=== PATIENT | male | born 1955 | race Caucasian/White ===

== ENCOUNTER 2016-12-01 11:35 | Observation (INO) | payer BC ==
[~2016-12-01] VITALS: Ht 185.4 cm; Wt 100.7 kg
[~2016-12-01 11:35] MED LIST: AMOX500C3 PO; AMOX875T PO; BUPR-102 PO; BUTA1CAP17 PO; CLON2TAB3 PO; DULO60CA44 PO; LOSA50TA6 PO; MULTTAB58 PO; TADA20TA PO
[2016-12-01] MEDS ORDERED: ONDANSETRON INJ 2 MG/ML 2 ML VIAL IV STA (11:50)
[2016-12-01] MEDS ORDERED: OPTIRAY 320 IV PRN (12:00)
[2016-12-01 12:04] LABS: BASO % 0.4 %; BASO ABS # 0.02 K/uL (0-0.2); COMPLETE YES; EOS % 4.8 %; HEMATOCRIT 42.4 % (42-52); IG% 0.2 %; LYMPH % 38.7 %; LYMPH ABS # 1.79 K/uL (1.2-3.4); MEAN CELL VOLUME 90.8 fL (80-100); MEAN CORPUSCULAR HEMOGLOBIN 32.1 pg (25-34); MEAN CORPUSCULAR HGB CONC 35.4 g/dl (32-36); MEAN PLATELET VOLUME 9.2 fL (7.4-10.4); MONO % 6.9 %; PLATELET COUNT 153 K/uL (130-400); RED BLOOD COUNT 4.67 M/uL (4.7-6.1); WHITE BLOOD COUNT 4.62 K/uL (4.8-10.8)
[2016-12-01 12:13] LABS: PARTIAL THROMBOPLASTIN RATIO 0.9; PROTHROMBIN TIME (PATIENT) 10.2 SECONDS (9.0-12.0)
[2016-12-01 12:27] LABS: BUN/CREATININE RATIO 16.2 (10-20); CALCIUM 9.4 mg/dl (8.5-10.1); CREATININE 0.84 mg/dl (0.60-1.40)
[2016-12-01 12:32] LABS: ALB/GLOB RATIO 1.3 (0.9-2); CKMB/CK RATIO 1.2 (0-3.0)
--- NOTE | 2016-12-01 12:39 | DIAGNOSTIC IMAGING REPORT ---
CHEST ONE VIEW PORTABLE CLINICAL HISTORY: Respiratory distress. Dyspnea. COMPARISON STUDY: Chest CT and chest radiograph October 28, 2016. FINDINGS: Lung volumes are normal. There is no pneumothorax or pleural effusion. Cardiac size is normal. Mediastinal contours are normal. There is no evidence of pulmonary edema. The appearance of the chest is unchanged. Incidental note is made of an anterior cervical spine fusion. IMPRESSION: No acute cardiopulmonary findings. Electronically signed by: Ronny Thomas M.D. 12/01/2016 12:37 PM
--- NOTE | 2016-12-01 12:44 | DIAGNOSTIC IMAGING REPORT ---
HEAD CT NONCONTRAST CT DOSE: 823.94 mGycm HISTORY: Altered mental status. TECHNIQUE: Multiaxial CT images of the head were performed without the use of intravenous contrast. Automated exposure control was utilized for this study. Comparison: Head CT 10/28/2016. Findings: The paranasal sinuses and mastoid air cells are clear. The calvarium and skull base are intact. The ventricles and sulci are within normal limits. There is no mass, hematoma, midline shift, or acute infarct. Impression: No acute intracranial abnormality. Electronically signed by: Avtar Malcolm M.D. 12/01/2016 12:42 PM
--- NOTE | 2016-12-01 12:55 | DIAGNOSTIC IMAGING REPORT ---
CT ANGIOGRAM OF THE CHEST CLINICAL HISTORY: Atypical chest pain. Suspected pulmonary embolism. COMPARISON STUDY: Chest CT dated 10/28/2016 TECHNIQUE: Following the IV administration of 93 mL of Optiray-320, CT angiogram of the thorax was performed from the thoracic inlet to the lung bases utilizing the pulmonary embolus protocol. Images are reviewed in the axial, sagittal, and coronal planes. IV contrast was administered without complication. MIP imaging was performed. CT DOSE: 541.09 mGycm FINDINGS: No pathologically enlarged axillary mediastinal or hilar lymph nodes were visualized. There was no evidence of thoracic aortic dilatation. There were no pulmonary artery filling defects to indicate acute pulmonary embolism. No pleural effusions are visualized. There is no lobar consolidation. There are dependent atelectatic changes. There is no pneumothorax. There is a 2 cm hypodense structure within the liver adjacent the falciform ligament. This likely represents a prominent left portal vein IMPRESSION: 1. No CT evidence of acute pulmonary embolism 2. No evidence of pathologic adenopathy 3. No evidence of focal pulmonary consolidation Electronically signed by: Tyrell Beckford M.D. 12/01/2016 12:54 PM
[2016-12-01] MEDS ORDERED: NITROGLYCERIN 0.4 MG SL PER TAB CHARGE SL STA (14:01)
[2016-12-01] MEDS ORDERED: ASPIRIN 81 MG CHEW PO STA (14:01)
--- NOTE | 2016-12-01 14:13 | EMERGENCY ROOM VISIT NOTE ---
History Report prepared by Luis: Ann Marie Burroughs Under the Supervision of: Dr. Emmett Izquierdo D.O. First contact with patient: 11:42 Chief Complaint: CHEST PAIN Stated Complaint: CHEST PAIN History of Present Illness The patient is a 61 year old male who presents to the Emergency Room with complaints of a persistent pressuring pain to his central chest over the past 2 days. Currently, he describes his pain to feel as if an elephant is sitting on his chest, and he rates his discomfort as a 5/10. Since the time of onset, the patient has felt short of breath and states that it is difficult for him to take a full breath secondary to his discomfort. Today, he also notes that has felt pain radiating down his left arm. Additionally notes nausea, and states that he feels "foggy". Patient states that he was evaluated in this ED on October 28 after he fell out of his tree stand. During his visit, he had several x-rays and scans, and was diagnosed with a concussion, left hand fracture, and multiple contusions. He denies recent cough, abdominal pain, vomiting, diarrhea, urinary symptoms or swelling to his legs.Patient states that he contacted his PCP about his symptoms today, but was then referred to the ED for further evaluation as there were concerns for a blood clot . Source of History: patient Onset: past 2 days Position: chest Symptom Intensity: 5/10 Timing: other (persistent) Associated Symptoms: + SOB, + nausea, No abdominal pain, No cough, No diarrhea, No urinary symptoms, No vomiting Note: Patient feels "foggy". Review of Systems See HPI for pertinent positives & negatives. A total of 10 systems reviewed and were otherwise negative. 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 Family History Diabetes mellitus FH: cancer Hypertension Seizures Social History Smoking Status: Current Some Day Smoker Alcohol Use: occasionally Drug Use: none Marital Status: Housing Status: lives with significant other Occupation Status: employed Current/Historical Medications Scheduled Bupropion Hcl (Smoking [place]eterre (Bupropion Hcl Sr), 150 MG PO BID Clonazepam (Klonopin), 2 MG PO HS Duloxetine Hcl (Cymbalta), 60 MG PO QAM Losartan Potassium (Cozaar), 50 MG PO QAM Multiple Vitamin (Multivitamin), 1 TAB PO QAM Tadalafil (Cialis), 20 MG PO 2XWK Scheduled PRN Vwdmxeezzi-Ihcjvtfzlfehg-Crtuz (Fioricet), 1 CAP PO Q6H PRN for Migraine Allergies Coded Allergies: Penicillins (Verified Allergy, Severe, ANAPHYLAXIS, 12/01/16) "TOLERATES AUGMENTIN/AMOXICILLIN" PER RECORDS Acetaminophen (Verified Allergy, Unknown, GENERALIZED ITCHING, 12/01/16) Sulfa Antibiotics (Unverified Allergy, Unknown, UNKNOWN REACTION, 12/01/16) PER RECORDS Physical Exam Vital Signs Date Time Temp Pulse Resp B/P Pulse Ox O2 Delivery O2 Flow Rate FiO2 12/01/16 13:38 61 16 161/103 98 Room Air 12/01/16 12:25 62 12/01/16 11:41 37.2 63 18 182/116 95 Room Air Physical Exam GENERAL: Patient is listless. Slow to respond to questioning but follows commands normally. EYES: The conjunctivae are clear. The pupils are round and reactive. EARS, NOSE, MOUTH AND THROAT: The nose is without any evidence of any deformity. Mucous membranes are moist tongue is midline NECK: The neck is nontender and supple. RESPIRATORY: Lung sounds diminished in left lung field,. Splinting respirations were noted. No rales, rhonchi or wheezing appreciated. CARDIOVASCULAR: Regular rate and rhythm noted there no murmurs rubs or gallops normal S1 normal S2 GASTROINTESTINAL: The abdomen is soft. Bowel sounds are present in all quadrants. Abdomen is nontender MUSCULOSKELETAL/EXTREMITIES: There is no evidence of gross deformity full range of motion is noted in the hips and shoulders SKIN: There is no obvious evidence of any rash. There are no petechiae, pallor or cyanosis noted. NEUROLOGIC: Patient is awake alert and oriented x3. Medical Decision & Procedures ER Provider Diagnostic Interpretation: CT results as stated below per my review and radiologist interpretation. X-ray results as stated below per interpretation by me and the radiologist. HEAD CT NONCONTRAST CT DOSE: 823.94 mGycm HISTORY: Altered mental status. TECHNIQUE: Multiaxial CT images of the head were performed without the use of intravenous contrast. Automated exposure control was utilized for this study. Comparison: Head CT 10/28/2016. Findings: The paranasal sinuses and mastoid air cells are clear. The calvarium and skull base are intact. The ventricles and sulci are within normal limits. There is no mass, hematoma, midline shift, or acute infarct. Impression: No acute intracranial abnormality. Electronically signed by: Avtar Malcolm M.D. 12/01/2016 12:[address] ANGIOGRAM OF THE CHEST CLINICAL HISTORY: Atypical chest pain. Suspected pulmonary embolism. COMPARISON STUDY: Chest CT dated 10/28/2016 TECHNIQUE: Following the IV administration of 93 mL of Optiray-320, CT angiogram of the thorax was performed from the thoracic inlet to the lung bases utilizing the pulmonary embolus protocol. Images are reviewed in the axial, sagittal, and coronal planes. IV contrast was administered without complication. MIP imaging was performed. CT DOSE: 541.09 mGycm FINDINGS: No pathologically enlarged axillary mediastinal or hilar lymph nodes were visualized. There was no evidence of thoracic aortic dilatation. There were no pulmonary artery filling defects to indicate acute pulmonary embolism. No pleural effusions are visualized. There is no lobar consolidation. There are dependent atelectatic changes. There is no pneumothorax. There is a 2 cm hypodense structure within the liver adjacent the falciform ligament. This likely represents a prominent left portal vein IMPRESSION: 1. No CT evidence of acute pulmonary embolism 2. No evidence of pathologic adenopathy 3. No evidence of focal pulmonary consolidation Electronically signed by: Tyrell Beckford M.D. 12/01/2016 12:54 PM CHEST ONE VIEW PORTABLE CLINICAL HISTORY: Respiratory distress. Dyspnea. COMPARISON STUDY: Chest CT and chest radiograph October 28, 2016. FINDINGS: Lung volumes are normal. There is no pneumothorax or pleural effusion. Cardiac size is normal. Mediastinal contours are normal. There is no evidence of pulmonary edema. The appearance of the chest is unchanged. Incidental note is made of an anterior cervical spine fusion. IMPRESSION: No acute cardiopulmonary findings. Electronically signed by: Ronny Thomas M.D. 12/01/2016 12:37 PM Laboratory Results Test 12/01/16 11:50 12/01/16 11:55 12/01/16 12:01 Immature Granulocyte % (Auto) 0.2 % White Blood Count 4.62 K/uL (4.8-10.8) Red Blood Count 4.67 M/uL (4.7-6.1) Hemoglobin 15.0 g/dL (14.0-18.0) Hematocrit 42.4 % (42-52) Mean Corpuscular Volume 90.8 fL (80-100) Mean Corpuscular Hemoglobin 32.1 pg (25-34) Mean Corpuscular Hemoglobin Concent 35.4 g/dl (32-36) Platelet Count 153 K/uL (130-400) Mean Platelet Volume 9.2 fL (7.4-10.4) Neutrophils (%) (Auto) 49.0 % Lymphocytes (%) (Auto) 38.7 % Monocytes (%) (Auto) 6.9 % Eosinophils (%) (Auto) 4.8 % Basophils (%) (Auto) 0.4 % Neutrophils # (Auto) 2.26 K/uL (1.4-6.5) Lymphocytes # (Auto) 1.79 K/uL (1.2-3.4) Monocytes # (Auto) 0.32 K/uL (0.11-0.59) Eosinophils # (Auto) 0.22 K/uL (0-0.5) Basophils # (Auto) 0.02 K/uL (0-0.2) Immature Granulocyte # (Auto) 0.01 K/uL (0.00-0.02) Prothrombin Time 10.2 SECONDS (9.0-12.0) Prothromb Time International Ratio 1.0 (0.9-1.1) Activated Partial Thromboplast Time 24.4 SECONDS (21.0-31.0) Partial Thromboplastin Ratio 0.9 D-Dimer 520 ug/L FEU (0-500) Total Bilirubin 0.4 mg/dl (0.2-1) Aspartate Amino Transf (AST/SGOT) 18 U/L (15-37) Alanine Aminotransferase (ALT/SGPT) 37 U/L (12-78) Alkaline Phosphatase 97 U/L (45-117) Total Creatine Kinase 134 U/L (39-308) Creatine Kinase MB 1.6 ng/ml (0.5-3.6) Creatine Kinase MB Ratio 1.2 (0-3.0) Total Protein 7.2 gm/dl (6.4-8.2) Albumin 4.1 gm/dl (3.4-5.0) Globulin 3.1 gm/dl (2.5-4.0) Albumin/Globulin Ratio 1.3 (0.9-2) Lyme Disease IgG Antibody NEG (NEG) Lyme Disease IgM Antibody NEG (NEG) Hepatitis C Antibody Screen NEG (NEG) Bedside Hemoglobin 15.0 g/dl (14.0-18.0) Bedside Hematocrit 44 % (42-52) Bedside Sodium 142 mEq/L (135-144) Bedside Potassium 4.1 mEq/L (3.3-5.0) Bedside Chloride 102 mEq/L (101-112) Bedside Total CO2 25 mEq/l (24-31) Bedside Blood Urea Nitrogen 15 mg/dl (7-18) Bedside Creatinine 0.8 mg/dl (0.6-1.3) Bedside Glucose (other) 101 mg/dl (70-99) Bedside Ionized Calcium (Jud) 1.30 mmol/l (1.12-1.32) Bedside Glucose 92 mg/dl (70-99) Laboratory results per my review. Medications Administered Medications (Trade) Dose Ordered Sig/Kishore Route Start Time Stop Time Status Last Admin Dose Admin Ondansetron HCl (Zofran Inj) 4 mg NOW STAT IV 12/01/16 11:50 12/01/16 11:53 DC 12/01/16 13:47 4 MG Aspirin (Aspirin Chew) 324 mg NOW STAT PO 12/01/16 14:01 12/01/16 14:02 DC 12/01/16 15:51 324 MG Nitroglycerin (Nitrostat Tab) 0.4 mg UD PRN SL 12/01/16 14:15 12/31/16 14:14 12/01/16 21:17 0.4 MG ECG Indication: chest pain Rate (beats per minute): 63 Rhythm: normal sinus Findings: RBBB (incomplete), no ectopy Change: no significant change (when compared to EKG from 10/28/16.) ED Course 1142: The patient was evaluated in room A9. A complete history and physical examination were performed. 1150: Zofran 4 mg IV was ordered. 1300: Patient was reevaluated at this time and appeared to be doing well. Lab tests are pending. 1401: I reevaluated the patient at this time and he was feeling better. I discussed the results of his radiology reports and lab tests with him. Nitroglycerin 0.4 mg SL and Aspirin 324 mg PO were ordered. The hospitalist will be contacted. 1408: After discussion with Dr. Sher, the patient will continue to be evaluated by the [facility] [place] for further management. The patient verbalize his understanding and agreement with this treatment plan. Medical Decision Differential diagnosis: Etiologies such as cardiac ischemia, aortic dissection, pulmonary embolism, pneumonia, pneumothorax, musculoskeletal, infections, pericarditis, myocarditis , esophageal rupture, gastrointestinal, as well as others were entertained. Nursing notes reviewed. The patient's previous electronic medical records reviewed. The patient is a 61-year-old male who presented to the emergency department for evaluation of chest pain. The patient was seen by his primary care physician and sent to the emergency department for a workup which included laboratory studies as well as CT the chest. He was complaining of left-sided chest pain but also had fullness under his left axilla. He did have tenderness under his left axilla but no apparent cause for this pain was found on physical exam or on CT the chest. The patient's CT the chest did not show any signs of venous thrombotic embolic disease. The patient was treated with aspirin as well as Zofran and nitroglycerin. On subsequent reevaluation he was somewhat improved. He also had some degree of altered mental status when he first arrived at the emergency department but this improved while he was in the emergency department as well. I discussed the patient's laboratory radiographic studies with him. I also discussed the limitations of the emergency department workup for chest pain with him. I discussed his case with the on-call [facility] hospitalist group. They've agreed to evaluate the patient in emergency apartment for further management and disposition. Consults Time Called: 1400 Consulting Physician: Dr. Sher - [facility] Returned Call: 1408 Discussed the patient's case. He will continue to be evaluated by the [facility] hospitalist for further management. Impression Primary Impression: Precordial chest pain Additional Impression: Altered mental status Scribe Attestation The scribe's documentation has been prepared under my direction and personally reviewed by me in its entirety. I confirm that the note above accurately reflects all work, treatment, procedures, and medical decision making performed by me. Departure Information Dispostion Being Evaluated By Hospitalist Referrals Mike Quan Jr, D.O. (PCP)
[2016-12-01] MEDS ORDERED: ONDANSETRON INJ 2 MG/ML 2 ML VIAL IV PRN (14:15)
[2016-12-01] MEDS ORDERED: METOPROLOL TARTRATE 1 MG/ML VIAL IV PRN (14:45)
[2016-12-01] MEDS ORDERED: GI COCKTAIL PO ONE (14:45)
--- NOTE | 2016-12-01 14:59 | History and Physical ---
History & Physical Date & Time of Service: Dec 01, 2016 at 14:43 Chief Complaint: Chest Pain Primary Care Physician: Mike Quan Jr,D.O. History of Present Illness Source: patient, partner This is a 61 yo m that is presenting to us with chest pain for two days. He states that he started to suffer from a 5/10 pressure like chest pain in his sternum that faintly radiates to the back. He states that it has been a rather constant pain and will occasionally become a sharp 8/10 pain. No aggravating or alleviating factors that he was able to think of. He received NTG in the ED with no improvement, It is associated with some mild nausea but no diaphoresis or syncope. He contacted his PCP and because of concern for PE the patient was sent to ED for further evaluation. He has no significant cardiac history and is a non smoker of cigarettes but will have a very occasional cigar. He has HTN that is usually well controlled. No known history of GERD He does note that he had a sensation of "fogginess" for the past two days as well. He denies any numbness/ tingling of limbs but has been having a recurring headache. He was recently in an accident on Oct 28 where he fell out of a tree stand and these headaches have occurred since. He was evaluated in ED at that time and was diagnosed with a concussion. He does reaves on a regular basis and has had tick bites but has never been tested. When discussed doxycycline he notes that he is on it chronically for acne. 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 (13) Spinal stenosis Status: Chronic (14) Superficial thrombophlebitis Status: Resolved (15) 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 Family History Diabetes mellitus FH: cancer Hypertension Seizures Social History Smoking Status: Current Some Day Smoker Smokeless Tobacco Use: No Alcohol Use: occasionally Drug Use: none Marital Status: Housing status: lives with family Occupational Status: retired Immunizations History of Influenza Vaccine: No History of Tetanus Vaccine?: YES, WITHIN LAST 6 MTHS Tetanus Immunization Date: Jan 28, 2002 History of Pneumococcal: Unknown History of Hepatitis B Vaccine: Unknown Multi-Drug Resistant Organisms History of MDRO: No Allergies Coded Allergies: Penicillins (Verified Allergy, Severe, ANAPHYLAXIS, 12/01/16) "TOLERATES AUGMENTIN/AMOXICILLIN" PER RECORDS Acetaminophen (Verified Allergy, Unknown, GENERALIZED ITCHING, 12/01/16) Sulfa Antibiotics (Unverified Allergy, Unknown, UNKNOWN REACTION, 12/01/16) PER RECORDS Home Medications Scheduled Bupropion Hcl (Smoking Deterre (Bupropion Hcl Sr), 150 MG PO BID Clonazepam (Klonopin), 2 MG PO HS Duloxetine Hcl (Cymbalta), 60 MG PO QAM Losartan Potassium (Cozaar), 50 MG PO QAM Multiple Vitamin (Multivitamin), 1 TAB PO QAM Tadalafil (Cialis), 20 MG PO 2XWK Scheduled PRN Podjvlqmgv-Qjscnjstgjpxa-Rbysg (Fioricet), 1 CAP PO Q6H PRN for Migraine Review of Systems Constitutional: No fever Eyes: No worsening of vision ENT: No hearing loss Respiratory: No cough, No dyspnea at rest, No dyspnea on exertion, No shortness of breath, No sputum, No wheezing Cardiovascular: + chest pain Abdomen: No nausea, No pain, No vomiting Musculoskeletal: No joint pain, No muscle pain Neurologic: No memory loss, No numbness/tingling Psychiatric: No depression symptoms Endocrine: No fatigue Integumentary: No rash Physical Exam Vital Signs Date Time Temp Pulse Resp B/P Pulse Ox O2 Delivery O2 Flow Rate FiO2 12/01/16 14:37 63 16 157/104 96 Room Air 12/01/16 13:38 61 16 161/103 98 Room Air 12/01/16 12:25 62 12/01/16 11:41 37.2 63 18 182/116 95 Room Air General Appearance: WD/WN, no apparent distress Head: normocephalic, atraumatic Eyes: normal inspection ENT: normal ENT inspection Neck: supple Respiratory/Chest: lungs clear, normal breath sounds, no respiratory distress, no accessory muscle use, + decreased breath sounds (bases) Cardiovascular: regular rate, rhythm, no murmur Abdomen/GI: normal bowel sounds, non tender, soft Back: normal inspection, no CVA tenderness Extremities/Musculoskelatal: normal inspection, no calf tenderness, no pedal edema, + pertinent finding (brace on left wrist) Neurologic/Psych: alert, normal mood/affect, oriented x 3 Skin: normal color, warm/dry, no rash Lymphatic: no adenopathy Diagnostics Laboratory Results Results Past 24 Hours Test 12/01/16 11:50 12/01/16 12:01 Range/Units White Blood Count 4.62 4.8-10.8 K/uL Red Blood Count 4.67 4.7-6.1 M/uL Hemoglobin 15.0 14.0-18.0 g/dL Hematocrit 42.4 42-52 % Mean Corpuscular Volume 90.8 80-100 fL Mean Corpuscular Hemoglobin 32.1 25-34 pg Mean Corpuscular Hemoglobin Concent 35.4 32-36 g/dl Platelet Count 153 130-400 K/uL Mean Platelet Volume 9.2 7.4-10.4 fL Neutrophils (%) (Auto) 49.0 % Lymphocytes (%) (Auto) 38.7 % Monocytes (%) (Auto) 6.9 % Eosinophils (%) (Auto) 4.8 % Basophils (%) (Auto) 0.4 % Neutrophils # (Auto) 2.26 1.4-6.5 K/uL Lymphocytes # (Auto) 1.79 1.2-3.4 K/uL Monocytes # (Auto) 0.32 0.11-0.59 K/uL Eosinophils # (Auto) 0.22 0-0.5 K/uL Basophils # (Auto) 0.02 0-0.2 K/uL RDW Standard Deviation 43.6 36.4-46.3 fL RDW Coefficient of Variation 13.3 11.5-14.5 % Immature Granulocyte % (Auto) 0.2 % Immature Granulocyte # (Auto) 0.01 0.00-0.02 K/uL Prothrombin Time 10.2 9.0-12.0 SECONDS Prothromb Time International Ratio 1.0 0.9-1.1 Activated Partial Thromboplast Time 24.4 21.0-31.0 SECONDS Partial Thromboplastin Ratio 0.9 D-Dimer 520 0-500 ug/L FEU Sodium Level 141 136-145 mmol/L Potassium Level 4.0 3.5-5.1 mmol/L Chloride Level 106 98-107 mmol/L Carbon Dioxide Level 27 21-32 mmol/L Anion Gap 8.0 3-11 mmol/L Blood Urea Nitrogen 14 7-18 mg/dl Creatinine 0.84 0.60-1.40 mg/dl Est Creatinine Clear Calc Drug Dose 114.5 ml/min Estimated GFR () 108.0 Estimated GFR (Non- 93.2 BUN/Creatinine Ratio 16.2 10-20 Random Glucose 97 70-99 mg/dl Calcium Level 9.4 8.5-10.1 mg/dl Total Bilirubin 0.4 0.2-1 mg/dl Aspartate Amino Transf (AST/SGOT) 18 15-37 U/L Alanine Aminotransferase (ALT/SGPT) 37 12-78 U/L Alkaline Phosphatase 97 45-117 U/L Total Creatine Kinase 134 39-308 U/L Creatine Kinase MB 1.6 0.5-3.6 ng/ml Creatine Kinase MB Ratio 1.2 0-3.0 Troponin I < 0.015 0-0.045 ng/ml Total Protein 7.2 6.4-8.2 gm/dl Albumin 4.1 3.4-5.0 gm/dl Globulin 3.1 2.5-4.0 gm/dl Albumin/Globulin Ratio 1.3 0.9-2 Bedside Glucose 92 70-99 mg/dl Diagnostic Radiology CT ANGIOGRAM OF THE CHEST CLINICAL HISTORY: Atypical chest pain. Suspected pulmonary embolism. COMPARISON STUDY: Chest CT dated 10/28/2016 TECHNIQUE: Following the IV administration of 93 mL of Optiray-320, CT angiogram of the thorax was performed from the thoracic inlet to the lung bases utilizing the pulmonary embolus protocol. Images are reviewed in the axial, sagittal, and coronal planes. IV contrast was administered without complication. MIP imaging was performed. CT DOSE: 541.09 mGycm FINDINGS: No pathologically enlarged axillary mediastinal or hilar lymph nodes were visualized. There was no evidence of thoracic aortic dilatation. There were no pulmonary artery filling defects to indicate acute pulmonary embolism. No pleural effusions are visualized. There is no lobar consolidation. There are dependent atelectatic changes. There is no pneumothorax. There is a 2 cm hypodense structure within the liver adjacent the falciform ligament. This likely represents a prominent left portal vein IMPRESSION: 1. No CT evidence of acute pulmonary embolism 2. No evidence of pathologic adenopathy 3. No evidence of focal pulmonary consolidation CHEST ONE VIEW PORTABLE CLINICAL HISTORY: Respiratory distress. Dyspnea. COMPARISON STUDY: Chest CT and chest radiograph October 28, 2016. FINDINGS: Lung volumes are normal. There is no pneumothorax or pleural effusion. Cardiac size is normal. Mediastinal contours are normal. There is no evidence of pulmonary edema. The appearance of the chest is unchanged. Incidental note is made of an anterior cervical spine fusion. IMPRESSION: No acute cardiopulmonary findings. HEAD CT NONCONTRAST CT DOSE: 823.94 mGycm HISTORY: Altered mental status. TECHNIQUE: Multiaxial CT images of the head were performed without the use of intravenous contrast. Automated exposure control was utilized for this study. Comparison: Head CT 10/28/2016. Findings: The paranasal sinuses and mastoid air cells are clear. The calvarium and skull base are intact. The ventricles and sulci are within normal limits. There is no mass, hematoma, midline shift, or acute infarct. Impression: No acute intracranial abnormality. EKG NSR, no ectopic best or ischemic changes bpm 63 qtc 425 Impression Assessment and Plan This is a 61 yo m that is suffering from chest pain of an unknown origin. There is some concern that this chest pain may be cardiac in origin so the patient will be admitted for chest pain r/o Chest pain NYD - potential cardiac origin - Tele admission - Troponin x 3 - Stress test in am and NPO after midnight- states can use treadmil - ASA 324 given in ED - Lyme testing considering his frequent tick bites however unlikely considering chronic use of doxy - Trial a GI cocktail to see if it improves the patient pain - Previous echo: - april 2012 - EF 55-60%, LA mild dil, otherwise WNL HTN - continue home medication - metoprolol 5 mg for sys > 180 - consider manipulation of home medication is continues to remain elevated however based on patient on his current regimen he is normally 120-130 systolic Concussion - most likely cause of ongoing "fogginess" - reorient patient prn Depression/ Anxiety - continue home medication DVT Prophylaxis - enoxaparin FULL CODE Hyun - [phone] Resident Physician Supervision Note: I interviewed and examined the patient. Discussed with Dr. Brie Brunson and agree with findings and plan as documented in the note. Any exceptions or clarifications are listed here: None Pt with atypical chest pain and shortness of breath for 2 days, did unfortunately have a fall one month ago with musculoskeletal body aches and concussion also. States pain started at rest along with shortness of breath, notices some exercise intolerance. had some lightedness in triage but has had intermittently since fall. no additional symptoms and initial workup is negative vitals are stable as well as labs CTA and ECG car is regular, cannot reproduce pain lungs are clear has painful left axilla that seems to be a deep muscle Will have observed to eval rhythm and if no significant issues complete stress in am Documented By: Satnam Sher Level of Care Telemetry Resuscitation Status FULL RESUSCITATION VTE Prophylaxis VTE Risk Assessment Done? Y/N: Yes Risk Level: Moderate Given or contraindicated: Enoxaparin (Lovenox)SQ Social Service Consult None Apply Note Total Time: Critical Care 30 - 74 minutes Additional Copies To Mike Quan Jr,D.O.
[2016-12-01] MEDS ORDERED: IV FLUIDS COMPLETED PRN (15:30)
[2016-12-01] MEDS ORDERED: ALUMINUM PO ONE ×2 (16:00)
[2016-12-01] MEDS ORDERED: [UNRECOGNIZED DRUG - OTHER] PO ONE ×2 (16:00)
[2016-12-01] MEDS ORDERED: VISCOUS PO ONE ×2 (16:00)
[2016-12-01] MEDS ORDERED: LIDOCAINE HCL PO ONE ×2 (16:00)
[2016-12-01] MEDS ORDERED: MAGNESIUM PO ONE ×2 (16:00)
[2016-12-01 16:18] LABS: ISTAT CREATININE 0.8 mg/dl (0.6-1.3); ISTAT IONIZED CALCIUM 1.3 mmol/l (1.12-1.32)
[2016-12-01 16:32] LABS: LYME DISEASE AB IGG NEG (NEG); LYME DISEASE AB IGM NEG (NEG)
[2016-12-01 16:36] VITALS: O2SAT 96; Ht 185.4 cm; Wt 100.7 kg
[2016-12-01] MEDS ORDERED: ALUMINUM/MAGNESIUM SUSP 30 ML UDC ONE (16:50)
[2016-12-01] MEDS ORDERED: LIDOCAINE HCL 2% VISC SOLN 20 ML UDC ONE (16:51)
[2016-12-01] MEDS: NITROGLYCERIN 0.4 MG SL PER TAB CHARGE SL PRN ×3 (20:33→21:17)
[2016-12-01] MEDS ORDERED: CLONAZEPAM 0.5 MG TAB PO SCH (21:00)
[2016-12-01] MEDS: DOXYCYCLINE HYCLATE 100 MG CAP PO SCH (21:10)
[2016-12-01] MEDS: BuPROPion SR 150 MG TABCR PO SCH (21:10)
[2016-12-01 21:25] VITALS: BP 124/77; PULSE 56; TEMP 37.1; O2SAT 97
[2016-12-01 22:10] VITALS: O2SAT 96
[2016-12-01] MEDS ORDERED: MoRPHine SULFATE 2 MG/ML CARP IV PRN (22:30)
[2016-12-01 23:51] VITALS: BP 123/75; PULSE 54; TEMP 36.5; O2SAT 96
[2016-12-02 03:48] VITALS: BP 120/76; PULSE 53; TEMP 36.7; O2SAT 96
[2016-12-02 04:43] LABS: HEMATOCRIT 40.2 % (42-52); MEAN CELL VOLUME 91.2 fL (80-100); MEAN CORPUSCULAR HEMOGLOBIN 31.7 pg (25-34); MEAN CORPUSCULAR HGB CONC 34.8 g/dl (32-36); PLATELET COUNT 142 K/uL (130-400); RED BLOOD COUNT 4.41 M/uL (4.7-6.1); WHITE BLOOD COUNT 3.91 K/uL (4.8-10.8)
[2016-12-02 05:01] LABS: BLOOD UREA NITROGEN 14 mg/dl (7-18); BUN/CREATININE RATIO 18.1 (10-20); CARBON DIOXIDE 29 mmol/L (21-32); CHLORIDE 107 mmol/L (98-107); CREATININE 0.79 mg/dl (0.60-1.40); GLUCOSE 95 mg/dl (70-99); SODIUM 143 mmol/L (136-145)
[2016-12-02 08:14] VITALS: BP 133/81; PULSE 58; TEMP 36.7; O2SAT 97
[2016-12-02] MEDS: BuPROPion SR 150 MG TABCR PO SCH (08:54)
[2016-12-02] MEDS: DOXYCYCLINE HYCLATE 100 MG CAP PO SCH (08:54)
[2016-12-02] MEDS ORDERED: LOSARTAN POTASSIUM 50 MG TAB PO SCH (09:00)
[2016-12-02] MEDS ORDERED: MULTIVITAMIN TAB PO SCH (09:00)
[2016-12-02] MEDS ORDERED: DULOXETINE HCL 60 MG CAP PO SCH (09:00)
[2016-12-02] MEDS ORDERED: ENOXAPARIN 40 MG/0.4 ML SYR SC SCH (09:00)
[2016-12-02 11:07] VITALS: BP 144/89; PULSE 57; TEMP 36.7; O2SAT 98
[2016-12-02 15:53] VITALS: BP 137/79; PULSE 64; TEMP 37.5; O2SAT 96
--- NOTE | 2016-12-02 16:46 | EXERCISE STRESS ECHO ---
*NOTICE TO RECEIVING CONSTITUTION PARTY AGENCY This information is strictly Confidential and protected under [place] law. [place] law prohibits you from making any further disclosure of this information unless further disclosure is expressly permitted by the written consent of the person to whom it pertains or is authorized by law. A general authorization for the release of medical or other information is not sufficient for this purpose. Hospital accepts no responsibility if the information is made available to any other person, INCLUDING THE PATIENT. Interpretation Summary * Name: COBY TORRES Study Date: 12/02/2016 11:05 AM BP: 146/85 mmHg * Patient Location: S234 HR: 57 * : 1955 (M/d/yyyy) Gender: Male Height: 73 in * Age: 61 yrs Ethnicity: [place] Weight: 231 lb * Ordering Physician: Brie Lim * Referring Physician: Mike Quan D.O. * Performed By: Catrachito Manrique RCS * * Reason For Study: CHEST PAIN * BSA: 2.3 m2 * -- Conclusions -- * 1. Negative exercise stress echo for ischemia at 92% MPHR. * 2. Negative exercise ECG for ischemia or arrhythmia. * 3. Above average functional capacity. Exercised 9:00 min, achieved 10.4 METS. * 4. Normal resting LV size and function. Normal RV size and function. No significant valvular abnormalities. * 5. Compared with prior resting images from 05/03/2012: No significant change. Procedure Details * ECHOEX, CPT #[id number] * ECHO COLOR FLOW, CPT #[id number] * ECHO DOPPLER, CPT #[id number] Left Ventricle * The left ventricle is grossly normal size. * There is borderline concentric left ventricular hypertrophy. * Ejection Fraction = 60-65%. * The left ventricular wall motion is normal at rest. * The left ventricular ejection fraction increases normally with stress. The left ventricular end-systolic cavity size reduces post-stress (normal response). The left ventricular wall motion with stress is normal. Right Ventricle * The right ventricle is grossly normal size. * The right ventricular systolic function is normal as assessed by tricuspid annular plane systolic excursion (TAPSE) (normal >1.5 cm). Atria * The left atrial size is normal. * Right atrial size is normal. * No ASD detected; PFO is not assessed. Mitral Valve * The mitral valve is grossly normal. * The mitral valve leaflets appear thickened, but open well. * There is no mitral valve stenosis. * There is trace mitral regurgitation. Tricuspid Valve * The tricuspid valve is not well visualized, but is grossly normal. * There is no tricuspid stenosis. * Significant tricuspid regurgitation is absent. Aortic Valve * The aortic valve opens well. * The aortic valve is tricuspid. The leaflet thickness if normal. There is no aortic stenosis, and no significant insufficiency. * No hemodynamically significant valvular aortic stenosis. * There is no significant aortic regurgitation. Pulmonic Valve * The pulmonic valve is not well visualized. * Trace pulmonic valvular regurgitation. Great Vessels * The aortic root and proximal ascending aorta are normal sized. Pericardium * There is no pericardial effusion. Stress Parameters * Normal baseline electrocardiogram. * Incomplete RBBB * Stress ECG: No ST changes. No arrhythmias. * No arrhythmia were noted with stress. * Rest heart rate was '57' BPM. * Rest blood pressure was '146/85' * Maximum heart rate achieved was 146 bpm. * Maximum heart rate was 92 % of maximum age-predicted heart rate. * Maximum blood pressure was '194/93' * Total exercise time was '9:00' * Maximum exercise MET level achieved was '10.4' METS * Maximum treadmill speed was '304' miles per hour. * Maximum treadmill elevation was '14'% grade. * Exercise was terminated due to 'fatigue' * The patient exhibited a hypertensive response with stress. MMode 2D Measurements and Calculations IVSd 1.1 cm IVSs 1.4 cm LVIDd 5.0 cm LVIDs 3.3 cm LVPWd 1.0 cm LVPWs 1.4 cm IVS/LVPW 1.1 FS 33.7 % EDV(Teich) 120.0 ml ESV(Teich) 45.3 ml EF(Teich) 62.2 % EDV(cubed) 127.4 ml ESV(cubed) 37.2 ml EF(cubed) 70.8 % % IVS thick 21.8 % % LVPW thick 33.0 % LV mass(C)d 203.8 grams LV mass(C)dI 89.1 grams/m\S\2 LV mass(C)s 156.9 grams LV mass(C)sI 68.6 grams/m\S\2 CO(Teich) 4.3 l/min CI(Teich) 1.9 l/min/m\S\2 SV(Teich) 74.6 ml SI(Teich) 32.6 ml/m\S\2 CO(cubed) 5.2 l/min CI(cubed) 2.3 l/min/m\S\2 SV(cubed) 90.2 ml SI(cubed) 39.4 ml/m\S\2 Ao root diam 3.5 cm Ao root area 9.8 cm\S\2 ACS 1.9 cm LA dimension 4.0 cm LA/Ao 1.1 LVAd ap4 39.3 cm\S\2 LVLd ap4 9.6 cm EDV(MOD-sp4) 132.0 ml LVAs ap4 19.0 cm\S\2 LVLs ap4 7.5 cm ESV(MOD-sp4) 42.0 ml EF(MOD-sp4) 68.2 % LVAd ap2 35.9 cm\S\2 LVLd ap2 9.3 cm EDV(MOD-sp2) 118.0 ml LVAs ap2 18.4 cm\S\2 LVLs ap2 8.1 cm ESV(MOD-sp2) 36.0 ml EF(MOD-sp2) 69.5 % CO(MOD-sp4) 5.2 l/min CI(MOD-sp4) 2.3 l/min/m\S\2 SV(MOD-sp4) 90.0 ml SI(MOD-sp4) 39.3 ml/m\S\2 CO(MOD-sp2) 4.8 l/min CI(MOD-sp2) 2.1 l/min/m\S\2 SV(MOD-sp2) 82.0 ml SI(MOD-sp2) 35.8 ml/m\S\2 Doppler Measurements and Calculations MV E max mickey 49.4 cm/sec MV A max mickey 83.9 cm/sec MV E/A 0.59 MV P1/2t max mickey 55.0 cm/sec MV P1/2t 144.0 msec MVA(P1/2t) 1.5 cm\S\2 MV dec slope 111.9 cm/sec\S\2 MV dec time 0.40 sec Ao V2 max 115.5 cm/sec Ao max PG 5.3 mmHg Ao max PG (full) 1.2 mmHg LV V1 max PG 4.1 mmHg LV V1 max 101.5 cm/sec PA V2 max 74.7 cm/sec PA max PG 2.2 mmHg PI max mickey 184.6 cm/sec PI max PG 13.6 mmHg PI dec slope 144.6 cm/sec\S\2 PI P1/2t 374.0 msec
[2016-12-02] MEDS ORDERED: PANT40TA PO (17:02)
--- NOTE | 2016-12-02 17:22 | Discharge Instructions ---
Discharge Instructions Admission Reason for Admission: Chest Pain Discharge Discharge Diagnosis / Problem: Chest [id number] Discharge Goals Goal(s): Improve disease control, Therapeutic intervention Activity Recommendations Activity Limitations: as noted below Exercise/Sports Limitations: gradually increase as tolerated (except with your concussion you should be seen by a concussion specialist or Neurologist and referred to a Concussion Rehab program) . Instructions / Follow-Up Instructions / Follow-Up You were admitted for chest pain. Your cardiac testing showed you did not have a heart attack and you had a normal stress test. You had a CT of your chest which was negative for a blood clot in the lungs, and did not show any other abnormalities in the chest. Because you have been taking Aleve for your hand and armpit pain, this chest pain may be related to irritation of the stomach and esophagus. You should avoid taking all NSAIDs (Aleve, ibuprofen, naproxen, Motrin, etc.), and also stop taking your doxycycline temporarily. You should start taking Protonix once daily and call Dr. Fitzpatrick/GI for an appointment. You should also follow up with Dr. Quan within 1 week. Current Hospital Diet Patient's current hospital diet: AHA Diet (Heart Healthy) Discharge Diet Recommended Diet: AHA Diet (Heart Healthy) Procedures Procedures Performed: CT head CT angiogram chest Chest xray Stress ECHO Pending Studies Studies pending at discharge: no Medical Emergencies . Who to Call and When: Medical Emergencies: If at any time you feel your situation is an emergency, please call 911 immediately. . Non-Emergent Contact Non-Emergency issues call your: Primary Care Provider, Weatherization Specialist Call Non-Emergent contact if: temperature is above 101, your pain is not controlled, your pain is worsening, your pain is unusual for you, your pain is concerning you, you have any medication questions . . "Provider Documentation" section prepared by Cindy Black. VTE Core Measure Inpt VTE Proph given/why not?: Enoxaparin (Lovenox)SQ
[2016-12-02 17:56] VITALS: BP 137/79; PULSE 64; TEMP 37.5; O2SAT 96
[2016-12-02] MEDS ORDERED: FAMOTIDINE IV INJ 20 MG in DEXTROSE 5% 100ML 100 ML IV SCH (18:00)
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
[2017-07-20] MEDS ORDERED: IBUP-1459 PO (13:24)
[2017-07-29] MEDS ORDERED: DOXY100T PO (11:27)
[2017-07-29] MEDS ORDERED: CIPR-255 PO (11:27)
[2017-08-05] MEDS ORDERED: RXC5 PO (14:53)
== END 2016-12-02 18:45 | disposition home or self-care (01) ==
LOC: ENRESERVDT → ENRESERVTM → C.EDB 11:37 → C.EDINP 14:15 → EDBEDREQ 16:16 → C.2T 21:31
PROVIDERS: ADMIT Internal Medicine; ATTEND Family Medicine
DX: R07.89 Other chest pain (principal); R41.82 Altered mental status, unspecified; F32.9 Major depressive disorder, single episode, unspecified; I10 Essential (primary) hypertension; M54.12 Radiculopathy, cervical region; F17.200 Nicotine dependence, unspecified, uncomplicated; D80.4 Selective deficiency of immunoglobulin M [IgM]; Z88.0 Allergy status to penicillin; Z88.2 Allergy status to sulfonamides; Z85.46 Personal history of malignant neoplasm of prostate; Z86.72 Personal history of thrombophlebitis; Z86.718 Personal history of other venous thrombosis and embolism; Z83.3 Family history of diabetes mellitus; Z82.49 Family history of ischemic heart disease and other diseases of the circulatory system

== ENCOUNTER → 2016-12-17 | Outpatient (CLI) | payer BC ==
[~2016-12-17] MED LIST changes: -AMOX500C3 PO; -AMOX875T PO; +CIPR-255 PO; +DOXY100T PO; +IBUP-1459 PO; +ONDA4TAB10 SL; +PANT40TA PO; +RXC5 PO
--- NOTE | 2016-12-17 12:16 | DIAGNOSTIC IMAGING REPORT ---
ULTRASOUND LEFT UPPER EXTREMITY VENOUS CLINICAL HISTORY: Left arm pain. COMPARISON STUDY: CT scan of the left upper extremity dated 11/10/2016. Left upper extremity venous ultrasound dated 11/10/2016. TECHNIQUE: Real-time, grayscale, and color Doppler sonography of the deep veins of the left upper extremity is performed. Compression and augmentation were utilized. FINDINGS: There is no sonographic evidence of deep venous thrombosis identified in the left upper extremity. The left internal jugular, axillary, and brachial veins are patent and normally compressible. Normal venous waveforms and augmentation are seen within the left subclavian vein. The cephalic and basilic veins are clear. The visualized radial and ulnar veins are patent. IMPRESSION: There is no sonographic evidence of deep venous thrombosis identified in the left upper extremity. Electronically signed by: Lonnie Landon M.D. 12/17/2016 12:14 PM Dictated Date/Time: 12/17/2016 12:13 PM
== END | disposition home or self-care (01) ==
LOC: C.ULTRBC 11:34
DX: M79.602 Pain in left arm (principal); Z86.718 Personal history of other venous thrombosis and embolism

== ENCOUNTER → 2017-02-25 | Outpatient (CLI) | payer BC ==
[~2017-02-25] MED LIST changes: -PANT40TA PO
--- NOTE | 2017-02-25 16:33 | DIAGNOSTIC IMAGING REPORT ---
MRI THE LEFT ELBOW NO CONTRAST CLINICAL HISTORY: Left elbow pain status post trauma COMPARISON STUDY: No previous studies for comparison. FINDINGS: Imaging was performed in the axial, sagittal, and coronal planes. There are no areas of marrow replacement to indicate occult fracture or bone bruise. There is no evidence of subluxation. There are no areas of muscle edema to indicate intramuscular tear or hematoma. The collateral ligaments appear intact. There is minimal edema within the common extensor, and common flexor tendon insertions. There is a 4 mm focus of increased T2 signal within the subcutaneous fat laterally. While nonspecific given history of trauma this may represent a tiny focus of fat necrosis. IMPRESSION: 1. No evidence of occult fracture or dislocation 2. No evidence of collateral ligament rupture 3. No evidence of muscle tear or strain 4. 4 mm focus of increased T2 signal within the subcutaneous fat laterally. While nonspecific, given the history of trauma this may represent a tiny focus of fat necrosis 5. Minimal edema within the common extensor and common flexor tendon insertions. This may be a chronic finding. Electronically signed by: Tyrell Beckford M.D. 02/25/2017 4:31 PM Dictated Date/Time: 02/25/2017 4:24 PM
== END | disposition home or self-care (01) ==
LOC: C.MRIBC 15:17
PROVIDERS: ATTEND Orthopaedic Surgery
DX: M25.522 Pain in left elbow (principal); R22.32 Localized swelling, mass and lump, left upper limb

== ENCOUNTER 2017-04-19 10:24 | Emergency (ER) | payer BC ==
[~2017-04-19] VITALS: Ht 185.4 cm; Wt 108.0 kg
[~2017-04-19 10:24] MED LIST changes: -CIPR-255 PO; -DOXY100T PO; -IBUP-1459 PO; -ONDA4TAB10 SL; -RXC5 PO
[2017-04-19 10:35] VITALS: O2SAT 95
[2017-04-19 10:36] VITALS: TEMP 37; Ht 185.4 cm; Wt 108.0 kg
[2017-04-19] MEDS ORDERED: MoRPHine SULFATE 10 MG/ML CARP/VIAL IV STA (10:46)
[2017-04-19] MEDS ORDERED: ONDANSETRON INJ 2 MG/ML 2 ML VIAL IV STA (10:46)
[2017-04-19 10:59] LABS: BASO % 0.5 %; BASO ABS # 0.02 K/uL (0-0.2); COMPLETE YES; EOS % 2.6 %; HEMATOCRIT 41.6 % (42-52); IG% 0.2 %; LYMPH % 35.2 %; LYMPH ABS # 1.51 K/uL (1.2-3.4); MEAN CELL VOLUME 94.1 fL (80-100); MEAN CORPUSCULAR HEMOGLOBIN 32.4 pg (25-34); MEAN CORPUSCULAR HGB CONC 34.4 g/dl (32-36); MONO % 6.5 %; PLATELET COUNT 178 K/uL (130-400); RED BLOOD COUNT 4.42 M/uL (4.7-6.1); WHITE BLOOD COUNT 4.29 K/uL (4.8-10.8)
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
[2017-04-19 11:21] LABS: ALT/SGPT 36 U/L (12-78); AST/SGOT 21 U/L (15-37); BLOOD UREA NITROGEN 16 mg/dl (7-18); BUN/CREATININE RATIO 14.4 (10-20); CALCIUM 8.8 mg/dl (8.5-10.1); CARBON DIOXIDE 27 mmol/L (21-32); CHLORIDE 111 mmol/L (98-107); GLUCOSE 104 mg/dl (70-99); POTASSIUM 4.4 mmol/L (3.5-5.1); SODIUM 143 mmol/L (136-145)
[2017-04-19 11:26] LABS: ALKALINE PHOSPHATASE 76 U/L (45-117)
--- NOTE | 2017-04-19 11:27 | DIAGNOSTIC IMAGING REPORT ---
CHEST 2 VIEWS ROUTINE CLINICAL HISTORY: Chest pain. Vomiting. COMPARISON STUDY: Chest radiograph and chest CT December 01, 2016. FINDINGS: An anterior cervical spine fusion is incidentally noted. Lung volumes are normal. There is no pneumothorax or pleural effusion. There is no consolidation to suggest pneumonia. Cardiomediastinal silhouette is within normal limits. IMPRESSION: No acute cardiopulmonary findings. Electronically signed by: Ronny Thomas M.D. 04/19/2017 11:26 AM Dictated Date/Time: 04/19/2017 11:23 AM
[2017-04-19] MEDS ORDERED: HYDROmorphone INJ 1 MG/ML SYR IV STA (11:51)
[2017-04-19] MEDS ORDERED: PROMETHAZINE HCL INJ 25 MG in SODIUM CHLORIDE 0.9% 50ML 50 ML IV STA (13:00)
[2017-04-19] MEDS ORDERED: ONDA4TAB10 SL (13:03)
[2017-04-19 14:01] VITALS: BP 154/98; PULSE 66; O2SAT 99
--- NOTE | 2017-05-07 16:27 | EMERGENCY ROOM VISIT NOTE ---
ED Visit Note First contact with patient: 10:28 Resident Physician Supervision Note: I interviewed and examined the patient. Discussed with Dr. Campos and agree with findings and plan as documented in the note. Documented By: Aravind Orta
[2017-07-20] MEDS ORDERED: IBUP-1459 PO (13:24)
[2017-07-29] MEDS ORDERED: DOXY100T PO (11:27)
[2017-07-29] MEDS ORDERED: CIPR-255 PO (11:27)
[2017-08-05] MEDS ORDERED: RXC5 PO (14:53)
== END 2017-04-19 14:08 | disposition home or self-care (01) ==
LOC: C.EDB 10:27 → C.EDC 14:08
DX: R07.89 Other chest pain (principal); I10 Essential (primary) hypertension; F32.9 Major depressive disorder, single episode, unspecified; M54.12 Radiculopathy, cervical region; M48.00 Spinal stenosis, site unspecified; Z85.46 Personal history of malignant neoplasm of prostate; Z86.718 Personal history of other venous thrombosis and embolism; Z79.899 Other long term (current) drug therapy; Z88.0 Allergy status to penicillin; Z88.2 Allergy status to sulfonamides; Z88.6 Allergy status to analgesic agent; Z83.3 Family history of diabetes mellitus; Z80.9 Family history of malignant neoplasm, unspecified; Z82.49 Family history of ischemic heart disease and other diseases of the circulatory system; Z82.0 Family history of epilepsy and other diseases of the nervous system

== ENCOUNTER → 2017-05-18 | Outpatient (CLI) | payer BC ==
[~2017-05-18] MED LIST changes: +CIPR-255 PO; +DOXY100T PO; +GADAVIST IV PRN; +IBUP-1459 PO; +ONDA4TAB10 SL; +RXC5 PO
--- NOTE | 2017-05-18 10:07 | DIAGNOSTIC IMAGING REPORT ---
MRI OF THE CERVICAL SPINE COMBO CLINICAL HISTORY: Neck pain. Post concussion syndrome. COMPARISON STUDY: CT scan of the cervical spine dated 05/24/2016. MRI of the cervical spine dated 08/28/2015. TECHNIQUE: MRI of the cervical spine is performed utilizing various T1 and T2-weighted sequences in the axial and sagittal planes. Contrast-enhanced sequences were acquired following the IV administration of 10.2 cc of Gadavist. FINDINGS: Cervical spine: Vertebral body height and alignment are maintained throughout the cervical spine. There is straightening of the cervical lordosis. The atlantodental articulation appears maintained. The spinous processes are intact. There are postoperative changes from anterior spinal fusion seen from C5 to C7. No destructive bony lesion is identified. Intervertebral discs: There is evidence of discectomy at C5-C6 and C6-C7 with near complete bony incorporation at these levels. Disc desiccation is seen at the remaining levels. Only mild loss of height is noted at C3-C4. Spinal cord: The cervical spinal cord is normal in morphology and signal intensity. No abnormal enhancement is seen on the postcontrast images. C2-C3: Unremarkable. C3-C4: A posterior disc osteophyte complex effaces the ventral subarachnoid space. Uncovertebral and facet arthropathy causes moderate bilateral neural foraminal stenosis, right greater than left. C4-C5: A posterior disc osteophyte complex abuts the ventral cord. Uncovertebral and facet arthropathy cause mild left neural foraminal stenosis. C5-C6: The central canal and neural foramina appear patent. A 5 mm nerve sheath cyst is incidentally noted within the right neural foramen. This is unchanged from 2015. C6-C7: The central canal and neural foramina appear patent. C7-T1: Facet arthropathy causes mild right neural foraminal stenosis. The central canal is clear. Soft tissues: The prevertebral and paraspinous soft tissues are within normal limits. Brain parenchyma: Partially visualized brain parenchyma at the skull base is normal as imaged. IMPRESSION: 1. No acute abnormality is identified. The cervical spinal cord is normal in morphology and signal intensity. 2. There are postoperative changes from anterior fusion seen from C5 to C7. There is near complete bony incorporation at these levels. 3. Mild spondylotic change as above. See discussion for detailed level by level analysis. Dictated: 05/18/2017 8:57 AM Transcribed: 05/18/2017 10:07 AM Suzanna Electronically signed by: Lnonie Landon M.D. 05/18/2017 10:12 AM Dictated Date/Time: 05/18/2017 8:57 AM
== END | disposition home or self-care (01) ==
LOC: C.MRIBC 07:46
PROVIDERS: ATTEND Psychiatry & Neurology Neurology
DX: F07.81 Postconcussional syndrome (principal); M54.12 Radiculopathy, cervical region

== ENCOUNTER → 2017-05-27 | Outpatient (CLI) | payer BC ==
[~2017-05-27] MED LIST changes: -GADAVIST IV PRN
== END | disposition home or self-care (01) ==
LOC: C.LAB 12:33
PROVIDERS: ATTEND Urology
DX: N50.819 Testicular pain, unspecified (principal); N40.1 Benign prostatic hyperplasia with lower urinary tract symptoms; C61 Malignant neoplasm of prostate

== ENCOUNTER → 2017-06-28 | Outpatient (CLI) | payer BC ==
--- NOTE | 2017-06-28 14:27 | DIAGNOSTIC IMAGING REPORT ---
CT LEFT WRIST AND HAND CT DOSE: 284.89 mGy.cm CLINICAL HISTORY: Left wrist pain. Left fifth finger fracture. TECHNIQUE: Helical images were acquired in the parasagittal plane. Multiplanar reformatted images were acquired. A dose lowering technique was utilized adhering to the principles of ALARA. COMPARISON STUDY: 11/10/2016 FINDINGS: There is irregularity involving the base of the fifth metacarpal, consistent with a healed intraarticular fracture. No additional fractures are visualized. There is a small subcortical cysts/erosions involving the ulna, and ulnar aspect of the lunate. There are mild osteoarthritic changes involving the first carpal metacarpal joint with a tiny subcortical cyst involving the trapezium. IMPRESSION: 1. Healed fracture involving the base the fifth metacarpal 2. Minor arthritic changes as described above 3. No acute fractures Electronically signed by: Tyrell Beckford M.D. 06/28/2017 2:25 PM Dictated Date/Time: 06/28/2017 2:18 PM
== END | disposition home or self-care (01) ==
LOC: C.CTS 13:57
PROVIDERS: ATTEND Orthopaedic Surgery Hand Surgery
DX: S62.347A Nondisplaced fracture of base of fifth metacarpal bone, left hand, initial encounter for closed fracture (principal); X58.XXXA Exposure to other specified factors, initial encounter

== ENCOUNTER → 2017-07-12 | Outpatient (CLI) | payer BC ==
--- NOTE | 2017-07-12 15:31 | DIAGNOSTIC IMAGING REPORT ---
VENOUS DOPP LOWER EXT UNILAT CLINICAL HISTORY: 62 years-old Male presenting with LEFT LEG, SWELLING, POSITIVE D-DIMER. TECHNIQUE: Real-time grayscale and color and spectral Doppler ultrasound imaging of the veins of the left lower extremity was performed. Compression and augmentation were also utilized. COMPARISON: 02/28/2010. FINDINGS: Left: Common femoral vein: Patent. Femoral vein: Patent. Greater saphenous vein: Patent. Popliteal vein: Patent. Calf veins: Patent. Other: None. IMPRESSION: No evidence of deep venous thrombosis. Electronically signed by: Delmer Moe M.D. 07/12/2017 3:30 PM Dictated Date/Time: 07/12/2017 3:29 PM
== END | disposition home or self-care (01) ==
LOC: C.ULTRBC 14:53
DX: M79.89 Other specified soft tissue disorders (principal); R79.1 Abnormal coagulation profile

== ENCOUNTER 2017-08-05 05:39 | Inpatient (IN) | payer BC ==
[2017-07-20 13:24] VITALS: BMI 31.0
--- NOTE | 2017-07-20 14:08 | PAT Medication Instructions ---
Service Date Jul 20, 2017. Current Home Medication List Bupropion Hcl (Smoking Deterre (Bupropion Hcl Sr), 150 MG PO BID PRN for HEADACHES Gddjcqqxuy-Svmruozgzcugv-Nhved (Fioricet), 1 CAP PO Q6H PRN for Migraine Clonazepam (Klonopin), 2 MG PO HS Duloxetine Hcl (Cymbalta), 60 MG PO QAM Ibuprofen (Motrin), 400 MG PO Q6H PRN for Pain Losartan Potassium (Cozaar), 50 MG PO QAM Multiple Vitamin (Multivitamin), 1 TAB PO QAM Medication Instructions For Your Scheduled Surgery - Check with surgeon for instructions: Ibuprofen (Motrin), 400 MG PO Q6H PRN for Pain Eqinloaiqj-Eawdgsnjesamu-Rxyxl (Fioricet), 1 CAP PO Q6H PRN for Migraine - Hold the following medications the morning of surgery: Losartan Potassium (Cozaar), 50 MG PO QAM Multiple Vitamin (Multivitamin), 1 TAB PO QAM - Take the following medications the morning of surgery with a sip of water: Duloxetine Hcl (Cymbalta), 60 MG PO QAM Bupropion Hcl (Smoking Deterre (Bupropion Hcl Sr), 150 MG PO BID PRN for HEADACHES - Take the following medications as scheduled the night before surgery: Clonazepam (Klonopin), 2 MG PO HS Bupropion Hcl (Smoking Deterre (Bupropion Hcl Sr), 150 MG PO BID PRN for HEADACHES If you have any questions please call us at [phone] or [phone] or [phone]
[2017-07-20 14:45] LABS: MANUAL MICROSCOPIC REQUIRED? NO; REVIEW REQ? NO; URINE APPEARANCE CLEAR (CLEAR); URINE BILIRUBIN NEG (NEG); URINE COLOR YELLOW; URINE NITRITE NEG (NEG); URINE SPECIFIC GRAVITY 1.016 (1.000-1.030); UROBILINOGEN NEG (NEG); ZZUR CULT IF INDIC CLEAN CATCH NO
[2017-07-20 15:05] LABS: BUN/CREATININE RATIO 21.3 (10-20); CALCIUM 9.1 mg/dl (8.5-10.1); CREATININE 0.79 mg/dl (0.60-1.40); POTASSIUM 4.6 mmol/L (3.5-5.1)
[~2017-08-05] VITALS: Ht 185.4 cm; Wt 109.5 kg
[2017-08-05] VITALS (19 sets, daily range): BP systolic 140–165; BP diastolic 71–107; PULSE 68–95; TEMP 36.3–37; O2SAT 92–99; Ht 185.4 cm; Wt 109.5 kg
[~2017-08-05 05:39] MED LIST changes: -ONDA4TAB10 SL; -RXC5 PO; -TADA20TA PO
[2017-08-05] MEDS ORDERED: CEFAZOLIN 2000 MG/60 ML D5W IV SCH (06:00)
[2017-08-05] MEDS ORDERED: LACTATED RINGER'S 1000ML 1,000 ML IV SCH (06:00)
[2017-08-05] MEDS ORDERED: MIDAZOLAM HCL 1 MG/ML 2ML VIAL ONE (06:43)
[2017-08-05] MEDS ORDERED: FENTANYL CITRATE INJ 50 MCG/1 ML 2 ML VIAL ONE ×3 (06:44→08:10)
[2017-08-05] MEDS ORDERED: EpHEDrine SULFATE INJ 50 MG/ML AMP IV PRN (07:00)
[2017-08-05] MEDS ORDERED: ATROPINE SULFATE 0.1 MG/ML 5ML SYR IV PRN (07:00)
[2017-08-05] MEDS ORDERED: HYDROmorphone INJ 1 MG/ML SYR IV PRN (07:00)
[2017-08-05] MEDS ORDERED: ONDANSETRON INJ 2 MG/ML 2 ML VIAL IV PRN ×2 (07:00→10:00)
[2017-08-05] MEDS ORDERED: BACITRACIN 50000 UNIT VIAL ONE (07:14)
--- NOTE | 2017-08-05 07:32 | History & Physical Bridge Note ---
H&P Re-Evaluation Bridge Note: I have examined the patient, reviewed the History & Physical and in the interval since the performance of the History & Physical I have noted the following changes of clinical significance: No changes noted
--- NOTE | 2017-08-05 07:35 | History and Physical ---
History & Physical Date Aug 05, 2017. 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] (16) Spinal stenosis (17) Superficial thrombophlebitis (18) 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 Additional History Hepatic Disease: No Endocrine Disorder: No Kidney Disease: No Hypertension: Yes Heart Disease: No Bleeding Tendencies: No Infectious Diseases: No Allergies Coded Allergies: Penicillins (Verified Allergy, Severe, ANAPHYLAXIS - SEE NOTES, 08/05/17) "TOLERATES AUGMENTIN/AMOXICILLIN" PER RECORDS PT REPORTS HAS BEEN TESTED SPECIFICALLY FOR PCN ALLERGY AND STATES NO ALLERGY EXISTS TO PCN Chlorhexidine (Verified Allergy, Intermediate, red,itchy skin, 08/05/17) Acetaminophen (Verified Allergy, Unknown, GENERALIZED ITCHING, 08/05/17) Methocarbamol (Verified Allergy, Unknown, ITCHINESS, 08/05/17) Sulfa Antibiotics (Unverified Allergy, Unknown, UNKNOWN REACTION, 08/05/17) PER RECORDS PT QUESTIONNING THIS ALLERGY, NOT SURE IF ALLERGIC OR NOT - HAD PAST REACTION WITH SWELLING OF UVULA...UVULA HAS SINCE BEEN REMOVED Home Medications Scheduled Clonazepam (Klonopin), 2 MG PO HS Doxycycline Hyclate (Doxycycline Hyclate), 1 TAB PO BID Duloxetine Hcl (Cymbalta), 60 MG PO QAM Losartan Potassium (Cozaar), 50 MG PO QAM Multiple Vitamin (Multivitamin), 1 TAB PO QAM Scheduled PRN Bupropion Hcl (Smoking Deterre (Bupropion Hcl Sr), 150 MG PO BID PRN for HEADACHES Mizmjbwkin-Jtttxjozqqbts-Nneou (Fioricet), 1 CAP PO Q6H PRN for Migraine Ibuprofen (Motrin), 400 MG PO Q6H PRN for Pain Physical Examination Skin: warm/dry, no rash Eyes: normal inspection, EOMI, sclerae normal ENT: normal ENT inspection, pharynx normal Head: normocephalic, atraumatic Neck: supple, no adenopathy, trachea midline Respiratory/Chest: lungs clear, normal breath sounds, no respiratory distress Cardiovascular: regular rate, rhythm, no edema, no murmur Abdomen / GI: normal bowel sounds, non tender Back: normal inspection Extremities: normal inspection, normal range of motion Neurologic/Psych: no motor/sensory deficits, alert, normal reflexes, oriented x 3 Diagnosis Cervical spondylosis Plan of Treatment ACDF C3 4 C4 5 with removal of instrumentation C5 6 C6 7
[2017-08-05] MEDS ORDERED: HYDROmorphone INJ 2 MG/ML SYR/VIAL ONE ×2 (08:10→09:34)
[2017-08-05] MEDS ORDERED: PROPOFOL IV EMULSION 10 MG/ML 20 ML VIAL IV ONE (08:32)
[2017-08-05] MEDS ORDERED: DEXAMETHASONE SOD INJ 4 MG/ML VIAL ONE (08:32)
[2017-08-05] MEDS ORDERED: ONDANSETRON INJ 2 MG/ML 2 ML VIAL ONE ×2 (08:32→09:40)
[2017-08-05] MEDS ORDERED: LIDOCAINE HCL 2% 2 ML VIAL (20MG/ML) ONE (08:32)
[2017-08-05] MEDS ORDERED: FLOSEAL HEMOSTATIC MATRIX 5ML TOP ONE (09:34)
[2017-08-05] MEDS ORDERED: GLYCOPYRROLATE INJ 0.2 MG/ML VIAL ONE (09:40)
[2017-08-05] MEDS ORDERED: EpHEDrine SULFATE 50MG/5ML SYR ONE (09:40)
[2017-08-05] MEDS ORDERED: NEOSTIGMINE METHYLSULFATE 1 MG/ML 10ML VIAL ONE (09:40)
--- NOTE | 2017-08-05 09:56 | [facility] Operative Report ---
Operative Report Operative Date Aug 05, 2017. Pre-Operative Diagnosis Cervical spondylosis Post-Operative Diagnosis Cervical spondylosis Procedure(s) Performed #1 removal of instrumentation C5 6 C6 7. #2 expiration of fusion C5 6 C6 7. #3 anterior cervical discectomy with bilateral foraminotomies C3 4 C4 5. #4 anterior cervical arthrodesis C3 4 C4 5. #5 placement of cornerstone cortical R graft filled with DBM 7 mm at C3 4 and 8 mm at C4 5. #6 application of pena plate and screws C3 [address] Jose David Hartley Fur Feeder Surgeon(s) Fortino Maldonado PA-C Findings Cervical stenosis Specimens a. explanted hardware Description of Procedure Patient was met with preoperatively case discussed all questions are dressed. After informed consent patient was taken to the operative suite and underwent intubation placed in a prone position the Brooks table head in [place] headholder. Anterior cervical spine was then prepped and draped in normal sterile fashion. Utilizing a longitudinal incision along the right anterior aspect of the cervical spine. Sharp dissection decisions with assistance of bipolar electrocautery was performed onto an exposing the anterior cervical spine from C3 to C7. I then proceeded to remove the hardware at see 56 C6 7. After the plate was removed explored the fusion mass noted to be intact. Then performed a complete discectomy of C3 4 out to the uncovertebral joints bilaterally. Ono distracting pins were utilized to assist in visualization. I did remove all posterior annular fibers and longitudinal ligament performing bilateral foraminotomies. Endplates were then burred to subcortical bleeding bone and a 7 mm cortical allograft filled with DBM tapped in position. I then proceeded to C5 4 5. Again a complete discectomy performed out to the uncovertebral joints bilaterally. Once again Ono distracting pins utilized to assist in visualization. Complete discectomy performed out to the uncovertebral joints bilaterally including removal of all posterior inner fibrous longitudinal ligament and bilateral foraminotomies. An plates burred to subcortical bleeding bone and 8 mm cortical R graft filled with DBM tapped in position. After this complete all distracting apparatus was removed. Anterior Ross writes burred to smooth cortical surface and a pena plate and screws applied with the assistance of fluoroscopy. Incision was in copious irrigated explored to ensure there is no damage to surrounding structures remaining bleeding. A 10 round JODEE drain inserted. Incision was then closed with 2 Vicryl in the fascia for Monocryl for final skin closure Steri-Strip sterile dressing placed. Patient we can take PACU stable condition. Please note Fortino record was present at the entire procedure involved in patient positioning complex portions of the procedure and final skin closure. I attest to the content of the Intraoperative Record and any orders documented therein. Any exceptions are noted below.
[2017-08-05] MEDS ORDERED: LORAZEPAM 0.5 MG TAB PO PRN (10:00)
[2017-08-05] MEDS ORDERED: DO NOT ADMINISTER FLU VACCINE PRN ×3 (10:00)
[2017-08-05] MEDS ORDERED: NALOXONE HCL 0.4 MG/1 ML VIAL/CARP IV PRN (10:00)
[2017-08-05] MEDS ORDERED: DiphenhydrAMINE HCL 50 MG/ML VIAL IV PRN (10:00)
[2017-08-05] MEDS ORDERED: RACEPINEPHRINE 2.25% NEBU SOLN 0.5 ML VIAL INH PRN (10:00)
[2017-08-05] MEDS ORDERED: MAGNESIUM HYDROXIDE SUSP 30 ML UDC PO PRN (10:00)
[2017-08-05] MEDS ORDERED: DEXAMETHASONE INJ 8 MG in SYRINGE 0 ML IV PRN (10:00)
[2017-08-05] MEDS ORDERED: LORAZEPAM INJ 0.5 MG in SYRINGE 0.75 ML IV PRN (10:00)
[2017-08-05] MEDS ORDERED: DO NOT ADMINISTER PNEUMOCOCCAL VACCINE PRN ×2 (10:00)
[2017-08-05] MEDS ORDERED: ESMOLOL HCL 10 MG/ML 10 ML VIAL ONE (10:02)
--- NOTE | 2017-08-05 10:03 | DIAGNOSTIC IMAGING REPORT ---
INTRAOPERATIVE FLUOROSCOPIC IMAGES OF THE CERVICAL SPINE CLINICAL HISTORY: REMOVE HARDWARE C5-7/ACDF C3-5 COMPARISON STUDY: Cervical spine MRI May 18, 2017. Fluoroscopy time: 9.5 seconds. FINDINGS: 2 fluoroscopic images demonstrate removal of anterior fusion hardware at C5-C7. Interbody grafts remain in place. There are findings consistent with interval C3-C4 and C4-C5 discectomies with anterior fusion. There are 2 screws within the C3, C4 and C5 vertebral bodies. Hardware is intact. IMPRESSION: Interval C3-C5 anterior discectomy and fusion with removal of C5-C7 anterior cervical spine hardware. Electronically signed by: Ronny Thomas M.D. 08/05/2017 10:02 AM Dictated Date/Time: 08/05/2017 9:59 AM
[2017-08-05] MEDS: FENTANYL CITRATE INJ 50 MCG/1 ML 2 ML VIAL IV PRN ×4 (10:28→11:01)
--- NOTE | 2017-08-05 11:18 | Anesthesiology Progress Note ---
Anesthesia Post Op Note Date & Time Aug 05, 2017 at 11:18 Vital Signs Pain Intensity: 4 Vital Signs Past 12 Hours Date Time Temp Pulse Resp B/P (MAP) Pulse Ox O2 Delivery O2 Flow Rate FiO2 08/05/17 10:43 90 12 08/05/17 10:43 91 14 97 08/05/17 10:40 148/94 08/05/17 10:38 90 15 93 08/05/17 10:38 91 15 08/05/17 10:35 158/96 08/05/17 10:33 90 12 08/05/17 10:33 90 12 95 08/05/17 10:30 154/92 08/05/17 10:28 87 12 08/05/17 10:28 88 12 99 08/05/17 10:25 145/89 08/05/17 10:23 87 12 100 08/05/17 10:23 87 12 08/05/17 10:20 156/93 08/05/17 10:18 94 12 08/05/17 10:18 94 12 97 08/05/17 10:15 152/95 08/05/17 10:13 92 12 08/05/17 10:13 92 12 97 08/05/17 10:10 146/88 08/05/17 10:08 90 11 98 08/05/17 10:08 89 11 08/05/17 10:06 146/88 08/05/17 10:03 83 8 98 08/05/17 10:03 84 8 08/05/17 10:01 152/91 08/05/17 09:59 157/88 08/05/17 09:58 83 92 08/05/17 09:58 36.6 87 14 157/88 98 Oxymask 15 08/05/17 09:58 83 08/05/17 05:55 36.5 68 18 158/107 99 Room Air 154/105 Notes Mental Status: alert / awake / arousable, participated in evaluation Pt Amnestic to Procedure: Yes Nausea / Vomiting: adequately controlled Pain: adequately controlled Airway Patency, RR, SpO2: stable & adequate BP & HR: stable & adequate Hydration State: stable & adequate Anesthetic Complications: no major complications apparent
[2017-08-05] MEDS: LACTATED RINGER'S 1000ML 1,000 ML IV SCH ×2 (11:35→22:35)
[2017-08-05] MEDS: OXYCODONE HCL IR 5 MG TAB (IMMEDIATE RELEASE) PO PRN ×3 (11:57→20:29)
[2017-08-05] MEDS ORDERED: SCOPOLAMINE 1.5 MG TDSY TD SCH (13:00)
[2017-08-05] MEDS: HYDROmorphone INJ 0.5 MG/0.5 ML SYR IV PRN (13:34)
[2017-08-05] MEDS ORDERED: COUGH DROP (SUGAR FREE) LOZ 24 LOZ/1 BOX ONE (14:42)
[2017-08-05] MEDS ORDERED: NURSING DECISION MEDICATION ORDER SCH (14:45)
[2017-08-05] MEDS ORDERED: RXC5 PO (14:53)
--- NOTE | 2017-08-05 14:54 | Discharge Instructions ---
Discharge Instructions Date of Service Aug 05, 2017. Admission Reason for Admission: Cervical Spinal Stenosis Discharge Discharge Diagnosis / Problem: cervical spinal stenosis Discharge Goals Goal(s): Improve function Activity Recommendations Activity Limitations: per Instructions/Follow-up section . Instructions / Follow-Up Instructions / Follow-Up ACTIVITY RECOMMENDATIONS: SELF CARE INSTRUCTIONS AFTER CERVICAL FUSIONS 1. No smoking. Smoking drastically decreases the chance of a solid fusion. 2. No bending, lifting more than 5 pounds, or twisting (roll like a log when turning in bed). 3. You may shower 3 days after surgery. Thoroughly dry wound. Do not soak in the tub. 4. Cervical collar: Must be worn at all times including sleeping. You may remove the brace only to bath, eat and if you are sitting in a recliner. 5. Please walk as much as you can for exercise. Gradually increase the distance that you walk as your endurance increases. SPECIAL CARE INSTRUCTIONS: VERY IMPORTANT TO READ AND REVIEW A. Do not take any anti-inflammatory medications (i.e. Indocin, Advil, Aspirin, Naprosyn, Aleve, Motrin, etc.) as these may inhibit the chance of a solid fusion. Tylenol is okay to take. B. Your surgical incision has been closed with a cosmetic suture under the skin that will dissolve in about 6 weeks. In 14 days, you can use a pair of clean scissors and cut the suture that is left outside of the skin at the ends of your incision. C. Complications are uncommon, but please contact us if you have any signs or symptoms of: 1. wound infection (fever higher than 102.5 degrees F, redness, separation of wound, drainage, or increasing pain from the incision) 2. blood clots in legs (pain, swelling, redness and warmth in legs) 3. urinary tract infection (fever higher than 102.5 degrees, burning upon urination or increased frequency of urination) 4. nerve problems (inability to walk on your toes or heels, numbness, loss of bowel or bladder control) 5. any other symptoms that concern you. D. Please call the office at if you have any concerns or questions about your operation or recovery. MANAGING PAIN AFTER SPINAL SURGERY 1. Narcotic medication is intended for short-term use and will be provided for surgical pain. Surgical pain usually lasts for a period of 4-6 weeks. Narcotic medication includes Percocet, Vicodin, Darvocet, Tylenol #3 or Lortab. 2. Longer-term pain is more appropriately treated with non-narcotic medication such as Tylenol ES. 3. Muscle spasm is not appropriately treated with narcotics. Muscle relaxers such as Soma, Flexeril or Skelaxin can be used along with Tylenol ES. 4. Remember that we all live with some "aches and pains". This is not unusual or uncommon after an injury or as we get older. 5. We will provide appropriate medication within the normal guidelines of their prescribed use. We will also be very cautious and aware of potential abuse and extended duration of patients' medication needs. 6. Please allow 2-3 days to process refills. Prescriptions will not be mailed but must be picked up at the office. FOLLOW UP VISIT: Keep your scheduled follow-up appointment. Any questions, please call the office at . Current Hospital Diet Patient's current hospital diet: Clear Liquid Diet Discharge Diet Recommended Diet: Regular Diet Procedures Procedures Performed: #1 removal of instrumentation C5 6 C6 7. #2 expiration of fusion C5 6 C6 7. #3 anterior cervical discectomy with bilateral foraminotomies C3 4 C4 5. #4 anterior cervical arthrodesis C3 4 C4 5. #5 placement of cornerstone cortical R graft filled with DBM 7 mm at C3 4 and 8 mm at C4 5. #6 application of pena plate and screws C3 4 C4 5. Pending Studies Studies pending at discharge: no Medical Emergencies . Who to Call and When: Medical Emergencies: If at any time you feel your situation is an emergency, please call 911 immediately. . Non-Emergent Contact Non-Emergency issues call your: Primary Care Provider . "Provider Documentation" section prepared by Jose David Hartley. . VTE Core Measure Inpt VTE Proph given/why not?: Simon Anand, SCD's
[2017-08-05] MEDS ORDERED: COUGH DROP (SUGAR FREE) LOZ 24 LOZ/1 BOX PO PRN (15:00)
[2017-08-05] MEDS: CHECK SCOPOLAMINE PATCH PLACEMENT SCH (15:34)
[2017-08-05] MEDS: CLINDAMYCIN IV 600 MG in DEXTROSE 5% 50ML 50 ML IV SCH (16:15)
[2017-08-05] MEDS: DEXAMETHASONE INJ 6 MG in SYRINGE 0 ML IV SCH (16:16)
[2017-08-05] MEDS: HYDROmorphone INJ 1 MG/ML SYR IV PRN ×2 (18:34→22:34)
[2017-08-05] MEDS: DOCUSATE SODIUM 100 MG CAP PO SCH (20:28)
[2017-08-06] VITALS (22 sets, daily range): BP systolic 141–199; BP diastolic 74–100; PULSE 66–82; TEMP 36.5–36.9; O2SAT 93–99
[2017-08-06] MEDS: CLINDAMYCIN IV 600 MG in DEXTROSE 5% 50ML 50 ML IV SCH ×2 (00:38→08:24)
[2017-08-06] MEDS: DEXAMETHASONE INJ 6 MG in SYRINGE 0 ML IV SCH ×2 (00:38→08:25)
[2017-08-06] MEDS: OXYCODONE HCL IR 5 MG TAB (IMMEDIATE RELEASE) PO PRN ×4 (00:42→16:25)
[2017-08-06] MEDS: HYDROmorphone INJ 0.5 MG/0.5 ML SYR IV PRN (07:20)
[2017-08-06] MEDS: CHECK SCOPOLAMINE PATCH PLACEMENT SCH ×3 (08:00→15:33)
--- NOTE | 2017-08-06 08:19 | Discharge Summary ---
Orthopedic Discharge Summary Admission Date/Reason Aug 05, 2017 at 07:30 Cervical Spinal Stenosis. Discharge Date/Disposition Aug 06, 2017 Home Diagnosis Principal Diagnosis: Cervical spinal stenosis Admission Physical Exam As per Admitting History & Physical. Hospital Course Patient underwent anterior cervical discectomy and fusion tolerated this well as taken to the orthopedic 4 postop we. Postoperative day #1 a swallowing without difficulty neck and arm symptoms improved. JODEE drain decreasing appropriate. Subsequently discharged home. Discharge orders and instructions found the chart for further review. Discharge Instructions Please refer to the electronic Patient Visit Report (Discharge Instructions) for additional information.
[2017-08-06] MEDS: DOCUSATE SODIUM 100 MG CAP PO SCH (08:30)
[2017-08-06] MEDS: LACTATED RINGER'S 1000ML 1,000 ML IV SCH (10:41)
[2017-08-06] MEDS ORDERED: LOSARTAN POTASSIUM 50 MG TAB PO ONE (12:45)
[2017-08-06] MEDS ORDERED: NURSING VERBAL MED ORDER ONE (12:45)
[2017-08-06] MEDS: HYDROmorphone INJ 1 MG/ML SYR IV PRN (14:39)
[2017-08-07] MEDS ORDERED: BISACODYL 10 MG SUPP PR PRN (06:00)
[2017-08-07] MEDS ORDERED: BISACODYL 5 MG TABEC PO PRN (06:00)
[2017-08-07] MEDS ORDERED: POLYETHYLENE (MIRALAX) 17 GM PACK PO SCH (09:00)
== END 2017-08-06 17:20 | disposition home or self-care (01) | DRG 473 ==
LOC: C.ACU 05:39 → C.3E 07:30 → ENRESERV 10:49
PROVIDERS: ADMIT Orthopaedic Surgery Orthopaedic Surgery of the Spine; ATTEND Orthopaedic Surgery Orthopaedic Surgery of the Spine
PROC: 0RT30ZZ Resection of Cervical Vertebral Disc, Open Approach (ICD-10-PCS; principal; 2017-08-05 07:45)
PROC: 0RG107J Fusion of Cervical Vertebral Joint with Autologous Tissue Substitute, Posterior Approach, Anterior Column, Open Approach (ICD-10-PCS; principal; 2017-08-05 07:45)
PROC: 0RP10AZ Removal of Interbody Fusion Device from Cervical Vertebral Joint, Open Approach (ICD-10-PCS; principal; 2017-08-05 07:45)
DX: M47.892 Other spondylosis, cervical region (principal); Z79.899 Other long term (current) drug therapy

== ENCOUNTER 2017-08-13 04:51 | Inpatient (IN) | payer BC ==
[~2017-08-13] VITALS: Ht 190.5 cm; Wt 101.8 kg
[2017-08-13] VITALS (62 sets, daily range): BP systolic 88–176; BP diastolic 52–117; PULSE 63–98; TEMP 36.8–37.1; O2SAT 92–100; Ht 190.5 cm; Wt 101.8 kg
[~2017-08-13 04:51] MED LIST changes: -CIPR-255 PO; -IBUP-1459 PO; +RXC5 PO
--- NOTE | 2017-08-13 05:11 | EMERGENCY ROOM VISIT NOTE ---
History Report prepared by Luis: Ramon Noble Under the Supervision of: Dr. Deon Lenz M.D. First contact with patient: 05:03 Chief Complaint: RESPIRATORY PROBLEMS Stated Complaint: DIFFICULTY BREATHING,HAD AERIRCAL REFUSION ON 08/05 History of Present Illness The patient is a 62 year old male who presents to the Emergency Room with complaints of worsening respiratory problems that started the past couple days. The patient had anterior cervical fusion surgery done by Dr. Hartley 8 days ago, and his neck was fine when he went home after the surgery. Per the patient's , the patient's neck started to swell up again in the past day or 2. Currently, the patient says that he is having trouble swallowing and a hard time breathing. He adds that his throat is very sore. He denies any chest pain, drooling, or fevers. The patient is not on any blood thinners. He adds that he has no history of bleeding problems or kidney problems. The patient's notes that this most recent surgery was not the patient's first neck surgery. Source of History: patient, spouse/significant other Onset: Past couple days Position: other (global - respiratory problems) Timing: worsening Associated Symptoms: + sorethroat, + SOB, No fevers, No chest pain Note: Associated symptoms: Neck swelling. Difficulty swallowing. Review of Systems See HPI for pertinent positives & negatives. A total of 10 systems reviewed and were otherwise negative. 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] (19) Spinal stenosis (20) Superficial thrombophlebitis (21) 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 Family History Diabetes mellitus FH: cancer Hypertension Seizures Social History Smoking Status: Never Smoker Alcohol Use: occasionally Drug Use: none Marital Status: Housing Status: lives with significant other Occupation Status: retired Current/Historical Medications Scheduled Clonazepam (Klonopin), 2 MG PO HS Doxycycline Hyclate (Doxycycline Hyclate), 100 MG PO BID Duloxetine Hcl (Cymbalta), 60 MG PO QAM Losartan Potassium (Cozaar), 50 MG PO QAM Multiple Vitamin (Multivitamin), 1 TAB PO QAM Scheduled PRN Bupropion Hcl (Smoking Deterre (Bupropion Hcl Sr), 150 MG PO BID PRN for HEADACHES Rjaunhtvfi-Oajdzzijxasdd-Ipnkp (Fioricet), 1 CAP PO Q6H PRN for Migraine Oxycodone HCl (Oxycodone HCl), 5-10 MG PO Q4H PRN for moderate-severe pain Allergies Coded Allergies: Penicillins (Verified Allergy, Severe, ANAPHYLAXIS - SEE NOTES, 08/05/17) "TOLERATES AUGMENTIN/AMOXICILLIN" PER RECORDS PT REPORTS HAS BEEN TESTED SPECIFICALLY FOR PCN ALLERGY AND STATES NO ALLERGY EXISTS TO PCN Chlorhexidine (Verified Allergy, Intermediate, red,itchy skin, 08/05/17) Acetaminophen (Verified Allergy, Unknown, GENERALIZED ITCHING, 08/05/17) Methocarbamol (Verified Allergy, Unknown, ITCHINESS, 08/05/17) Sulfa Antibiotics (Unverified Allergy, Unknown, UNKNOWN REACTION, 08/05/17) PER RECORDS PT QUESTIONNING THIS ALLERGY, NOT SURE IF ALLERGIC OR NOT - HAD PAST REACTION WITH SWELLING OF UVULA...UVULA HAS SINCE BEEN REMOVED Physical Exam Vital Signs Date Time Temp Pulse Resp B/P (MAP) Pulse Ox O2 Delivery O2 Flow Rate FiO2 08/13/17 06:18 100 Nasal Cannula 4.0 08/13/17 06:15 93 171/100 100 Nasal Cannula 4.0 08/13/17 06:07 84 08/13/17 06:02 93 173/103 100 Nasal Cannula 4.0 08/13/17 05:46 81 151/96 96 Room Air 08/13/17 05:33 80 157/89 93 Room Air 08/13/17 05:18 98 Room Air 08/13/17 05:13 96 Room Air 08/13/17 04:54 36.9 86 20 137/93 95 Room Air Physical Exam GENERAL: Patient is uncomfortable and ill-appearing and in moderate distress with discomfort with laying back. Hoarse voice. HEENT: Throat: mal 4. No acute trauma, normocephalic atraumatic, mucous membranes moist, no nasal congestion, no scleral icterus. NECK: Extensive swelling of entire right side of neck with well-healed incision site. LUNGS: No dyspnea. Clear to auscultation and equal bilaterally. No wheeze, no rhonchi. HEART: Regular rate and rhythm. No murmurs, rubs, gallops appreciated. ABDOMEN: Soft, nontender, bowel sounds positive, no masses appreciated, no peritonitis. BACK: No midline tenderness, no CVA tenderness EXTREMITIES: Normal motion all extremities, no cyanosis, no edema. NEUROLOGIC: Alert and oriented, no acute motor or sensory deficits, no focal weakness, cranial nerves grossly intact. SKIN: No rash, no jaundice. Mildly diaphoretic. Medical Decision & Procedures ER Provider Diagnostic Interpretation: CT: see imaging on chart. Laboratory Results 08/13/17 05:14 Red Blood Count 4.52, Mean Corpuscular Volume 93.4, Mean Corpuscular Hemoglobin 33.0, Mean Corpuscular Hemoglobin Concent 35.3, Mean Platelet Volume 9.0, Neutrophils (%) (Auto) 63.8, Lymphocytes (%) (Auto) 19.8, Monocytes (%) (Auto) 10.1, Eosinophils (%) (Auto) 5.8, Basophils (%) (Auto) 0.3, Neutrophils # (Auto ) 5.81, Lymphocytes # (Auto) 1.80, Monocytes # (Auto) 0.92, Eosinophils # (Auto ) 0.53, Basophils # (Auto) 0.03 08/13/17 05:14 Test 08/13/17 05:14 White Blood Count 9.11 K/uL (4.8-10.8) Red Blood Count 4.52 M/uL (4.7-6.1) Hemoglobin 14.9 g/dL (14.0-18.0) Hematocrit 42.2 % (42-52) Mean Corpuscular Volume 93.4 fL (80-100) Mean Corpuscular Hemoglobin 33.0 pg (25-34) Mean Corpuscular Hemoglobin Concent 35.3 g/dl (32-36) Platelet Count 177 K/uL (130-400) Mean Platelet Volume 9.0 fL (7.4-10.4) Neutrophils (%) (Auto) 63.8 % Lymphocytes (%) (Auto) 19.8 % Monocytes (%) (Auto) 10.1 % Eosinophils (%) (Auto) 5.8 % Basophils (%) (Auto) 0.3 % Neutrophils # (Auto) 5.81 K/uL (1.4-6.5) Lymphocytes # (Auto) 1.80 K/uL (1.2-3.4) Monocytes # (Auto) 0.92 K/uL (0.11-0.59) Eosinophils # (Auto) 0.53 K/uL (0-0.5) Basophils # (Auto) 0.03 K/uL (0-0.2) Bedside Hemoglobin 14.3 g/dl (14.0-18.0) Bedside Hematocrit 42 % (42-52) RDW Standard Deviation 42.6 fL (36.4-46.3) RDW Coefficient of Variation 12.5 % (11.5-14.5) Immature Granulocyte % (Auto) 0.2 % Immature Granulocyte # (Auto) 0.02 K/uL (0.00-0.02) Prothrombin Time 10.7 SECONDS (9.0-12.0) Prothromb Time International Ratio 1.0 (0.9-1.1) Activated Partial Thromboplast Time 27.4 SECONDS (21.0-31.0) Partial Thromboplastin Ratio 1.1 Bedside Sodium 136 mEq/L (135-144) Bedside Potassium 4.3 mEq/L (3.3-5.0) Bedside Chloride 97 mEq/L (101-112) Bedside Total CO2 28 mEq/l (24-31) Anion Gap 17.0 mmol/L (16-25) Bedside Blood Urea Nitrogen 15 mg/dl (7-18) Bedside Creatinine 0.9 mg/dl (0.6-1.3) Est Creatinine Clear Calc Drug Dose 122.9 ml/min Estimated GFR () 109.4 Estimated GFR (Non- 94.4 BUN/Creatinine Ratio 19.0 (10-20) Bedside Glucose (other) 144 mg/dl (70-99) Calcium Level 9.2 mg/dl (8.5-10.1) Bedside Ionized Calcium (Jud) 1.21 mmol/l (1.12-1.32) Laboratory results as reviewed by me. Medications Administered Medications (Trade) Dose Ordered Sig/Kishore Route Start Time Stop Time Status Last Admin Dose Admin Glycopyrrolate (Robinul Inj) 0.4 mg NOW STAT IM 08/13/17 06:02 08/13/17 06:04 DC 08/13/17 06:10 0.4 MG Dexamethasone Sodium Phosphate (Decadron Inj) 10 mg NOW ONCE IV 08/13/17 06:15 08/13/17 06:16 DC 08/13/17 06:26 10 MG Bacitracin (Bacitracin Inj) 50,000 units STK-MED ONCE .ROUTE 08/13/17 06:47 08/13/17 06:48 DC 08/13/17 07:31 50,000 UNITS ED Course 0505: The patient was evaluated in room B2. A complete history and physical exam was performed. 0520: I discussed the patient with Dr. Sanchez - [facility] [place] anesthesiologist. 0537: I reevaluated the patient and he is now mildly hypoxic. We put him on oxygen. His diaphoresis is mildly improved. 0538: I discussed the patient with Dr. Hartley - [facility]. 0552: Anesthesia is at bedside. They will attempt an awake intubation. 0602: Ordered Robinul Inj 0.4 mg IM. 0612: Dr. Hartley is at bedside. He asked that I order 10 of IV Decadron. 0615: Ordered Decadron Inj 10 mg IV. 0640: I reevaluated the patient and he is resting. The patient verbally expressed understanding and agreement of the treatment plan. The patient will be brought to the operating room. 0645: The patient was brought to the operating room. Medical Decision Differential: Infectious, Reactive Airway Disease, Pneumonia, Pneumothorax, COPD , CHF, ACS, Pulmonary Embolism, MSK, GI, Dissection, amongst other etiologies entertained. 62 yr old male arrives in acute distress and ill appearing/diaphoretic. 1 week s/p anterior approach cervical fusion with rapid swelling right neck over last 4 -6 hours. Associate stridor, drooling and difficulty speaking. Clearly patient with impending airway closure. Immediately had surgeon contacted and then Anesthesia. Kept in upright/forward position other than for CT neck which revealed large fluid collection and confirmed airway issue. Anesthesia at bedside on return from ED, agree with impending airway compromise and need for intubation. As tolerating leaning forward will plan intubation in OR in more controlled setting. Given IM Glycopyrrolate for secretions. IV decadron at request Dr Hartley who was shortly there-after at bedside with plan to take patient emergently to OR. Many repeat evaluations of patient and until he was taken to OR under close monitor. Medication Reconcilliation Current Medication List: was personally reviewed by me Blood Pressure Screening Patient's blood pressure: Elevated blood pressure Blood pressure disposition: Elevated BP felt to be situational Consults Time Called: 0515 Consulting Physician: [facility] Returned Call: 0520 I discussed the patient with Dr. Laura OSWALD anesthesiologist. Additional Consults: Time Called: 0547 Consulted Physician: Dr. Odilia Rizzo orthopedics Returned Call: [phone] Additional Comments: I discussed the patient with Dr. Odilia Rizzo orthopedics. Impression Primary Impression: Postoperative hematoma Additional Impressions: Airway obstruction Airway compromise Critical Care I have personally spent greater than 45 minutes of critical care time in the direct management of this patient. This was a life/limb threatening event. This includes time spent evaluating patient, direct bedside care, chart review, placing orders, interpretation of diagnostic studies, discussion with consultants, patient, and family members, as well as other required patient management activities. This 45 minutes is in excess of all separately billable procedures. Scribe Attestation The scribe's documentation has been prepared under my direction and personally reviewed by me in its entirety. I confirm that the note above accurately reflects all work, treatment, procedures, and medical decision making performed by me. Departure Information Dispostion Being Evaluated By Surgeon Mike Fuller Jr,D.O. (PCP) Patient Instructions My [facility] Problem Qualifiers
[2017-08-13] MEDS ORDERED: OPTIRAY 320 IV PRN (05:15)
[2017-08-13] MEDS ORDERED: RAPID SEQUENCE INDUCTION BAG ONE (05:26)
[2017-08-13 05:28] LABS: BASO % 0.3 %; BASO ABS # 0.03 K/uL (0-0.2); COMPLETE YES; EOS % 5.8 %; HEMATOCRIT 42.2 % (42-52); IG% 0.2 %; ISTAT CREATININE 0.9 mg/dl (0.6-1.3); ISTAT HEMOGLOBIN 14.3 g/dl (14.0-18.0); ISTAT IONIZED CALCIUM 1.21 mmol/l (1.12-1.32); LYMPH % 19.8 %; MEAN CELL VOLUME 93.4 fL (80-100); MEAN CORPUSCULAR HGB CONC 35.3 g/dl (32-36); MONO % 10.1 %; NEUT % 63.8 %; PLATELET COUNT 177 K/uL (130-400); RED BLOOD COUNT 4.52 M/uL (4.7-6.1); WHITE BLOOD COUNT 9.11 K/uL (4.8-10.8)
[2017-08-13 05:38] LABS: PARTIAL THROMBOPLASTIN RATIO 1.1; PROTHROMBIN TIME (PATIENT) 10.7 SECONDS (9.0-12.0)
[2017-08-13 05:52] LABS: CALCIUM 9.2 mg/dl (8.5-10.1); CREATININE 0.8 mg/dl (0.60-1.40); POTASSIUM 4.2 mmol/L (3.5-5.1)
[2017-08-13] MEDS ORDERED: GLYCOPYRROLATE INJ 0.2 MG/ML VIAL IM STA (06:02)
[2017-08-13] MEDS ORDERED: DEXAMETHASONE SOD INJ 10 MG/ML VIAL IV ONE (06:15)
--- NOTE | 2017-08-13 06:37 | History and Physical ---
History & Physical Date Aug 13, 2017. Chief Complaint Shortness of breath difficulty swallowing History of Present Illness The patient is a 62 year old male with complaints of shortness of breath and difficulty swallowing developing over the past 24 hours. Patient is status post anterior cervical discectomy and fusion C3 4 C4 5 with removal of instrumentation. He been doing well postoperatively but began to decline over the past 24+ hours. He is noting swelling in the anterior cervical spine increased difficulty with swallowing and shortness of breath. He denies any radicular complaints or cervicalgia. 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] (17) Spinal stenosis (18) Superficial thrombophlebitis (19) 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 Additional History Hepatic Disease: No Endocrine Disorder: No Kidney Disease: No Hypertension: No Heart Disease: No Bleeding Tendencies: No Infectious Diseases: No Allergies Coded Allergies: Penicillins (Verified Allergy, Severe, ANAPHYLAXIS - SEE NOTES, 08/05/17) "TOLERATES AUGMENTIN/AMOXICILLIN" PER RECORDS PT REPORTS HAS BEEN TESTED SPECIFICALLY FOR PCN ALLERGY AND STATES NO ALLERGY EXISTS TO PCN Chlorhexidine (Verified Allergy, Intermediate, red,itchy skin, 08/05/17) Acetaminophen (Verified Allergy, Unknown, GENERALIZED ITCHING, 08/05/17) Methocarbamol (Verified Allergy, Unknown, ITCHINESS, 08/05/17) Sulfa Antibiotics (Unverified Allergy, Unknown, UNKNOWN REACTION, 08/05/17) PER RECORDS PT QUESTIONNING THIS ALLERGY, NOT SURE IF ALLERGIC OR NOT - HAD PAST REACTION WITH SWELLING OF UVULA...UVULA HAS SINCE BEEN REMOVED Home Medications Scheduled Clonazepam (Klonopin), 2 MG PO HS Doxycycline Hyclate (Doxycycline Hyclate), 100 MG PO BID Duloxetine Hcl (Cymbalta), 60 MG PO QAM Losartan Potassium (Cozaar), 50 MG PO QAM Multiple Vitamin (Multivitamin), 1 TAB PO QAM Scheduled PRN Bupropion Hcl (Smoking Deterre (Bupropion Hcl Sr), 150 MG PO BID PRN for HEADACHES Mrebepyffm-Izbihkqvlukec-Uimgr (Fioricet), 1 CAP PO Q6H PRN for Migraine Oxycodone HCl (Oxycodone HCl), 5-10 MG PO Q4H PRN for moderate-severe pain Physical Examination Skin: warm/dry, no rash Eyes: normal inspection, EOMI, sclerae normal ENT: normal ENT inspection, pharynx normal Head: normocephalic, atraumatic Neck: supple, no adenopathy, trachea midline Respiratory/Chest: lungs clear, normal breath sounds, no respiratory distress Cardiovascular: regular rate, rhythm, no edema, no murmur Abdomen / GI: normal bowel sounds, non tender Back: normal inspection Extremities: normal inspection, normal range of motion Neurologic/Psych: no motor/sensory deficits, alert, normal reflexes, oriented x 3 Diagnosis Postoperative anterior cervical hematoma Plan of Treatment Urgent I&D evacuation hematoma of the cervical spine
[2017-08-13] MEDS ORDERED: PROPOFOL IV EMULSION 10 MG/ML 20 ML VIAL IV ONE (06:38)
[2017-08-13] MEDS ORDERED: SUCCINYLCHOLINE 100MG/5ML SYR IV ONE (06:39)
[2017-08-13] MEDS ORDERED: MIDAZOLAM HCL 1 MG/ML 2ML VIAL ONE (06:39)
[2017-08-13] MEDS ORDERED: FENTANYL CITRATE INJ 50 MCG/1 ML 2 ML VIAL ONE (06:39)
[2017-08-13] MEDS ORDERED: BACITRACIN 50000 UNIT VIAL ONE (06:47)
[2017-08-13] MEDS ORDERED: HYDROmorphone INJ 2 MG/ML SYR/VIAL ONE (07:01)
[2017-08-13] MEDS ORDERED: CISATRACURIUM BESYLATE IV SOLN 2 MG/ML 10 ML VIAL ONE (07:11)
[2017-08-13] MEDS ORDERED: CEFAZOLIN SOD 1 GM VIAL ONE (07:11)
[2017-08-13] MEDS ORDERED: PHENYLEPHRINE HCL INJ 10 MG/ML VIAL ONE (07:31)
[2017-08-13] MEDS ORDERED: NEOSTIGMINE METHYLSULFATE 1 MG/ML 10ML VIAL ONE (07:31)
[2017-08-13] MEDS ORDERED: PHENYLEPHRINE 100MCG/ML 5ML SYR ONE (07:31)
--- NOTE | 2017-08-13 07:41 | [facility] Operative Report ---
Operative Report Operative Date Aug 13, 2017. Pre-Operative Diagnosis cervical post operative seroma Post-Operative Diagnosis cervical post operative seroma Procedure(s) Performed Incision and Drainage Cervical Spine Surgeon Dr. Jose David Hartley Transport Tank Technician Surgeon(s) none Estimated Blood Loss 10ml Findings Seroma the anterior cervical spine Specimens none per surgeon Dr. Jonny Hartley Description of Procedure Patient is wafer met with preoperatively case discussed all questions are dressed. After informed consent was taken to operative suite and underwent intubation placed in a supine position the Brooks table head in Sandy headholder. Anterior cervical spine was prepped draped nostril fashion. Utilizing the previous incision site sharp dissection was performed to the skin. Then blunt dissection was carried out onto an exposing the anterior cervical spine. Significant fluid collection was identified. It was consistent with postoperative seroma. There is no evidence of purulence. Evidence of breakdown products of hematoma. He'll explore the entire dissection noting no evidence of active bleeding or damage to surrounding tissues. Hardware was in place. Incision was in copious irrigated with antibiotic solution. A 15 round JODEE drain inserted. Incision was closed with 2 Vicryl in the fascia and a 4 Monocryl for final skin closure. The patient was then taken the ICU where he will be intubated for at least the next 24-48 hours. I attest to the content of the Intraoperative Record and any orders documented therein. Any exceptions are noted below.
[2017-08-13] MEDS ORDERED: DEXAMETHASONE INJ 8 MG in SYRINGE 0 ML IV PRN (07:45)
[2017-08-13] MEDS ORDERED: HYDROmorphone INJ 0.5 MG/0.5 ML SYR IV PRN (07:45)
[2017-08-13] MEDS ORDERED: RACEPINEPHRINE 2.25% NEBU SOLN 0.5 ML VIAL INH PRN (07:45)
[2017-08-13] MEDS ORDERED: NALOXONE HCL 0.4 MG/1 ML VIAL/CARP IV PRN (07:45)
[2017-08-13] MEDS ORDERED: PROPOFOL IV EMULSION 10 MG/ML 100 ML VIAL IV ONE (07:59)
--- NOTE | 2017-08-13 08:06 | Anesthesiology Progress Note ---
Anesthesia Progress Note Date of Service Aug 13, 2017. Progress Notes This is a 62 y/o w male who is s/p ACDF 08/05/2017,now presenting w/ increasing swelling of right neck/surgical site,c/o difficulty swallowing and breathing.I was called to asasess the pt by the ER physician who determined that the pt has a compromised airway w/impending loss of the same. I came to the ER about 0540 and examined the pt airway via FOB.The pt was sitting up,on oxygen,w/100% spo2%, tachycardic at 100 + / min.I explained to the pt what my examination entailed.I discussed the risks vs benefits and all questions were answered.via an Ovassappian airway I performed FOB and visualized the pharyngeal tissues and glottic opening and vocal cords.There was considerable swelling and congestion of the tissues of the pharynx and glottic opening,particularly of the right side. Dr Hartley and OR team were notified and I felt it was best to perform the awake FOB intubation under more favorable conditions. In OR 4 , monitors were applied,VS's were taken,pt's throat and pharynx were localized w/1% lidocaine 10 ml.Using an Ovassappian intubating airway and pediatric FOB,the VC's were visualized and FOB advanced into the trachea and over this a 7.0 ETT was advanced through the cords and pt was intubated.The ETT was secured after confirming ETCO2 and visualization of tracheal rings and sissy.The ETT was secured at the left lip at 23-24 cm jame. I then gave report in person to DR Duncan at approx. 0720am, and indicated that the pt was to remain intubated and mechanically ventilated for 24-48 hours, but that he will ultimately determine that based on the pt's airway recovery.
[2017-08-13] MEDS ORDERED: DEXTROSE 50% 50 ML SYR IV PRN (08:15)
[2017-08-13] MEDS ORDERED: ATROPINE SULFATE 0.1 MG/ML 5ML SYR IV PRN (08:15)
[2017-08-13] MEDS ORDERED: ICU PROTOCOL FOR HYPERGLYCEMIA PRN (08:15)
[2017-08-13] MEDS ORDERED: GLUCOSE 10 TABS/TUBE PO PRN (08:15)
[2017-08-13] MEDS ORDERED: EpHEDrine SULFATE INJ 50 MG/ML AMP IV PRN (08:15)
[2017-08-13] MEDS ORDERED: GLUCAGON FOR INJ 1 MG VIAL SQ PRN (08:15)
[2017-08-13] MEDS ORDERED: FENTANYL CITRATE INJ 50 MCG/1 ML 2 ML VIAL IV PRN ×2 (08:15→16:15)
[2017-08-13] MEDS ORDERED: GLUCOSE 40% GEL 15 GM TUBE PO PRN (08:15)
[2017-08-13] MEDS ORDERED: PHARMACY GLYCEMIC MGMT CONSULT PRN (08:21)
--- NOTE | 2017-08-13 08:38 | DIAGNOSTIC IMAGING REPORT ---
CT SOFT TISSUE NECK WITH CT DOSE: 566.17 mGy.cm CLINICAL HISTORY: Neck swelling status post cervical fusion. Difficulty breathing. TECHNIQUE: Helical images were acquired during intravenous administration of 120 cc of Optiray 320. A dose lowering technique was utilized adhering to the principles of ALARA. COMPARISON STUDY: CT scan of the cervical spine dated 10/28/2016, MRI the cervical spine dated 05/18/2017 FINDINGS: The visualized portions of the lung apices are unremarkable. There is a multinodular thyroid goiter No salivary gland masses are visualized. There are no pathologically enlarged cervical lymph nodes. No necrotic nodes are evident. There is a right neck fluid collection extending from the skin to the C6 vertebral body. The fluid collection measures 13 x 61 x 68 mm. This likely relates to recent surgery, and could represent an abscess.. There is extensive prevertebral soft tissue edema. There are postsurgical changes of discectomies and anterior plate fusion at the C3-4 and C4-5 levels. There is evidence for an old anterior cervical discectomy with removal of the hardware at the C5-6 and C6-7 levels. There is right neck skin thickening. The fluid collection edema exerts mild mass effect on the airway which is slightly effaced. IMPRESSION: 1. Postsurgical changes within cervical spine 2. 68 x 61 x 13 mm fluid collection extending from the right anterior lateral subcutaneous tissues to the prevertebral space at the C6 level. This is likely along the surgical approach and may represent an abscess. 3. Moderately extensive prevertebral soft tissue edema. There is associated mass effect with mild effacement of the airway. 4. Multinodular thyroid gland Electronically signed by: Tyrell Beckford M.D. 08/13/2017 8:37 AM Dictated Date/Time: 08/13/2017 8:30 AM
[2017-08-13] MEDS ORDERED: LABETALOL HCL IV 5 MG/ML 20ML IV PRN (08:45)
--- NOTE | 2017-08-13 08:48 | DIAGNOSTIC IMAGING REPORT ---
CHEST ONE VIEW PORTABLE CLINICAL HISTORY: Respiratory failure. Intubation. COMPARISON STUDY: 04/19/2017 FINDINGS: There are multiple catheters and wires overlying the chest. There is an endotracheal tube 6 cm above the sissy. There is a nasogastric tube which passes in the stomach. The cardiac and mediastinal contours remain stable. The patient developed bibasal airspace opacities, likely atelectatic although an inflammatory process could appear similar.[ IMPRESSION: 1. Endotracheal tube 6 cm above the sissy 2. Nasogastric tube within the stomach 3. Bibasal airspace opacities, likely atelectatic although aspiration or pneumonia could appear similar Electronically signed by: Tyrell Beckford M.D. 08/13/2017 8:47 AM Dictated Date/Time: 08/13/2017 8:45 AM
[2017-08-13] MEDS ORDERED: PEPTAMEN INTENSE VHP 1000ML BAG OG SCH (09:00)
[2017-08-13] MEDS ORDERED: INSULIN GLARGINE SOLOSTAR 100 UNITS/ML 3 ML PEN SC ONE (09:00)
[2017-08-13] MEDS: NORMOSOL R 1,000 ML IV SCH ×2 (09:17→21:23)
[2017-08-13] MEDS: DULOXETINE HCL 60 MG CAP PO SCH (09:45)
[2017-08-13] MEDS: LOSARTAN POTASSIUM 50 MG TAB PO SCH (09:45)
[2017-08-13] MEDS: RANITIDINE HCL 150 MG TAB PO SCH ×2 (09:45→21:23)
[2017-08-13] MEDS ORDERED: INSULIN ASPART 100 UNITS/ML 3 ML PEN SC SCH (11:00)
[2017-08-13] MEDS: PEPTAMEN INTENSE VHP 1000ML BAG OG SCH (11:22)
[2017-08-13] MEDS: PROPOFOL IV EMULSION 10 MG/ML 100 ML VIAL IV PRN ×3 (11:46→16:13)
[2017-08-13] MEDS ORDERED: DEXAMETHASONE IV SCH (12:00)
[2017-08-13] MEDS: INSULIN ASPART 100 UNITS/ML 3 ML PEN SC SCH ×4 (12:00→21:00)
--- NOTE | 2017-08-13 14:28 | Pharmacy Progress Note ---
Glycemic Control Intl Consult Date of Service Aug 13, 2017. Scope Glycemic Pharmacist consulted by Dr Duncan on 08/13/17 for glycemic control and to write orders per [facility] inpatient glycemic control protocol Objective Weight (Kilograms): 106.200 Accuchecks BSG (last 24hrs): Test 08/13/17 05:14 08/13/17 09:29 08/13/17 12:02 Random Glucose 142 mg/dl (70-99) Bedside Glucose 126 mg/dl (70-99) 133 mg/dl (70-99) Laboratory Data (last 24hrs) Test 08/13/17 05:14 Anion Gap 17.0 mmol/L BUN/Creatinine Ratio 19.0 Blood Urea Nitrogen 15 mg/dl Creatinine 0.80 mg/dl Potassium Level 4.2 mmol/L Sodium Level 137 mmol/L White Blood Count 9.11 K/uL Red Blood Count 4.52 M/uL Hemoglobin 14.9 g/dL Hematocrit 42.2 % Mean Corpuscular Volume 93.4 fL Mean Corpuscular Hemoglobin 33.0 pg Mean Corpuscular Hemoglobin Concent 35.3 g/dl Platelet Count 177 K/uL Mean Platelet Volume 9.0 fL Neutrophils (%) (Auto) 63.8 % Lymphocytes (%) (Auto) 19.8 % Monocytes (%) (Auto) 10.1 % Eosinophils (%) (Auto) 5.8 % Basophils (%) (Auto) 0.3 % Neutrophils # (Auto) 5.81 K/uL Lymphocytes # (Auto) 1.80 K/uL Monocytes # (Auto) 0.92 K/uL Eosinophils # (Auto) 0.53 K/uL Basophils # (Auto) 0.03 K/uL Recent Pertinent Medications Outpatient Anti-diabetic Regimen: * None * A1c = 5.6 % 09/21/14 Risk Factors for Insulin Resistance: * Steroids: Dexamethasone 10mg IV x1, then 5mg IV Q8H * Infection: Ancef pre and postop * IVF: Normosol * Recent Surgery: s/p ACDF 08/05/2017, I&D of cervical spine today * Diet: Peptamen via OG Tube, goal 35ml/hr Assessment & Plan ASSESSMENT: * 62 year old s/p ACDF on 08/05 admitted today for SOB and I&D of cervical spine * Pt receiving IV steroids and is at risk for steroid induced hyperglycemia * Pt is not a diabetic as outpatient, needs updated A1c * Will initiate weight based insulin dosing for insulin valentina patient and titrate based on BSG trends. * ADA & AACE recommend a goal blood sugar range 140-180 mg/dl for the majority of critically ill & non-critically ill patients. However, more stringent targets may be selected in individual cases. PLAN FOR INPATIENT GLYCEMIC CONTROL: * Basal insulin with LANTUS 52 units SQ x 1 today * Correctional Insulin with NOVOLOG per scale ACHS or Q4hrs while NPO or Peptamen tube feeds * Goal Range: Low 140 mg/dL - High 180 mg/dL * Correction Factor: 15 mg/dL/unit * Nutritional / Prandial insulin per carb ratio of 1 unit per 5 grams CHO consumed (pt NPO for now) * Will begin scheduled doses of SQ Regular insulin with tube feeds if needed once tube feeds reach goal * A1c ordered * Please note that the plan above was derived based on current level of insulin resistance and hospital stress. These recommendations are appropriate for inpatient admission only. Plan of care upon discharge will need to be reassessed to avoid potential outpatient hypo/hyperglycemia. Thank you.
--- NOTE | 2017-08-13 14:44 | Critical Care Consultation ---
Critical Care Consultation Date of Consultation: Aug 13, 2017. Attending Physician: Jose David Hartley D.O. Reason for Consultation: Intubation s/p surgical evacuation of hematoma History of Present Illness The patient is a 62 year old male that presented to the ED with anterior neck swelling and shortness of breath 1 week s/p anterior cervical discectomy and fusion with removal of instrumentation by Dr. Hartley. The patient was taken to the OR by Dr. Hartley and findings were consistent with a postoperative seroma with evidence of breakdown products of hematoma and no active bleeding. The collection was evacuated and a JODEE drain was placed and the incision was sutured close. The patient was then intubated and transferred to the ICU for close follow up. Past Medical/Surgical History Patient is status post anterior cervical discectomy and fusion C3 C4 with removal of instrumentation Prostate Cancer Family History Diabetes mellitus FH: cancer Hypertension Seizures Social History Smoking Status: Never Smoker Drug Use: none Marital Status: Housing Status: lives with significant other Occupation Status: retired Allergies Coded Allergies: Penicillins (Verified Allergy, Severe, ANAPHYLAXIS - SEE NOTES, 08/05/17) "TOLERATES AUGMENTIN/AMOXICILLIN" PER RECORDS PT REPORTS HAS BEEN TESTED SPECIFICALLY FOR PCN ALLERGY AND STATES NO ALLERGY EXISTS TO PCN Chlorhexidine (Verified Allergy, Intermediate, red,itchy skin, 08/05/17) Acetaminophen (Verified Allergy, Unknown, GENERALIZED ITCHING, 08/05/17) Methocarbamol (Verified Allergy, Unknown, ITCHINESS, 08/05/17) Sulfa Antibiotics (Unverified Allergy, Unknown, UNKNOWN REACTION, 08/05/17) PER RECORDS PT QUESTIONNING THIS ALLERGY, NOT SURE IF ALLERGIC OR NOT - HAD PAST REACTION WITH SWELLING OF UVULA...UVULA HAS SINCE BEEN REMOVED Home Medications Scheduled Clonazepam (Klonopin), 2 MG PO HS Doxycycline Hyclate (Doxycycline Hyclate), 100 MG PO BID Duloxetine Hcl (Cymbalta), 60 MG PO QAM Losartan Potassium (Cozaar), 50 MG PO QAM Multiple Vitamin (Multivitamin), 1 TAB PO QAM Scheduled PRN Bupropion Hcl (Smoking Deterre (Bupropion Hcl Sr), 150 MG PO BID PRN for HEADACHES [id number]-[id number] (Fioricet), 1 CAP PO Q6H PRN for Migraine Oxycodone HCl (Oxycodone HCl), 5-10 MG PO Q4H PRN for moderate-severe pain Current Inpatient Medications Current Inpatient Medications Medications (Trade) Dose Ordered Sig/Kishore Route Start Time Stop Time Status Last Admin Dose Admin Ioversol (Optiray 320) 125 ml UD PRN IV 08/13/17 05:15 08/17/17 05:14 Racepinephrine (Raccemic Epinephrine 2.25% 0.5ML Neb) 0.5 ml ONE PRN INH 08/13/17 07:45 Hydromorphone HCl (Dilaudid Inj) 0.5 mg Q3H PRN IV 08/13/17 07:45 08/27/17 07:44 Cefazolin Sodium 2000 mg/Dextrose 60 ml @ 100 mls/hr Q8H IV 08/13/17 16:00 08/14/17 08:35 Oxycodone HCl (Roxicodone Immediate Rel Tab) 5mg for pain scale 4-6 1... Q4H PRN PO 08/13/17 07:45 08/27/17 07:44 Dexamethasone Sodium Phosphate 8 mg/Syringe 2 ml @ 1 mls/min ONE PRN IV 08/13/17 07:45 Naloxone HCl (Narcan Inj) 0.1 mg Q5M PRN IV 08/13/17 07:45 09/12/17 07:44 Duloxetine HCl (Cymbalta Cap) 60 mg QAM PO 08/13/17 09:00 09/12/17 08:59 08/13/17 09:45 60 MG Losartan Potassium (coZAAR TAB) 50 mg QAM PO 08/13/17 09:00 09/12/17 08:59 08/13/17 09:45 50 MG Ranitidine HCl (zANTac TAB) 150 mg BID PO 08/13/17 09:00 09/12/17 08:59 08/13/17 09:45 150 MG Miscellaneous Information (Icu Protocol For Hyperglycemia) 1 ea PRN PRN N/A 08/13/17 08:15 08/15/17 08:14 Glucose (Glucose 40% Gel) 15-30 GRAMS 15 GRAMS... UD PRN PO 08/13/17 08:15 09/12/17 08:14 Glucose (Glucose Chew Tab) 4-8 Tablets 4 Tabl... UD PRN PO 08/13/17 08:15 09/12/17 08:14 Dextrose (Dextrose 50% 50ML Syringe) 25-50ML OF 50% DW IV FOR... UD PRN IV 08/13/17 08:15 09/12/17 08:14 Glucagon (Glucagon Inj) 1 mg UD PRN SQ 08/13/17 08:15 09/12/17 08:14 Miscellaneous Information (Consult Glycemic Management Pharmacy) 1 ea UD PRN N/A 08/13/17 08:21 09/12/17 08:20 Fentanyl Citrate (Fentanyl Inj) 100 mcg Q1H PRN IV 08/13/17 08:15 08/27/17 08:14 Propofol (Diprivan Iv Emulsion 100ml Vial) 1 dose UD PRN IV 08/13/17 08:07 08/16/17 08:06 08/13/17 11:46 1 DOSE Parenteral Electrolyte Solution 1,000 ml @ 75 mls/hr [id number] IV 08/13/17 08:15 09/12/17 08:14 08/13/17 09:17 75 MLS/HR Dexamethasone Sodium Phosphate 5 mg/Syringe 1.25 ml @ 1 mls/min Q6H IV 08/13/17 15:00 08/14/17 03:01 Hydromorphone HCl (Dilaudid Inj) 1 mg Q3H PRN IV 08/13/17 08:30 08/27/17 08:29 Enteral Nutritional Formula (Peptamen Intense VHP) 1,000 ml GOAL OF 35ML/HR OG 08/13/17 08:45 09/12/17 08:44 08/13/17 11:22 1,000 ML Labetalol HCl (Normodyne IV) 10 mg Q4H PRN IV 08/13/17 08:45 09/12/17 08:44 Insulin Aspart (novoLOG ASPART) SLIDING SCALE If C... Q4 SC 08/13/17 12:00 09/12/17 11:59 Enoxaparin Sodium (Lovenox Inj) 40 mg QAM SQ 08/14/17 09:00 09/13/17 08:59 Review of Systems Patient intubated and sedated so unable to obtain ROS Physical Exam Date Time Temp Pulse Resp B/P (MAP) Pulse Ox O2 Delivery O2 Flow Rate FiO2 08/13/17 14:05 36.8 69 20 95 08/13/17 14:01 68 20 116/82 (90) 96 08/13/17 13:35 68 20 95 08/13/17 13:31 66 20 114/76 (81) 95 08/13/17 13:05 65 20 97 08/13/17 13:01 66 20 126/78 (92) 96 08/13/17 12:35 65 20 97 08/13/17 12:31 67 20 120/75 (88) 97 08/13/17 12:19 Mechanical Ventilator 40 08/13/17 12:05 68 20 99 08/13/17 12:01 75 20 150/97 (121) 100 08/13/17 12:00 40 08/13/17 11:45 65 19 98 08/13/17 11:35 80 99 Mechanical Ventilator 40 08/13/17 11:34 40 08/13/17 11:31 66 20 115/79 (90) 97 08/13/17 11:15 66 20 97 08/13/17 11:01 65 20 116/76 (84) 97 08/13/17 10:46 64 20 97 08/13/17 10:31 66 20 116/79 (84) 96 08/13/17 10:16 63 20 96 08/13/17 10:15 64 20 96 08/13/17 10:01 64 20 117/78 (87) 97 08/13/17 10:00 64 20 96 08/13/17 09:45 64 20 96 08/13/17 09:31 64 20 123/79 (88) 96 08/13/17 09:30 65 20 97 08/13/17 09:16 64 20 128/76 (82) 96 08/13/17 09:15 64 20 96 08/13/17 09:01 66 20 137/87 (96) 99 08/13/17 09:00 67 20 99 08/13/17 08:57 36.8 71 157/92 (104) 100 08/13/17 08:56 75 169/103 (123) 99 08/13/17 08:53 67 99 08/13/17 08:51 69 161/104 (127) 97 08/13/17 08:48 75 20 92 08/13/17 08:46 67 20 151/91 (101) 99 08/13/17 08:43 67 20 100 08/13/17 08:41 67 20 153/98 (113) 100 08/13/17 08:38 69 20 100 08/13/17 08:36 70 20 176/99 (126) 100 08/13/17 08:33 81 20 97 08/13/17 08:31 75 20 159/117 (130) 99 08/13/17 08:30 36.8 70 20 91/56 100 Mechanical Ventilator 40 08/13/17 08:29 40 08/13/17 08:28 65 20 98 08/13/17 08:26 69 20 112/92 (96) 97 08/13/17 08:23 66 20 98/54 (73) 100 08/13/17 08:21 66 20 93/52 (65) 100 08/13/17 08:18 67 20 100 08/13/17 08:16 67 20 88/53 (59) 100 08/13/17 08:13 70 17 100 08/13/17 06:18 100 Nasal Cannula 4.0 08/13/17 06:15 93 171/100 100 Nasal Cannula 4.0 08/13/17 06:07 84 08/13/17 06:02 93 173/103 100 Nasal Cannula 4.0 08/13/17 05:46 81 151/96 96 Room Air 08/13/17 05:33 80 157/89 93 Room Air 08/13/17 05:18 98 Room Air 08/13/17 05:13 96 Room Air 08/13/17 04:54 36.9 86 20 137/93 95 Room Air General Appearance: WD/WN, other (Intubated and sedated) Head: normocephalic, atraumatic Eyes: PERRLA ENT: other (NG tube in place) Respiratory: breath sounds normal, clear to auscultation Cardiovasular: regular rate/rhythm, normal S1S2, no M/G/R Abdomen: non tender, normal bowel sounds, no rebound Upper Extremities: no edema Lower Extremities: no edema Neuro: other (Sedated) Laboratory Results Last 24 Hours Test 08/13/17 05:14 08/13/17 09:29 08/13/17 12:02 White Blood Count 9.11 K/uL Red Blood Count 4.52 M/uL Hemoglobin 14.9 g/dL Hematocrit 42.2 % Mean Corpuscular Volume 93.4 fL Mean Corpuscular Hemoglobin 33.0 pg Mean Corpuscular Hemoglobin Concent 35.3 g/dl Platelet Count 177 K/uL Mean Platelet Volume 9.0 fL Neutrophils (%) (Auto) 63.8 % Lymphocytes (%) (Auto) 19.8 % Monocytes (%) (Auto) 10.1 % Eosinophils (%) (Auto) 5.8 % Basophils (%) (Auto) 0.3 % Neutrophils # (Auto) 5.81 K/uL Lymphocytes # (Auto) 1.80 K/uL Monocytes # (Auto) 0.92 K/uL Eosinophils # (Auto) 0.53 K/uL Basophils # (Auto) 0.03 K/uL Bedside Hemoglobin 14.3 g/dl Bedside Hematocrit 42 % RDW Standard Deviation 42.6 fL RDW Coefficient of Variation 12.5 % Immature Granulocyte % (Auto) 0.2 % Immature Granulocyte # (Auto) 0.02 K/uL Prothrombin Time 10.7 SECONDS Prothromb Time International Ratio 1.0 Activated Partial Thromboplast Time 27.4 SECONDS Partial Thromboplastin Ratio 1.1 Bedside Sodium 136 mEq/L Sodium Level 137 mmol/L Bedside Potassium 4.3 mEq/L Potassium Level 4.2 mmol/L Bedside Chloride 97 mEq/L Chloride Level 102 mmol/L Carbon Dioxide Level 29 mmol/L Bedside Total CO2 28 mEq/l Anion Gap 17.0 mmol/L Bedside Blood Urea Nitrogen 15 mg/dl Blood Urea Nitrogen 15 mg/dl Creatinine 0.80 mg/dl Bedside Creatinine 0.9 mg/dl Est Creatinine Clear Calc Drug Dose 122.9 ml/min Estimated GFR () 109.4 Estimated GFR (Non- 94.4 BUN/Creatinine Ratio 19.0 Bedside Glucose (other) 144 mg/dl Random Glucose 142 mg/dl Calcium Level 9.2 mg/dl Bedside Ionized Calcium (Jud) 1.21 mmol/l Bedside Glucose 126 mg/dl 133 mg/dl Assessment & Plan Patient is a 62 year old male that presented to the ED with anterior neck swelling and shortness of breath 1 week s/p anterior cervical discectomy and fusion with removal of instrumentation Neuro - 100mg Fentanyl IV q2h PRN - Propofol with goal of RASS -2 - Soft restraints while intubated CV - Past medical history of HTN --> Cozaar restarted - Labetalol 10mg IV q4h PRN for SBP > 160 - Hydralazine PRN for SBP > 180 Resp - Intubated and Sedated - Ventilator: Rate 20, TV 550, PEEP 5, FiO2 40% - Weaning trial tomorrow - Steroids GI - Peptamen enteral feeds through the OG tube - Progress as tolerated - Zantac 150mg PO BID Renal - Daily BMP - Normosol @ 75cc/hr Heme - 40mg Lovenox sq tomorrow ID - Surgical Prophylaxis: Cefazolin 2g q8h Endocrine - No history of diabetes --> ISS protocol - Steroids: - 8mg Decadron IV after surgery - 5mg Decadron IV q6h x 3 Resuscitation Status: Full Code DVT Prophylaxis: Lovenox 40mg sq starting tomorrow Resident Physician Supervision Note: Dr. Campos was resident physician during care of patient. I separately evaluated patient and did history and exam. I discussed the case with the resident and generally agree with the findings and plan. Discussed with patient's . I have personally spent 34 minutes of critical care time in the direct management of this patient. This is a life/limb threatening event. This includes time spent evaluating patient, direct bedside care, chart review, placing orders, interpretation of diagnostic studies, discussion with consultants, patient, and family members, as well as other required patient management activities. This time is exclusive of all separately billable procedures, and teaching time and separate from and in addition to any other critical care service time. Documented By: Alfred Duncan DO Resident Tracking Resident Involvement: Resident Care Provided Care Provided: Adult Hospital Medicine
[2017-08-13] MEDS: DEXAMETHASONE IV SCH ×2 (15:08→21:23)
[2017-08-13] MEDS: HYDROmorphone INJ 1 MG/ML SYR IV PRN (15:44)
[2017-08-13] MEDS: CEFAZOLIN IV 2,000 MG in DEXTROSE 5% 50ML 50 ML IV SCH (15:59)
[2017-08-13] MEDS ORDERED: NURSING VERBAL MED ORDER ONE (16:30)
[2017-08-13] MEDS ORDERED: FENTANYL CITRATE 1250MCG/250ML NSS ONE (19:21)
[2017-08-13] MEDS ORDERED: MIDAZOLAM 125MG/250ML D5W 250 ML IV STA (19:30)
[2017-08-13] MEDS ORDERED: MIDAZOLAM 125MG/250ML D5W IV ONE (19:39)
[2017-08-13] MEDS ORDERED: CLONAZEPAM 1 MG TAB PO SCH (21:00)
[2017-08-14] VITALS (35 sets, daily range): BP systolic 108–168; BP diastolic 63–96; PULSE 60–116; TEMP 36.8–37.4; O2SAT 98–100
[2017-08-14] MEDS: INSULIN ASPART 100 UNITS/ML 3 ML PEN SC SCH ×5 (04:00→23:28)
[2017-08-14] MEDS: DEXAMETHASONE IV SCH (04:22)
--- NOTE | 2017-08-14 05:41 | Critical Care Progress Note ---
Critical Care Progress Note Date of Service Aug 14, 2017. ICU Day ICU Day Number: [address] Duncan Subjective Patient resting comfortably in bed this morning with no acute complaints. He is still intubated and appears comfortable after being transition to Versed. He appears to respond appropriately to questions with hand s Objective GENERAL: Intubated, Awake, alert, in no distress HENT: Normocephalic, atraumatic. EYES: Normal conjunctiva. Sclera non-icteric. NECK: Incision over he right side of the neck C/D/I, JODEE drain in place RESPIRATORY: Clear to auscultation. CARDIAC: Regular rate, normal rhythm. Extremities warm and well perfused. Pulses equal. ABDOMEN: Soft, non-distended. No tenderness to palpation. No rebound or guarding. No masses. RECTAL: Deferred. MUSCULOSKELETAL: Chest examination reveals no tenderness. LOWER EXTREMITIES: Calves are equal size bilaterally and non-tender. No edema. NEURO: Intubated, Alert SKIN: No rash or jaundice noted. Current SOFA Score SOFA Score Response (Comments) Value Platelets (x10) > 150 0 Bilirubin (mg/dL) < 1.2 0 Fabio Coma Score 15 0 Level of Hypotension No Hypotension 0 Creatinine (mg/dL) < 1.2 0 Total 0 Assessment & Plan Patient is a 62 year old male that presented to the ED with anterior neck swelling and shortness of breath 1 week s/p anterior cervical discectomy and fusion with removal of instrumentation Neuro - Currently Intubated and CAM-ICU Negative with RASS of -1 - Overnight added Versed 4mg/h and patient appeared significantly more comfortably - Patient got another bolus of 100 mcg Fentanyl after complaining of throat pain - Fentanyl 50mcg/h - Soft restraints while intubated CV - Past medical history of HTN --> Cozaar restarted - Labetalol 10mg IV q4h PRN for SBP > 160 - Hydralazine PRN for SBP > 180 Resp - Intubated - Ventilator: Rate 8, TV 550, PEEP 5, FiO2 40% - Only 4% air leak - Based on level of swelling and minimal air leak will continue intubation throughout the next 24 hour and re-evaluate extubation tomorrow - Steroids GI - Peptamen enteral feeds through the OG tube --> Rate of 35ml/h - Progress as tolerated - Zantac 150mg PO BID Renal - Daily BMP - Creatinine of 0.58 - Discontinue fluids - Lasix 20mg IV - Calcium, Phos, Mag wnl Heme - 40mg Lovenox sq today ID - Surgical Prophylaxis: Cefazolin 2g q8h finished - WBC stable Endocrine - No history of diabetes --> ISS protocol - Hgb A1c of 5.5 - No insulin given overnight --> Continue to monitor due to steroid use - Steroids: - 8mg Decadron IV after surgery - 5mg Decadron IV q6h x 3 finishing today Resuscitation Status: Full Code DVT Prophylaxis: Lovenox 40mg sq starting this am Resident Physician Supervision Note: Dr. Campos was resident physician during care of patient. I separately evaluated patient and did history and exam. I discussed the case with the resident and generally agree with the findings and plan. Fiber-optic laryngoscopy revealed significant edema of the upper airway tissues , minimal air leak. Today we will have GAIL goal of -1 L, I have updated his regarding our extubation plans. I have personally spent 35 minutes of critical care time in the direct management of this patient. This is a life/limb threatening event. This includes time spent evaluating patient, direct bedside care, chart review, placing orders, interpretation of diagnostic studies, discussion with consultants, patient, and family members, as well as other required patient management activities. This time is exclusive of all separately billable procedures, and teaching time and separate from and in addition to any other critical care service time. Documented By: Alfred Ducnan DO Consults & Procedures Consultants: Dr. Hartley Procedures: Cervical Post-Op Seroma Data Medications: Current Inpatient Medications Medications (Trade) Dose Ordered Sig/Kishore Route Start Time Stop Time Status Last Admin Dose Admin Ioversol (Optiray 320) 125 ml UD PRN IV 08/13/17 05:15 08/17/17 05:14 Racepinephrine (Raccemic Epinephrine 2.25% 0.5ML Neb) 0.5 ml ONE PRN INH 08/13/17 07:45 Hydromorphone HCl (Dilaudid Inj) 0.5 mg Q3H PRN IV 08/13/17 07:45 08/27/17 07:44 Cefazolin Sodium 2000 mg/Dextrose 60 ml @ 100 mls/hr Q8H IV 08/13/17 16:00 08/14/17 08:35 08/14/17 00:00 100 MLS/HR Oxycodone HCl (Roxicodone Immediate Rel Tab) 5mg for pain scale 4-6 1... Q4H PRN PO 08/13/17 07:45 08/27/17 07:44 Dexamethasone Sodium Phosphate 8 mg/Syringe 2 ml @ 1 mls/min ONE PRN IV 08/13/17 07:45 Naloxone HCl (Narcan Inj) 0.1 mg Q5M PRN IV 08/13/17 07:45 09/12/17 07:44 Duloxetine HCl (Cymbalta Cap) 60 mg QAM PO 08/13/17 09:00 09/12/17 08:59 08/13/17 09:45 60 MG Losartan Potassium (coZAAR TAB) 50 mg QAM PO 08/13/17 09:00 09/12/17 08:59 08/13/17 09:45 50 MG Ranitidine HCl (zANTac TAB) 150 mg BID PO 08/13/17 09:00 09/12/17 08:59 08/13/17 21:23 150 MG Miscellaneous Information (Icu Protocol For Hyperglycemia) 1 ea PRN PRN N/A 08/13/17 08:15 08/15/17 08:14 Glucose (Glucose 40% Gel) 15-30 GRAMS 15 GRAMS... UD PRN PO 08/13/17 08:15 09/12/17 08:14 Glucose (Glucose Chew Tab) 4-8 Tablets 4 Tabl... UD PRN PO 08/13/17 08:15 09/12/17 08:14 Dextrose (Dextrose 50% 50ML Syringe) 25-50ML OF 50% DW IV FOR... UD PRN IV 08/13/17 08:15 09/12/17 08:14 Glucagon (Glucagon Inj) 1 mg UD PRN SQ 08/13/17 08:15 09/12/17 08:14 Miscellaneous Information (Consult Glycemic Management Pharmacy) 1 ea UD PRN N/A 08/13/17 08:21 09/12/17 08:20 Parenteral Electrolyte Solution 1,000 ml @ 75 mls/hr [id number] IV 08/13/17 08:15 09/12/17 08:14 08/13/17 21:23 75 MLS/HR Hydromorphone HCl (Dilaudid Inj) 1 mg Q3H PRN IV 08/13/17 08:30 08/27/17 08:29 08/13/17 15:44 1 MG Enteral Nutritional Formula (Peptamen Intense VHP) 1,000 ml GOAL OF 35ML/HR OG 08/13/17 08:45 09/12/17 08:44 08/13/17 11:22 1,000 ML Labetalol HCl (Normodyne IV) 10 mg Q4H PRN IV 08/13/17 08:45 09/12/17 08:44 Enoxaparin Sodium (Lovenox Inj) 40 mg QAM SQ 08/14/17 09:00 09/13/17 08:59 Fentanyl Citrate (Fentanyl Inj) 100 mcg Q2H PRN IV 08/13/17 16:15 08/27/17 08:14 08/14/17 04:24 100 MCG Insulin Aspart (novoLOG ASPART) SLIDING SCALE If C... QID SC 08/13/17 17:00 09/12/17 11:59 Fentanyl Citrate 250 ml @ 0 mls/hr Q0M PRN IV 08/13/17 19:17 08/27/17 19:16 Vital Signs: Date Time Temp Pulse Resp B/P (MAP) Pulse Ox O2 Delivery O2 Flow Rate FiO2 08/14/17 04:00 40 08/14/17 04:00 36.8 71 20 150/93 (112) 99 Mechanical Ventilator 40 08/14/17 04:00 99 Mechanical Ventilator 40 08/14/17 02:15 40 08/14/17 02:00 68 20 130/80 (97) 98 Mechanical Ventilator 40 08/14/17 00:00 99 Mechanical Ventilator 40 08/14/17 00:00 36.8 68 20 138/81 (100) 98 Mechanical Ventilator 40 08/14/17 00:00 40 08/13/17 23:25 40 08/13/17 22:01 37.1 71 20 126/74 (91) 98 Mechanical Ventilator 40 08/13/17 21:01 78 20 116/77 (90) 100 Mechanical Ventilator 40 08/13/17 20:01 86 20 136/70 (92) 98 08/13/17 20:00 96 Mechanical Ventilator 40 08/13/17 20:00 40 9/16/17 18:55 40 9/16/17 18:01 73 20 106/67 (77) 96 916/17 18:00 37.1 69 20 106/67 (80) 97 Mechanical Ventilator 40 16/17 17:32 80 99 Mechanical Ventilator 40 16/17 17:31 40 16/17 17:30 73 20 96 9/16/17 17:01 73 20 96/63 (69) 96 16/17 16:30 75 20 96 16/17 15:47 98 24 149/89 (110) 96 916/17 15:31 91 20 144/111 (128) 98 /16/17 15:30 40 16/17 15:30 37.1 98 26 148/89 (108) 97 Mechanical Ventilator 40 16/17 15:30 89 21 98 9/16/17 15:30 Mechanical Ventilator 40 16/17 15:20 80 99 Mechanical Ventilator 40 16/17 14:05 36.8 69 20 95 16/17 14:01 68 20 116/82 (90) 96 16/17 13:35 68 20 95 16/17 13:31 66 20 114/76 (81) 95 16/17 13:05 65 20 97 16/17 13:01 66 20 126/78 (92) 96 16/17 12:35 65 20 97 16/17 12:31 67 20 120/75 (88) 97 16/17 12:19 Mechanical Ventilator 40 16/17 12:05 68 20 99 16/17 12:01 75 20 150/97 (121) 100 16/17 12:00 40 16/17 11:45 65 19 98 /16/17 11:35 80 99 Mechanical Ventilator 40 16/17 11:34 40 16/17 11:31 66 20 115/79 (90) 97 16/17 11:15 66 20 97 9/16/17 11:01 65 20 116/76 (84) 97 16/17 10:46 64 20 97 9/16/17 10:31 66 20 116/79 (84) 96 16/17 10:16 63 20 96 916/17 10:15 64 20 96 16/17 10:01 64 20 117/78 (87) 97 1617 10:00 64 20 96 16/17 09:45 64 20 96 16/17 09:31 64 20 123/79 (88) 96 16/17 09:30 65 20 97 16/17 09:16 64 20 128/76 (82) 96 1617 09:15 64 20 96 16 09:01 66 20 137/87 (96) 99 08/13/17 09:00 67 20 99 1617 08:57 36.8 71 157/92 (104) 100 16 08:56 75 169/103 (123) 99 08/13/17 08:53 67 99 08/13/17 08:51 69 161/104 (127) 97 08/13/17 08:48 75 20 92 08/13/17 08:46 67 20 151/91 (101) 99 08/13/17 08:43 67 20 100 08/13/17 08:41 67 20 153/98 (113) 100 1617 08:38 69 20 100 08/13/17 08:36 70 20 176/99 (126) 100 08/13/17 08:33 81 20 97 08/13/17 08:31 75 20 159/117 (130) 99 08/13/17 08:30 36.8 70 20 91/56 100 Mechanical Ventilator 40 08/13/17 08:29 40 08/13/17 08:28 65 20 98 08/13/17 08:26 69 20 112/92 (96) 97 08/13/17 08:23 66 20 98/54 (73) 100 08/13/17 08:21 66 20 93/52 (65) 100 16 08:18 67 20 100 1617 08:16 67 20 88/53 (59) 100 16/17 08:13 70 17 100 16/17 06:18 100 Nasal Cannula 4.0 16 06:15 93 171/100 100 Nasal Cannula 4.0 08/13/ 06:07 84 08/13/17 06:02 93 173/103 100 Nasal Cannula 4.0 08/13/17 05:46 81 151/96 96 Room Air Laboratory Results: Last 24 Hours Test 08/13/17 09:29 08/13/17 12:02 08/13/17 16:15 08/13/17 20:24 Bedside Glucose 126 mg/dl 133 mg/dl 137 mg/dl 136 mg/dl Test 08/14/17 00:40 08/14/17 04:18 08/14/17 05:29 Bedside Glucose 147 mg/dl 134 mg/dl Resident Tracking Resident Involvement: Resident Care Provided Care Provided: Adult Hospital Medicine
[2017-08-14 05:59] LABS: HEMATOCRIT 39.1 % (42-52); MEAN CELL VOLUME 93.8 fL (80-100); MEAN CORPUSCULAR HEMOGLOBIN 31.7 pg (25-34); MEAN CORPUSCULAR HGB CONC 33.8 g/dl (32-36); MEAN PLATELET VOLUME 9.2 fL (7.4-10.4); PLATELET COUNT 179 K/uL (130-400); RED BLOOD COUNT 4.17 M/uL (4.7-6.1); WHITE BLOOD COUNT 9.12 K/uL (4.8-10.8)
[2017-08-14 06:05] LABS: ESTIMATED AVERAGE GLUCOSE 111 mg/dl; HA1C FLAG Normal (Normal)
[2017-08-14 06:28] LABS: BUN/CREATININE RATIO 31.9 (10-20); CALCIUM 9.1 mg/dl (8.5-10.1); CREATININE 0.58 mg/dl (0.60-1.40); MAGNESIUM 2.3 mg/dl (1.8-2.4); PHOSPHORUS 2.6 mg/dl (2.5-4.9); POTASSIUM 3.8 mmol/L (3.5-5.1)
--- NOTE | 2017-08-14 07:47 | Procedure Note ---
Procedure Note Date of Service Aug 14, 2017. Procedure Note Procedure Date: 08/14/17 Procedure: Fiberoptic Laryngoscopy Pre-procedure Diagnosis: Airway obstruction Post-procedure Diagnosis: same as above Prior to Procedure: Informed Consent: Verbal Attending Staff: Mehrdad Duncan DO Indications: 62 y/o male with acute airway obstruction secondary to seroma, POD #1 secondary to seroma evacuation. Patient had minimal cuff leak with relatively small endotracheal tube, further evaluation of upper airway to assess for readiness for extubation. The identity of the patient was confirmed and a bedside time out was performed. Description of Procedure: With a secured airway, a fiberoptic bronchoscope was introduced through the left nares. The upper larynx, eppiglottis and endotracheal tube were visualized. The upper laryngeal tissues, were significantly edematous and swollen completely enveloping the endotracheal tube. Complications: None Findings: Significant laryngeal edema, not candidate for extubation today. Specimens: not applicable Estimated blood loss: Zero
--- NOTE | 2017-08-14 08:01 | DIAGNOSTIC IMAGING REPORT ---
CHEST ONE VIEW PORTABLE CLINICAL HISTORY: 62 years-old Male presenting with intubation. TECHNIQUE: 08/14/2017 COMPARISON: 08/13/2017. FINDINGS: The endotracheal tube terminates approximately 5.5 cm from the sissy. Nasogastric tube descends below the diaphragm. Cardiomediastinal silhouette normal. Improved aeration of the lung bases. Lungs and pleural spaces clear. Osseous structures normal. Upper abdomen normal. IMPRESSION: 1. Appropriately positioned endotracheal tube. 2. Nasogastric tube descends below the diaphragm. 3. Improved aeration of the lung bases. Electronically signed by: Delmer Moe M.D. 08/14/2017 8:00 AM Dictated Date/Time: 08/14/2017 7:58 AM
[2017-08-14] MEDS ORDERED: FUROSEMIDE INJ 20 MG in SYRINGE 0 ML IV ONE (08:15)
[2017-08-14] MEDS: LOSARTAN POTASSIUM 50 MG TAB PO SCH (08:55)
[2017-08-14] MEDS: ENOXAPARIN 40 MG/0.4 ML SYR SQ SCH (08:55)
[2017-08-14] MEDS: DULOXETINE HCL 60 MG CAP PO SCH (08:55)
[2017-08-14] MEDS: RANITIDINE HCL 150 MG TAB PO SCH ×2 (08:55→21:07)
[2017-08-14] MEDS: CEFAZOLIN IV 2,000 MG in DEXTROSE 5% 50ML 50 ML IV SCH ×3 (08:55)
[2017-08-14] MEDS ORDERED: INSULIN GLARGINE SOLOSTAR 100 UNITS/ML 3 ML PEN SC ONE (09:00)
--- NOTE | 2017-08-14 13:25 | Progress Note ---
Progress Note Date of Service Aug 14, 2017. Progress Note Patient is alert cooperative with her exam. He demonstrates good strength testing. Dressings in place JODEE drains working properly. His neck is supple obvious decrease in swelling after release of seroma. This time hoping that he' ll be extubated Tuesday.
--- NOTE | 2017-08-14 15:02 | Pharmacy Progress Note ---
Glycemic Control Progress Note Date of Service Aug 14, 2017. Scope Glycemic Pharmacist consulted for glycemic control to write orders per [facility] inpatient glycemic control protocol. Objective Accuchecks BSG (last 24hrs): Test 08/13/17 16:15 08/13/17 20:24 08/14/17 00:40 08/14/17 04:18 Bedside Glucose 137 mg/dl (70-99) 136 mg/dl (70-99) 147 mg/dl (70-99) 134 mg/dl (70-99) Test 08/14/17 05:29 08/14/17 11:01 Random Glucose 148 mg/dl (70-99) Bedside Glucose 137 mg/dl (70-99) HbA1c: Test 08/14/17 05:29 Hemoglobin A1c 5.5 % (4.5-5.6) Recent Pertinent Medications Outpatient Anti-diabetic Regimen: * None * A1c = 5.5 % 08/14/17 Patient is currently receiving: * Basal insulin with LANTUS 52 units SQ x 1 dose yesterday * Correctional Insulin with NOVOLOG per scale ACHS or Q4hrs while NPO or Peptamen tube feeds * Goal Range: Low 140 mg/dL - High 180 mg/dL * Correction Factor: 15 mg/dL/unit * Nutritional / Prandial insulin per carb ratio of 1 unit per 5 grams CHO consumed (pt NPO for now) Risk Factors for Insulin Resistance: * Steroids: Dexamethasone 10mg IV x1, then 5mg IV Q8H, last dose was this morning * Recent Surgery: s/p ACDF 08/05/2017, I&D of cervical spine POD 1 * Diet: Peptamen via OG Tube, goal 35ml/hr Assessment & Plan ASSESSMENT: 08/14/17 * BSGs well controlled, will give another dose of Lantus today to cover for IV steroids * Tube feeds not significantly effecting blood sugar, no scheduled doses of prandial insulin needed * No correction insulin has been needed thus far, pt no longer needs overnight accuchecks * Will loosen CF and CR as steroids will be wearing off * A1c at goal, 5.5% today 08/13/17 * 62 year old s/p ACDF on 08/05 admitted today for SOB and I&D of cervical spine * Pt receiving IV steroids and is at risk for steroid induced hyperglycemia * Pt is not a diabetic as outpatient, needs updated A1c * Will initiate weight based insulin dosing for insulin valentina patient and titrate based on BSG trends. * ADA & AACE recommend a goal blood sugar range 140-180 mg/dl for the majority of critically ill & non-critically ill patients. However, more stringent targets may be selected in individual cases. PLAN FOR INPATIENT GLYCEMIC CONTROL: * Basal insulin with LANTUS 36 units SQ x 1 today * Correctional Insulin with NOVOLOG per scale ACHS or Q6hrs while NPO or Peptamen tube feeds * Goal Range: Low 140 mg/dL - High 180 mg/dL * CHANGE Correction Factor: 25 mg/dL/unit * CHANGE Nutritional / Prandial insulin per carb ratio of 1 unit per 12 grams CHO consumed (pt NPO for now) * Will begin scheduled doses of SQ Regular insulin with tube feeds if needed * Please note that the plan above was derived based on current level of insulin resistance and hospital stress. These recommendations are appropriate for inpatient admission only. Plan of care upon discharge will need to be reassessed to avoid potential outpatient hypo/hyperglycemia. Thank you.
[2017-08-14] MEDS ORDERED: NURSING VERBAL MED ORDER ONE (15:45)
[2017-08-14] MEDS: FENTANYL 1250MCG/250ML NSS 250 ML IV PRN (15:46)
[2017-08-14] MEDS: MIDAZOLAM 125MG/250ML D5W 250 ML IV PRN (16:01)
[2017-08-14] MEDS: PEPTAMEN INTENSE VHP 1000ML BAG OG SCH (21:07)
[2017-08-15] VITALS (16 sets, daily range): BP systolic 107–153; BP diastolic 64–96; PULSE 53–73; TEMP 36.8–37.4; O2SAT 95–100
[2017-08-15] MEDS: MIDAZOLAM 125MG/250ML D5W 250 ML IV PRN (05:39)
[2017-08-15] MEDS: FENTANYL 1250MCG/250ML NSS 250 ML IV PRN (05:40)
[2017-08-15 05:48] LABS: HEMATOCRIT 36.5 % (42-52); MEAN CELL VOLUME 95.3 fL (80-100); MEAN CORPUSCULAR HEMOGLOBIN 32.4 pg (25-34); PLATELET COUNT 167 K/uL (130-400); RED BLOOD COUNT 3.83 M/uL (4.7-6.1); WHITE BLOOD COUNT 10.24 K/uL (4.8-10.8)
[2017-08-15 05:51] LABS: VEN BLD GAS O2 SATURATION 70.4 %; VEN BLOOD GAS BASE EXCESS 5.5 mEq/L
[2017-08-15] MEDS: INSULIN ASPART 100 UNITS/ML 3 ML PEN SC SCH ×4 (06:00→21:00)
[2017-08-15 06:24] LABS: BUN/CREATININE RATIO 41.8 (10-20); CALCIUM 9.3 mg/dl (8.5-10.1); CREATININE 0.61 mg/dl (0.60-1.40); MAGNESIUM 2.3 mg/dl (1.8-2.4); POTASSIUM 3.5 mmol/L (3.5-5.1)
[2017-08-15 06:34] LABS: PHOSPHORUS 1.7 mg/dl (2.5-4.9)
[2017-08-15] MEDS ORDERED: SODIUM PHOSPHATE 3 MMOL/1 ML INFUSION IV STA (06:52)
[2017-08-15] MEDS ORDERED: SODIUM PHOSPHATE INJ 21 MMOL in SODIUM CHLORIDE 0.9% 500ML 500 ML IV SCH (07:00)
--- NOTE | 2017-08-15 07:02 | DIAGNOSTIC IMAGING REPORT ---
CHEST ONE VIEW PORTABLE CLINICAL HISTORY: Respiratory distress COMPARISON STUDY: 08/14/2017 FINDINGS: There is an endotracheal tube 42 mm above the sissy. The heart is normal in size. There is no failure. There is no focal pulmonary consolidation. There is a nasogastric tube within the stomach.[ IMPRESSION: Endotracheal tube 42 mm above the sissy. No evidence of focal pulmonary consolidation Electronically signed by: Tyrell Beckford M.D. 08/15/2017 7:00 AM Dictated Date/Time: 08/15/2017 6:59 AM
[2017-08-15] MEDS: ENOXAPARIN 40 MG/0.4 ML SYR SQ SCH (09:38)
[2017-08-15] MEDS: DULOXETINE HCL 60 MG CAP PO SCH (09:38)
[2017-08-15] MEDS: LOSARTAN POTASSIUM 50 MG TAB PO SCH (09:38)
[2017-08-15] MEDS: RANITIDINE HCL 150 MG TAB PO SCH ×2 (09:38→21:20)
--- NOTE | 2017-08-15 09:41 | Critical Care Progress Note ---
Critical Care Progress Note Date of Service Aug 15, 2017. Attending Dr. Morgan Subjective the pt feels better, denies any pain, no neck pain, the swelling in the right side of the neck is better, no sob, tolerating cpap or ac modes. no nausia, minimal sore throat. awake and following commands despite the sedation, high tolerance to meds. no other symptoms, ROS for 10 systems was done and was unremarkable. Objective GENERAL: Intubated, Awake, alert, in no distress HENT: Normocephalic, atraumatic. EYES: Normal conjunctiva. Sclera non-icteric. NECK: Incision over he right side of the neck C/D/I, JODEE drain in place RESPIRATORY: Clear to auscultation. CARDIAC: Regular rate, normal rhythm. Extremities warm and well perfused. Pulses equal. ABDOMEN: Soft, non-distended. No tenderness to palpation. No rebound or guarding. No masses. RECTAL: Deferred. MUSCULOSKELETAL: Chest examination reveals no tenderness. LOWER EXTREMITIES: Calves are equal size bilaterally and non-tender. No edema. NEURO: Intubated, Alert SKIN: No rash or jaundice noted. no events over night, good air leak with cuff deflation. VSS, S1S2 RRR, lungs are clear, abdomen is benign, no edema. neuro is intact, trachea is mid line no stridor, no palp mass, right cervical drain in place. no JVP. post extubation no stridor as well. no crackles, no wheezing, no rhinorrhea or heartburn. Current SOFA Score SOFA Score Response (Comments) Value PaO2/FiO2 (mmHg) < 400 1 SaO2 / FIO2 221 - 301 1 Platelets (x10) > 150 0 Bilirubin (mg/dL) < 1.2 0 Fabio Coma Score 15 0 Level of Hypotension No Hypotension 0 Creatinine (mg/dL) < 1.2 0 Total 2 Assessment & Plan 1- post op ACDF. doing well. drain in place. 2- right cervical seroma drained, doing well, Leak test almost 100% leaked of his VT. 3- high narcotics tolerance. Plan: 1- after the successful leak test , extubate the pt. 2- remove NGT first and stop the tube feeding. 3- the pt able to sound high vocals after extubation without difficulty, able also to swallow , does not feel a globus in his throat. 4- continue O2 for humidity and laminar flow support. sat is 96% on RA. 5- continue steroids , rocephine. 6- DVT prophylaxis. 7- puree diet. 8- appreciate all the notes and the consults on this case. 9- full code. 10- discussed with the staff on rounds and with the pt. CCT 35 min. Consults & Procedures Consultants: Dr. Hartley Procedures: Cervical Post-Op Seroma Data Medications: Current Inpatient Medications Medications (Trade) Dose Ordered Sig/Kishore Route Start Time Stop Time Status Last Admin Dose Admin Ioversol (Optiray 320) 125 ml UD PRN IV 08/13/17 05:15 08/17/17 05:14 Racepinephrine (Raccemic Epinephrine 2.25% 0.5ML Neb) 0.5 ml ONE PRN INH 08/13/17 07:45 Hydromorphone HCl (Dilaudid Inj) 0.5 mg Q3H PRN IV 08/13/17 07:45 08/27/17 07:44 Oxycodone HCl (Roxicodone Immediate Rel Tab) 5mg for pain scale 4-6 1... Q4H PRN PO 08/13/17 07:45 08/27/17 07:44 Dexamethasone Sodium Phosphate 8 mg/Syringe 2 ml @ 1 mls/min ONE PRN IV 08/13/17 07:45 Naloxone HCl (Narcan Inj) 0.1 mg Q5M PRN IV 08/13/17 07:45 09/12/17 07:44 Duloxetine HCl (Cymbalta Cap) 60 mg QAM PO 08/13/17 09:00 09/12/17 08:59 08/14/17 08:55 60 MG Losartan Potassium (coZAAR TAB) 50 mg QAM PO 08/13/17 09:00 09/12/17 08:59 08/14/17 08:55 50 MG Ranitidine HCl (zANTac TAB) 150 mg BID PO 08/13/17 09:00 09/12/17 08:59 08/14/17 21:07 150 MG Glucose (Glucose 40% Gel) 15-30 GRAMS 15 GRAMS... UD PRN PO 08/13/17 08:15 09/12/17 08:14 Glucose (Glucose Chew Tab) 4-8 Tablets 4 Tabl... UD PRN PO 08/13/17 08:15 09/12/17 08:14 Dextrose (Dextrose 50% 50ML Syringe) 25-50ML OF 50% DW IV FOR... UD PRN IV 08/13/17 08:15 09/12/17 08:14 Glucagon (Glucagon Inj) 1 mg UD PRN SQ 08/13/17 08:15 09/12/17 08:14 Miscellaneous Information (Consult Glycemic Management Pharmacy) 1 ea UD PRN N/A 08/13/17 08:21 09/12/17 08:20 Hydromorphone HCl (Dilaudid Inj) 1 mg Q3H PRN IV 08/13/17 08:30 08/27/17 08:29 08/13/17 15:44 1 MG Enteral Nutritional Formula (Peptamen Intense VHP) 1,000 ml GOAL OF 35ML/HR OG 08/13/17 08:45 09/12/17 08:44 08/14/17 21:07 1,000 ML Labetalol HCl (Normodyne IV) 10 mg Q4H PRN IV 08/13/17 08:45 09/12/17 08:44 Enoxaparin Sodium (Lovenox Inj) 40 mg QAM SQ 08/14/17 09:00 09/13/17 08:59 08/14/17 08:55 40 MG Sodium Phosphate 21 mmol/Sodium Chloride 507 ml @ 88 mls/hr TODAY@0700 IV 08/15/17 07:00 08/15/17 12:46 08/15/17 08:36 88 MLS/HR Insulin Aspart (novoLOG ASPART) SLIDING SCALE If C... ACHS SC 08/15/17 11:00 09/14/17 10:59 Vital Signs: Date Time Temp Pulse Resp B/P (MAP) Pulse Ox O2 Delivery O2 Flow Rate FiO2 08/15/17 08:00 96 Nasal Cannula 2.0 08/15/17 08:00 37.1 73 10 140/77 (98) 95 Nasal Cannula 2.0 08/15/17 07:18 30 08/15/17 06:00 37.0 63 20 153/82 (105) 100 Mechanical Ventilator 30 08/15/17 05:23 30 08/15/17 04:00 37.4 56 20 116/72 (87) 100 Mechanical Ventilator 30 08/15/17 04:00 30 08/15/17 04:00 100 Mechanical Ventilator 30 08/15/17 02:10 30 08/15/17 02:00 53 20 110/70 (83) 100 Mechanical Ventilator 30 08/15/17 00:00 37.3 58 20 107/64 (78) 99 Mechanical Ventilator 30 08/15/17 00:00 99 Mechanical Ventilator 30 08/15/17 00:00 30 08/14/17 23:25 30 08/14/17 22:00 61 20 121/73 (89) 98 Mechanical Ventilator 30 08/14/17 20:00 37.4 60 20 114/70 (85) 98 Mechanical Ventilator 30 08/14/17 19:36 99 Mechanical Ventilator 30 08/14/17 19:36 30 08/14/17 19:30 30 08/14/17 18:01 37.3 62 20 109/67 (81) 99 Mechanical Ventilator 40 08/14/17 17:00 30 08/14/17 15:54 66 99 Mechanical Ventilator 40 08/14/17 15:15 Mechanical Ventilator 08/14/17 15:15 37.3 62 20 114/73 (87) 99 Mechanical Ventilator 40 08/14/17 15:15 40 08/14/17 15:00 64 20 99 08/14/17 14:01 70 20 134/76 (95) 99 08/14/17 14:00 40 08/14/17 14:00 71 20 99 08/14/17 13:30 37.3 76 20 111/63 (79) 99 Mechanical Ventilator 40 08/14/17 13:01 68 20 111/63 (79) 99 08/14/17 13:00 66 20 99 08/14/17 12:01 67 20 108/63 (78) 99 08/14/17 12:00 67 20 99 08/14/17 11:46 69 20 154/84 (107) 98 08/14/17 11:38 40 08/14/17 11:37 68 98 Mechanical Ventilator 40 08/14/17 11:30 37.1 67 20 154/84 (107) 99 Mechanical Ventilator 40 08/14/17 11:30 Mechanical Ventilator 08/14/17 11:30 40 08/14/17 11:01 82 20 154/84 (107) 100 08/14/17 11:00 88 20 100 08/14/17 10:01 72 20 119/67 (84) 99 08/14/17 10:00 71 20 98 Laboratory Results: Last 24 Hours Test 08/14/17 11:01 08/14/17 16:27 08/14/17 23:28 08/15/17 05:36 Bedside Glucose 137 mg/dl 122 mg/dl 89 mg/dl White Blood Count 10.24 K/uL Red Blood Count 3.83 M/uL Hemoglobin 12.4 g/dL Hematocrit 36.5 % Mean Corpuscular Volume 95.3 fL Mean Corpuscular Hemoglobin 32.4 pg Mean Corpuscular Hemoglobin Concent 34.0 g/dl RDW Standard Deviation 45.0 fL RDW Coefficient of Variation 12.9 % Platelet Count 167 K/uL Mean Platelet Volume 9.0 fL Venous Blood pH 7.46 Venous Blood Partial Pressure CO2 44 mmHg Venous Blood Partial Pressure O2 38 mmHg Venous Blood HCO3 30 mmol/L Venous Blood Oxygen Saturation 70.4 % Venous Blood Base Excess 5.5 mEq/L Sodium Level 142 mmol/L Potassium Level 3.5 mmol/L Chloride Level 106 mmol/L Carbon Dioxide Level 30 mmol/L Anion Gap 6.0 mmol/L Blood Urea Nitrogen 26 mg/dl Creatinine 0.61 mg/dl Est Creatinine Clear Calc Drug Dose 159.4 ml/min Estimated GFR () 122.3 Estimated GFR (Non- 105.5 BUN/Creatinine Ratio 41.8 Random Glucose 89 mg/dl Calcium Level 9.3 mg/dl Phosphorus Level 1.7 mg/dl Magnesium Level 2.3 mg/dl Test 08/15/17 05:41 Bedside Glucose 85 mg/dl
--- NOTE | 2017-08-15 11:00 | Pharmacy Progress Note ---
Glycemic Control Progress Note Date of Service Aug 15, 2017. Scope Glycemic Pharmacist consulted for glycemic control to write orders per [facility] inpatient glycemic control protocol. Objective Accuchecks BSG (last 24hrs): Test 08/14/17 11:01 08/14/17 16:27 08/14/17 23:28 08/15/17 05:36 Bedside Glucose 137 mg/dl (70-99) 122 mg/dl (70-99) 89 mg/dl (70-99) Random Glucose 89 mg/dl (70-99) Test 08/15/17 05:41 Bedside Glucose 85 mg/dl (70-99) HbA1c: Test 08/14/17 05:29 Hemoglobin A1c 5.5 % (4.5-5.6) Recent Pertinent Medications The patient is currently receiving: * Basal insulin: Lantus 36 units sq X 1 given yesterday AM * Correctional Insulin: Novolog Correction per scale Q 6 hours Goal Range: Low 140 mg/dL - High 180 mg/dL Correction Factor: 25 mg/dL/unit * Prandial insulin: Per carb ratio of 1 unit per 12 grams CHO consumed * Oral Agents: None currently Outpatient Anti-Diabetic Meds No prior h/o DM and recent A1c in the normal range Assessment & Plan ASSESSMENT: * Patient with no prior h/o DM admitted for SOB / respiratory distress following ACDF ~ 1 wk ago * Found to have airway edema and underwent I&D of cervical spine seroma on 08/13 * Patient never did become hyperglycemic however he was treated aggressively with large Lantus doses immediately post-op as he was ordered high-dose dexamethasone post-op * Fasting BSG 85 this AM, last dose of dexamethasone given yesterday AM. Patient was extubated this AM and may be permitted to eat later today following bedside swallow eval. * I anticipate the effects of dexamethasone to wear off over the course of the day today. Will refrain from ordering more basal insulin at this time to a non- diabetic who's PO intake is uncertain. Will continue the correctional and prandial insulin today, with the expectation that we may be able to remove prandial insulin coverage tomorrow. PLAN FOR INPATIENT GLYCEMIC CONTROL: * No basal insulin at this time * Continuing correction factor of 25 mg/dl/unit * Continuing carb ratio of 1 unit per 12 grams CHO consumed * Continuing goal range of Low 140 mg/dL - High 180 mg/dL * Please note that the plan above was derived based on current level of insulin resistance and hospital stress. These recommendations are appropriate for inpatient admission only. Plan of care upon discharge will need to be reassessed to avoid potential outpatient hypo/hyperglycemia. Thank you.
--- NOTE | 2017-08-15 12:59 | Progress Note ---
Progress Note Date of Service Aug 15, 2017. Progress Note Patient's extubated at this time. He has some hoarseness periods tolerating soft food diet without difficulty. On exam vital signs are stable as excellent strength testing upper extremities. The drain is in place and functioning. Assessment status post I&D. Plan at this time we will allow him to ambulate as lived maintain ICU status today. If he is stable anticipate transfer to [facility] tomorrow.
[2017-08-16] VITALS (21 sets, daily range): BP systolic 146–186; BP diastolic 92–111; PULSE 55–76; TEMP 36.6–37.1; O2SAT 93–100
[2017-08-16 06:17] LABS: BUN/CREATININE RATIO 29.2 (10-20); CREATININE 0.53 mg/dl (0.60-1.40); POTASSIUM 3.4 mmol/L (3.5-5.1)
[2017-08-16] MEDS: INSULIN ASPART 100 UNITS/ML 3 ML PEN SC SCH (06:36)
--- NOTE | 2017-08-16 08:04 | Progress Note ---
Progress Note Date of Service Aug 16, 2017. Progress Note Patient's pain is well-controlled. Denies any cervicalgia. Swallowing well. Hoarseness markedly improved. Vital signs are stable JODEE drain decreasing appropriate. Assessment status post evacuation of seroma. Plan at this time we will transfer to the [facility] floor. He is to ambulate as tolerated. Anticipate possible home once day.
[2017-08-16] MEDS ORDERED: POTASSIUM CHLORIDE 10 MEQ TABCR PO ONE (08:30)
[2017-08-16] MEDS: LOSARTAN POTASSIUM 50 MG TAB PO SCH (08:38)
[2017-08-16] MEDS: RANITIDINE HCL 150 MG TAB PO SCH (08:38)
[2017-08-16] MEDS: DULOXETINE HCL 60 MG CAP PO SCH (08:38)
[2017-08-16] MEDS: ENOXAPARIN 40 MG/0.4 ML SYR SQ SCH (08:38)
--- NOTE | 2017-08-16 10:12 | Critical Care Progress Note ---
Critical Care Progress Note Date of Service Aug 16, 2017. Attending Dr. Morgan Subjective the pt denies any neck pain, still having discomfort with voice sounding ( expected), no sob or dysphagea, no heartburn, no chest pain, been able to tolerate been out of bed. Objective GENERAL: Intubated, Awake, alert, in no distress HENT: Normocephalic, atraumatic. EYES: Normal conjunctiva. Sclera non-icteric. NECK: Incision over he right side of the neck C/D/I, JODEE drain in place RESPIRATORY: Clear to auscultation. CARDIAC: Regular rate, normal rhythm. Extremities warm and well perfused. Pulses equal. ABDOMEN: Soft, non-distended. No tenderness to palpation. No rebound or guarding. No masses. RECTAL: Deferred. MUSCULOSKELETAL: Chest examination reveals no tenderness. LOWER EXTREMITIES: Calves are equal size bilaterally and non-tender. No edema. NEURO: Intubated, Alert SKIN: No rash or jaundice noted. no events over night, good air leak with cuff deflation. VSS, S1S2 RRR, lungs are clear, abdomen is benign, no edema. neuro is intact, trachea is mid line no stridor, no palp mass, right cervical drain in place. no JVP. post extubation no stridor as well. no crackles, no wheezing, no rhinorrhea or heartburn. 08/16 , his VS stable, minimal induration on the right side of the neck, trachea is midline, drain is in place. non tender, no erythema, S1S2 RRR, lungs are clear, no stridor, abdomen is benign, no edema. cranial nerves are intact. neuro is non focal. Current SOFA Score SOFA Score Response (Comments) Value PaO2/FiO2 (mmHg) < 400 1 SaO2 / FIO2 221 - 301 1 Platelets (x10) > 150 0 Bilirubin (mg/dL) < 1.2 0 Fabio Coma Score 15 0 Level of Hypotension No Hypotension 0 Creatinine (mg/dL) < 1.2 0 Total 2 Assessment & Plan 1- post op ACDF. 2- seroma of the neck , s/p surgical drainage. 3- HTN. 4- depression. Plan: 1- continue oral meds and diet. 2- dc glucose control protocol, glucose has been stable and no hx of DM, and off steroids. 3- agree with the rest of the sallie. 4- regular floor if ok with Dr. Hartley. 5- dc Abx once the drain is out. discussed on rounds with the staff. Consults & Procedures Consultants: Dr. Hartley Procedures: Cervical Post-Op Seroma Data Medications: Current Inpatient Medications Medications (Trade) Dose Ordered Sig/Kishore Route Start Time Stop Time Status Last Admin Dose Admin Ioversol (Optiray 320) 125 ml UD PRN IV 08/13/17 05:15 08/17/17 05:14 Racepinephrine (Raccemic Epinephrine 2.25% 0.5ML Neb) 0.5 ml ONE PRN INH 08/13/17 07:45 Hydromorphone HCl (Dilaudid Inj) 0.5 mg Q3H PRN IV 08/13/17 07:45 08/27/17 07:44 Oxycodone HCl (Roxicodone Immediate Rel Tab) 5mg for pain scale 4-6 1... Q4H PRN PO 08/13/17 07:45 08/27/17 07:44 Naloxone HCl (Narcan Inj) 0.1 mg Q5M PRN IV 08/13/17 07:45 09/12/17 07:44 Duloxetine HCl (Cymbalta Cap) 60 mg QAM PO 08/13/17 09:00 09/12/17 08:59 08/16/17 08:38 60 MG Losartan Potassium (coZAAR TAB) 50 mg QAM PO 08/13/17 09:00 09/12/17 08:59 08/16/17 08:38 50 MG Glucose (Glucose 40% Gel) 15-30 GRAMS 15 GRAMS... UD PRN PO 08/13/17 08:15 09/12/17 08:14 Glucose (Glucose Chew Tab) 4-8 Tablets 4 Tabl... UD PRN PO 08/13/17 08:15 09/12/17 08:14 Dextrose (Dextrose 50% 50ML Syringe) 25-50ML OF 50% DW IV FOR... UD PRN IV 08/13/17 08:15 09/12/17 08:14 Glucagon (Glucagon Inj) 1 mg UD PRN SQ 08/13/17 08:15 09/12/17 08:14 Hydromorphone HCl (Dilaudid Inj) 1 mg Q3H PRN IV 08/13/17 08:30 08/27/17 08:29 08/13/17 15:44 1 MG Labetalol HCl (Normodyne IV) 10 mg Q4H PRN IV 08/13/17 08:45 09/12/17 08:44 Enoxaparin Sodium (Lovenox Inj) 40 mg QAM SQ 08/14/17 09:00 09/13/17 08:59 08/16/17 08:38 40 MG Vital Signs: Date Time Temp Pulse Resp B/P (MAP) Pulse Ox O2 Delivery O2 Flow Rate FiO2 08/16/17 09:37 36.9 62 16 97 2.0 08/16/17 08:00 Room Air 08/16/17 08:00 36.9 62 16 160/96 (117) 97 Room Air 08/16/17 08:00 Room Air 08/16/17 06:00 57 12 96 Room Air 08/16/17 04:00 36.8 64 14 157/99 (118) 95 Room Air 08/16/17 04:00 Room Air 08/16/17 03:16 60 97 Room Air 08/16/17 02:00 55 14 146/92 (110) 96 Room Air 08/16/17 00:00 36.9 56 14 153/94 (113) 96 Room Air 08/16/17 00:00 Room Air 08/15/17 23:32 64 98 Room Air 08/15/17 22:00 64 16 145/91 (109) 97 Room Air 08/15/17 20:00 36.8 66 15 146/93 (110) 95 Room Air 08/15/17 20:00 Room Air 08/15/17 18:53 64 100 Room Air 08/15/17 18:00 66 17 129/84 (99) 97 Room Air 08/15/17 16:00 Room Air 08/15/17 16:00 62 17 152/96 (114) 100 Room Air 08/15/17 15:16 63 99 Nasal Cannula 2.0 08/15/17 14:00 61 16 138/82 (100) 97 Room Air 08/15/17 12:00 37.0 73 14 137/75 (95) 98 Nasal Cannula 2.0 08/15/17 12:00 Nasal Cannula 2.0 08/15/17 11:18 61 99 Nasal Cannula 2.0 Laboratory Results: Last 24 Hours Test 08/15/17 12:43 08/15/17 16:03 08/15/17 21:14 08/15/17 21:32 Phosphorus Level 3.1 mg/dl Bedside Glucose 72 mg/dl 64 mg/dl 70 mg/dl Test 08/15/17 23:36 08/16/17 05:31 Bedside Glucose 96 mg/dl Sodium Level 142 mmol/L Potassium Level 3.4 mmol/L Chloride Level 106 mmol/L Carbon Dioxide Level 29 mmol/L Anion Gap 7.0 mmol/L Blood Urea Nitrogen 16 mg/dl Creatinine 0.53 mg/dl Est Creatinine Clear Calc Drug Dose 183.4 ml/min Estimated GFR () 129.6 Estimated GFR (Non- 111.8 BUN/Creatinine Ratio 29.2 Random Glucose 86 mg/dl Calcium Level 9.0 mg/dl
[2017-08-16] MEDS: HYDROmorphone INJ 1 MG/ML SYR IV PRN (11:58)
[2017-08-16 14:14] LABS: MEAN CELL VOLUME 94.1 fL (80-100); MEAN CORPUSCULAR HEMOGLOBIN 32.1 pg (25-34); MEAN CORPUSCULAR HGB CONC 34.1 g/dl (32-36); MEAN PLATELET VOLUME 9.4 fL (7.4-10.4); PLATELET COUNT 192 K/uL (130-400); RED BLOOD COUNT 3.93 M/uL (4.7-6.1); WHITE BLOOD COUNT 7.37 K/uL (4.8-10.8)
[2017-08-16] MEDS ORDERED: HydrALAZINE HCL 20 MG/ML VIAL IV. PRN (14:30)
--- NOTE | 2017-08-16 14:41 | Medical Consult ---
Consultation Date of Consultation: Aug 16, 2017. Attending Physician: Jose David Hartley D.O. Reason for Consultation: Medical management History of Present Illness This is a 62 y/o male with a history of HTN, malignant melanoma, Mnire's disease, prostate cancer, depression and neuropathy who presents s/p I&D of postop seroma with Dr. Hartley on 08/13 for medical management. The patient was s /p anterior cervical discectomy and fusion of C3-C4 and C4-C5 and had been doing well when he began to experience swelling of the neck, difficulty swallowing, and shortness of breath. The patient presented to the ED and was found to have a postop seroma with airway obstruction. Dr. Hartley performed an I&D on 08/13. The patient was then intubated and transferred to the ICU. The patient was extubated on 08/15 and doing well. He was transferred to med/surg on 08/16 and medicine was consulted for medical management of the patient's HTN. The patient reports feeling better. He had been complaining of a sore 6/10 pain in his neck but is feeling better after receiving Dilaudid. He is eating a PO pureed diet without difficulty, although he states his appetite is decreased. He states that his voice is still hoarse but that continues to improve. He denies any other complaints. The patient denies fevers, chills, sweats, chest pain, palpitations, claudication, cough, wheezing, shortness of breath, nausea, vomiting, abdominal pain, dysuria, hematuria, urinary retention , paralysis, weakness, numbness and tingling. 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 (14) Spinal stenosis Status: Chronic (15) Superficial thrombophlebitis of right leg Status: Resolved (16) 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 H/o malignant melaonma Mnire's disease H/o prostate cancer Family History Diabetes mellitus FH: cancer Hypertension Seizures Stroke Social History Smoking Status: Never Smoker Smokeless Tobacco Use: No Alcohol Use: socially (2 beers/week) Drug Use: none Marital Status: Housing Status: lives with significant other Occupation Status: retired Allergies Coded Allergies: Penicillins (Verified Allergy, Severe, ANAPHYLAXIS - SEE NOTES, 08/05/17) "TOLERATES AUGMENTIN/AMOXICILLIN" PER RECORDS PT REPORTS HAS BEEN TESTED SPECIFICALLY FOR PCN ALLERGY AND STATES NO ALLERGY EXISTS TO PCN Chlorhexidine (Verified Allergy, Intermediate, red,itchy skin, 08/05/17) Acetaminophen (Verified Allergy, Unknown, GENERALIZED ITCHING, 08/05/17) Methocarbamol (Verified Allergy, Unknown, ITCHINESS, 08/05/17) Sulfa Antibiotics (Unverified Allergy, Unknown, UNKNOWN REACTION, 08/05/17) PER RECORDS PT QUESTIONNING THIS ALLERGY, NOT SURE IF ALLERGIC OR NOT - HAD PAST REACTION WITH SWELLING OF UVULA...UVULA HAS SINCE BEEN REMOVED Current Inpatient Medications Current Inpatient Medications Medications (Trade) Dose Ordered Sig/Kishore Route Start Time Stop Time Status Last Admin Dose Admin Ioversol (Optiray 320) 125 ml UD PRN IV 08/13/17 05:15 08/17/17 05:14 Racepinephrine (Raccemic Epinephrine 2.25% 0.5ML Neb) 0.5 ml ONE PRN INH 08/13/17 07:45 Hydromorphone HCl (Dilaudid Inj) 0.5 mg Q3H PRN IV 08/13/17 07:45 08/27/17 07:44 Oxycodone HCl (Roxicodone Immediate Rel Tab) 5mg for pain scale 4-6 1... Q4H PRN PO 08/13/17 07:45 08/27/17 07:44 Naloxone HCl (Narcan Inj) 0.1 mg Q5M PRN IV 08/13/17 07:45 09/12/17 07:44 Duloxetine HCl (Cymbalta Cap) 60 mg QAM PO 08/13/17 09:00 09/12/17 08:59 08/16/17 08:38 60 MG Losartan Potassium (coZAAR TAB) 50 mg QAM PO 08/13/17 09:00 09/12/17 08:59 08/16/17 08:38 50 MG Glucose (Glucose 40% Gel) 15-30 GRAMS 15 GRAMS... UD PRN PO 08/13/17 08:15 09/12/17 08:14 Glucose (Glucose Chew Tab) 4-8 Tablets 4 Tabl... UD PRN PO 08/13/17 08:15 09/12/17 08:14 Dextrose (Dextrose 50% 50ML Syringe) 25-50ML OF 50% DW IV FOR... UD PRN IV 08/13/17 08:15 09/12/17 08:14 Glucagon (Glucagon Inj) 1 mg UD PRN SQ 08/13/17 08:15 09/12/17 08:14 Hydromorphone HCl (Dilaudid Inj) 1 mg Q3H PRN IV 08/13/17 08:30 08/27/17 08:29 08/16/17 11:58 1 MG Labetalol HCl (Normodyne IV) 10 mg Q4H PRN IV 08/13/17 08:45 09/12/17 08:44 Enoxaparin Sodium (Lovenox Inj) 40 mg QAM SQ 08/14/17 09:00 09/13/17 08:59 08/16/17 08:38 40 MG Review of Systems See HPI for pertinent positives and negatives. All other systems reviewed and negative. Physical Exam Date Time Temp Pulse Resp B/P (MAP) Pulse Ox O2 Delivery O2 Flow Rate FiO2 08/16/17 12:55 178/97 (124) 08/16/17 12:15 61 175/100 (125) 08/16/17 11:50 36.7 55 16 177/104 (128) 100 Room Air 08/16/17 11:37 63 16 98 Room Air 08/16/17 10:50 177/111 (133) 08/16/17 10:00 36.6 57 18 167/98 (121) 100 Room Air 08/16/17 09:50 Room Air 08/16/17 09:37 36.9 62 16 97 2.0 08/16/17 08:00 Room Air 08/16/17 08:00 36.9 62 16 160/96 (117) 97 Room Air 08/16/17 08:00 Room Air 08/16/17 07:50 58 95 Room Air 08/16/17 06:00 57 12 96 Room Air 08/16/17 04:00 36.8 64 14 157/99 (118) 95 Room Air 08/16/17 04:00 Room Air 08/16/17 03:16 60 97 Room Air 08/16/17 02:00 55 14 146/92 (110) 96 Room Air 08/16/17 00:00 36.9 56 14 153/94 (113) 96 Room Air 08/16/17 00:00 Room Air 08/15/17 23:32 64 98 Room Air 08/15/17 22:00 64 16 145/91 (109) 97 Room Air 08/15/17 20:00 36.8 66 15 146/93 (110) 95 Room Air 08/15/17 20:00 Room Air 08/15/17 18:53 64 100 Room Air 08/15/17 18:00 66 17 129/84 (99) 97 Room Air 08/15/17 16:00 Room Air 08/15/17 16:00 62 17 152/96 (114) 100 Room Air 08/15/17 15:16 63 99 Nasal Cannula 2.0 General appearance: Well-developed, well-nourished, no apparent distress Head: Normocephalic, atraumatic Eyes: Normal inspection, PERRL, EOMI ENT: Normal ENT inspection, hearing grossly normal, pharynx normal Neck: +Drain in place, no surrounding erythema. No JVD, trachea midline Respiratory/Chest: Lungs clear to auscultation, normal breath sounds, no respiratory distress Cardiovascular: Regular rate & rhythm, no gallop, no murmur Abdomen/GI: Normal bowel sounds, non-tender, soft Extremities/Musculoskeletal: Normal inspection, no calf tenderness, no pedal edema Neurological/Psych: Alert, normal mood/affect, oriented x 3 Skin: Normal color, warm/dry, no rash Laboratory Results Last 24 Hours Test 08/15/17 16:03 08/15/17 21:14 08/15/17 21:32 08/15/17 23:36 Bedside Glucose 72 mg/dl 64 mg/dl 70 mg/dl 96 mg/dl Test 08/16/17 05:31 08/16/17 13:42 Sodium Level 142 mmol/L Potassium Level 3.4 mmol/L Chloride Level 106 mmol/L Carbon Dioxide Level 29 mmol/L Anion Gap 7.0 mmol/L Blood Urea Nitrogen 16 mg/dl Creatinine 0.53 mg/dl Est Creatinine Clear Calc Drug Dose 183.4 ml/min Estimated GFR () 129.6 Estimated GFR (Non- 111.8 BUN/Creatinine Ratio 29.2 Random Glucose 86 mg/dl Calcium Level 9.0 mg/dl White Blood Count 7.37 K/uL Red Blood Count 3.93 M/uL Hemoglobin 12.6 g/dL Hematocrit 37.0 % Mean Corpuscular Volume 94.1 fL Mean Corpuscular Hemoglobin 32.1 pg Mean Corpuscular Hemoglobin Concent 34.1 g/dl RDW Standard Deviation 42.2 fL RDW Coefficient of Variation 12.3 % Platelet Count 192 K/uL Mean Platelet Volume 9.4 fL Assessment & Plan 62 y/o male with a history of HTN, malignant melanoma, Mnire's disease, prostate cancer, depression and neuropathy who presents s/p I&D of postop seroma with Dr. Hartley on 08/13 for medical management. S/p I&D of postop seroma-POD #3, airway obstruction--stable -Pain management, DVT prophylaxis per primary team -Pt intubated 08/13, extubated 08/15 -Tolerating pureed diet and swallowing pills without difficulty -Drain in place -Hgb stable Hypokalemia -Potassium 3.4 on 08/16 -KCl 40 mEq PO x 1, continue to monitor HTN--stable -Continue losartan 50 mg PO qd -Cover with hydralazine 10 mg IV q6h prn SBP >160 -D/C prn labetalol due to HR being low normal/bradycardic Depression, neuropathy--stable -Continue Cymbalta 60 mg PO qd Thank you for this consultation. We will continue to follow. I agree with PA assessment and plan and have seen and examined pt myself Resting comfortably in bed, no concerns noted Bradycardia noted and elev BP Switch to hydralazine for HTN control Surgical management for drain Still on dilaudid Reviewed labs No further recs at this time
[2017-08-16] MEDS: OXYCODONE HCL IR 5 MG TAB (IMMEDIATE RELEASE) PO PRN ×2 (18:25→23:44)
[2017-08-16] MEDS ORDERED: ONDANSETRON INJ 2 MG/ML 2 ML VIAL IV PRN (19:00)
[2017-08-17 03:28] VITALS: PULSE 75; O2SAT 95
[2017-08-17 06:49] LABS: HEMATOCRIT 40.3 % (42-52); MEAN CELL VOLUME 90.4 fL (80-100); MEAN CORPUSCULAR HGB CONC 36.5 g/dl (32-36); MEAN PLATELET VOLUME 9.1 fL (7.4-10.4); PLATELET COUNT 201 K/uL (130-400); RED BLOOD COUNT 4.46 M/uL (4.7-6.1); WHITE BLOOD COUNT 7.35 K/uL (4.8-10.8)
[2017-08-17 07:14] VITALS: BP 172/106; PULSE 75; TEMP 36.6; O2SAT 100
[2017-08-17 07:19] LABS: CALCIUM 9.9 mg/dl (8.5-10.1); CREATININE 0.59 mg/dl (0.60-1.40); POTASSIUM 4.1 mmol/L (3.5-5.1)
--- NOTE | 2017-08-17 07:38 | Discharge Instructions ---
Discharge Instructions Date of Service Aug 17, 2017. Admission Reason for Admission: Airway Obstruction Discharge Discharge Diagnosis / Problem: cervical seroma Discharge Goals Goal(s): Decrease discomfort Activity Recommendations Activity Limitations: per Instructions/Follow-up section . Current Hospital Diet Patient's current hospital diet: Diabetes Type 2 Diet Discharge Diet Recommended Diet: Regular Diet Procedures Procedures Performed: Incision and Drainage Cervical Spine Pending Studies Studies pending at discharge: no Laboratory Results Hemoglobin A1c Test 08/14/17 05:29 Range/Units Estimated Average Glucose 111 mg/dl Hemoglobin A1c 5.5 4.5-5.6 % Medical Emergencies . Who to Call and When: Medical Emergencies: If at any time you feel your situation is an emergency, please call 911 immediately. . Non-Emergent Contact Non-Emergency issues call your: Primary Care Provider . "Provider Documentation" section prepared by Jose David Hartley. . VTE Core Measure Inpt VTE Proph given/why not?: Simon Anand, [facility]
[2017-08-17 07:45] VITALS: PULSE 82; O2SAT 100
[2017-08-17] MEDS: LOSARTAN POTASSIUM 50 MG TAB PO SCH (08:44)
[2017-08-17] MEDS: ENOXAPARIN 40 MG/0.4 ML SYR SQ SCH (08:44)
[2017-08-17] MEDS: DULOXETINE HCL 60 MG CAP PO SCH (08:44)
[2017-08-17 09:13] VITALS: BP 172/106; PULSE 82; TEMP 36.6; O2SAT 100
--- NOTE | 2017-08-18 11:56 | Discharge Summary ---
Orthopedic Discharge Summary Admission Date/Reason Aug 13, 2017 at 08:07 Airway Obstruction. Discharge Date/Disposition Aug 17, 2017 Home Diagnosis Principal Diagnosis: Postoperative cervical seroma Admission Physical Exam As per Admitting History & Physical. Hospital Course Patient presented to the ER Tuesday with difficulty breathing and swallowing. Upon evaluation we elected to perform an urgent anterior cervical exploration and evacuation of the hematoma/seroma. Patient tolerated this well was placed in the ICU postoperatively still intubated to protect his airway. We elected maintain the airway through Tuesday and on Tuesday was extubated without incident. He progressed nicely small Tuesday and Tuesday no return of swelling swallowing without difficulty no evidence of hoarseness subsequently discharged home once day. Discharge orders and instructions found on the chart for further review. Discharge Instructions Please refer to the electronic Patient Visit Report (Discharge Instructions) for additional information.
== END 2017-08-17 10:25 | disposition home or self-care (01) | DRG 909 ==
LOC: C.EDB 04:53 → EDBEDREQSVC 07:53 → ENRESERV 07:54 → C.MSICU 08:07 → ENRESERV 08-16 09:15 → C.3E 08-16 09:55
PROVIDERS: ADMIT Orthopaedic Surgery Orthopaedic Surgery of the Spine; ATTEND Orthopaedic Surgery Orthopaedic Surgery of the Spine
PROC: 5A1945Z Respiratory Ventilation, 24-96 Consecutive Hours (ICD-10-PCS; 2017-08-13)
PROC: 0W960ZZ Drainage of Neck, Open Approach (ICD-10-PCS; principal; 2017-08-13 06:15)
PROC: 0CJS8ZZ Inspection of Larynx, Via Natural or Artificial Opening Endoscopic (ICD-10-PCS; 2017-08-14)
DX: M96.842 Postprocedural seroma of a musculoskeletal structure following a musculoskeletal system procedure (principal); I10 Essential (primary) hypertension; E87.6 Hypokalemia; F32.9 Major depressive disorder, single episode, unspecified; G62.9 Polyneuropathy, unspecified; Z79.899 Other long term (current) drug therapy; Z98.1 Arthrodesis status

== ENCOUNTER 2017-10-20 10:25 | Emergency (ER) | payer BC ==
[~2017-10-20] VITALS: Ht 185.4 cm; Wt 107.3 kg
[2017-10-20 10:30] VITALS: Ht 185.4 cm; Wt 107.3 kg
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
--- NOTE | 2017-10-20 11:13 | DIAGNOSTIC IMAGING REPORT ---
CT HEAD WITHOUT CONTRAST (CT) CLINICAL HISTORY: left leg weakness POSSIBLE STROKE COMPARISON STUDY: 12/01/2016 TECHNIQUE: Axial CT of the brain is performed from the vertex to the skull base. IV contrast was not administered for this examination. A dose lowering technique was utilized adhering to the principles of ALARA. CT DOSE: 614.27 mGy.cm FINDINGS: No intra or extra-axial mass lesions are visualized. There is no CT evidence of acute cortical infarction. There is no evidence of midline shift. There is no acute hemorrhage. No calvarial fractures are visualized. There are minor white matter hypodensities likely on a small vessel basis. There is no evidence of pathologic ventricular dilatation. There are postsurgical changes of medial maxillary antrectomies. There is bilateral maxilla sinus mucosal thickening. There is no evidence of acute sinusitis. IMPRESSION: No acute intracranial findings Electronically signed by: Tyrell Beckford M.D. 10/20/2017 11:12 AM Dictated Date/Time: 10/20/2017 11:11 AM
--- NOTE | 2017-10-20 11:15 | DIAGNOSTIC IMAGING REPORT ---
LEFT KNEE 2 VIEWS CLINICAL HISTORY: eval for trauma COMPARISON: None. DISCUSSION: No fractures or dislocations are visualized. There are minor degenerative changes present. IMPRESSION: No fractures identified. Electronically signed by: Tyrell Beckford M.D. 10/20/2017 11:14 AM Dictated Date/Time: 10/20/2017 11:12 AM
[2017-10-20 11:33] LABS: BASO % 0.5 %; BASO ABS # 0.02 K/uL (0-0.2); COMPLETE YES; EOS % 4.3 %; HEMATOCRIT 41.4 % (42-52); IG% 0.2 %; LYMPH % 33.3 %; LYMPH ABS # 1.38 K/uL (1.2-3.4); MEAN CELL VOLUME 94.5 fL (80-100); MEAN CORPUSCULAR HEMOGLOBIN 32.6 pg (25-34); MEAN CORPUSCULAR HGB CONC 34.5 g/dl (32-36); MONO % 8.2 %; NEUT % 53.5 %; PLATELET COUNT 185 K/uL (130-400); RED BLOOD COUNT 4.38 M/uL (4.7-6.1); WHITE BLOOD COUNT 4.15 K/uL (4.8-10.8)
[2017-10-20 11:42] LABS: PROTHROMBIN TIME (PATIENT) 10.4 SECONDS (9.0-12.0)
--- NOTE | 2017-10-20 11:42 | DIAGNOSTIC IMAGING REPORT ---
ULTRASOUND L VENOUS DOPP LOWER EXT UNILAT CLINICAL HISTORY: Left leg swelling COMPARISON STUDY: 03/11/2016 FINDINGS: Real-time and color flow Doppler imaging were performed. Flow was seen within the femoral, popliteal and calf veins with no intraluminal thrombus demonstrated. The saphenous vein is patent. IMPRESSION: No evidence of left lower extremity DVT. Electronically signed by: Tyrell Beckford M.D. 10/20/2017 11:41 AM Dictated Date/Time: 10/20/2017 11:40 AM
[2017-10-20 11:46] LABS: BUN/CREATININE RATIO 14.3 (10-20); CREATININE 0.72 mg/dl (0.60-1.40); POTASSIUM 4.1 mmol/L (3.5-5.1)
[2017-10-20] MEDS ORDERED: GADAVIST IV PRN (13:00)
--- NOTE | 2017-10-20 13:05 | DIAGNOSTIC IMAGING REPORT ---
NECK MRA HISTORY: Left leg weakness. Suspected stroke. TECHNIQUE: Efpe-aa-pmfzrn and gadolinium-enhanced MRA of the neck was performed both before and after the intravenous administration of contrast. All measurements were calculated based on NASCET criteria. The patient was administered 10 cc of intravenous Gadavist COMPARISON STUDY: None. FINDINGS: The aortic arch and proximal great vessels are widely patent. There is no significant stenosis, occlusion, or dissection identified within the bilateral common carotid, internal carotid, or vertebral arteries. IMPRESSION: No significant stenosis, occlusion, or dissection identified within the carotid or vertebral arteries. Electronically signed by: Tyrell Beckford M.D. 10/20/2017 1:03 PM Dictated Date/Time: 10/20/2017 1:00 PM
--- NOTE | 2017-10-20 14:06 | DIAGNOSTIC IMAGING REPORT ---
MRI OF THE BRAIN WITHOUT AND WITH IV CONTRAST CLINICAL HISTORY: Left leg weakness. Suspected stroke. COMPARISON STUDY: Noncontrast head CT dated 10/20/2017 TECHNIQUE: MRI of the brain was performed from the vertex to the skull base utilizing various T1 and T2 weighted sequences. Following the IV administration of 10 mL of Gadavist contrast, additional enhanced images were obtained. FINDINGS: Sagittal T1, axial diffusion, proton density and T2 weighted axial, coronal FLAIR, and pre and post axial T1-weighted images were acquired. These were supplemented with post gadolinium coronal T1 weighted images. No intra or extra-axial mass lesions are visualized. Axial diffusion-weighted images reveal no evidence of acute or subacute infarction. There is no evidence of ventricular dilatation. Proton density T2-weighted and FLAIR images reveal minimal foci of increased T2 signal within the white matter, likely on a small vessel basis. There are no abnormal flow voids. There is no evidence of pathologic enhancement. There are postsurgical changes present within the maxillary sinuses. There is bilateral maxillary sinus mucosal thickening. IMPRESSION: 1. No acute intracranial findings 2. No evidence of intracranial mass 3. No evidence of acute or subacute infarction. Electronically signed by: Tyrell Beckford M.D. 10/20/2017 2:04 PM Dictated Date/Time: 10/20/2017 2:02 PM
[2017-10-20 14:24] VITALS: BP 139/91; PULSE 70; TEMP 36.7; O2SAT 99
== END 2017-10-20 14:27 | disposition home or self-care (01) ==
LOC: C.EDB 10:27 → C.EDA 14:27
DX: M79.662 Pain in left lower leg (principal); G62.9 Polyneuropathy, unspecified; N50.0 Atrophy of testis; M48.02 Spinal stenosis, cervical region; F32.9 Major depressive disorder, single episode, unspecified; I10 Essential (primary) hypertension; M54.12 Radiculopathy, cervical region; Z86.718 Personal history of other venous thrombosis and embolism; Z85.46 Personal history of malignant neoplasm of prostate; Z83.3 Family history of diabetes mellitus; Z82.49 Family history of ischemic heart disease and other diseases of the circulatory system; Z82.0 Family history of epilepsy and other diseases of the nervous system; Z82.3 Family history of stroke

== ENCOUNTER 2017-11-27 12:48 | Emergency (ER) | payer BC ==
[~2017-11-27] VITALS: Ht 185.4 cm; Wt 106.5 kg
[~2017-11-27 12:48] MED LIST changes: -BUTA1CAP17 PO; -CLON2TAB3 PO; -DOXY100T PO; -DULO60CA44 PO; -MULTTAB58 PO; -RXC5 PO
[2017-11-27 12:51] VITALS: TEMP 36.6; Ht 185.4 cm; Wt 106.5 kg
[2017-11-27] MEDS ORDERED: ONDANSETRON INJ 2 MG/ML 2 ML VIAL IV STA (13:06)
--- NOTE | 2017-11-27 13:32 | DIAGNOSTIC IMAGING REPORT ---
R WRIST W/NAVICULAR MIN 3 VIEWS CLINICAL HISTORY: fall, pain trauma. Pain. COMPARISON: None. DISCUSSION: Mild degenerative osteophytic change distal aspect of the carpal navicular. No well-defined fracture or dislocation. Alignment is anatomic. Cortical margins are intact. There is no evidence for soft tissue swelling. IMPRESSION: No acute process. Mild degenerative osteophytic change distal navicular The above report was generated using voice recognition software. It may contain grammatical, syntax or spelling errors. Electronically signed by: Stew Ndiaye M.D. 11/27/2017 1:31 PM Dictated Date/Time: 11/27/2017 1:29 PM
[2017-11-27] MEDS: MoRPHine SULFATE 10 MG/ML CARP/VIAL IV PRN ×2 (13:39→14:12)
--- NOTE | 2017-11-27 14:10 | DIAGNOSTIC IMAGING REPORT ---
HEAD WITHOUT CONTRAST (CT) CT DOSE: HISTORY: Trauma. Mental status change. fall, hit head TECHNIQUE: Multiaxial CT images of the head were performed without the use of intravenous contrast. A dose lowering technique was utilized adhering to the principles of ALARA. Comparison: 10/20/2017 Findings: The paranasal sinuses and mastoid air cells are clear. The calvarium and skull base are intact. The ventricles and sulci are within normal limits. There is no mass, hematoma, midline shift, or acute infarct. Impression: No acute intracranial abnormality. The above report was generated using voice recognition software. It may contain grammatical, syntax or spelling errors. Electronically signed by: Stew Ndiaye M.D. 11/27/2017 2:09 PM Dictated Date/Time: 11/27/2017 2:07 PM
--- NOTE | 2017-11-27 14:13 | DIAGNOSTIC IMAGING REPORT ---
CERVICAL SPINE W/O CT DOSE: 1267.35 mGy.cm HISTORY: Trauma fall, neck pain, had surgery in sept TECHNIQUE: Multiaxial CT images of the cervical spine were performed and reformatted in the sagittal and coronal plane without the use of contrast. A dose lowering technique was utilized adhering to the principles of ALARA. COMPARISON: 08/13/2017 FINDINGS: No fractures. No subluxation. Prevertebral soft tissues and the C1-C2 interval are intact. No pneumothorax. Postoperative changes consistent with extensive anterior fusion which has been described previously. No evidence for an acute compression deformity. The prevertebral soft tissues are within limitations of this exam appear unremarkable. Direct comparison to the prior CT soft tissue neck is not possible now regard due to changes in the field scanning. IMPRESSION: No fractures within the cervical spine. Stable postoperative change. No acute process. The above report was generated using voice recognition software. It may contain grammatical, syntax or spelling errors. Electronically signed by: Stew Ndiaye M.D. 11/27/2017 2:12 PM Dictated Date/Time: 11/27/2017 2:09 PM
[2017-11-27 14:59] VITALS: BP 156/100; PULSE 63; O2SAT 96
[2017-11-27] MEDS ORDERED: OXYCODONE IR HOME PACK PO ONE (15:00)
--- NOTE | 2017-11-27 15:14 | EMERGENCY ROOM VISIT NOTE ---
History Report prepared by Luis: Ariane Bazan Under the Supervision of: Dr. Lonnie Pappas M.D. First contact with patient: 13:00 Chief Complaint: NECK PAIN Stated Complaint: FALL,NECK AND HEAD PAIN,PT HAD BACK SURGERY IN SEP History of Present Illness The patient is a 62 year old male who presents to the Emergency Room with complaints of worsening neck pain starting last night. The patient states that he took a fall last night while pushing a stope miner. He states that he was going forward, but started to pull it backwards because he was afraid he was going to hit his dogs. He states that when he did so he tripped over a decorative rock in his yard and flipped backwards. He states that his head and right hand hit at the same time. He denies losing consciousness. He notes that he takes a baby aspirin daily. He notes that he went to [facility] before coming here. He reports that he had a neck surgery done by Dr. Hartley in July. The patient complains of increased neck pain, headache, right wrist pain, and hand pain. He notes that his pain is worse with movement. The patient denies pain in his legs and taking anything for the pain. Source of History: patient Onset: last night Position: neck Timing: worsening Modifying Factors (Worsening): movement Associated Symptoms: + headache, No LOC Note: The patient complains of wrist pain and hand pain. The patient denies pain in his legs. Review of Systems See HPI for pertinent positives & negatives. A total of 10 systems reviewed and were otherwise negative. 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] (20) Spinal stenosis (21) Superficial thrombophlebitis (22) 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 Family History Diabetes mellitus FH: cancer Hypertension Seizures Stroke Social History Smoking Status: Never Smoker Alcohol Use: occasionally Drug Use: none Marital Status: Housing Status: lives with significant other Occupation Status: retired Current/Historical Medications Scheduled Clonazepam (Klonopin), 2 MG PO HS Duloxetine Hcl (Cymbalta), 60 MG PO QAM Losartan Potassium (Cozaar), 50 MG PO QAM Multiple Vitamin (Multivitamin), 1 TAB PO QAM Scheduled PRN Bupropion Hcl (Smoking Deterre (Bupropion Hcl Sr), 150 MG PO BID PRN for HEADACHES Cmzojfrpqs-Vkwwgnbvzpmho-Eqkgk (Fioricet), 1 CAP PO Q6H PRN for Migraine Allergies Coded Allergies: Penicillins (Verified Allergy, Severe, ANAPHYLAXIS - SEE NOTES, 11/27/17) "TOLERATES AUGMENTIN/AMOXICILLIN" PER RECORDS PT REPORTS HAS BEEN TESTED SPECIFICALLY FOR PCN ALLERGY AND STATES NO ALLERGY EXISTS TO PCN Chlorhexidine (Verified Allergy, Intermediate, red,itchy skin, 11/27/17) Acetaminophen (Verified Allergy, Unknown, GENERALIZED ITCHING, 11/27/17) Methocarbamol (Verified Allergy, Unknown, ITCHINESS, 11/27/17) Sulfa Antibiotics (Unverified Allergy, Unknown, UNKNOWN REACTION, 11/27/17 ) PER RECORDS PT QUESTIONNING THIS ALLERGY, NOT SURE IF ALLERGIC OR NOT - HAD PAST REACTION WITH SWELLING OF UVULA...UVULA HAS SINCE BEEN REMOVED Physical Exam Vital Signs Date Time Temp Pulse Resp B/P (MAP) Pulse Ox O2 Delivery O2 Flow Rate FiO2 11/27/17 14:59 63 18 156/100 96 11/27/17 12:51 36.6 70 20 161/100 99 Room Air Physical Exam GENERAL: Patient is in no acute distress. HEENT: No acute trauma, normocephalic atraumatic, mucous membranes moist, no nasal congestion, no scleral icterus. NECK: No stridor. Pain to move neck in any direction. No obvious bony step off. Healing surgical wounds noted. LUNGS: Clear to auscultation bilaterally, no wheeze, no rhonchi, breath sounds equal. HEART: Without murmurs gallops or rubs, regular rate and rhythm. ABDOMEN: Soft, nontender, bowel sounds positive, no hernias, no peritonitis. EXTREMITIES: Pain noted with movement of the right wrist though no deformity or swelling is present. No area of focal bony discomfort. No contusion or abrasion. NEUROLOGIC: Oriented x 3, no acute motor or sensory deficits, no focal weakness. SKIN: No rash, no jaundice, no diaphoresis. Medical Decision & Procedures ER Provider Diagnostic Interpretation: Radiology results as stated below per my review and radiologist interpretation: R WRIST W/NAVICULAR MIN 3 VIEWS CLINICAL HISTORY: fall, pain trauma. Pain. COMPARISON: None. DISCUSSION: Mild degenerative osteophytic change distal aspect of the carpal navicular. No well-defined fracture or dislocation. Alignment is anatomic. Cortical margins are intact. There is no evidence for soft tissue swelling. IMPRESSION: No acute process. Mild degenerative osteophytic change distal navicular The above report was generated using voice recognition software. It may contain grammatical, syntax or spelling errors. Electronically signed by: Stew Ndiaye M.D. 11/27/2017 1:31 PM Dictated Date/Time: 11/27/2017 1:29 PM HEAD WITHOUT CONTRAST (CT) CT DOSE: HISTORY: Trauma. Mental status change. fall, hit head TECHNIQUE: Multiaxial CT images of the head were performed without the use of intravenous contrast. A dose lowering technique was utilized adhering to the principles of ALARA. Comparison: 10/20/2017 Findings: The paranasal sinuses and mastoid air cells are clear. The calvarium and skull base are intact. The ventricles and sulci are within normal limits. There is no mass, hematoma, midline shift, or acute infarct. Impression: No acute intracranial abnormality. The above report was generated using voice recognition software. It may contain grammatical, syntax or spelling errors. Electronically signed by: Stew Ndiaye M.D. 11/27/2017 2:09 PM Dictated Date/Time: 11/27/2017 2:07 PM CERVICAL SPINE W/O CT DOSE: 1267.35 mGy.cm HISTORY: Trauma fall, neck pain, had surgery in sept TECHNIQUE: Multiaxial CT images of the cervical spine were performed and reformatted in the sagittal and coronal plane without the use of contrast. A dose lowering technique was utilized adhering to the principles of ALARA. COMPARISON: 08/13/2017 FINDINGS: No fractures. No subluxation. Prevertebral soft tissues and the C1-C2 interval are intact. No pneumothorax. Postoperative changes consistent with extensive anterior fusion which has been described previously. No evidence for an acute compression deformity. The prevertebral soft tissues are within limitations of this exam appear unremarkable. Direct comparison to the prior CT soft tissue neck is not possible now regard due to changes in the field scanning. IMPRESSION: No fractures within the cervical spine. Stable postoperative change. No acute process. The above report was generated using voice recognition software. It may contain grammatical, syntax or spelling errors. Electronically signed by: Stew Ndiaye M.D. 11/27/2017 2:12 PM Dictated Date/Time: 11/27/2017 2:09 PM Medications Administered Medications (Trade) Dose Ordered Sig/Kishore Route Start Time Stop Time Status Last Admin Dose Admin Morphine Sulfate (MoRPHine SULFATE INJ) 6 mg Q15M PRN IV 11/27/17 13:15 11/27/17 15:27 DC 11/27/17 14:12 6 MG Ondansetron HCl (Zofran Inj) 4 mg NOW STAT IV 11/27/17 13:06 11/27/17 13:10 DC 11/27/17 13:38 4 MG Oxycodone HCl (Roxicodone Immediate Rel 5MG Home Pack) 1 homepack UD ONCE PO 11/27/17 15:00 11/27/17 15:01 DC 11/27/17 14:56 1 HOMEPACK ED Course 1301: The patient was evaluated in room A11B. A complete history and physical exam was performed. 1306: Ordered Zofran Inj 4 mg IV. 1315: Ordered Morphine Sulfate 6 mg PRN IV pain. 1446: Reevaluated the patient. Discussed results and discharge instructions: He verbalized understanding and agreement. The patient is ready for discharge. 1500: Ordered Oxycodone HCl 1 homepack PO. Medical Decision Differential diagnoses include muscular strain, intracranial bleeding, skull fracture, c-spine fracture, loosened hardware, wrist fracture, wrist sprain. Patient presents with a headache, neck pain and right wrist pain since falling. He did have neck surgery a few months ago. Films of the right wrist did not show fracture. C-spine CT shows no acute fracture or loosening of his hardware. Brain CT shows no skull fracture, no acute bleed or mass effect. The patient received IV morphine and IV Zofran. He has had some pain relief. He will be discharged with a home pack of oxycodone. He appears to have aggravated his neck with the fall, he likely has a cervical strain. His right wrist is sprained. He was reassured. Medication Reconcilliation Current Medication List: was personally reviewed by me Blood Pressure Screening Patient's blood pressure: Elevated blood pressure Blood pressure disposition: Referred to PCP Impression Primary Impression: Cervical strain Additional Impressions: Head trauma Right wrist sprain Fall Scribe Attestation The scribe's documentation has been prepared under my direction and personally reviewed by me in its entirety. I confirm that the note above accurately reflects all work, treatment, procedures, and medical decision making performed by me. Departure Information Dispostion Home / Self-Care Referrals Mike Quan Jr,D.O. (PCP) Forms HOME CARE DOCUMENTATION FORM, IMPORTANT VISIT INFORMATION, WORK / SCHOOL INSTRUCTIONS Patient Instructions My [facility] [place] [employer] Additional Instructions ice to the neck for 30 minutes at a time--switch to using heat tuesday oxy ir 1 tab every 4 hours for severe pain return if worsening see your surgeon this week--call for an appt Problem Qualifiers
[2018-01-01] MEDS ORDERED: DULO60CA44 PO (04:19)
[2018-01-01] MEDS ORDERED: MULTTAB58 PO (09:17)
[2018-01-01] MEDS ORDERED: BUTA1CAP17 PO (10:02)
[2018-01-01] MEDS ORDERED: CLON2TAB10 PO (16:19)
[2018-01-02] MEDS ORDERED: OXYC-90 PO (00:07)
[2018-02-02] MEDS ORDERED: RANI300T2 PO (07:13)
[2018-02-02] MEDS ORDERED: ASPCH81X PO (07:13)
[2018-03-29] MEDS ORDERED: BP MEDS PO (07:51)
[2018-03-29] MEDS ORDERED: IBUP-1050 PO (07:51)
[2018-04-25] MEDS ORDERED: AMLO10TA3 PO (11:14)
[2018-05-26] MEDS ORDERED: CEPH500C PO (19:40)
[2018-05-27] MEDS ORDERED: RXC/5 PO (11:19)
[2018-05-27] MEDS ORDERED: OXYC-737 PO (13:11)
== END 2017-11-27 15:00 | disposition home or self-care (01) ==
LOC: C.EDB 12:50 → C.EDA 15:00
DX: S16.1XXA Strain of muscle, fascia and tendon at neck level, initial encounter (principal); S09.90XA Unspecified injury of head, initial encounter; S63.501A Unspecified sprain of right wrist, initial encounter; W00.0XXA Fall on same level due to ice and snow, initial encounter; Y92.014 Private driveway to single-family (private) house as the place of occurrence of the external cause; Y93.H1 Activity, digging, shoveling and raking; F32.9 Major depressive disorder, single episode, unspecified; I10 Essential (primary) hypertension; Z85.46 Personal history of malignant neoplasm of prostate; M48.00 Spinal stenosis, site unspecified; Z86.718 Personal history of other venous thrombosis and embolism; Z83.3 Family history of diabetes mellitus; Z80.9 Family history of malignant neoplasm, unspecified; Z82.49 Family history of ischemic heart disease and other diseases of the circulatory system; Z79.899 Other long term (current) drug therapy

== ENCOUNTER → 2017-12-08 | Outpatient (CLI) | payer OTHER ==
[~2017-12-08] MED LIST changes: +BUTA1CAP17 PO; +CLON2TAB3 PO; +DULO60CA44 PO; +MULTTAB58 PO
--- NOTE | 2017-12-08 09:12 | DIAGNOSTIC IMAGING REPORT ---
CHEST 2 VIEWS ROUTINE HISTORY: COUGH COMPARISON: Chest 08/15/2017. FINDINGS: The lungs are clear. Cardiac silhouette is normal in size. No pleural effusions. No pneumothorax. IMPRESSION: No acute process. Electronically signed by: Avtar Malcolm M.D. 12/08/2017 9:10 AM Dictated Date/Time: 12/08/2017 9:08 AM
== END | disposition home or self-care (01) ==
LOC: C.RAD 08:47
DX: R05 Cough (principal)

== ENCOUNTER 2018-01-01 21:03 | Emergency (ER) | payer OTHER ==
[~2018-01-01] VITALS: Ht 185.4 cm; Wt 92.1 kg
[2018-01-01 21:05] VITALS: TEMP 36.9; Ht 185.4 cm; Wt 92.1 kg
[2018-01-01] MEDS ORDERED: KETOROLAC TROMETHAMINE 30 MG/ML VIAL IV STA (21:20)
[2018-01-01] MEDS ORDERED: BP MED PO (21:43)
[2018-01-01 21:46] VITALS: O2SAT 95
[2018-01-01 21:59] LABS: BASO % 0.5 %; BASO ABS # 0.03 K/uL (0-0.2); EOS % 5.7 %; EOS ABS # 0.36 K/uL (0-0.5); HEMATOCRIT 40.5 % (42-52); HEMOGLOBIN 13.9 g/dL (14.0-18.0); IG# 0.01 K/uL (0.00-0.02); LYMPH % 32.3 %; LYMPH ABS # 2.04 K/uL (1.2-3.4); MEAN CELL VOLUME 92.5 fL (80-100); MEAN CORPUSCULAR HEMOGLOBIN 31.7 pg (25-34); MEAN CORPUSCULAR HGB CONC 34.3 g/dl (32-36); MEAN PLATELET VOLUME 8.9 fL (7.4-10.4); MONO % 7.9 %; NEUT % 53.4 %; NEUT ABS # 3.38 K/uL (1.4-6.5); PLATELET COUNT 204 K/uL (130-400); RED CELL DISTRIBUTION WIDTH CV 13.2 % (11.5-14.5); RED CELL DISTRIBUTION WIDTH SD 44.8 fL (36.4-46.3); WHITE BLOOD COUNT 6.32 K/uL (4.8-10.8)
[2018-01-01 22:17] LABS: PTT PATIENT 23.6 SECONDS (21.0-31.0)
[2018-01-01 22:24] LABS: ALBUMIN 3.5 gm/dl (3.4-5.0); ALKALINE PHOSPHATASE 69 U/L (45-117); ALT/SGPT 33 U/L (12-78); BLOOD UREA NITROGEN 15 mg/dl (7-18); CALCIUM 8.7 mg/dl (8.5-10.1); CARBON DIOXIDE 25 mmol/L (21-32); CKMB 2.1 ng/ml (0.5-3.6); CREATININE 0.86 mg/dl (0.60-1.40); GLUCOSE 118 mg/dl (70-99); SODIUM 141 mmol/L (136-145); TOTAL PROTEIN 6.5 gm/dl (6.4-8.2)
[2018-01-01 22:26] LABS: POTASSIUM 4.2 mmol/L (3.5-5.1)
[2018-01-01] MEDS ORDERED: MoRPHine SULFATE 4 MG/ML 1 ML CARP\\VIAL IV STA (22:27)
[2018-01-01 22:34] LABS: AST/SGOT 16 U/L (15-37)
--- NOTE | 2018-01-01 22:56 | DIAGNOSTIC IMAGING REPORT ---
(CHEST FOR PE) ANGIO WITH CLINICAL HISTORY: 62 years-old Male presenting with chest pain, coughing up blood for a week, clinical concern for pulmonary embolus. TECHNIQUE: Multidetector CT angiography of the chest was performed after administration of intravenous contrast. 3-D volumetric and/or maximum intensity projection (MIP) images were subsequently reconstructed for review. IV contrast: 115 mL of Optiray 320. A dose lowering technique was used consistent with the principles of ALARA (as low as reasonably achievable). COMPARISON: 12/01/2016. CT DOSE (mGy.cm): The estimated cumulative dose is 656.34 mGy.cm. FINDINGS: Director Of Student Services topogram: Unremarkable. Pulmonary vasculature: The study is suboptimal for the assessment of the pulmonary vascular tree secondary to respiratory motion artifact. Allowing for limited image quality, no central filling defect to suggest pulmonary embolus. Main pulmonary artery mildly enlarged measuring 3.5 cm in maximal transverse dimension. No flattening of the interventricular septum. No intracardiac filling defect. No reflux of contrast into the hepatic veins. Remaining chest: On soft tissue windows, multiple thyroid nodules present, unchanged. No axillary, supraclavicular, hilar, or mediastinal lymphadenopathy. Normal aorta. Normal heart size. Coronary artery calcification. No pericardial or pleural effusion. Upper abdomen normal. On lung windows, minimal dependent changes likely atelectasis. No other focal nodule or infiltrate. Airways patent. On bone windows, old screw tracks noted in the cervical spine from prior anterior fusion. Degenerative changes of the thoracic spine. IMPRESSION: 1. Allowing for suboptimal image quality, no evidence of pulmonary embolus. No acute intrathoracic pathology. 2. Enlargement of the main pulmonary artery suggests pulmonary hypertension. This is unchanged from prior exam. Electronically signed by: Delmer Moe M.D. 01/01/2018 10:55 PM Dictated Date/Time: 01/01/2018 10:48 PM
[2018-01-01] MEDS ORDERED: OPTIRAY 320 IV PRN (23:00)
--- NOTE | 2018-01-01 23:52 | EMERGENCY ROOM VISIT NOTE ---
History Report prepared by Luis: Dylan Nelson Under the Supervision of: Dr. Aravind Douglas D.O. First contact with patient: 21:09 Chief Complaint: BLEEDING Stated Complaint: POSSIBLE DVT-COUGHING UP BLOOD History of Present Illness The patient is a 62 year old male who presents to the Emergency Room with complaints of right leg pain that occurred just prior to arrival. The patient states he was using a snow plower earlier today, showered, and said the pain started when he was watching the Superbowl. He states the area of his right leg is tender to palpation. The patient states that he was intubated and placed in the ICU recently. The patient states he has been coughing up blood and finished a 42 day course of steroids due to esophageal irritation. The patient states that his family doctor said that he had a DVT (10 years ago) and that he should go to the ED if it happens again. He complains of general fatigue and a persistent cough that started 2 weeks ago. He also states that when he sleeps, he wheezes. Of note, the patient sees Dr. Mejia. 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 A total of 10 systems reviewed and were otherwise negative. 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] (20) Spinal stenosis (21) Superficial thrombophlebitis (22) 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 Surgical Problems: (1) Lightning Family History Diabetes mellitus FH: cancer Hypertension Seizures Stroke Social History Smoking Status: Never Smoker Alcohol Use: occasionally Drug Use: none Marital Status: Housing Status: lives with significant other Occupation Status: retired Current/Historical Medications Scheduled Clonazepam (Klonopin), 2 MG PO HS Duloxetine Hcl (Cymbalta), 60 MG PO QAM Multiple Vitamin (Multivitamin), 1 TAB PO QAM [Bp Med], 1 TAB PO DAILY Scheduled PRN Bupropion Hcl (Smoking Deterre (Bupropion Hcl Sr), 150 MG PO BID PRN for HEADACHES Jvdhptfuua-Hbjpfppmedwph-Rnjag (Fioricet), 1 CAP PO Q6H PRN for Migraine Allergies Coded Allergies: Penicillins (Verified Allergy, Severe, ANAPHYLAXIS - SEE NOTES, 11/27/17) "TOLERATES AUGMENTIN/AMOXICILLIN" PER RECORDS PT REPORTS HAS BEEN TESTED SPECIFICALLY FOR PCN ALLERGY AND STATES NO ALLERGY EXISTS TO PCN Chlorhexidine (Verified Allergy, Intermediate, red,itchy skin, 11/27/17) Acetaminophen (Verified Allergy, Unknown, GENERALIZED ITCHING, 11/27/17) Methocarbamol (Verified Allergy, Unknown, ITCHINESS, 11/27/17) Sulfa Antibiotics (Unverified Allergy, Unknown, UNKNOWN REACTION, 11/27/17 ) PER RECORDS PT QUESTIONNING THIS ALLERGY, NOT SURE IF ALLERGIC OR NOT - HAD PAST REACTION WITH SWELLING OF UVULA...UVULA HAS SINCE BEEN REMOVED Physical Exam Vital Signs Date Time Temp Pulse Resp B/P (MAP) Pulse Ox O2 Delivery O2 Flow Rate FiO2 01/01/18 23:10 64 18 154/85 97 Room Air 01/01/18 22:27 65 18 140/88 96 Room Air 01/01/18 21:50 65 01/01/18 21:46 95 Room Air 01/01/18 21:05 36.9 74 20 139/100 98 Room Air Physical Exam CONSTITUTIONAL/VITAL SIGNS: Reviewed / noted above. GENERAL: Non-toxic in appearance. INTEGUMENTARY: Warm, dry, and [place]. HEAD: Normocephalic. EYES: without scleral icterus or trauma. ENT/OROPHARYNX: clear and moist. LYMPHADENOPATHY/NECK: Is supple without lymphadenopathy or meningismus. RESPIRATORY: Lungs clear and equal. CARDIOVASCULAR: Regular rate and rhythm. GI/ABDOMEN: Soft and nontender. No organomegaly or pulsatile mass. No rebound or guarding. Normal bowel sounds. EXTREMITIES: Warm and well perfused. Mild erythema and tenderness to right inner thigh following a blood vessel. BACK: No CVA tenderness. NEUROLOGICAL: Intact without focal deficits. PSYCHIATRIC: normal affect. MUSCULOSKELETAL: Normally developed with good muscle tone. Medical Decision & Procedures ER Provider Diagnostic Interpretation: Radiology results as stated below per my review and radiologist interpretation: (CHEST FOR PE) ANGIO WITH CLINICAL HISTORY: 62 years-old Male presenting with chest pain, coughing up blood for a week, clinical concern for pulmonary embolus. TECHNIQUE: Multidetector CT angiography of the chest was performed after administration of intravenous contrast. 3-D volumetric and/or maximum intensity projection (MIP) images were subsequently reconstructed for review. IV contrast: 115 mL of Optiray 320. A dose lowering technique was used consistent with the principles of ALARA (as low as reasonably achievable). COMPARISON: 12/01/2016. CT DOSE (mGy.cm): The estimated cumulative dose is 656.34 mGy.cm. FINDINGS: Chief Nuclear Medicine Technologist topogram: Unremarkable. Pulmonary vasculature: The study is suboptimal for the assessment of the pulmonary vascular tree secondary to respiratory motion artifact. Allowing for limited image quality, no central filling defect to suggest pulmonary embolus. Main pulmonary artery mildly enlarged measuring 3.5 cm in maximal transverse dimension. No flattening of the interventricular septum. No intracardiac filling defect. No reflux of contrast into the hepatic veins. Remaining chest: On soft tissue windows, multiple thyroid nodules present, unchanged. No axillary, supraclavicular, hilar, or mediastinal lymphadenopathy. Normal aorta. Normal heart size. Coronary artery calcification. No pericardial or pleural effusion. Upper abdomen normal. On lung windows, minimal dependent changes likely atelectasis. No other focal nodule or infiltrate. Airways patent. On bone windows, old screw tracks noted in the cervical spine from prior anterior fusion. Degenerative changes of the thoracic spine. IMPRESSION: 1. Allowing for suboptimal image quality, no evidence of pulmonary embolus. No acute intrathoracic pathology. 2. Enlargement of the main pulmonary artery suggests pulmonary hypertension. This is unchanged from prior exam. Electronically signed by: Delmer Moe M.D. 01/01/2018 10:55 PM Dictated Date/Time: 01/01/2018 10:48 PM US VENOUS RIGHT LOWER EXTREMITY: No evidence of deep vein thrombosis. Superficial femoral phlebitis noted within the mid to distal right thigh. Radiologist: Jeremias Stewart MD. Study read at 23:17 and initial results transmitted at 23:37. Laboratory Results 01/01/18 21:40 Red Blood Count 4.38, Mean Corpuscular Volume 92.5, Mean Corpuscular Hemoglobin 31.7, Mean Corpuscular Hemoglobin Concent 34.3, Mean Platelet Volume 8.9, Neutrophils (%) (Auto) 53.4, Lymphocytes (%) (Auto) 32.3, Monocytes (%) (Auto) 7.9, Eosinophils (%) (Auto) 5.7, Basophils (%) (Auto) 0.5, Neutrophils # (Auto) 3.38, Lymphocytes # (Auto) 2.04, Monocytes # (Auto) 0.50, Eosinophils # (Auto) 0.36, Basophils # (Auto) 0.03 01/01/18 21:40 Test 01/01/18 21:40 01/01/18 22:05 White Blood Count 6.32 K/uL (4.8-10.8) Red Blood Count 4.38 M/uL (4.7-6.1) Hemoglobin 13.9 g/dL (14.0-18.0) Hematocrit 40.5 % (42-52) Mean Corpuscular Volume 92.5 fL (80-100) Mean Corpuscular Hemoglobin 31.7 pg (25-34) Mean Corpuscular Hemoglobin Concent 34.3 g/dl (32-36) Platelet Count 204 K/uL (130-400) Mean Platelet Volume 8.9 fL (7.4-10.4) Neutrophils (%) (Auto) 53.4 % Lymphocytes (%) (Auto) 32.3 % Monocytes (%) (Auto) 7.9 % Eosinophils (%) (Auto) 5.7 % Basophils (%) (Auto) 0.5 % Neutrophils # (Auto) 3.38 K/uL (1.4-6.5) Lymphocytes # (Auto) 2.04 K/uL (1.2-3.4) Monocytes # (Auto) 0.50 K/uL (0.11-0.59) Eosinophils # (Auto) 0.36 K/uL (0-0.5) Basophils # (Auto) 0.03 K/uL (0-0.2) RDW Standard Deviation 44.8 fL (36.4-46.3) RDW Coefficient of Variation 13.2 % (11.5-14.5) Immature Granulocyte % (Auto) 0.2 % Immature Granulocyte # (Auto) 0.01 K/uL (0.00-0.02) Prothrombin Time 10.3 SECONDS (9.0-12.0) Prothromb Time International Ratio 1.0 (0.9-1.1) Activated Partial Thromboplast Time 23.6 SECONDS (21.0-31.0) Partial Thromboplastin Ratio 0.9 Anion Gap 8.0 mmol/L (3-11) Est Creatinine Clear Calc Drug Dose 98.0 ml/min Estimated GFR () 106.2 Estimated GFR (Non- 91.6 BUN/Creatinine Ratio 17.2 (10-20) Calcium Level 8.7 mg/dl (8.5-10.1) Total Bilirubin 0.2 mg/dl (0.2-1) Direct Bilirubin < 0.1 mg/dl (0-0.2) Aspartate Amino Transf (AST/SGOT) 16 U/L (15-37) Alanine Aminotransferase (ALT/SGPT) 33 U/L (12-78) Alkaline Phosphatase 69 U/L (45-117) Total Creatine Kinase 127 U/L (39-308) Creatine Kinase MB 2.1 ng/ml (0.5-3.6) Creatine Kinase MB Ratio 1.7 (0-3.0) Troponin I < 0.015 ng/ml (0-0.045) Total Protein 6.5 gm/dl (6.4-8.2) Albumin 3.5 gm/dl (3.4-5.0) Urine Color YELLOW Urine Appearance CLEAR (CLEAR) Urine pH 6.0 (4.5-7.5) Urine Specific Mcdonald 1.022 (1.000-1.030) Urine Protein NEG (NEG) Urine Glucose (UA) NEG (NEG) Urine Ketones NEG (NEG) Urine Occult Blood NEG (NEG) Urine Nitrite NEG (NEG) Urine Bilirubin NEG (NEG) Urine Urobilinogen NEG (NEG) Urine Leukocyte Esterase NEG (NEG) Laboratory results as stated above per my review. Medications Administered Medications (Trade) Dose Ordered Sig/Kishore Route Start Time Stop Time Status Last Admin Dose Admin Ketorolac Tromethamine (Toradol Inj) 30 mg NOW STAT IV 01/01/18 21:20 01/01/18 21:21 DC 01/01/18 21:46 30 MG Morphine Sulfate (MoRPHine SULFATE INJ) 4 mg NOW STAT IV 01/01/18 22:27 01/01/18 22:29 DC 01/01/18 22:33 4 MG ECG Indication: SOB/dyspnea Rate (beats per minute): 65 Rhythm: normal sinus Findings: no ectopy, other (No acute injury) Change: Patient's EKG interpreted by me. ED Course 2111: Previous medical records were reviewed. The patient was evaluated in room C9. A complete history and physical examination was performed. 2119: Toradol Inj 30 mg IV. 2226: Morphine Sulfate Inj 4mg IV. 2399: On reevaluation, the patient is doing well. I discussed the results and findings with the patient. He verbalized agreement of the treatment plan. He was discharged home. Medical Decision the differential was considered includes acute myocardial infarction, acute coronary syndrome, myocarditis, pericarditis, pericardial effusions /tamponad, esophageal perforation, pulmonary embolism, pneumonia, pneumothorax, cardiomyopathy, congestive heart, anemia , COPD/asthma exacerbation. This is a 62-year-old male who presents to the ED with a chief complaint of right inner thigh pain as well as a chronic cough that he has had for some time. Occasionally coughs up a little blood. This is been ongoing for months. The patient tonight noticed some discomfort in his right inner thigh and came to the ED for evaluation of this. His vital signs are stable. His physical exam is noted above. There is some tenderness in the right inner thigh as well as some mild redness that tracks a palpable vein. A CT scan of the chest was negative for PE or other acute abnormality. CBC is normal, complete metabolic panel was normal, troponin is negative urine did not show abnormality. Ultrasound of the leg reveals superficial femoral phlebitis. No evidence of DVT. The patient was treated with Toradol and morphine for discomfort. Patient was told the results. She was advised to use warm compresses to the leg , ibuprofen and was given a OxyIR for additional pain control. He is advised to follow-up with his PCP for recheck and repeat ultrasound in 2-3 days. Medication Reconcilliation Current Medication List: was personally reviewed by me Blood Pressure Screening Patient's blood pressure: Elevated blood pressure Blood pressure disposition: Elevated BP felt to be situational Impression Primary Impression: Phlebitis Scribe Attestation The scribe's documentation has been prepared under my direction and personally reviewed by me in its entirety. I confirm that the note above accurately reflects all work, treatment, procedures, and medical decision making performed by me. Departure Information Dispostion Home / Self-Care Referrals Mike Quan Jr,D.O. (PCP) Patient Instructions ED Phlebitis Superficial, My [facility] Additional Instructions Use warm compresses to the area of pain. Take ibuprofen 600 mg every 6 hours. OxyIR as prescribed for additional pain. No driving within 6 hours of use. See your doctor in 2-3 days for recheck and repeat ultrasound.
[2018-01-02] MEDS ORDERED: OXYC1TAB3 PO (00:07)
[2018-01-02 00:22] VITALS: BP 136/76; PULSE 68; O2SAT 97
--- NOTE | 2018-01-02 07:07 | DIAGNOSTIC IMAGING REPORT ---
ULTRASOUND RIGHT LOWER EXTREMITY VENOUS CLINICAL HISTORY: Thigh pain. COMPARISON STUDY: Right lower extremity venous ultrasound dated 02/27/2016. TECHNIQUE: Real-time, grayscale, and color Doppler sonography of the deep veins of the right lower extremity was performed from the inguinal crease to the calf. Compression and augmentation were utilized. FINDINGS: There is no sonographic evidence of deep venous thrombosis identified in the right lower extremity. The common femoral, superficial femoral, and popliteal veins are patent and normally compressible. The greater saphenous vein and the profunda femoris vein at the junction with the common femoral vein are clear. The visualized calf veins are patent. Superficial venous thrombus is seen within the mid to distal thigh within the greater saphenous vein. This extends into the calf. IMPRESSION: 1. There is no sonographic evidence of deep venous thrombosis identified in the right lower extremity. 2. Superficial venous thrombus as above which extends from the thigh into the calf. Electronically signed by: Lonnie Landon M.D. 01/02/2018 7:06 AM Dictated Date/Time: 01/02/2018 7:05 AM
== END 2018-01-02 00:23 | disposition home or self-care (01) ==
LOC: C.EDB 21:05 → C.EDC 01-02 00:23
DX: I80.11 Phlebitis and thrombophlebitis of right femoral vein (principal); F32.9 Major depressive disorder, single episode, unspecified; I10 Essential (primary) hypertension; Z80.42 Family history of malignant neoplasm of prostate; Z83.3 Family history of diabetes mellitus; Z82.49 Family history of ischemic heart disease and other diseases of the circulatory system; Z82.0 Family history of epilepsy and other diseases of the nervous system; Z82.3 Family history of stroke; Z79.899 Other long term (current) drug therapy

== ENCOUNTER → 2018-01-06 | Outpatient (CLI) | payer OTHER ==
[~2018-01-06] MED LIST changes: +BP MED PO; -LOSA50TA6 PO; +OXYC1TAB3 PO
--- NOTE | 2018-01-06 13:19 | DIAGNOSTIC IMAGING REPORT ---
VENOUS DOPP LOWER EXT UNILAT CLINICAL HISTORY: 62 years-old Male presenting with RT THIGH PAIN,SUPERFICIAL THROMBOPHLEBITIS R/O DVT. TECHNIQUE: Real-time grayscale and color and spectral Doppler ultrasound imaging of the veins of the right lower extremity was performed. Compression and augmentation were also utilized. COMPARISON: Ultrasound from 01/01/2018. FINDINGS: Right: Common femoral vein: Patent. Greater saphenous vein: Patent at the confluence with the common femoral vein. Deep femoral vein: Patent. Femoral vein: Patent. Popliteal vein: Patent. Calf veins: Patent. Other: Filling defect consistent with thrombus in a superficial vein along the mid thigh extending inferiorly to the level of the medial knee. This likely represents a greater saphenous vein. IMPRESSION: 1. No evidence of deep venous thrombosis. 2. Essentially unchanged appearance of the superficial venous thrombosis extending from the knee to the mid thigh. Electronically signed by: Delmer Moe M.D. 01/06/2018 1:17 PM Dictated Date/Time: 01/06/2018 1:15 PM
== END | disposition home or self-care (01) ==
LOC: C.ULTR 12:21
DX: M79.651 Pain in right thigh (principal); I82.811 Embolism and thrombosis of superficial veins of right lower extremity

== ENCOUNTER → 2018-01-11 | Outpatient (CLI) | payer OTHER ==
[2018-01-11 13:05] LABS: BASO % 0.6 %; BASO ABS # 0.03 K/uL (0-0.2); EOS % 4.8 %; EOS ABS # 0.23 K/uL (0-0.5); HEMATOCRIT 41.6 % (42-52); HEMOGLOBIN 14.8 g/dL (14.0-18.0); IG# 0.01 K/uL (0.00-0.02); LYMPH % 38.9 %; LYMPH ABS # 1.86 K/uL (1.2-3.4); MEAN CORPUSCULAR HEMOGLOBIN 32.4 pg (25-34); MEAN CORPUSCULAR HGB CONC 35.6 g/dl (32-36); MEAN PLATELET VOLUME 8.9 fL (7.4-10.4); MONO % 8.6 %; MONO ABS # 0.41 K/uL (0.11-0.59); NEUT % 46.9 %; NEUT ABS # 2.24 K/uL (1.4-6.5); PLATELET COUNT 192 K/uL (130-400); RED CELL DISTRIBUTION WIDTH CV 13.4 % (11.5-14.5); RED CELL DISTRIBUTION WIDTH SD 43.8 fL (36.4-46.3); WHITE BLOOD COUNT 4.78 K/uL (4.8-10.8)
[2018-01-11 13:18] LABS: PTT PATIENT 24.5 SECONDS (21.0-31.0)
[2018-01-11 13:48] LABS: ALBUMIN 4.1 gm/dl (3.4-5.0); ALT/SGPT 38 U/L (12-78); BLOOD UREA NITROGEN 13 mg/dl (7-18); CALCIUM 9.8 mg/dl (8.5-10.1); CARBON DIOXIDE 28 mmol/L (21-32); CREATININE 0.65 mg/dl (0.60-1.40); GLUCOSE 109 mg/dl (70-99); POTASSIUM 4.3 mmol/L (3.5-5.1); SODIUM 138 mmol/L (136-145)
[2018-01-11 13:52] LABS: ALKALINE PHOSPHATASE 76 U/L (45-117); AST/SGOT 20 U/L (15-37); TOTAL PROTEIN 7.1 gm/dl (6.4-8.2)
--- NOTE | 2018-01-11 16:56 | ECHOCARDIOGRAM REPORT ---
*NOTICE TO RECEIVING REPUBLICAN AGENCY This information is strictly Confidential and protected under [place] law. [place] law prohibits you from making any further disclosure of this information unless further disclosure is expressly permitted by the written consent of the person to whom it pertains or is authorized by law. A general authorization for the release of medical or other information is not sufficient for this purpose. Hospital accepts no responsibility if the information is made available to any other person, INCLUDING THE PATIENT. Interpretation Summary * Name: COBY TORRES Study Date: 01/11/2018 12:51 PM BP: 136/76 mmHg * Patient Location: [facility] HR: 62 * : 1955 (M/d/yyyy) Gender: Male Height: 73 in * Age: 62 yrs Ethnicity: [place] Weight: 230 lb * Ordering Physician: Emmett Mejia * Referring Physician: Emmett Mejia * Performed By: Coby Espinal [facility] * * Reason For Study: SOB * BSA: 2.3 m2 * -- Conclusions -- * 1. Normal LV size. Mild concentric LVH. * 2. Normal LV systolic function. LVEF 65-70 %. No regional wall motion abnormalities. * 3. Normal RV size and function. * 4. No significant valvular pathology. * 5. Compared with prior study on 12/02/2016: No significant changes. Procedure Details * A complete two-dimensional transthoracic echocardiogram was performed (2D, M-mode, Doppler and color flow Doppler). Left Ventricle * The left ventricle is grossly normal size. * There is mild concentric left ventricular hypertrophy. * Ejection Fraction = 65-70%. * No regional wall motion abnormalities noted. Right Ventricle * The right ventricle is grossly normal size. * The right ventricular systolic function is normal as assessed by tricuspid annular plane systolic excursion (TAPSE) (normal >1.5 cm). Atria * The left atrial size is normal. * Right atrial size is normal. Mitral Valve * The mitral valve is grossly normal. * There is borderline mitral valve prolapse. * There is no mitral valve stenosis. * Significant mitral regurgitation is absent. Tricuspid Valve * The tricuspid valve is not well visualized, but is grossly normal. * There is no tricuspid stenosis. * There is trace tricuspid regurgitation. Aortic Valve * The aortic valve opens well. * No hemodynamically significant valvular aortic stenosis. * Trace aortic regurgitation. Pulmonic Valve * The pulmonary valve is inadequately visualized, but the Doppler data is adequate for interpretation. * Pulmonic stenosis is absent. * Trace pulmonic valvular regurgitation. Great Vessels * The aortic root and proximal ascending aorta are normal sized. Pericardium/Pleural * There is no pericardial effusion. Great Vessels * IVC not well visualized. * There is no evidence of pulmonary hypertension. The PA systolic pressure is less than 36 mmHg. MMode 2D Measurements and Calculations IVSd 1.4 cm IVSs 2.2 cm LVIDd 4.4 cm LVIDs 2.7 cm LVPWd 1.4 cm LVPWs 1.8 cm IVS/LVPW 1.0 FS 39.3 % EDV(Teich) 86.3 ml ESV(Teich) 25.9 ml EF(Teich) 70.0 % EDV(cubed) 83.5 ml ESV(cubed) 18.7 ml EF(cubed) 77.6 % % IVS thick 53.0 % % LVPW thick 28.8 % LV mass(C)d 242.6 grams LV mass(C)dI 106.2 grams/m\S\2 LV mass(C)s 230.5 grams LV mass(C)sI 100.9 grams/m\S\2 SV(Teich) 60.4 ml SI(Teich) 26.5 ml/m\S\2 SV(cubed) 64.8 ml SI(cubed) 28.4 ml/m\S\2 Ao root diam 3.4 cm Ao root area 9.2 cm\S\2 ACS 2.4 cm LA dimension 4.0 cm LA/Ao 1.2 LVOT diam 2.1 cm LVOT area 3.4 cm\S\2 LVAd ap4 40.0 cm\S\2 LVLd ap4 9.5 cm EDV(MOD-sp4) 137.0 ml EDV(sp4-el) 142.3 ml LVAs ap4 27.0 cm\S\2 LVLs ap4 8.2 cm ESV(MOD-sp4) 73.0 ml ESV(sp4-el) 75.6 ml EF(MOD-sp4) 46.7 % EF(sp4-el) 46.9 % LVAd ap2 38.1 cm\S\2 LVLd ap2 9.2 cm EDV(MOD-sp2) 128.7 ml EDV(sp2-el) 134.2 ml LVAs ap2 20.8 cm\S\2 LVLs ap2 7.9 cm ESV(MOD-sp2) 49.3 ml ESV(sp2-el) 46.2 ml EF(MOD-sp2) 61.6 % EF(sp2-el) 65.6 % LVLd %diff -4.18 % EDV(MOD-bp) 135.5 ml LVLs %diff -3.67 % ESV(MOD-bp) 57.2 ml EF(MOD-bp) 57.8 % SV(MOD-sp4) 64.0 ml SI(MOD-sp4) 28.0 ml/m\S\2 SV(MOD-sp2) 79.3 ml SI(MOD-sp2) 34.7 ml/m\S\2 SV(MOD-bp) 78.3 ml SI(MOD-bp) 34.3 ml/m\S\2 SV(sp4-el) 66.7 ml SI(sp4-el) 29.2 ml/m\S\2 SV(sp2-el) 88.0 ml SI(sp2-el) 38.5 ml/m\S\2 Doppler Measurements and Calculations MV E max mickey 59.3 cm/sec MV A max mickey 62.0 cm/sec MV E/A 0.96 MV P1/2t max mickey 61.3 cm/sec MV P1/2t 99.1 msec MVA(P1/2t) 2.2 cm\S\2 MV dec slope 181.0 cm/sec\S\2 MV dec time 0.30 sec Ao V2 max 113.5 cm/sec Ao max PG 5.2 mmHg Ao max PG (full) 0.94 mmHg KATHIE(V,A) 3.1 cm\S\2 KATHIE(V,D) 3.1 cm\S\2 LV V1 max PG 4.3 mmHg LV V1 max 102.9 cm/sec PA V2 max 74.2 cm/sec PA max PG 2.2 mmHg TR max mickey 239.0 cm/sec
== END | disposition home or self-care (01) ==
LOC: C.CPL 12:40
PROVIDERS: ATTEND Internal Medicine Pulmonary Disease
DX: I10 Essential (primary) hypertension (principal); R05 Cough; R91.1 Solitary pulmonary nodule; R94.31 Abnormal electrocardiogram [ECG] [EKG]; C61 Malignant neoplasm of prostate

== ENCOUNTER → 2018-01-30 | Outpatient (CLI) | payer BC ==
[~2018-01-30] MED LIST changes: +ASPCH81X PO; +RANI300T2 PO
[2018-01-30 17:52] LABS: BASO % 0.7 %; BASO ABS # 0.04 K/uL (0-0.2); EOS % 6.6 %; EOS ABS # 0.35 K/uL (0-0.5); HEMATOCRIT 40.9 % (42-52); HEMOGLOBIN 14.5 g/dL (14.0-18.0); IG# 0.01 K/uL (0.00-0.02); LYMPH % 34.6 %; LYMPH ABS # 1.85 K/uL (1.2-3.4); MEAN CELL VOLUME 91.7 fL (80-100); MEAN CORPUSCULAR HEMOGLOBIN 32.5 pg (25-34); MEAN CORPUSCULAR HGB CONC 35.5 g/dl (32-36); MEAN PLATELET VOLUME 9.2 fL (7.4-10.4); MONO % 8.2 %; MONO ABS # 0.44 K/uL (0.11-0.59); NEUT % 49.7 %; NEUT ABS # 2.65 K/uL (1.4-6.5); PLATELET COUNT 209 K/uL (130-400); RED CELL DISTRIBUTION WIDTH CV 13.4 % (11.5-14.5); RED CELL DISTRIBUTION WIDTH SD 44.3 fL (36.4-46.3); WHITE BLOOD COUNT 5.34 K/uL (4.8-10.8)
[2018-01-30 18:35] LABS: ALKALINE PHOSPHATASE 84 U/L (45-117); ALT/SGPT 35 U/L (12-78); AST/SGOT 20 U/L (15-37); BLOOD UREA NITROGEN 14 mg/dl (7-18); CALCIUM 9.3 mg/dl (8.5-10.1); CARBON DIOXIDE 28 mmol/L (21-32); CREATININE 0.89 mg/dl (0.60-1.40); GLUCOSE 97 mg/dl (70-99); POTASSIUM 3.9 mmol/L (3.5-5.1); SODIUM 141 mmol/L (136-145); TOTAL PROTEIN 7.1 gm/dl (6.4-8.2); URIC ACID 5.5 mg/dl (2.6-7.2)
[2018-02-01 15:06] LABS: ANA SCREEN TC 249X NEGATIVE (NEGATIVE)
== END | disposition home or self-care (01) ==
LOC: C.LAB 17:08
DX: M19.90 Unspecified osteoarthritis, unspecified site (principal)

== ENCOUNTER → 2018-02-02 | Day surgery (SDC) | payer BC, OTHER ==
[~2018-02-02] VITALS: Ht 185.4 cm; Wt 104.0 kg
[2018-02-02] VITALS (7 sets, daily range): BP systolic 116–144; BP diastolic 75–87; PULSE 57–64; TEMP 36.6–36.7; O2SAT 95–98; Ht 185.4 cm; Wt 104.0 kg
[~2018-02-02] MED LIST changes: +FENTANYL CITRATE INJ 50 MCG/1 ML 2 ML VIAL IV ONE; +LIDOCAINE 4% INH SOLN 4 ML BTL TOP ONE; +LIDOCAINE HCL 2% LOCAL 50ML VIAL INSTIL ONE; +LIDOCAINE VISCOUS 2% 100ML TOP ONE; +MIDAZOLAM HCL 5 MG/ML 1 ML VIAL IV ONE; +OXYMETAZOLINE HCL 0.05% NA SPR 15 ML BTL ONE
--- NOTE | 2018-02-02 08:24 | Pre Sedation Assessment ---
Pre Sedation Assessment General Date of Sedation: Feb 02, 2018. Vital Signs Past 12 Hours Date Time Temp Pulse Resp B/P (MAP) Pulse Ox O2 Delivery O2 Flow Rate FiO2 02/02/18 07:53 36.7 64 18 144/87 (106) 97 Room Air Pre-Sedation Airway Assessment Smoking Status: Never Smoker Hx of Sleep Apnea: Yes Short Thick Neck: No Thyro-mental Distance: > 3 Finger Breadths Oral Cavity: WNL Mallampati Classification: Class II ASA Classification: Class II NPO Status Date of Last Intake of Fluids: Feb 01, 2018 Time of Last Intake of Fluids: 1999 Date of Last Intake of Solids: Feb 01, 2018 Time of Last Intake of Solids: 1999 Notes The planned sedation has been discussed with the patient. Informed Consent was obtained. I have identified the patient, determined the appropriateness of sedation and have assessed the patient immediately prior to the procedure. All medicine(s) and interventions are by my order.
--- NOTE | 2018-02-02 09:05 | [facility] Operative Report ---
Operative Report Operative Date Feb 02, 2018. Pre-Operative Diagnosis Chronic Mucopurulent Bronchitis Post-Operative Diagnosis Same Procedure(s) Performed Fiberoptic Bronchoscopy w BAL Surgeon Dr. Mejia Medical Imaging Technologist Surgeon(s) None Findings Severe inflammatory mucosal changes globally R and L tracheobronchial tree Complication(s) None Disposition Indications Chronic cough I attest to the content of the Intraoperative Record and any orders documented therein. Any exceptions are noted below.
--- NOTE | 2018-02-02 09:06 | Post Sedation Assessment ---
Post Sedation Assessment General Date of Sedation Feb 02, 2018. Vital Signs: Vital Signs Past 12 Hours Date Time Temp Pulse Resp B/P (MAP) Pulse Ox O2 Delivery O2 Flow Rate FiO2 02/02/18 08:51 73 18 151/97 96 Mask 4 02/02/18 08:50 73 16 160/93 100 Mask 02/02/18 08:45 73 18 143/86 100 Mask 02/02/18 08:40 87 18 141/91 100 Mask 02/02/18 08:35 80 18 143/92 100 Mask 02/02/18 08:30 76 17 140/92 100 Mask 02/02/18 08:25 76 17 155/91 97 Room Air 02/02/18 07:53 36.7 64 18 144/87 (106) 97 Room Air Post Procedure Recovery Score Activity: (2) Moves 4 extremities * Respiration: (2) Deep breath/cough Circulation: (2) +/-20% PreAnes Value Consciousness: (1) Arouseable (by name) Oxygen Saturation: (2) > 92% On Room Air Discharge Sedation Level of Care: Fast Track Phase II Post Sedation Plan On clinical assessment, the patient appears to have tolerated the sedation without complications. Patient is recovering as anticipated. Patient will continue to be monitored by nursing and may be discharged when sedation discharge criteria are met per below protocol. Upon Completions of procedure and additional 15 minutes continue every 5 minute vital signs and the P.A.R. score; then discharge to a Phase I or Fast Track to Phase II per the following guidelines: * Discharge Patient to appropriate Phase II area if PAR is 8 or greater or return to pre- procedure baseline. The post - procedure orders will be as directed. * If PAR score is less than 8 or not return to pre-procedure baseline then patient will follow Phase I monitoring till PAR is reached for Phase II. The Phase I may be done in procedure room or may call to secure a Phase I area. * If naloxone or flumazenil are used for reversal, hold in Phase I for an additional 60 -120 minutes before discharge to Phase II. Please call the Sedation Physician to re-evaluate and complete post-note for discharge to Phase II area. Do NOT discharge from procedure sedation or Phase 1 until post- sedation evaluation note is complete by procedure /sedation MD Sedation Discharge Instructions to be given to the patient at discharge to home.
--- NOTE | 2018-02-02 09:10 | Discharge Instructions ---
Discharge Instructions Date of Service Feb 02, 2018. Admission Reason for Admission: Pulmonary Nodule, Cough Discharge Discharge Diagnosis / Problem: Chronic Mucopurulent Bronchitis Discharge Goals Goal(s): Diagnostic testing Activity Recommendations Activity Limitations: resume your previous activity Lifting Limitations: none Exercise/Sports Limitations: none May Resume Sexual Activity: when tolerated Shower/Bathe: no limitations Driving or Machine Use: resume 1 day after discharge None . Current Hospital Diet Patient's current hospital diet: Discharge Diet Recommended Diet: Regular Diet Fluid Restriction: None Procedures Procedures Performed: Fiberoptic Bronchoscopy w BAL Pending Studies Studies pending at discharge: no Medical Emergencies . Who to Call and When: Medical Emergencies: If at any time you feel your situation is an emergency, please call 911 immediately. . Non-Emergent Contact Non-Emergency issues call your: [employer] Sales Manager Call Non-Emergent contact if: temperature is above 101 . . "Provider Documentation" section prepared by Emmett Mejia. .
--- NOTE | 2018-02-02 09:25 | OPERATIVE REPORT ---
DATE OF OPERATION: 02/02/2018 PROCEDURE: Fiberoptic bronchoscopy bronchoalveolar lavage. INDICATIONS: Persistent cough/chest congestion. ANESTHESIA PREOPERATIVELY: None. ANESTHESIA DURING PROCEDURE: 11 mg of IV Versed, 100 mcg IV fentanyl, 20 mL 2% Xylocaine spray above and below the cords, 4% viscous Xylocaine intranasally. DESCRIPTION OF THE PROCEDURE: Fiberoptic bronchoscope was inserted into the right naris with minimal difficulty and passed to the level of the true vocal cords without difficulty. The cords appear to approximate normally with phonation without evidence for lesions or paralysis. The area was anesthetized with 2% Xylocaine spray and the scope was passed through the cords into the trachea. There was no area of subglottic stenosis. The trachea was within normal limits. The sissy was sharp. The scope was then introduced in the right mainstem bronchus and no endobronchial lesions were seen. The right upper lobe, the apical posterior and anterior segments, bronchus intermedius, right middle lobe and the medial lateral segments and all basilar segments of the right lower lobe were found to be free of endobronchial lesions down to the segmental and subsegmental bronchi. A small amount of mucopurulent secretion was lavaged from the right lower lobe basilar segments to clear. Mild mucous pitting was seen involving several other segments. Left tracheobronchial tree was explored and no endobronchial lesion was seen. Left upper lobe, the apical-posterior and anterior segments and the lingula with the superior and inferior segment as well as all basilar segments left lower lobe were found to be free of endobronchial lesions down to subsegmental bronchi. Small amount of mucopurulent secretion was lavaged from the left lower lobe to clear. The aspirate was sent for appropriate studies. A global degree of inflammatory mucosal change that was assessed as mild to moderate involved the right and left tracheobronchial tree. No brushings or biopsies were attempted or deemed necessary. The procedure was terminated and patient was given a nebulizer treatment with Xopenex 1.25 mg and then transferred to the medical treatment unit hemodynamically stable, no signs of respiratory compromise. We will await microbiological and cytologic examination of the bronchial washings. I attest to the content of the Intraoperative Record and any orders documented therein. Any exception s are noted below.
== END | disposition home or self-care (01) ==
LOC: C.ACU 06:42
PROVIDERS: ATTEND Internal Medicine Pulmonary Disease
DX: R05 Cough (principal); R09.89 Other specified symptoms and signs involving the circulatory and respiratory systems; J41.1 Mucopurulent chronic bronchitis; R49.0 Dysphonia; R06.00 Dyspnea, unspecified; R91.1 Solitary pulmonary nodule; Z88.0 Allergy status to penicillin; Z98.890 Other specified postprocedural states; Z79.899 Other long term (current) drug therapy; Z79.82 Long term (current) use of aspirin; Z85.828 Personal history of other malignant neoplasm of skin; Z82.49 Family history of ischemic heart disease and other diseases of the circulatory system; Z83.3 Family history of diabetes mellitus; Z80.9 Family history of malignant neoplasm, unspecified; Z90.89 Acquired absence of other organs

== ENCOUNTER → 2018-02-10 | Outpatient (CLI) | payer BC ==
[~2018-02-10] MED LIST changes: -BUPR-102 PO; -FENTANYL CITRATE INJ 50 MCG/1 ML 2 ML VIAL IV ONE; -LIDOCAINE 4% INH SOLN 4 ML BTL TOP ONE; -LIDOCAINE HCL 2% LOCAL 50ML VIAL INSTIL ONE; -LIDOCAINE VISCOUS 2% 100ML TOP ONE; -MIDAZOLAM HCL 5 MG/ML 1 ML VIAL IV ONE; -OXYMETAZOLINE HCL 0.05% NA SPR 15 ML BTL ONE
== END | disposition home or self-care (01) ==
LOC: C.RDSM 10:58
PROVIDERS: ATTEND Family Medicine Sports Medicine
DX: M25.562 Pain in left knee (principal)

== ENCOUNTER → 2018-02-16 | Outpatient (CLI) | payer BC ==
--- NOTE | 2018-02-16 08:02 | DIAGNOSTIC IMAGING REPORT ---
MRI LEFT KNEE NO CONTRAST CLINICAL HISTORY: Left knee pain. Joint effusion. COMPARISON STUDY: Conventional radiographic study dated 02/10/2018 FINDINGS: Imaging was performed in sagittal, axial, and coronal planes. There are no areas of marrow replacement to indicate occult fracture or bone bruise. The quadriceps and patellar tendons appear intact. The anterior and posterior cruciate ligaments appear intact. The medial and lateral collateral ligaments appear intact. Degenerative signal changes are present within the medial meniscus. No tears of the medial meniscus are visualized. There are extensive signal abnormalities within the lateral meniscus. There is a para meniscal cyst. The lateral meniscus is felt to be severely degenerated and torn. There are clustered cyst/ganglion posterior to the distal femur. There is synovial edema. Synovitis must be considered. There is chondromalacia patella. There is moderate chondrosis involving the lateral joint compartment. There is minimal chondrosis involving the medial femoral condyle. IMPRESSION: 1. Severe degeneration and tear of the lateral meniscus. There is associated para meniscal cyst 2. Moderate chondrosis involving the lateral joint compartment, minimal chondrosis involving the medial joint compartment. Mild chondromalacia patella. 3. Nonspecific synovial edema. This may indicate a synovitis 4. No evidence of cruciate or collateral ligament disruption Electronically signed by: Tyrell Beckford M.D. 02/16/2018 8:01 AM Dictated Date/Time: 02/16/2018 7:54 AM
== END | disposition home or self-care (01) ==
LOC: C.MRIBC 06:54
PROVIDERS: ATTEND Family Medicine Sports Medicine
DX: M25.462 Effusion, left knee (principal); M25.562 Pain in left knee

== ENCOUNTER → 2018-03-20 | Outpatient (CLI) | payer BC | END | disposition home or self-care (01) | LOC: C.RDSM 15:06 | PROVIDERS: ATTEND Physical Medicine & Rehabilitation Sports Medicine | DX: M25.562 Pain in left knee (principal) ==

== ENCOUNTER → 2018-03-29 | Outpatient (CLI) | payer BC ==
[~2018-03-29] MED LIST changes: +BP MEDS PO; +IBUP-1050 PO
[2018-03-29 18:23] LABS: BLOOD UREA NITROGEN 12 mg/dl (7-18); CARBON DIOXIDE 28 mmol/L (21-32); CREATININE 0.92 mg/dl (0.60-1.40); GLUCOSE 72 mg/dl (70-99); POTASSIUM 3.4 mmol/L (3.5-5.1); SODIUM 143 mmol/L (136-145)
== END | disposition home or self-care (01) ==
LOC: C.CPL 16:44
PROVIDERS: ATTEND Orthopaedic Surgery Hand Surgery
DX: S62.347D Nondisplaced fracture of base of fifth metacarpal bone, left hand, subsequent encounter for fracture with routine healing (principal); X58.XXXD Exposure to other specified factors, subsequent encounter

== ENCOUNTER → 2018-06-26 | Outpatient (CLI) | payer BC ==
[~2018-06-26] MED LIST changes: +AMLO10TA3 PO; -BP MED PO; -BP MEDS PO; -BUTA1CAP17 PO; +CLON2TAB10 PO; -CLON2TAB3 PO; -IBUP-1050 PO; -MULTTAB58 PO; -OXYC1TAB3 PO; +RXC/5 PO
== END | disposition home or self-care (01) ==
LOC: C.RDSM 11:07
PROVIDERS: ATTEND Physical Medicine & Rehabilitation Sports Medicine
DX: M25.562 Pain in left knee (principal); Z88.6 Allergy status to analgesic agent; Z88.8 Allergy status to other drugs, medicaments and biological substances; Z88.5 Allergy status to narcotic agent

== ENCOUNTER 2018-11-29 10:30 | Inpatient (IN) ==
[2018-11-29 11:23] LABS: Basophils # (auto) 0.03 K/uL (0-0.2); Basophils % (auto) 0.5 %; Eosinophils # (auto) 0.21 K/uL (0-0.5); Eosinophils % (auto) 3.7 %; Hematocrit (blood only) 43.9 % (42-52); Hemoglobin 15.1 g/dL (14.0-18.0); Immature Granulocytes # (auto) 0.01 K/uL (0.00-0.02); Immature Granulocytes % (auto) 0.2 %; Lymphocytes # (auto) 1.76 K/uL (1.2-3.4); Lymphocytes % (auto) 30.9 %; Mean Corpuscular Hgb Conc 34.4 g/dL (32-36); Mean Platelet Volume 9.2 fL (7.4-10.4); Monocytes # (auto) 0.31 K/uL (0.11-0.59); Monocytes % (auto) 5.4 %; Neutrophils # (auto) 3.37 K/uL (1.4-6.5); Neutrophils % (auto) 59.3 %; Platelet Count 198 K/uL (130-400); RDW Coefficient of Variation 13.2 % (11.5-14.5); RDW Standard Deviation 45.4 fL (36.4-46.3); Red Blood Count 4.72 M/uL (4.7-6.1); White Blood Count 5.69 K/uL (4.8-10.8)
[2018-11-29 11:33] LABS: Alanine Aminotransferase 56 U/L (12-78); Aspartate Aminotransferase 36 U/L (15-37); BUN Creatinine Ratio 18.6 (10-20); Blood Urea Nitrogen 13 mg/dl (7-18); Calcium 9.8 mg/dl (8.5-10.1); Carbon Dioxide 28 mmol/L (21-32); Chloride 105 mmol/L (98-107); Est GFR (African American) 114.8; Glucose 114 mg/dl (70-99); Potassium 4.1 mmol/L (3.5-5.1); Sodium 140 mmol/L (136-145)
[2018-11-29 11:43] LABS: Albumin Globulin Ratio 1.1 (0.9-2); Alkaline Phosphatase 99 U/L (45-117); Bilirubin,Total 0.5 mg/dl (0.2-1); Globulin 3.5 gm/dl (2.5-4.0); Total Protein 7.5 gm/dl (6.4-8.2); Troponin I 0.825 ng/ml (0-0.045)
--- NOTE | 2018-11-29 11:46 | XRay Report ---
XR chest 1V portable CLINICAL HISTORY: Chest Pain dyspnea COMPARISON STUDY: 08/15/2017 FINDINGS: The bones soft tissues and hemidiaphragms are normal. The cardiomediastinal silhouette is n ormal. The lungs are clear. The pulmonary vasculature is normal. IMPRESSION: Negative chest. The above report was generated using voice recognition software. It may contain grammatical, syntax or spelling errors. Electronically signed by: Stew Ndiaye M.D. 11/29/2018 11:45 AM
[2018-11-29] MEDS ORDERED: ONDANSETRON INJ 2 MG/ML 2 ML VIAL IV STA (11:54)
[2018-11-29] MEDS ORDERED: ASPIRIN CHEW 324 MG PO STA (11:54)
[2018-11-29] MEDS ORDERED: NITROGLYCERIN SL 0.4 MG/TAB TAB SL STA ×2 (11:55→12:17)
[2018-11-29] MEDS ORDERED: HEPARIN SOD (PORCINE) 1000 UNIT/ML 10 ML VIAL ONE (12:11)
[2018-11-29] MEDS ORDERED: HEPARIN 25000 UNIT/500 ML D5W IV ONE (12:11)
[2018-11-29] MEDS ORDERED: NITROGLYCERIN 2% OINTMENT 30GM TUBE EXT STA (12:17)
[2018-11-29 12:19] LABS: Partial Thromboplastin Ratio 0.9; Partial Thromboplastin Time 24.3 Seconds (21.0-31.0)
[2018-11-29] MEDS ORDERED: fentaNYL citrate 100 MCG/2 ML VIAL IV STA (12:41)
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
[2018-11-29] MEDS ORDERED: HYDROmorphone INJ 0.5 MG/0.5 ML SYR IV STA (13:13)
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
--- NOTE | 2018-11-29 14:36 | Pre Anesthesia Assessment ---
Date of Service November 29, 2018 Pre Sedation Assessment Vital Signs Temp Pulse Resp BP Pulse Ox 11/29/18 13:46 64 20 148/91 H 97 11/29/18 13:31 66 16 149/84 H 99 11/29/18 13:30 68 25 H 99 11/29/18 13:20 67 17 98 11/29/18 13:19 67 17 147/83 H 97 11/29/18 13:00 63 18 95 11/29/18 12:48 63 25 H 96 11/29/18 12:47 65 12 118/101 H 96 11/29/18 12:31 66 13 144/89 H 95 11/29/18 12:30 68 15 91 11/29/18 12:16 64 18 164/91 H 11/29/18 12:01 61 20 169/102 H 98 11/29/18 12:00 67 21 98 11/29/18 11:57 75 16 152/96 H 97 11/29/18 11:30 65 27 H 99 11/29/18 11:00 63 12 98 11/29/18 10:47 60 22 99 11/29/18 10:45 61 20 155/98 H 98 11/29/18 10:40 62 16 100 11/29/18 10:32 36.4 C L 68 17 149/94 H 100 Cardiovascular + regular rate Respiratory + respiratory effort normal Pre-Sedation Airway Assessment Smoking Status: Never smoker Hx Sleep Apnea: No Hx Difficult Intubation: No Short, Thick Neck: No Thyromental Distance: > or= 3.5 Finger Breadths Oral Cavity: + WNL Mallampati Class: III ASA: ASA3 Procedure Planning Contraindications for Sedation: none Current Medications Reviewed: Yes Notes The planned sedation has been discussed with the patient. Informed Consent was obtained. I have identified the patient, determined the appropriateness of sedation and have assessed the patient immediately prior to the procedure. All medicine(s) and interventions are by my order.
[2018-11-29] MEDS ORDERED: fentaNYL citrate 100 MCG/2 ML VIAL ONE (15:07)
[2018-11-29] MEDS ORDERED: NiCARDipine HCL INJ 2.5 MG/ML 10 ML AMP ONE (15:07)
[2018-11-29] MEDS ORDERED: HEPARIN (PORCINE) 1000 UNIT/ML 10 ML (CATH LAB USE ONLY) ONE (15:07)
[2018-11-29] MEDS ORDERED: MIDAZOLAM HCL 1 MG/ML 2ML VIAL ONE (15:07)
[2018-11-29] MEDS ORDERED: NITROGLYCERIN/D5W 100MCG/ML 20ML SYR ONE (15:08)
--- NOTE | 2018-11-29 16:18 | Cardiac Catheterization ---
Date of Service November 29, 2018 Cardiac Cath Report Cardiac Cath Report Procedure performed: Left heart catheterization, selective coronary angiography Staff equipment cleaner: Brennon Bowers MD Indication: Patient is a 63-year-old gentleman without a known history of cardiac disease who presented with 2 days of exertional chest discomfort that was accelerating in nature. During his evaluation emergency room he began to develop pain at rest. There are no significant ST segment changes on EKG but he did have positive biomarkers at the time of presentation. Procedure in detail: The patient was informed of the risks benefits and alternatives to the intended procedure, he understood such and wished to proceed. He was taken to the cardiac catheterization suite in a fasting state. Conscious sedation was administered per protocol and the patient was monitored electrocardiographically throughout today's procedure. The right wrist area was prepped and draped in usual sterile fashion. This area was anesthetized using subcutaneous administration of a lidocaine solution. The right radial artery was then accessed using Seldinger technique, and a arterial sheath was placed at this site over a guidewire. The sheath was used to facilitate passage of the cardiac catheter for coronary angiography and left heart catheterization. Coronary angiogram was then obtained in multiple orthogonal views prior to removal of the catheter. At the conclusion of the procedure the sheath was removed and hemostasis was achieved at the access site using manual pressure. The patient tolerated procedure well, there were no immediate complications. Equipment used: 5 Malaysian Valmora 4, 5 Malaysian angled pigtail Findings: Opening aortic pressure: 116/74 mmHg Closing aortic pressure: 137/68 mmHg Left ventricular pressure: 140 over 0 mmHg Left ventricular end-diastolic pressure 14 mmHg No significant gradient across the aortic valve Coronary angiography: Left main: Left main coronary artery was long but normal in caliber. It bifurcated normally into the left anterior descending and left circumflex arteries. No significant disease in this vessel Left anterior descending: Left anterior descending was a large transapical vessel. It produced a large first diagonal with approximately 50% stenosis at its ostium. There was also approximately 50% stenosis at the takeoff of the LAD from the left main. There are luminal irregularities in the proximal portion of the vessel without discrete stenoses. Left circumflex: Left circumflex was a large codominant vessel. It had a 99% stenosis in the proximal portion prior to takeoff of a very large first obtuse marginal branch. There not appear to be any obstructive disease in the remaining distribution of the circumflex Right coronary artery: The right coronary artery was a codominant vessel. It had luminal irregularities in the proximal portion but no discrete stenoses. Impression: Acute coronary syndrome involving the proximal left circumflex Nonobstructive disease in the LAD system Codominant arterial system Normal left ventricular end-diastolic pressure No evidence of aortic stenosis Plan: Immediate percutaneous intervention of on the left circumflex artery.
[2018-11-29] MEDS ORDERED: TICAGRELOR 90 MG TAB PO ONE (16:29)
--- NOTE | 2018-11-29 16:36 | Post Anesthesia Assessment ---
Date of Service November 29, 2018 Post Sedation Assessment Vital Signs Temp Pulse Resp BP Pulse Ox 11/29/18 15:17 66 14 169/91 H 11/29/18 15:01 66 20 143/91 H 98 11/29/18 15:00 63 19 96 11/29/18 14:46 62 15 147/87 H 96 11/29/18 14:32 62 14 95 11/29/18 14:31 65 19 151/87 H 96 11/29/18 14:30 64 18 96 11/29/18 14:16 67 19 144/93 H 97 11/29/18 14:01 66 17 153/96 H 96 11/29/18 14:00 67 14 97 11/29/18 13:47 63 15 98 11/29/18 13:46 64 20 148/91 H 97 11/29/18 13:31 66 16 149/84 H 99 11/29/18 13:30 68 25 H 99 11/29/18 13:20 67 17 98 11/29/18 13:19 67 17 147/83 H 97 11/29/18 13:00 63 18 95 11/29/18 12:48 63 25 H 96 11/29/18 12:47 65 12 118/101 H 96 11/29/18 12:31 66 13 144/89 H 95 11/29/18 12:30 68 15 91 11/29/18 12:16 64 18 164/91 H 11/29/18 12:01 61 20 169/102 H 98 11/29/18 12:00 67 21 98 11/29/18 11:57 75 16 152/96 H 97 11/29/18 11:30 65 27 H 99 11/29/18 11:00 63 12 98 11/29/18 10:47 60 22 99 11/29/18 10:45 61 20 155/98 H 98 11/29/18 10:40 62 16 100 11/29/18 10:32 36.4 C L 68 17 149/94 H 100 Recovery Score Activity: Moves 4 extremities Respiration: Deep Breath/Cough Circulation: +/-20% PreAnes Value Consciousness: Fully Awake Oxygen Saturation: O2 needed for >90% Discharge Sedation Level of Care: Fast Track Phase II Post Sedation Plan On clinical assessment, the patient appears to have tolerated the sedation without complications. Patient is recovering as anticipated. Patient will continue to be monitored by nursing and may be discharged when sedation discharge criteria are met per below protocol. Upon Completions of procedure and additional 15 minutes continue every 5 minute vital signs and the P.A.R. score; then discharge to a Phase I or Fast Track to Phase II per the following guidelines: * Discharge Patient to appropriate Phase II area if PAR is 8 or greater or return to pre- procedure baseline. The post - procedure orders will be as directed. * If PAR score is less than 8 or not return to pre-procedure baseline then patient will follow Phase I monitoring till PAR is reached for Phase II. The Phase I may be done in procedure room or may call to secure a Phase I area. * �If naloxone or flumazenil are used for reversal, hold in Phase I for continued monitoring from when last reversal dose was given for a minimum of 60 minutes or longer pending the nurse and/or physician discretion of patient condition before discharge to Phase II.� Please call the Sedation Physician to re-evaluate and complete post-note for discharge to Phase II area. Do NOT discharge from procedure sedation or Phase 1 until post- sedation evaluation note is complete by procedure /sedation MD Sedation Discharge Instructions to be given to the patient at discharge to home.
--- NOTE | 2018-11-29 16:46 | Cardiac Catheterization ---
Cardiac Cath Procedure Full Procedure Date November 29, 2018 Pre-Procedure Diagnosis Pre-Procedure Diagnosis: Non STEMI AUC Score AUC Score: 8 Post-Procedure Diagnosis Post-Procedure Diagnosis: Severe CAD and Successful PCI Procedure(s) Performed Procedure(s) Performed: Coronary Angiography and Drug Eluting Stent Railroad Brakeman Abdias Mohan MD Assistant Customer Service Manager(s) Dori Estimated Blood Loss Estimated Blood Loss: 15 Medication(s) Medication(s): Fentanyl, Heparin and Versed Summary of Findings Indication: High risk NSTEMI Access: 6 Arabic right radial artery Catheters: Left backup 3.5 guide Findings: For full details of patient's coronary angiography please cath report dictated by Dr. Bowers. Briefly, patient found to have severe single vessel disease with a 90 % stenosis involving mid large circumflex. Decision to proceed with PCI. -- PCI -- Antithrombotic therapy: Heparin, ticagrelor Procedure: Left main cannulated with left backup 3.5 guide BMW wire passed across lesion into distal vessel Mid circumflex and flow lesion predilated with 3.0 compliant balloon Dilated lesion stented with 4.0 x 18 mm [place] drug-eluting stent Stent post-dilated with 4.5 noncompliant balloon IC vasodilators administered for spasm Post procedure KATINA 3 flow, stent well expanded with minimal residual stenosis and no apparent cardiac complications. Arterial Closure: TR band Summary: 1. Successful PCI of mid circumflex with single drug-eluting stent (4.0 x 18 mm [place]; postdilated with 4.5 NC). Recommendations: To PCU for continued monitoring Loaded with ticagrelor of 30 mg in operations label clerk Continue dual-antiplatelet therapy for at least one year Continue statin, and ASCVD risk factor modification Consult cardiac Rehab Hemodynamics Rest Ao:: 133/65/90 Final Ao: 120/69/93 LV: 140/14 Recommendations Recommendations: PCI without planned CABG Specimens Specimens: None Radiation Exposure (mGy) 2560 Contrast (mls) 145 Fluids (cc crystalloids) Fluids (cc crystalloids): 100 Drains Drains: none Anesthesia moderate Procedural Complication(s) None Disposition PCU ACC Data: Finance Officer Cardiac Status Clinical evaluation leading to the procedure CAD Presenation: Non STEMI Anginal Classification: CCS IV Heart Failure: No Cardiogenic Shock within 24 Hours: No Cardiac Arrest within 24 Hours: No Imaging Studies Past 6 Months: No Stress Studies Past 6 Months: No Diagnostic Physicians Name: Robinson Status: Urgent Closure Device Percutaneous Entry Location: Radial Closure Device: Radial Band Recommendations: PCI without planned CABG PCI Indication: PCI for high risk Non-MATY Lesion Segment Name: mid circumflex Culprit Artery: Yes Stenosis Prior to Rx (%): 90 Chronic Total Occlusion: No IVUS: No FFR: No Pre-Procedure KATINA Flow: 3 Previously Treated Lesion: No Lesion Complexity: Non-High/Non-C Lesion Length (mm): 15 Thrombus Present: Yes Bifurcation Lesion: Yes Guidewire Across Lesion: Stenosis Post-Procedure (%): 0 Post-Procedure KATINA Flow : 3 Devices(s) Deployed: Yes Yes Intraprocedure Events Significant Disection: No Perforation: No
[2018-11-29] MEDS ORDERED: MoRPHine SULFATE 2 MG/ML CARP IV PRN (16:50)
[2018-11-29] MEDS ORDERED: ONDANSETRON INJ 2 MG/ML 2 ML VIAL IV PRN (16:50)
[2018-11-29] MEDS ORDERED: NITROGLYCERIN SL 0.4 MG/TAB TAB SL PRN (16:50)
[2018-11-29] MEDS ORDERED: clonazePAM 1 MG TAB PO PRN (16:50)
[2018-11-29] MEDS ORDERED: ICU PROTOCOL FOR HYPERGLYCEMIA PRN (16:50)
[2018-11-29] MEDS ORDERED: SODIUM CHLORIDE 0.9% 1000ML 1,000 ML IV SCH (17:00)
[2018-11-29 18:06] LABS: Magnesium 2.1 mg/dl (1.8-2.4); Phosphorus 3.8 mg/dl (2.5-4.9); Troponin I 0.957 ng/ml (0-0.045)
--- NOTE | 2018-11-29 19:31 | Emergency Department Note ---
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 0.4 mg SL NOW Stop: 11/29/18 12:18 Last Admin: 11/29/18 12:24 Dose: 0.4 mg Nitroglycerin/Dextrose (Nitroglycerin/D5w 100 Mcg/Ml 20ml Syringe) Confirm Administered Dose 2,000 mcg .ROUTE .K-MED ONE Stop: 11/29/18 15:09 Last Admin: 11/29/18 15:50 Dose: Not Given Ondansetron HCl (Zofran) 4 mg IV NOW Stop: 11/29/18 11:55 Last Admin: 11/29/18 12:02 Dose: 4 mg Ticagrelor (Brilinta) Confirm Administered Dose 180 mg PO .[employer] ONE Stop: 11/29/18 16:30 Last Admin: 11/29/18 16:34 Dose: 180 mg Imaging Data Attestation: I personally reviewed and interpreted this imaging study as follows : Radiologist's Impression: XR chest 1V portable CLINICAL HISTORY: Chest Pain dyspnea COMPARISON STUDY: 08/15/2017 FINDINGS: The bones soft tissues and hemidiaphragms are normal. The cardiomediastinal silhouette is normal. The lungs are clear. The pulmonary vasculature is normal. IMPRESSION: Negative chest. The above report was generated using voice recognition software. It may contain grammatical, syntax or spelling errors. Electronically signed by: Stew Ndiaye M.D. 11/29/2018 11:45 AM ECG Data Attestation: I personally reviewed and interpreted this ECG as follows: Indication: chest pain Rate (beats per minute): 62 Rhythm: normal sinus Findings: + RBBB (incomplete); no PAC, no PVC, no ST depression and no ST elevation Additional Comments: REPEAT EKG -- NSR, complete RBBB, no MATY/STD, no PVCs, No PACs, no change from original EKG EKG #3 -- NSR, 66, no MATY/STD, no change from first EKG. Blood Pressure Blood Pressure Findings: Elevated blood pressure Blood Pressure Disposition: further management by hospitalist Discharge Plan Visit Data *Final* Discharge Date/Time: 11/29/18 15:49 Chief Complaint: Chest Pain Stated Complaint: heart/chest pain, sob,numb arms, dizzy ED Provider: Mayur Marti Discharge Problem: Non-ST elevation [place] (NSTEMI) Patient Disposition: Being Evaluated by Hospitalist Discharge Instructions Interventions: ED Discharge Assessment Last Done: 11/29/18 15:22 The scribe's documentation has been prepared under my direction and personally reviewed by me in its entirety. I confirm that the note above accurately reflects all work, treatment, procedures, and medical decision making performed by me.
[2018-11-30 01:15] LABS: Basophils # (auto) 0.03 K/uL (0-0.2); Basophils % (auto) 0.5 %; Eosinophils # (auto) 0.34 K/uL (0-0.5); Eosinophils % (auto) 5.8 %; Hematocrit (blood only) 40.4 % (42-52); Hemoglobin 14.1 g/dL (14.0-18.0); Immature Granulocytes # (auto) 0.01 K/uL (0.00-0.02); Immature Granulocytes % (auto) 0.2 %; Lymphocytes % (auto) 30.8 %; Mean Corpuscular Hgb Conc 34.9 g/dL (32-36); Mean Corpuscular Volume 93.1 fL (80-100); Mean Platelet Volume 8.8 fL (7.4-10.4); Monocytes # (auto) 0.51 K/uL (0.11-0.59); Monocytes % (auto) 8.7 %; Neutrophils # (auto) 3.16 K/uL (1.4-6.5); Platelet Count 183 K/uL (130-400); RDW Coefficient of Variation 13.3 % (11.5-14.5); RDW Standard Deviation 45.8 fL (36.4-46.3); Red Blood Count 4.34 M/uL (4.7-6.1); White Blood Count 5.85 K/uL (4.8-10.8)
[2018-11-30 01:38] LABS: BUN Creatinine Ratio 15.7 (10-20); Calcium 8.7 mg/dl (8.5-10.1); Creatinine Clr Calc Pharmacy 128.6 ml/min; Est GFR (African American) 111.6; Est GFR (Non-African American) 96.3; Potassium 3.8 mmol/L (3.5-5.1)
[2018-11-30 06:27] LABS: Estimated Average Glucose 114 mg/dl
[2018-11-30] MEDS ORDERED: TICAGRELOR 90 MG TAB PO SCH (09:00)
[2018-11-30] MEDS ORDERED: AMLODIPINE BESYLATE 5 MG TAB PO SCH (09:00)
[2018-11-30] MEDS ORDERED: PANTOprazole 40 MG TAB PO SCH (09:00)
[2018-11-30] MEDS ORDERED: DULOXETINE HCL 60 MG CAP PO SCH (09:00)
[2018-11-30] MEDS ORDERED: ASPIRIN 81 MG ECTAB PO SCH (09:00)
[2018-11-30] MEDS ORDERED: ATORVASTATIN 40 MG TAB PO SCH (09:00)
--- NOTE | 2018-11-30 13:01 | Cardiology Progress Note ---
Date of Service November 30, 2018 Assessment & Plan (1) Non-ST elevation [place] (NSTEMI): Patient had accelerating angina and elevated biomarkers at the time of admission. He was discovered to have severe stenosis involving the proximal left circumflex. He underwent successful percutaneous intervention yesterday and has had resolution of his symptoms without recurrence. No overt complication. Preserved LV function on echo without regional wall motion of normality. I think it safe for him to be discharged on dual antiplatelet therapy. He should be continued on high-dose atorvastatin. He can be continued on his amlodipine. Given his end STEMI he should be started on low-dose beta blockade. I would advocate metoprolol succinate 25 mg daily. He is not appear to have reduced LV systolic function and that this point I think an WALI inhibitor can be deferred. Subjective This morning the patient claimed to be feeling well. He has not had a recurrence of his index symptom of chest discomfort. He is been ambulatory around the room and the brock without symptoms of dyspnea or chest pain. He has no symptoms of discomfort at the right wrist access site or in the right hand. No dizziness or lightheadedness. He states that his energy is improved and overall is feeling quite well. Physical Exam 2 Vital Signs (Past 24 Hours): Last Vital Signs Temp 36.9 C 11/30/18 10:57 Pulse 70 11/30/18 10:57 Resp 18 11/30/18 10:57 BP 137/87 11/30/18 10:57 Pulse Ox 96 11/30/18 10:57 Physical Exam: The patient is alert and oriented. Mood and affect appeared normal. He answered all questions appropriately. HEENT: Pupils are equal and reactive to light and accommodation. Extraocular movements are intact. The sclerae are anicteric. Neuro: Cranial nerves intact Neck: Patient's neck is supple. He has palpable carotid pulses bilaterally without bruits on auscultation. There is no evidence of jugular venous distention. The thyroid is not enlarged. Lungs: Clear to auscultation bilaterally. He has good air movement without use of accessory muscles. No rales wheezes or rhonchi. Cardiac: Heart demonstrates a regular rate and rhythm. Normal S1 and S2. No murmurs on examination. Pulses: The patient has palpable radial pulses bilaterally that are equal in intensity. Right hand is well-perfused and radial pulses palpable Extremities: There was no evidence of hypoperfusion. There is no cyanosis or clubbing. There is no edema. Skin: I did not appreciate any rashes on examination today. Atrial fibrillation Results & Data Laboratory Results Abnormal Lab Results 11/29/18 11/29/18 11/29/18 16:05 16:21 17:04 WBC RBC Hgb Hct MCV MCH MCHC RDW Std Deviation RDW Coeff of Esthela Plt Count MPV Immature Gran % (Auto) Neut % (Auto) Lymph % (Auto) [place] % (Auto) Eos % (Auto) Baso % (Auto) Immature Gran # (Auto) Neut # (Auto) Lymph # (Auto) [place] # (Auto) Eos # (Auto) Baso # (Auto) Activ Coag Time Kaolin 164 H 263 H Sodium Potassium Chloride Carbon Dioxide Anion Gap BUN Creatinine Est Cr Clr Drug Dosing Est GFR ( Amer) Est GFR (Non-Af Amer) BUN/Creatinine Ratio Glucose Estimat Average Glucose Hemoglobin A1c Calcium Phosphorus 3.8 Magnesium 2.1 Troponin I 0.957 H* Triglycerides Cholesterol LDL Cholesterol, Calc VLDL Cholesterol, Calc HDL Cholesterol Cholesterol/HDL Ratio 11/30/18 11/30/18 11/30/18 00:52 00:52 00:52 WBC 5.85 RBC 4.34 L Hgb 14.1 Hct 40.4 L MCV 93.1 MCH 32.5 MCHC 34.9 RDW Std Deviation 45.8 RDW Coeff of Esthela 13.3 Plt Count 183 MPV 8.8 Immature Gran % (Auto) 0.2 Neut % (Auto) 54.0 Lymph % (Auto) 30.8 [place] % (Auto) 8.7 Eos % (Auto) 5.8 Baso % (Auto) 0.5 Immature Gran # (Auto) 0.01 Neut # (Auto) 3.16 Lymph # (Auto) 1.80 [place] # (Auto) 0.51 Eos # (Auto) 0.34 Baso # (Auto) 0.03 Activ Coag Time Kaolin Sodium 139 Potassium 3.8 Chloride 105 Carbon Dioxide 28 Anion Gap 6.0 BUN 12 Creatinine 0.75 Est Cr Clr Drug Dosing 128.6 Est GFR ( Amer) 111.6 Est GFR (Non-Af Amer) 96.3 BUN/Creatinine Ratio 15.7 Glucose 107 H Estimat Average Glucose Hemoglobin A1c Calcium 8.7 Phosphorus Magnesium Troponin I 1.350 H* Triglycerides 106 Cholesterol 215 H LDL Cholesterol, Calc 146 VLDL Cholesterol, Calc 21 HDL Cholesterol 48 Cholesterol/HDL Ratio 5 11/30/18 00:52 WBC RBC Hgb Hct MCV MCH MCHC RDW Std Deviation RDW Coeff of Esthela Plt Count MPV Immature Gran % (Auto) Neut % (Auto) Lymph % (Auto) [place] % (Auto) Eos % (Auto) Baso % (Auto) Immature Gran # (Auto) Neut # (Auto) Lymph # (Auto) [place] # (Auto) Eos # (Auto) Baso # (Auto) Activ Coag Time Kaolin Sodium Potassium Chloride Carbon Dioxide Anion Gap BUN Creatinine Est Cr Clr Drug Dosing Est GFR ( Amer) Est GFR (Non-Af Amer) BUN/Creatinine Ratio Glucose Estimat Average Glucose 114 Hemoglobin A1c 5.6 Calcium Phosphorus Magnesium Troponin I Triglycerides Cholesterol LDL Cholesterol, Calc VLDL Cholesterol, Calc HDL Cholesterol Cholesterol/HDL Ratio Diagnostic Findings Cardiac catheterization performed yesterday revealed severe stenosis involving the proximal left circumflex artery. Nonobstructive disease in the remaining vessels. Echocardiogram performed today revealed preserved LV systolic function without regional wall motion normalities. No valvular disease. ECG Additional Comments: Telemetry did not reveal any arrhythmias.
--- NOTE | 2018-11-30 17:48 | Discharge Summary ---
Date of Service November 30, 2018 Admission HPI Per Admitting Provider Mr. Pérez is a pleasant 63yo male with history of HTN, GERD presenting with chest pain. Patient is quite active - [place] with [place]. Yesterday during his walk he experienced acute onset of substernal chest heaviness and pressure. This resolved with rest. This morning as he was hiking up a hill he again experienced the substernal chest heaviness/pressure - 10/10 in severity, associated with nausea, SOB and lightheadedness as well as feeling of heaviness/numbness and tingling in both arms and feeling disoriented. He was unable to complete his hike due to these symptoms. When he returned home his family insisted that he be seen in the ER. Upon arrival to the ER patient was afebrile, hemodynamically stable. Initial EKG with no evidence of acute ischemia, troponin elevated at 0.825. Patient initially chest pain free, however, developed chest pain while in the ER, unrelieved with Nitro. EKG remains unchanged. He is a lifelong nonsmoker. Has hypertension well controlled with Amlodipine 10mg po daily. HgA1C = 5.5 and Lipid panel with TG=36 Xpsw=015 CYE=298 HDL= 69 from 07/29/18. No family history of premature CAD. Patient has never had MA, CHF or arrhythmia. No history of cardiac catheterization. He had an exercise stress echo performed 05/11/[address] segments suggestive but not diagnostic of MA. Echocardiogram from 01/11/18 with normal LV size, mild LVH, EF 65-70%. Stress echo from 12/01/16 which patient reported as normal (unable to access formal report at this time). ER Course: ASA 324mg, Heparin gtt, Zofran, Nitro 0.4mg SL x 2, Fentanyl 50mcg Principal Diagnosis NSTEMI Discharge Data Allergies Allergy/AdvReac Type Severity Reaction Status Date / Time chlorhexidine Allergy Intermediate red,itchy Verified 11/17/18 10:12 skin acetaminophen Allergy Unknown GENERALIZED Verified 11/17/18 10:12 ITCHING methocarbamol Allergy Unknown ITCHINESS Verified 11/17/18 10:12 Consultations 11/29/18 12:05 ED Decision to Admit Stat 11/29/18 16:50 Consult Cardiology Routine Consult Case Management - Discharge Planning Routine 01/02/19 16:51 Consult Cardiac Rehabilitation Routine Procedures Performed Operation Date: 11/29/18 13:30 Actual Procedures p Cath, Left with Cors and Vent - Abdias Bowers MD s Cineradiography w/Routine Exam - Abdias Bowers MD s Drug Eluting Stent SGl Vessel - Abdias Mohan MD Ordered Studies 11/29/18 13:26 CL Cath Imgs for PACS use only Stat Hospital Course (1) Chest pain: 63yo male with history of well controlled HTN, no additional cardiac risk factors with SSCP/lightheadedness/SOB. No EKG changes consistent with acute ischemia. Troponin elevated at 0.825. D-dimer negative. CXR negative. Concern for ACS/NSTEMI vs myocarditis vs stress cardiomyopathy. Patient with persistent chest pain. * Patient to be taken to the earth science laboratory technician by Dr. Mohan * Admit to PCU after procedure * Trend cardiac enzyme x 3 sets * EKG with CP * Check 2D echocardiogram * Brillinta * ASA 81mg po daily * Lipitor 80mg po daily * Nitroglycerine and Morphine PRN CP * Cardiology consultation - appreciate assistance with this case * Will keep patient NPO for now * (2) Elevated troponin: Concern for ACS/NSTEMI vs myocarditis. Plan as above (3) HTN (hypertension): Well controlled. * Continue Amlodipine 10mg po daily. May need to change to BB or Juan C * Continue to monitor * (4) GERD (gastroesophageal reflux disease): Chronic. * Protonix 40mg po daily * F/E/N - Heplock. Monitor electrolytes and replete as needed. NPO for now Ppx - Brillinta. Protonix for GI ppx Code - Full per discussion with patient Dispo - admit to PCU Upon discharge today, Subjective, no chest pain review of system unremarkable Constitutional: negative weakness, or fatigue Respiratory: no cough, sputum, wheezing, or dyspnea on exertion Cardiac: No chest pain, No orthopnea, No PND, No claudication, No palpitations , Abdomen: No pain, No nausea, No vomiting, No diarrhea, No constipation, No GI bleeding Musculoskeletal: No joint pain, No muscle pain, No swelling, No calf pain, No problem reported : No dysuria, No urinary frequency, No incontinence, No hematuria Neurologic: No paralysis, No weakness, No numbness/tingling, No vertigo, No balance problems Psychiatric: No depression symptoms, No anhedonism, No anxiety, No insomnia, No substance abuse Heme: No abnormal bleeding/bruising, No clotting problems, No swollen lymph nodes, No night sweats Skin: No rash, No itch, No new/changing skin lesions, No color change, No bleeding Objective, upon discharge, vital signs stable General Appearance: WD/WN, no apparent distress, Eyes: normal inspection, PERRL, EOMI, sclerae normal ENT: normal ENT inspection, hearing grossly normal, pharynx normal Neck: supple, no adenopathy, thyroid normal, no JVD, no carotid bruits, trachea midline Respiratory/Chest: chest non-tender, normal breath sounds, no respiratory distress, no accessory muscle use, breath sounds, rales, wheezing Cardiovascular: regular rate, rhythm, no JVD, no murmur Abdomen: normal bowel sounds, non tender, soft, no organomegaly, Extremities: normal range of motion, non-tender, normal inspection, no pedal edema, no calf tenderness, normal capillary refill , pelvis stable, joint has no limited range of motion, capillary refill is normal, no cyanosis clubbing Neurologic/Psychiatric: 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 tested, no motor/sensory deficits, alert, normal mood/affect, oriented x 3 Skin: normal color, warm/dry, no rash Lymphatic: no adenopathy Lab data upon discharge: Laboratory Results - last 24 hr 11/29/18 11/29/18 11/29/18 16:05 16:21 17:04 WBC RBC Hgb Hct MCV MCH MCHC RDW Std Deviation RDW Coeff of Esthela Plt Count MPV Immature Gran % (Auto) Neut % (Auto) Lymph % (Auto) [place] % (Auto) Eos % (Auto) Baso % (Auto) Immature Gran # (Auto) Neut # (Auto) Lymph # (Auto) [place] # (Auto) Eos # (Auto) Baso # (Auto) Activ Coag Time Kaolin 164 H 263 H Sodium Potassium Chloride Carbon Dioxide Anion Gap BUN Creatinine Est Cr Clr Drug Dosing Est GFR ( Amer) Est GFR (Non-Af Amer) BUN/Creatinine Ratio Glucose Estimat Average Glucose Hemoglobin A1c Calcium Phosphorus 3.8 Magnesium 2.1 Troponin I 0.957 H* Triglycerides Cholesterol LDL Cholesterol, Calc VLDL Cholesterol, Calc HDL Cholesterol Cholesterol/HDL Ratio 11/30/18 11/30/18 11/30/18 00:52 00:52 00:52 WBC 5.85 RBC 4.34 L Hgb 14.1 Hct 40.4 L MCV 93.1 MCH 32.5 MCHC 34.9 RDW Std Deviation 45.8 RDW Coeff of Esthela 13.3 Plt Count 183 MPV 8.8 Immature Gran % (Auto) 0.2 Neut % (Auto) 54.0 Lymph % (Auto) 30.8 [place] % (Auto) 8.7 Eos % (Auto) 5.8 Baso % (Auto) 0.5 Immature Gran # (Auto) 0.01 Neut # (Auto) 3.16 Lymph # (Auto) 1.80 [place] # (Auto) 0.51 Eos # (Auto) 0.34 Baso # (Auto) 0.03 Activ Coag Time Kaolin Sodium 139 Potassium 3.8 Chloride 105 Carbon Dioxide 28 Anion Gap 6.0 BUN 12 Creatinine 0.75 Est Cr Clr Drug Dosing 128.6 Est GFR ( Amer) 111.6 Est GFR (Non-Af Amer) 96.3 BUN/Creatinine Ratio 15.7 Glucose 107 H Estimat Average Glucose Hemoglobin A1c Calcium 8.7 Phosphorus Magnesium Troponin I 1.350 H* Triglycerides 106 Cholesterol 215 H LDL Cholesterol, Calc 146 VLDL Cholesterol, Calc 21 HDL Cholesterol 48 Cholesterol/HDL Ratio 5 11/30/18 00:52 WBC RBC Hgb Hct MCV MCH MCHC RDW Std Deviation RDW Coeff of Esthela Plt Count MPV Immature Gran % (Auto) Neut % (Auto) Lymph % (Auto) [place] % (Auto) Eos % (Auto) Baso % (Auto) Immature Gran # (Auto) Neut # (Auto) Lymph # (Auto) [place] # (Auto) Eos # (Auto) Baso # (Auto) Activ Coag Time Kaolin Sodium Potassium Chloride Carbon Dioxide Anion Gap BUN Creatinine Est Cr Clr Drug Dosing Est GFR ( Amer) Est GFR (Non-Af Amer) BUN/Creatinine Ratio Glucose Estimat Average Glucose 114 Hemoglobin A1c 5.6 Calcium Phosphorus Magnesium Troponin I Triglycerides Cholesterol LDL Cholesterol, Calc VLDL Cholesterol, Calc HDL Cholesterol Cholesterol/HDL Ratio Assessment and plan upon discharge, Non-ST elevation MA with elevated biomarkers at the time of admission, Per report the cardiac cath, he was was discovered to have severe stenosis involving the proximal left circumflex, had PCI yesterday with drug-eluting stent, no recurrent chest pain while walking Echocardiogram showed: preserved LV function on echo, no regional wall motion of normality. will be discharged on dual antiplatelet therapy, with aspirin and Brilinta, Dyslipidemia, LDL 146 total cholesterol 215, continued on high-dose atorvastatin. Has started metoprolol succinate 25 mg daily Discussed with cigar sorter discussed with patient, answered all questions, Total Time Total Time Spent Total Time Spent (In Minutes): 35 Discharge Plan Discharge Items Patient Disposition: Home - Self-Care Reason For Visit: CHEST PAIN Discharge Diagnosis: NSTEMI s/P Coronary Angiography and Drug Eluting Stent Condition: Fair Discharge Goals: Decrease discomfort, Diagnostic testing, Improve disease control, Improve function, Increase independence, Improve nutritional status, Learn about illness, Prevent disease and Screening Activity: As commented below Non-emergency contact: Primary Care Provider and Ip Paralegal Call non-emergency contact if: you have any medication questions Follow-up/Referrals: Abdias Mohan MD [Physician] - 12/12/18 2:30 pm (Please, follow up at [facility] Cardiology Office with Dr. Brennon Mohan on TuesdayDecember 12 at 2:30 pm. *This office is located in [address] [facility] to [facility] [place]. If you need to change this appointment, call the office at [phone].) Mike Quan Jr, [Primary Care Provider] - 12/08/18 12:15 pm (Please, follow up with Dr. Quan on TuesdayDecember 08 at 12:15 pm. *If you need to change this appointment, call the office at [phone].) Diet: Heart Healthy, Low Fat and Low Sodium (2gm) Addtl Provider Instructions: NSTEMI s/P Coronary Angiography and Drug Eluting Stent New medicines include atorvastatin, metoprolol, and Brilinta, you need to follow up with your primary care physician in 1 week, - take medication as instructed, never overdose or any misuse, or take with alcohol, because misuse of medicine may cause organ damage or , call me , or your primary care physician if have questions of discharge medicaitons. - call your primary care physician, or go to local emergency room if has any fever/chill, chest pain, shortness of breathing, nausea/vomiting/abdominal pain , facial droop/slurry speech/local weakness, or if has any questions. - fall precaution - diet as instructed - you need to follow up with your subspecialist, such as Dr. Bowers ACTIVITY RECOMMENDATIONS: Excess manipulation of the wrist should be avoided for the next 24-48 hours. * No lifting over 2 pounds (approximately a 1/2 gallon of milk) with the utilized arm for 24 hours. * No strenuous activity such as bowling or tennis for 3 days. * Keep the site of the procedure covered with a bandage for 24 hours. *You may shower the day after the procedure. Do not take a tub bath or submerge the puncture site in water for the next 3 days. *Do not operate any motorized equipment for 3 days. SPECIAL CARE INSTRUCTIONS: The site may be slightly bruised and sore following your procedure. Should any of the following occur, contact the Dr. who performed your procedure. 1. Redness/inflammation, swelling, chills, or fever, or colored drainage at procedure site within 3-7 days after your procedure. 2. Coldness, discoloration, ongoing numbness, severe pain, or swelling. Expect mild tingling of hand and tenderness at the puncture site for up to three days. If this persists beyond three days, or other symptoms develop, notify the Dr. who performed your procedure. BLEEDING: If the procedure site on your wrist begins to bleed, do not panic 1. Place 1 or 2 fingers firmly just slightly above the insertion site to stop the bleeding. You may be able to feel your pulse as you hold pressure. 2. Lift your finger after 5 minutes to see if the bleeding has stopped. 3. Once the bleeding has stopped, gently wipe the wrist area clean with a bandage. * If the bleeding from your wrist does not stop after 10 minutes, or if there is a large amount of bleeding or spurting, call 911 ([address] drive yourself to the hospital). SKIN IRRITATION: * You may experience some redness and/or swelling in the area where radiation was administered. If any skin irritation occurs, please contact your family physician. FOLLOW UP VISIT: Keep any scheduled doctor appointments. Prescriptions: New atorvastatin 40 mg Tablet 80 mg PO QAM 30 Days Qty: 60 RF: 0 nitroglycerin [Nitrostat] 0.4 mg Tablet, Sublingual 0.4 mg Sublingual UD PRN (Reason: chest pain) 30 Days Qty: 30 RF: 0 ticagrelor [Brilinta] 90 mg Tablet 90 mg PO BID 30 Days Qty: 60 RF: 0 metoprolol succinate 25 mg capsule,sprinkle,ER 24hr 25 mg PO DAILY Qty: 30 RF: 0 Continue medical marijuana UNKNOWN RF: 0 nystatin 100,000 unit/gram Ointment 1 applic TOPICAL BID PRN (Reason: redness) RF: 0 amlodipine [Norvasc] 10 mg Tablet 10 mg PO QAM RF: 0 clonazepam 2 mg Tablet 2 mg PO HS RF: 0 duloxetine [Cymbalta] 60 mg Capsule,Delayed Release(Dr/Ec) 60 mg PO QAM RF: 0 aspirin 81 mg Tablet,Chewable 81 mg PO QAM RF: 0 Visit Report Forms: [facility] Stand-Alone Forms: Call Back Authorization, [facility] Discharge Orders: Discharge Order (Routine); Ordered 11/30/18 Ordered By: Deon Roque Admission Data Admit Date/Time: 11/29/18 12:32 Attending Provider: Deon Roque Admit Provider: Shira Navarro Primary Care Provider: Mike Quan Jr Other Providers: Shira Navarro ; Murtaza Macedo ; Percy Dumont ; Emmett Dhillon ; Brodie Britton ; Cliff Yan JR ; William Ponce ; Khushboo Bazan ; Fang Bo ; Abdias Mohan ; Abdias Bowers ; Constantine Reyes ; Mike Buckley ; Mayur Taylor ; Norma Pedro ; Elizabeth Saldaña Service: Telemetry Other Interventions: Discharge Summary Assessment (RN) Last Done: 11/30/18 10:57 DC Date/Time DO NOT enter until pt leaves facility: 11/30/18 13:01
== END 2018-11-30 13:01 | disposition home or self-care (01) | DRG 247 ==
LOC: ED 10:30 → CC 15:49 → 2E 15:49 → SUATTDRO 16:54 → 2E 16:54

== ENCOUNTER 2019-04-11 05:04 | Inpatient (IN) ==
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
--- NOTE | 2019-03-19 11:12 | PAT Medication Instructions ---
Medication Instructions Date of Service March 19, 2019 Home Medications aspirin 81 mg PO QAM duloxetine [Cymbalta] 60 mg PO QAM clonazepam 2 mg PO HS medical marijuana 1 dose as needed atorvastatin 40 mg PO HS clopidogrel [Plavix] 75 mg PO QAM multivitamin 1 tab PO QAM nitroglycerin [Nitrostat] 0.4 mg SUBLINGUAL as needed Pre And Probiotic 1 dose PO DAILY Continue as directed nitroglycerin [Nitrostat] 0.4 mg SUBLINGUAL as needed ASK your prescriber and surgeon clopidogrel [Plavix] 75 mg PO QAM DO NOT take the morning of surgery multivitamin 1 tab PO QAM Pre And Probiotic 1 dose PO DAILY Take morning of surgery With a small sip of water, OTHERWISE NOTHING TO EAT OR DRINK AFTER MIDNIGHT: aspirin 81 mg PO QAM duloxetine [Cymbalta] 60 mg PO QAM Take evening before surgery clonazepam 2 mg PO HS atorvastatin 40 mg PO HS medical marijuana 1 dose as needed Other Notes If you have any questions please call us at [phone] or [phone] or [phone] or [phone]
[2019-03-19 12:24] LABS: Partial Thromboplastin Ratio 0.9; Partial Thromboplastin Time 24.6 Seconds (21.0-31.0); Prothrombin Time 10.7 Seconds (9.0-12.0)
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
[2019-04-11] MEDS ORDERED: TRANEXAMIC ACID 1,000 MG x 1 **For Topical Use TOP SCH (06:00)
[2019-04-11] MEDS ORDERED: LR 500ML BOLUS, THEN 15ML/HR IV SCH (06:00)
[2019-04-11] MEDS ORDERED: ROPIVACAINE 0.5% HCL/PF 150 MG, BUPIVACAINE 0.5% MPF 30 ML, EPINEPHrine 0.15 MG, Ketoro... INFIL SCH (06:00)
[2019-04-11] MEDS ORDERED: LR 60ML/HR IV SCH (06:00)
[2019-04-11] MEDS ORDERED: CEFAZOLIN 2000MG 2,000 MG/15 ML SYR IV SCH (06:00)
--- NOTE | 2019-04-11 06:19 | History & Physical Bridge Note ---
Date of Service April 11, 2019 History & Physical Bridge Note I have examined the patient, reviewed the History & Physical and in the interval since the performance of the History & Physical I have noted the following changes of clinical significance: consent obtained;new xrays reviewed.no changes noted
[2019-04-11] MEDS ORDERED: ROPIVACAINE 0.5% 5 MG/ML 30 ML VIAL ONE (06:24)
[2019-04-11] MEDS ORDERED: BUPIVACAINE 0.5 % 5 MG/1 ML PF 10ML VIAL ONE (06:24)
[2019-04-11] MEDS ORDERED: SUCCINYLCHOLINE CHLORIDE 20 MG/ML 10 ML VIAL ONE (06:25)
[2019-04-11] MEDS ORDERED: MIDAZOLAM HCL 1 MG/ML 2ML VIAL ONE (06:25)
[2019-04-11] MEDS ORDERED: PROPOFOL IV EMULSION 10 MG/ML 20 ML VIAL IV ONE (06:25)
[2019-04-11] MEDS ORDERED: ONDANSETRON INJ 2 MG/ML 2 ML VIAL ONE (06:25)
[2019-04-11] MEDS ORDERED: DEXAMETHASONE SOD INJ 4 MG/ML VIAL ONE (06:25)
[2019-04-11] MEDS ORDERED: fentaNYL citrate 100 MCG/2 ML VIAL ONE (06:26)
[2019-04-11] MEDS ORDERED: POVIDONE-IODINE OP SOLN 30 ML BTL ONE (06:31)
[2019-04-11] MEDS ORDERED: ORTHO JOINT ANESTHETIC ONE (06:31)
[2019-04-11] MEDS ORDERED: HYDROmorphone INJ 2 MG/ML SYR/VIAL ONE (07:18)
[2019-04-11] MEDS ORDERED: HYDROmorphone INJ 1 MG/ML SYRINGE IV PRN (07:36)
[2019-04-11] MEDS ORDERED: ONDANSETRON INJ 2 MG/ML 2 ML VIAL IV PRN ×2 (07:36→10:41)
[2019-04-11] MEDS ORDERED: ePHEDrine sulfate 50 MG/ML AMP IV PRN (07:36)
[2019-04-11] MEDS ORDERED: ATROPINE SULFATE 0.1 MG/ML 10ML SYR IV PRN (07:36)
--- NOTE | 2019-04-11 08:39 | Post Operative Brief Note ---
Immediate Post Op Note v1 Date of Surgery April 11, 2019 Pre & Post Diagnosis Operation Date: 04/11/19 07:00 Pre-Op Diagnosis: Left Knee End-Stage Degenerative Joint Disease Post-Op Diagnosis: Left Knee End-Stage Degenerative Joint Disease Procedure Operation Date: 04/11/19 07:00 Actual Procedures p Left Total Knee Arthroplasty, Cemented(Left) - Beck Pride MD Surgeon Beck Pride MD [facility] Estimated Blood Loss 75 Findings Consistent with Post-Op Diagnosis
--- NOTE | 2019-04-11 08:55 | Operative Report ---
Post Operative Report Pre & Post Diagnosis Operation Date: 04/11/19 07:00 Pre-Op Diagnosis: Left Knee End-Stage Degenerative Joint Disease Post-Op Diagnosis: Left Knee End-Stage Degenerative Joint Disease Procedure Operation Date: 04/11/19 07:00 Actual Procedures p Left Total Knee Arthroplasty, Cemented(Left) - Beck Pride MD Surgeon TAHIR Pride MD [place] [facility] Estimated Blood Loss 75 Findings Consistent with Post-Op Diagnosis Specimens see operative report Drains none Anesthesia Type General Regional Complications none Disposition Accompanied Patient To Recovery: Yes Disposition: Recovery Room Indications This 64-year-old white male presented to the office with complaints of long- standing left knee pain. He had tried conservative care measures without lasting improvement. He elected to proceed with surgical intervention after being educated about potential risks and outcomes. Preoperative imaging was obtained. Description of Procedure Patient was administered a regional block and then taken to the operating room where he was given general anesthesia. He was prepped and draped in the usual sterile fashion. Please see Dr. Pride's operative report for specifics of the procedure. I was present for the entire case from initial patient positioning through final wound closure. Assistance was provided in tissue retraction, hemostasis, trial implant placement, final implant placement, and final wound closure. Patient was taken to the recovery room in satisfactory condition. I attest to the content of the Intraoperative Record and any orders documented therein. Any exceptions are noted below.
[2019-04-11] MEDS: fentaNYL citrate 100 MCG/2 ML VIAL IV PRN ×2 (09:06→09:11)
[2019-04-11] MEDS ORDERED: VANCOMYCIN HCL 1,500 MG in SODIUM CHLORIDE 0.9% 500 ML IV ONE (09:15)
--- NOTE | 2019-04-11 09:16 | XRay Report ---
LEFT KNEE 2 VIEWS History: Left total knee arthroplasty. Degenerative arthritis. Postop. FINDINGS: The patient is status post a left total knee arthroplasty. The hardware is intact. No fract ure or dislocation. Skin ashley are in place. Moderate joint effusion likely postoperative. IMPRESSION: Left total knee arthroplasty. No evidence for hardware complication. Electronically signed by: Avtar Malcolm M.D. 04/11/2019 9:14 AM
[2019-04-11] MEDS: LABETALOL HCL IV 5 MG/ML 20ML IV PRN ×2 (09:21→09:27)
--- NOTE | 2019-04-11 09:31 | Progress Note ---
DATE: 04/11/2019 SUBJECTIVE: The patient is doing well in recovery room, has no major issues. He has no chest pain, shortness of breath, fever, chills, nausea, vomiting, or headache. He is wide awake, alert, oriented x3. OBJECTIVE: Vital signs are stable. He is afebrile. Neurovascular check, femoral sciatic nerve is normal. Wound dressing is clean, dry, and intact. IMAGING: X-ray AP and lateral knee reveals well-fixed, well-aligned knee replacement. ASSESSMENT: Overall doing well status post left total knee replacement. Continue with postoperative care pathway. Have social media analyst and case management see him today and prepare for discharge tomorrow. Home health and home exercises for 2 weeks, outpatient physical therapy to start after that. Status post left knee replacement.
--- NOTE | 2019-04-11 09:42 | Operative Report ---
DATE OF OPERATION: 04/11/2019 SURGEON: Beck Pride MD EXPERT MEDICAL WRITER: Prince Walter PA-C. No resident or fellow available. PREOPERATIVE DIAGNOSIS: Osteoarthritis, left knee. POSTOPERATIVE DIAGNOSIS: Osteoarthritis, left knee. OPERATION PERFORMED: Cemented left total knee replacement. PERIOPERATIVE SITUATION: Medically cleared male who has had intractable knee pain for years, had an arthroscopy done about 18 months ago which revealed grade 4 disease of the patellofemoral joint down the lateral compartment, had a subtotal lateral meniscectomy for instability of the meniscus. His giving way sensation went away, but his pain did not and over the last 18 months, has failed conservative management, despite his x-ray is not looking very striate, he is known to have grade IV disease, bipolar in the lateral compartment and in the patellofemoral joint. As a result, he has failed conservative management and has requested total knee replacement. Recent standing x-rays taken yesterday revealed the lateral compartment and full extension position is approximately 25% with the opposite side. DESCRIPTION OF PROCEDURE: The patient appropriately identified, site verified, consent verified. Antibiotics confirmed as being given. Left lower extremity was prepped and draped in usual routine fashion. Tourniquet was inflated to 300 mmHg after exsanguination of limb with a rubber Esmarch bandage for a total of approximately 57 minutes. Once the tourniquet was inflated, a midline incision was made and parapatellar arthrotomy performed. There was an exuberant amount of synovial fluid. This was all evacuated. The synovectomy was completed. Medial release was performed. Retractors placed. The anterior horns of the menisci were resected. There was grade 4 disease of 2 large spots of the trochlea, which incorporated about 50-70% of the trochlea. There was grade 4 disease of the distal femur right in the weightbearing zone and on the proximal tibia and the lateral compartment. All of this was lateral compartment, medial compartment was relatively healthy. There was a grade 2 disease in the weightbearing surface of the medial compartment. Once the exposure was obtained, the distal femur was resected 12 mm, proximal tibia resected 4 mm, the extension gap was excellent. The femur was sized between a 6 and a 5, it was measured 6 cut 5. There was no notching. The flexion gap was checked. It was excellent. The remaining meniscal segments were removed. The posterior capsule was then injected with the Orthomix and the flexion gap checked and that was excellent. The box cut was then made and the size 5 trial fit well. The tibia was then broached and reamed to a size 5 with excellent fixation of the trial implant. There were no issues with stability with a 10 mm spacer. The patella still tracked slightly laterally, so an additional soft tissue retinacular release was performed, did not include the synovium and then the patella tracked well. The patella was sized to a 43. It was resected leaving about 17-18 mm and then the seating holes made and the trial was seated and the tracked well. The Orthomix was then injected all around the knee, although implants were then removed. The wound was irrigated with Betadine and Pulsavac and then the TXA was placed with 2 minutes. This was then irrigated out and the permanent implants cemented into position, tibia followed by femur followed by patella and after 12 minutes, the tourniquet deflated. Minor bleeding points controlled with electrocautery. After 14 minutes, the knee flexed and no minor cement was required to be removed. Everything looked good. The knee was flexed and the trial implant removed. The knee irrigated with Betadine and Pulsavac and Betadine and then the permanent liner seated. The knee reduced. The knee then closed with the knee flexed about 60 degrees with #2 Vicryl, 0 Vicryl, 2-0 Vicryl and stainless steel clips. Appropriate dressing applied. The patient transferred to the recovery room in satisfactory condition having tolerated the procedure well. The patient displayed full sciatic nerve function upon awakening from general anesthesia. He has a chronic condition, but it was hard to be placed on aspirin and Plavix for DVT prophylaxis, mobilization and RAMOS stockings and SCDs. Pathology pending on bone. I attest to the content of the Intraoperative Record and any orders documented therein. Any exception s are noted below.
--- NOTE | 2019-04-11 10:00 | Anesthesiology Progress Note ---
Date of Service April 11, 2019 Anesthesia Post Procedure Vital Signs Vital Signs: Temp Pulse Pulse Resp BP Pulse Ox 04/11/19 09:50 37.1 C 65 16 148/90 H 99 04/11/19 09:40 37.1 C 65 16 153/96 H 99 04/11/19 09:30 65 16 136/83 99 04/11/19 09:20 91 H 16 200/97 H 86 L 04/11/19 09:10 88 16 179/100 H 100 04/11/19 09:00 91 H 16 160/95 H 96 04/11/19 08:50 36.8 C 89 14 179/99 H 99 04/11/19 05:30 36.6 C 64 20 152/102 H 99 Pain Intensity Left Knee: Pain Intensity: 3 Transfer of Care Handoff Completed per policy Notes Mental Status: alert / awake / arousable and participated in evaluation Patient Amnestic to Procedure: Yes Nausea / Vomiting: adequately controlled Pain: adequately controlled Airway Patency, RR, SpO2: stable & adequate BP & HR: stable & adequate Hydration State: stable & adequate Anesthetic Complications: no major complications apparent and Pt Satisfied with anesthetic care
[2019-04-11] MEDS ORDERED: DiphenhydrAMINE HCL 50 MG/ML VIAL IV PRN (10:41)
[2019-04-11] MEDS ORDERED: MAGNESIUM HYDROXIDE SUSP 30 ML UDC PO PRN (10:41)
[2019-04-11] MEDS ORDERED: ALUMINUM/MAGNESIUM SUSP 30 ML UDC PO PRN (10:41)
[2019-04-11] MEDS ORDERED: METOCLOPRAMIDE HCL INJ 5 MG/ML 2 ML VIAL IV PRN (10:41)
[2019-04-11] MEDS ORDERED: NITROGLYCERIN SL 0.4 MG/TAB TAB SL PRN (10:41)
[2019-04-11] MEDS ORDERED: VANCOMYCIN CONSULT ACTIVE PRN (10:41)
[2019-04-11] MEDS ORDERED: SODIUM CHLORIDE 0.9% 1000ML 1,000 ML IV SCH (10:41)
[2019-04-11] MEDS ORDERED: NALOXONE HCL 0.4 MG/1 ML VIAL/CARP IV PRN (10:41)
[2019-04-11] MEDS ORDERED: BISACODYL 10 MG SUPP PR PRN (10:41)
[2019-04-11] MEDS ORDERED: TAMSULOSIN HCL 0.4 MG CAP PO PRN (10:41)
[2019-04-11] MEDS: DULOXETINE HCL 60 MG CAP PO SCH ×2 (13:19→13:27)
[2019-04-11] MEDS: DOCUSATE SODIUM 100 MG CAP PO SCH ×2 (13:20→20:49)
[2019-04-11] MEDS: CLOPIDOGREL BISULFATE 75 MG TAB PO SCH (13:21)
[2019-04-11] MEDS: MULTIVITAMIN TAB PO SCH (13:21)
[2019-04-11] MEDS: ASPIRIN 81 MG ECTAB PO SCH (13:22)
--- NOTE | 2019-04-11 15:12 | Discharge Summary ---
DATE OF CONDITIONAL DISCHARGE: 04/12/2019. CHIEF COMPLAINT: Left knee pain. HISTORY OF PRESENT ILLNESS: The patient is a 64-year-old male admitted for elective left total knee replacement. Hospital course has been relatively uneventful. PAST MEDICAL HISTORY: Remarkable for heart disease, [place], osteoarthritis, DJD, GERD, obesity, prostate cancer, malignant melanoma, anxiety, hypertension, DVT. PAST SURGICAL HISTORY: Previous surgeries include cervical fusion, herniorrhaphy, Mohs surgery, tonsillectomy, knee arthroscopies, prostatectomy, cardiac catheterization and stent placement. He was cleared by his manganese heater. ALLERGIES: TYLENOL WHICH CAUSES ITCHINESS AND RASH, ROBAXIN. FAMILY HISTORY: Remarkable for cancer, lymphoma, history of diabetes, heart disease and stroke. SOCIAL HISTORY: Reveals he is retired, former [employer] employee. He is . No tobacco use. PREADMISSION MEDICATIONS: Include aspirin, Lipitor, medical marijuana, clonazepam, Plavix, duloxetine. He will resume all those, will use Plavix and aspirin as DVT prophylaxis with ambulation. REVIEW OF SYSTEMS: Noncontributory. HOSPITAL COURSE: Has been uneventful. He was good straight leg raise. His neurovascular check is normal. His postop x-rays look excellent. ASSESSMENT: Status post total knee replacement. We will discharge tomorrow if he does well overnight,
[2019-04-11] MEDS: CEFAZOLIN 2000MG 2,000 MG/15 ML SYR IV SCH ×2 (15:43→20:48)
[2019-04-11] MEDS: OXYCODONE HCL IR 5 MG TAB (IMMEDIATE RELEASE) PO PRN ×2 (15:43→20:47)
[2019-04-11] MEDS: KETOROLAC TROMETHAMINE 15 MG/ML VIAL IV PRN (20:46)
[2019-04-11] MEDS ORDERED: ATORVASTATIN 40 MG TAB PO SCH (21:00)
[2019-04-11] MEDS ORDERED: clonazePAM 1 MG TAB PO SCH (21:00)
[2019-04-11] MEDS ORDERED: SENNA 8.6 MG TAB PO SCH (21:00)
[2019-04-12] MEDS: OXYCODONE HCL IR 5 MG TAB (IMMEDIATE RELEASE) PO PRN ×2 (02:07→06:24)
[2019-04-12] MEDS: HYDROmorphone INJ 0.5 MG/0.5 ML SYR IV PRN ×2 (04:30→07:13)
[2019-04-12 06:11] LABS: Hematocrit (blood only) 33.7 % (42-52); Hemoglobin 11.7 g/dL (14.0-18.0); Mean Corpuscular Hgb Conc 34.7 g/dL (32-36); Mean Corpuscular Volume 92.1 fL (80-100); Mean Platelet Volume 8.6 fL (7.4-10.4); Platelet Count 149 K/uL (130-400); RDW Coefficient of Variation 13.9 % (11.5-14.5); RDW Standard Deviation 46.6 fL (36.4-46.3); Red Blood Count 3.66 M/uL (4.7-6.1); White Blood Count 10.16 K/uL (4.8-10.8)
[2019-04-12 06:39] LABS: Calcium 8.5 mg/dl (8.5-10.1); Creatinine Clr Calc Pharmacy 112.1 ml/min; Est GFR (African American) 106.8; Est GFR (Non-African American) 92.1; Potassium 4.4 mmol/L (3.5-5.1)
--- NOTE | 2019-04-12 07:56 | Progress Note ---
DATE: 04/12/2019 SUBJECTIVE: Postop day #1. Complaining of some pain, responded well to oral Dilaudid. He has been up, ambulatory, moving around. He denies chest pain, shortness of breath, fever, chills, nausea, vomiting, or headache. OBJECTIVE: VITAL SIGNS: Stable. He is afebrile. NEUROLOGIC: Neurovascular check is normal. Hematocrit is stable at 33.7. PRP is good. ASSESSMENT AND PLAN: Overall doing well. Manage pain with oral Dilaudid, discharge for 1 week. DVT prophylaxis with Plavix and aspirin. Follow up in 2 weeks for staple removal. Case management to arrange home services.
[2019-04-12] MEDS ORDERED: dexAMETHasone 10 MG in SYRINGE 0 ML IV SCH (08:00)
--- NOTE | 2019-04-12 08:02 | Anesthesiology Progress Note ---
Date of Service April 12, 2019 Anesthesia Post Procedure Vital Signs Vital Signs: Temp Pulse Pulse Resp BP BP Pulse Ox 04/12/19 07:20 37.2 C 84 17 161/85 H 93 04/12/19 02:00 37.3 C 85 16 145/79 H 96 04/11/19 23:04 37.9 C H 76 16 146/73 H 91 04/11/19 21:01 37.2 C 74 16 144/80 H 98 04/11/19 15:29 36.6 C 60 16 130/74 95 04/11/19 14:58 98 04/11/19 14:27 04/11/19 13:24 16 131/73 93 04/11/19 12:29 65 16 135/83 96 04/11/19 11:20 69 18 138/82 96 04/11/19 10:50 71 18 142/84 H 94 04/11/19 10:25 36.8 C 76 16 154/86 H 95 04/11/19 10:05 71 15 162/92 H 96 04/11/19 09:50 37.1 C 65 16 148/90 H 99 04/11/19 09:40 37.1 C 65 16 153/96 H 99 04/11/19 09:30 65 16 136/83 99 04/11/19 09:20 91 H 16 200/97 H 86 L 04/11/19 09:10 88 16 179/100 H 100 04/11/19 09:00 91 H 16 160/95 H 96 04/11/19 08:50 36.8 C 89 14 179/99 H 99 Pulse Ox 04/12/19 07:20 04/12/19 02:00 04/11/19 23:04 04/11/19 21:01 04/11/19 15:29 04/11/19 14:58 04/11/19 14:27 96 04/11/19 13:24 04/11/19 12:29 04/11/19 11:20 04/11/19 10:50 04/11/19 10:25 04/11/19 10:05 04/11/19 09:50 04/11/19 09:40 04/11/19 09:30 04/11/19 09:20 04/11/19 09:10 04/11/19 09:00 04/11/19 08:50 Notes Mental Status: alert / awake / arousable and participated in evaluation Nausea / Vomiting: adequately controlled Pain: adequately controlled Airway Patency, RR, SpO2: stable & adequate BP & HR: stable & adequate Hydration State: stable & adequate Neuraxial Anesthesia: sensory block resolved
[2019-04-12] MEDS: DULOXETINE HCL 60 MG CAP PO SCH (08:39)
[2019-04-12] MEDS: CLOPIDOGREL BISULFATE 75 MG TAB PO SCH (08:39)
[2019-04-12] MEDS: ASPIRIN 81 MG ECTAB PO SCH (08:40)
[2019-04-12] MEDS: MULTIVITAMIN TAB PO SCH (08:40)
[2019-04-12] MEDS: DOCUSATE SODIUM 100 MG CAP PO SCH (08:40)
--- NOTE | 2019-04-12 09:07 | Orthopedic Progress Note ---
Date of Service April 12, 2019 Assessment & Plan (1) Status post total left knee replacement using cement: Dressing was changed this morning. He will leave this in place until Tuesday. PT and OT today prior to discharge. Discharge today to home with home health services. Resume his Plavix and aspirin this morning-No Coumadin is needed Follow-up in the office in 2 weeks as scheduled for staple removal. Prescriptions were provided for Dilaudid 2 mg to be used for the first several days, and then use oxycodone 5 mg after the Dilaudid is no longer needed. Prescription has been provided for a walker. It will be delivered to bedside today. Subjective Patient is seen in his room this morning. States he had a rough evening due to pain. No nausea or vomiting. Pain is adequately controlled at the moment. He did a fair amount of physical activity yesterday and was actually seen by PT and OT as well. No other complaints at this point. He denies any chest pain, shortness of breath, or abdominal pain. Review of Systems Review of Systems: Unchanged from preop Physical Exam Physical Exam: Left knee bandages are dry. Upon removal, wound has expected postoperative ecchymosis and edema. Moderate intra-articular effusion. No active drainage. [place] are intact. Wound edges well approximated. Intact motor function to his toes, ankle, and knee. He is able to perform straight leg raise. Neurologic: Gross sensation is intact across the left leg by soft touch. Peripheral pulses are 2+. Labs: INR subtherapeutic at 1.0. H&H are adequate. PRP is unremarkable. Results & Data Vital Signs (Past 12 Hours) Vital Signs Temp Pulse Resp BP BP Pulse Ox 04/12/19 07:20 37.2 C 84 17 161/85 H 93 04/12/19 02:00 37.3 C 85 16 145/79 H 96 04/11/19 23:04 37.9 C H 76 16 146/73 H 91 04/11/19 21:01 37.2 C 74 16 144/80 H 98
[2019-04-12] MEDS: KETOROLAC TROMETHAMINE 15 MG/ML VIAL IV PRN (10:40)
== END 2019-04-12 13:16 | disposition home health service (06) | DRG 470 ==
LOC: ASU 05:04 → 3E 09:06

== ENCOUNTER 2019-04-23 01:04 | Inpatient (IN) ==
[2019-04-23] MEDS ORDERED: MoRPHine SULFATE 10 MG/ML CARP/VIAL IV STA (01:23)
[2019-04-23] MEDS ORDERED: ONDANSETRON INJ 2 MG/ML 2 ML VIAL IV STA (01:23)
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
[2019-04-23] MEDS ORDERED: fentaNYL citrate 100 MCG/2 ML VIAL IV STA ×2 (01:58→03:30)
[2019-04-23 02:01] LABS: Basophils # (auto) 0.02 K/uL (0-0.2); Basophils % (auto) 0.2 %; Eosinophils # (auto) 0.38 K/uL (0-0.5); Eosinophils % (auto) 3.8 %; Hematocrit (blood only) 33.4 % (42-52); Hemoglobin 11.6 g/dL (14.0-18.0); Immature Granulocytes # (auto) 0.07 K/uL (0.00-0.02); Immature Granulocytes % (auto) 0.7 %; Lymphocytes # (auto) 1.89 K/uL (1.2-3.4); Mean Corpuscular Hgb Conc 34.7 g/dL (32-36); Mean Corpuscular Volume 93.3 fL (80-100); Mean Platelet Volume 8.5 fL (7.4-10.4); Monocytes # (auto) 0.65 K/uL (0.11-0.59); Monocytes % (auto) 6.5 %; Neutrophils # (auto) 6.94 K/uL (1.4-6.5); Neutrophils % (auto) 69.8 %; Platelet Count 370 K/uL (130-400); RDW Coefficient of Variation 14.9 % (11.5-14.5); RDW Standard Deviation 47.8 fL (36.4-46.3); Red Blood Count 3.58 M/uL (4.7-6.1); White Blood Count 9.95 K/uL (4.8-10.8)
[2019-04-23 02:20] LABS: BUN Creatinine Ratio 21.3 (10-20); Calcium 9.5 mg/dl (8.5-10.1); Creatinine Clr Calc Pharmacy 95.5 ml/min; Est GFR (African American) 104.7; Est GFR (Non-African American) 90.4
[2019-04-23 02:21] LABS: INR 1.1 (0.9-1.1); Partial Thromboplastin Ratio 0.8; Partial Thromboplastin Time 22.4 Seconds (21.0-31.0); Prothrombin Time 11.3 Seconds (9.0-12.0)
[2019-04-23] MEDS ORDERED: Heparin IV Low Dose WITH Bolus STA (03:24)
[2019-04-23] MEDS ORDERED: HEPARIN 25000 UNIT/500 ML D5W IV ONE (03:36)
[2019-04-23] MEDS ORDERED: HEPARIN SOD 5,000 UNIT/0.5 ML VIAL ONE (03:36)
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
--- NOTE | 2019-04-23 04:33 | Emergency Department Note ---
ED Visit Note Physician Evaluation Note: I have personally evaluated and examined this patient. I agree with assessment and plan of Danay Leary PA-C. Large swelling/ecchymosis left leg post TKA. No clear evidence compartment syndrome by exam and with good pulses and normal CK I do not feel this is case. There are DVTs on US as well as large fluid collection noted. Suspect this is hematoma as he dropped HgB post op, though stable now. Agree with starting anticoagulation further and will bring in to hospitalist given multiple comorbidities. Deon Lenz MD
[2019-04-23] MEDS ORDERED: HYDROmorphone INJ 1 MG/ML SYRINGE IV PRN (04:55)
[2019-04-23] MEDS ORDERED: NITROGLYCERIN SL 0.4 MG/TAB TAB SL PRN (04:55)
[2019-04-23] MEDS ORDERED: OXYCODONE HCL IR 5 MG TAB (IMMEDIATE RELEASE) PO PRN (04:55)
[2019-04-23] MEDS ORDERED: POLYETHYLENE (MIRALAX) 17 GM PACK PO PRN (04:55)
[2019-04-23] MEDS ORDERED: MAGNESIUM HYDROXIDE SUSP 30 ML UDC PO PRN (04:55)
[2019-04-23] MEDS ORDERED: ONDANSETRON INJ 2 MG/ML 2 ML VIAL IV PRN (04:55)
[2019-04-23] MEDS ORDERED: ACETAMINOPHEN 325 MG TAB PO PRN (04:55)
[2019-04-23] MEDS ORDERED: ALUMINUM/MAGNESIUM SUSP 30 ML UDC PO PRN (04:55)
[2019-04-23] MEDS ORDERED: ZOLPIDEM TARTRATE 5 MG TAB PO PRN (04:55)
[2019-04-23] MEDS ORDERED: Heparin IV Standard *NO* Bolus IV ONE (05:15)
--- NOTE | 2019-04-23 05:43 | Ultrasound Report ---
US venous doppler LE LT CLINICAL HISTORY: recent tka, calf pain/swelling COMPARISON STUDY: No previous studies for comparison. FINDINGS: Acute deep venous thrombosis involving one of the 2. Popliteal veins, posterior tibial vein , as well as peroneal vein. Complex popliteal fluid collection/post procedural hematoma left thigh me asuring 9 x 15 cm. IMPRESSION: 1. Study is positive for acute deep venous thrombosis. 2. Soft tissue hematoma. The above report was generated using voice recognition software. It may contain grammatical, syntax or spelling errors. Electronically signed by: Stew Ndiaye M.D. 04/23/2019 5:41 AM
[2019-04-23] MEDS ORDERED: Heparin Adult STANDARD Wt-Based Dextrose 5% 25,000 units/500 mL IV SCH (06:00)
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
--- NOTE | 2019-04-23 07:24 | History and Physical Report ---
DATE OF ADMISSION: 04/23/2019 HISTORY OF PRESENT ILLNESS: The patient was admitted through the ER for reason based on some suspicion of the need for some type of surgical intervention. At this point in time, the patient is sleeping comfortably. Arouse easily. He has no chest pain, shortness of breath, fever, chills, nausea, vomiting or headache. PHYSICAL EXAMINATION: VITAL SIGNS: His vital signs are stable. He is afebrile. EXTREMITIES: Detailed assessment of his leg reveals what is a normal-appearing postop 10-12 day total knee replacement. There is no tense calf swelling. There is no tense knee effusion. His range of motion is supple and pain free from near 0 to near 70 degrees. Incision is clean and dry. His neurovascular check distally is within normal limits. Deep superficial peroneal nerve, posterior tibial nerve. There is no pain with passive stretch. There is no pain with active stretch. Incidental finding of a postop Morales cyst which is likely from its evacuation from the surgery as there. In addition, there is a small popliteal clot. The patient was put on aspirin and Plavix postop in order to try to avoid Coumadin, but at this point in time, will need to make an adjustment. ASSESSMENT: No evidence of any type of surgical problem here. There is no evidence of infection. His hematocrit is stable. His vital signs are stable. There is a reference to losing 4 units of blood in the admitting notes that is completely inaccurate. Please redact that from those notes. At this point in time, we will discharge the patient with Eliquis, aspirin and Plavix per medicine and he will need another small prescription of Dilaudid. I have also asked him to take Tylenol extra strength 2 tablets 8 hours around the clock, 400 mg of ibuprofen around the clock and use the Dilaudid for breakthrough type pain. He will follow up in the office as planned on Tuesday or of this week to get his ashley removed. Everything looks good that way as well. Needs to continue to wear the DVT prophylactic stocking for wound compression and pressure, especially with the new anticoagulation.Allow full diet. MTDD
[2019-04-23] MEDS ORDERED: DULOXETINE HCL 60 MG CAP PO SCH (09:00)
[2019-04-23] MEDS ORDERED: LACTOBACILLUS ACIDOPHILUS (FLORANEX) TAB PO SCH (09:00)
[2019-04-23] MEDS ORDERED: CLOPIDOGREL BISULFATE 75 MG TAB PO SCH (09:00)
[2019-04-23] MEDS ORDERED: ASPIRIN 81 MG ECTAB PO SCH (09:00)
[2019-04-23 09:51] LABS: Partial Thromboplastin Ratio 0.9; Partial Thromboplastin Time 23.2 Seconds (21.0-31.0)
[2019-04-23] MEDS ORDERED: APIXABAN 5 MG TABLET PO ONE (11:15)
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
[2019-04-23] MEDS ORDERED: clonazePAM 1 MG TAB PO SCH (21:00)
[2019-04-23] MEDS ORDERED: ATORVASTATIN 40 MG TAB PO SCH (21:00)
== END 2019-04-23 14:00 | disposition home or self-care (01) | DRG 301 ==
LOC: ED 01:04 → SUATTDRO 04:11 → 3W 04:11

== ENCOUNTER 2020-04-20 21:53 | Observation (INO) ==
[2020-04-20] MEDS ORDERED: fentaNYL citrate 100 MCG/2 ML VIAL IV STA (22:25)
[2020-04-20] MEDS ORDERED: ONDANSETRON INJ 2 MG/ML 2 ML VIAL IV STA (22:25)
[2020-04-20 22:51] LABS: Basophils # (auto) 0.02 K/uL (0-0.2); Basophils % (auto) 0.4 %; Eosinophils # (auto) 0.26 K/uL (0-0.5); Hemoglobin 13.9 g/dL (14.0-18.0); Lymphocytes # (auto) 1.81 K/uL (1.2-3.4); Lymphocytes % (auto) 34.7 %; Mean Corpuscular Hemoglobin 33.5 pg (25-34); Mean Corpuscular Hgb Conc 34.8 g/dL (32-36); Mean Corpuscular Volume 96.4 fL (80-100); Mean Platelet Volume 8.8 fL (7.4-10.4); Monocytes # (auto) 0.46 K/uL (0.11-0.59); Monocytes % (auto) 8.8 %; Neutrophils # (auto) 2.67 K/uL (1.4-6.5); Neutrophils % (auto) 51.1 %; Platelet Count 157 K/uL (130-400); RDW Coefficient of Variation 13.2 % (11.5-14.5); Red Blood Count 4.15 M/uL (4.7-6.1); White Blood Count 5.22 K/uL (4.8-10.8)
[2020-04-20 23:07] LABS: Alanine Aminotransferase 45 U/L (12-78); Albumin Level 3.7 gm/dl (3.4-5.0); Aspartate Aminotransferase 25 U/L (15-37); BUN Creatinine Ratio 27.1 (10-20); Blood Urea Nitrogen 21 mg/dl (7-18); Calcium 9.7 mg/dl (8.5-10.1); Carbon Dioxide 27 mmol/L (21-32); Chloride 108 mmol/L (98-107); Est GFR (African American) 107.7; Est GFR (Non-African American) 92.9; Glucose 114 mg/dl (70-99); Magnesium 2.1 mg/dl (1.8-2.4); Potassium 4.1 mmol/L (3.5-5.1); Sodium 142 mmol/L (136-145)
[2020-04-20 23:10] LABS: Albumin Globulin Ratio 1.2 (0.9-2); Alkaline Phosphatase 83 U/L (45-117); Bilirubin,Total 0.6 mg/dl (0.2-1); Globulin 3.1 gm/dl (2.5-4.0); Total Protein 6.8 gm/dl (6.4-8.2)
[2020-04-20] MEDS ORDERED: DEXAMETHASONE **PF** INJ 10 MG/ML VIAL IV ONE (23:47)
[2020-04-21] MEDS ORDERED: fentaNYL citrate 100 MCG/2 ML VIAL IV STA
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
[2020-04-21] MEDS ORDERED: NITROGLYCERIN SL 0.4 MG/TAB TAB SL PRN (01:54)
[2020-04-21] MEDS ORDERED: ACETAMINOPHEN 325 MG TAB PO PRN (01:54)
[2020-04-21] MEDS ORDERED: OXYCODONE HCL IR 5 MG TAB (IMMEDIATE RELEASE) PO PRN (02:03)
[2020-04-21] MEDS ORDERED: CYCLOBENZAPRINE HCL 10 MG TAB PO PRN (02:05)
[2020-04-21 02:10] LABS: Appearance Urine Clear (Clear); Bilirubin Urine Negative (Negative); Blood Urine Negative (Negative); Color Urine Yellow; Glucose Urine UA Negative (Negative); Ketones Urine Negative (Negative); Leukocyte Esterase Urine Negative (Negative); Nitrite Urine Negative (Negative); Protein Urine Negative (Negative); Specific Gravity Urine 1.022 (1.000-1.030); Urobilinogen Urine Negative (Negative); pH Urine 6.5 (4.5-7.5)
[2020-04-21] MEDS ORDERED: PATIENT'S HEIGHT AND/OR WEIGHT NEEDED SCH (02:15)
--- NOTE | 2020-04-21 05:31 | Magnetic Resonance Report ---
MR lumbar spine wo con CLINICAL HISTORY: 65 years-old Male presenting with low back pain, back spasms, history of lumbar bre kim, intermittent symptoms for 2 weeks, back strain today, unable to walk. TECHNIQUE: Multisequence, multiplanar MR imaging of the lumbar spine was performed without the use of intravenous contrast. IV contrast: None. COMPARISON: 08/03/2018. FINDINGS: Localizer images: The prostate may be absent. Few renal cysts noted. 8-10 mm of grade 1-2 anterolisthesis of L5 on S1 unchanged from prior. Posterior bilateral transpedic ular screw and mattie fixation of L4-5 with laminectomies and interbody spacers as on prior exam. Fatty endplate changes at the operative levels. Prominent Schmorl's nodes at L2-3. Benign hemangioma in S1. Vertebral bodies otherwise maintain normal height, alignment, and bone marrow signal intensity. Inte rvertebral disc desiccation and mild to moderate height loss at the nonoperative levels greatest at L 2-3 and L3-4. A level by level analysis is further given below: L1-2: Trace disc bulge. No significant spinal canal narrowing. Minimal bilateral neural foraminal kenny rowing. L2-3: Mild disc bulge with minimal effacement of the ventral thecal sac. Mild facet arthropathy and l igamentum flavum thickening. Mild to moderate bilateral neural foraminal narrowing. L3-4: Mild disc bulge with mild effacement of the ventral thecal sac. Severe facet arthropathy. And m ild to moderate effacement of the right lateral recess as result of facet arthropathy. Moderate right and mild left neural foraminal narrowing. L4-5: Adequate posterior decompression. Moderate right neural foraminal narrowing on an osseous basis . This is unchanged from prior. Mild if any left neural foraminal narrowing. L5-S1: Adequate posterior decompression. Anterolisthesis results in mild to moderate right and mild l eft neural foraminal narrowing. The spinal cord terminates in good position at the superior endplate of L1. Cauda equina normal morph ology. Trace fluid in the laminectomy bed (series 6 image 23), similar to prior. Apart from postsurgi little changes, no paraspinal muscle edema. Mild nonspecific lower lumbar subcutaneous edema. Visualized portion of the sacrum within normal limits. Flow voids preserved within the vasculature. IMPRESSION: 1. Posterior fusion of L4-5 with laminectomy defects as on prior exam. Adequate posterior decompress ion. Unchanged moderate right osseous neural foraminal narrowing at L4-5. 2. Multilevel mild degenerative changes at the nonoperative levels. No significant spinal canal narr owing. Greatest neural foraminal narrowing is noted on the right at L3-4. This is similar to prior ex am. 3. Stable anterolisthesis of L5 on S1. 4. No acute injury or focal disc protrusion is evident. ACT 112: Negative or not required by law. Electronically signed by: Delmer Moe M.D. 04/21/2020 5:29 AM
[2020-04-21] MEDS ORDERED: LACTOBACILLUS ACIDOPHILUS (FLORANEX) TAB PO SCH (09:00)
[2020-04-21] MEDS ORDERED: DULOXETINE HCL 60 MG CAP PO SCH (09:00)
[2020-04-21] MEDS ORDERED: buPROPion HCl 75 MG TABLET PO SCH (09:00)
[2020-04-21] MEDS ORDERED: MULTIVITAMIN TAB PO SCH (09:00)
[2020-04-21] MEDS ORDERED: AMLODIPINE BESYLATE 5 MG TAB PO SCH (09:00)
[2020-04-21] MEDS ORDERED: APIXABAN 5 MG TABLET PO SCH (09:00)
--- NOTE | 2020-04-21 14:49 | Discharge Summary ---
Date of Service April 21, 2020 Admission HPI Per Admitting Provider Patient is a 65 year old male with PMHx Multiple lumbar spinal fusions (most recent 2008), Prostate Cancer s/p RALP w/ LND 2015, CAD, NSTEMI s/p ADALBERTO to mid circumflex/OM1 who presents with intractable low back pain. Patient notes that for the past few weeks he has noticed increasing "spasms" from his lumbar region into his left leg. He states that he was taking Vicodin PRN which was adequately controlling his discomfort. He states that this morning, he went for his daily 4 mile walk with his dogs and then afterwards worked on building a garden from 10AM to 2PM. Patient notes during this time he did a lot of shoveling and lifting of rocks, boulders, etc. He noticed immediate discomfort in his low back after completing the task rating it a 5/10 "spasm" like pain. He notes he then relaxed until later in the evening when he and his attending his son's birthday constitution party. He states that by that point the pain in his low back had been building up and was now a 7/10 with occasional jolts of 10/10 without any spe cific movements intensifying the pain. He has not taken anything for his pain today. He notes that laying down eased the pain and that while typically walking improved his pain, that currently was not the case. He notes that his pain as of this examination is a 4/10 dull ache primarily in the L lumber and L leg and has improved since administration of pain medications in the ED. He also notes occa sional tingling in his L foot that comes and goes. He denies any incontinence of bowel or bladder, dysuria, difficulty urinating, constipation, LE weakness (other than that secondary to pain), or numbness of his pelvis or LE. Principal Diagnosis intractable back pain Discharge Exam Constitutional WD/WN, vitals as above Respiratory normal respiratory effort, lungs clear to auscultation Cardiovascular RRR, no murmur, no edema Gastrointestinal (Abdomen) Inspection/Auscultation: abdomen normal to inspection and normal bowel sounds; abdomen not distended Percussion/Palpation: abdomen soft; abdomen nontender Musculoskeletal left paraspinal muscles tender to palpation Skin no rashes, warm and dry Neurologic moves all extremities and awake Psychiatric A+Ox3, euthymic affect Discharge Data Allergies Allergy/AdvReac Type Severity Reaction Status Date / Time No Known Allergies Allergy Verified 04/20/20 22:31 Consultations 04/21/20 00:12 ED Decision to Admit Stat 04/21/20 01:57 Consult Orthopedic Surgery Routine Ordered Studies 04/20/20 22:24 MR lumbar spine wo con Stat Hospital Course (1) Intractable low back pain: Patient is a 65 year old male with PMHx Multiple lumbar spinal fusions (most recent 2008), Prostate Cancer s/p RALP w/ LND 2015, CAD, NSTEMI s/p ADALBERTO to mid circumflex/OM1 who presents with intractable low back pain. ED Course: Fentanyl 150mcg IV, Zofran 4mg IV, Dexamethasone 10mg IV Intractable Low Back Pain s/p Hx lumbar spinal fusions - MRI w/o acute findings -Pain controlled, patient feels pain level is tolerable. Received dexamethasone in the ED. - Continue home Oxycodone 5mg q6h -Tylenol 650mg Q4h PRN -Continue home Cyclobenzaprine 10mg PO TID PRN -Heat pad PRN -Discussed case with orthopedics - patient is known to Dr. Hartley, he is comfortable with him discharging and seeing him Tuesday in the office Hx Prostate Cancer -Patients history is more suggestive of trauma/overuse injury vs metastatic lesions. -S/P RALP w/ LND 07/20/16 -PSA in October was <0.01 - no metastatic lesions noted on radiology report Anxiety/Depression -Continue Home Clonazepam 2mg HS -Continue home Duloxetine 60mg QAM -Continue home Bupropion 150mg QD Hypertension -Continue home Amlodipine 5mg QD CAD s/p Stent -Continue Apixaban 5mg PO BID -Nitro 0.4mg SL PRN -Continue Atorvastatin 80mg HS (2) CAD (coronary artery disease): (3) History of lumbar spinal fusion: (4) Prostate cancer: (5) Anxiety: (6) Depression: (7) Hypertension: Total Time Total Time Spent Total Time Spent (In Minutes): greater than 30 minutes Discharge Plan Discharge Items Patient Disposition: Home - Self-Care Reason For Visit: INTRACTABLE LOW BACK PAIN Discharge Diagnosis: Lower back pain Condition on Discharge: Good Activity: Resume your previous activity Non-emergency contact: Primary Care Provider Call non-emergency contact if: you have any medication questions Follow-up/Referrals: Jose David Hartley DO [Surgeon] - (to follow up with Dr. Hartley on Tuesday ) Mike Quan Jr, DO [Primary Care Provider] - Diet: Heart Healthy Addtl Attending Provider Instructions: (1) Intractable low back pain: I discussed your case with Dr. Hartley. He feels comfortable with you discharging and seeing him in his office on Tuesday. Continue your home pain regimen. Please call Dr. Hartley's office if you are experiencing increased pain between now and your appointment. Pending Studies at Discharge: No Stand-Alone Forms: My [facility], Smoking Cessation Medications and DC Order Prescriptions: Continued Eliquis 5 mg tablet 5 mg PO BID Qty: 60 RF: 11 atorvastatin 80 mg tablet 80 mg PO HS Qty: 30 RF: 11 oxycodone 5 mg tablet 5 mg PO Q6H PRN (Reason: pain) Qty: 10 RF: 0 clonazepam 2 mg Tablet 2 mg PO HS RF: 0 nitroglycerin [Nitrostat] 0.4 mg tablet, sublingual 0.4 mg Sublingual DIRECTED PRN (Reason: Chest Pain) RF: 0 cyclobenzaprine 10 mg tablet 10 mg PO TID PRN (Reason: MUSCLE SPASMS) RF: 0 amlodipine 5 mg tablet 5 mg PO DAILY RF: 0 bupropion HCl 75 mg tablet 150 mg PO DAILY RF: 0 triamcinolone acetonide 0.1 % cream 1 applic TOP BID PRN (Reason: Skin Irritation) RF: 0 nystatin 100,000 unit/gram cream 1 applic TOP BID PRN (Reason: NEEDED) RF: 0 duloxetine [Cymbalta] 60 mg Capsule,Delayed Release(Dr/Ec) 60 mg PO QAM RF: 0 Probiotic with Prebiotic 1 billion-250 cell-mg Capsule 1 cap PO QAM RF: 0 multivitamin Tablet 1 tab PO QAM RF: 0 gmildrdfmv-owepoxapiwwmw-cgrj [Fioricet] 50-300-40 mg Capsule 1 - 2 cap PO Q6H PRN (Reason: Migraine Headache) RF: 0 Discharge Orders: Discharge Order (Routine); Ordered 04/21/20 Ordered By: Helen Henry Admission Data Admit Date/Time: 04/21/20 01:10 Attending Provider: Yariel Malik Admit Provider: Nathaniel Zelaya Primary Care Provider: Mike Quan Jr Other Providers: Jose David Hartley ; Yariel Malik Coding Level of Care Code D/C Day Management >30 mins Diagnoses Intractable low back pain M54.5 CAD (coronary artery disease) I25.10 History of lumbar spinal fusion Z98.1 Prostate cancer C61 Anxiety F41.9 Depression F32.9 Hypertension I10
[2020-04-21] MEDS ORDERED: ATORVASTATIN 40 MG TAB PO SCH (21:00)
[2020-04-21] MEDS ORDERED: clonazePAM 1 MG TAB PO SCH (21:00)
--- NOTE | 2020-04-21 23:59 | Billing Data ---
Date of Service April 21, 2020 Coding Level of Care Code 40107 OBS Care - Level 3
== END 2020-04-21 17:02 | disposition home or self-care (01) ==
LOC: 3E 21:53 → ED 21:53 → SUATTDRO 04-21 01:10 → 3E 04-21 01:35

== ENCOUNTER 2021-03-22 14:55 | Observation (INO) ==
[2021-03-22 16:21] LABS: Basophils # (auto) 0.03 K/uL (0-0.2); Basophils % (auto) 0.6 %; Eosinophils # (auto) 0.14 K/uL (0-0.5); Eosinophils % (auto) 2.7 %; Hematocrit (blood only) 41.5 % (42-52); Hemoglobin 14.5 g/dL (14.0-18.0); Immature Granulocytes # (auto) 0.01 K/uL (0.00-0.02); Immature Granulocytes % (auto) 0.2 %; Lymphocytes # (auto) 1.54 K/uL (1.2-3.4); Mean Corpuscular Hemoglobin 33.5 pg (25-34); Mean Corpuscular Hgb Conc 34.9 g/dL (32-36); Mean Corpuscular Volume 95.8 fL (80-100); Monocytes % (auto) 7.8 %; Neutrophils # (auto) 3.01 K/uL (1.4-6.5); Neutrophils % (auto) 58.7 %; Platelet Count 201 K/uL (130-400); RDW Standard Deviation 45.2 fL (36.4-46.3); Red Blood Count 4.33 M/uL (4.7-6.1); White Blood Count 5.13 K/uL (4.8-10.8)
[2021-03-22] MEDS ORDERED: SODIUM CHLORIDE 0.9% 1000ML 1,000 ML IV ONE (16:21)
[2021-03-22] MEDS ORDERED: ONDANSETRON INJ 2 MG/ML 2 ML VIAL IV STA (16:21)
[2021-03-22] MEDS ORDERED: MoRPHine SULFATE 4 MG/ML 1 ML CARP\\VIAL IV STA (16:21)
[2021-03-22] MEDS ORDERED: FAMOTIDINE 20MG/5ML IV PUSH IV STA (16:23)
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
[2021-03-22 16:39] LABS: Albumin Level 3.8 gm/dl (3.4-5.0); BUN Creatinine Ratio 11.3 (10-20); Calcium 9.4 mg/dl (8.5-10.1); Creatinine Clr Calc Pharmacy 121.1 ml/min; Est GFR (African American) 108.1; Est GFR (Non-African American) 93.2; Potassium 4.4 mmol/L (3.5-5.1)
[2021-03-22 16:41] LABS: Albumin Globulin Ratio 1.2 (0.9-2); Bilirubin,Total 0.4 mg/dl (0.2-1); Globulin 3.2 gm/dl (2.5-4.0)
[2021-03-22] MEDS ORDERED: OPTIRAY 300 100mL IV ONE (16:46)
[2021-03-22 17:14] LABS: Appearance Urine Clear (Clear); Bilirubin Urine Negative (Negative); Blood Urine Negative (Negative); Color Urine Yellow; Glucose Urine UA Negative (Negative); Ketones Urine Negative (Negative); Leukocyte Esterase Urine Negative (Negative); Nitrite Urine Negative (Negative); Protein Urine Negative (Negative); Specific Gravity Urine 1.012 (1.000-1.030); Urobilinogen Urine Negative (Negative)
--- NOTE | 2021-03-22 17:38 | CT Scan Report ---
CT OF THE ABDOMEN AND PELVIS WITH CONTRAST CLINICAL HISTORY: Abdominal pain and diarrhea. Possible diverticulitis. COMPARISON STUDY: CT of the abdomen and pelvis December 30, 2020. TECHNIQUE: Following IV administration of 85 mL of Optiray, axial images of the abdomen and pelvis we re obtained from the lung bases to the proximal femurs. Images were reviewed in the axial, sagittal, and coronal planes. IV contrast was administered without complication. Automated exposure control wa s utilized for the study. A dose lowering technique was utilized adhering to the principles of ALARA . CT DOSE: 997.40 mGy.cm FINDINGS: Lung bases are unremarkable. No pneumatosis, free air or portal venous gas is present. The liver, spleen, adrenal glands and pancreas are unremarkable. There is no biliary or pancreatic ductal dilatation. There is no peripancreatic or pericholecystic infiltration. Bilateral renal lesions favo r cysts. These are unchanged. There is a large amount of stool within the colon. There is no signific ant stool within the rectum. Sigmoid diverticulosis is noted without evidence for acute diverticuliti s. The appendix is normal. A few loops of mildly dilated fluid-filled small bowel are noted. No defin ite transition point is identified. There is no lymphadenopathy. Postoperative findings within the sp ine and left sacroiliac joint are noted. Fat-containing left inguinal hernia is present. Major vascul ature is patent. IMPRESSION: 1. Large amount stool within the colon. No significant stool within the rectum. Sigmoid diverticulosi s without evidence for acute diverticulitis. 2. Several fluid-filled mildly dilated loops of small bowel without definite transition point. Findin gs may reflect an enteritis. A partial small bowel obstruction could appear similar but is considered less likely. 3. Fat-containing left inguinal hernia. ACT 112: Negative or not required by law. Electronically signed by: Ronny Thomas M.D. 03/22/2021 5:37 PM
[2021-03-22] MEDS ORDERED: KETOROLAC TROMETHAMINE 15 MG/ML VIAL IV STA (18:04)
[2021-03-22] MEDS ORDERED: HYDROmorphone INJ 0.5 MG/0.5 ML SYR IV STA (18:04)
[2021-03-22] MEDS ORDERED: DOCUSATE SODIUM/SENNA 50/8.6MG TAB PO STA (18:04)
[2021-03-22] MEDS ORDERED: SODIUM CHLORIDE 0.9% 1000ML 500 ML IV ONE (18:47)
[2021-03-22] MEDS ORDERED: bisacodyL 10 MG SUPP PR STA (18:47)
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
[2021-03-22] MEDS ORDERED: KETOROLAC TROMETHAMINE 15 MG/ML VIAL IV PRN (20:53)
[2021-03-22] MEDS ORDERED: ACETAMINOPHEN 325 MG TAB PO PRN (20:53)
[2021-03-22] MEDS: NORMOSOL-R 1,000 ML IV SCH (21:09)
[2021-03-22] MEDS: APIXABAN 5 MG TABLET PO SCH (21:54)
[2021-03-22] MEDS: clonazePAM 1 MG TAB PO SCH (21:54)
[2021-03-22] MEDS: ATORVASTATIN 40 MG TAB PO SCH (21:54)
[2021-03-23] MEDS: ONDANSETRON INJ 2 MG/ML 2 ML VIAL IV PRN ×2 (02:19→20:56)
[2021-03-23 07:21] LABS: Hematocrit (blood only) 38.4 % (42-52); Hemoglobin 13.5 g/dL (14.0-18.0); Mean Corpuscular Hemoglobin 33.7 pg (25-34); Mean Corpuscular Hgb Conc 35.2 g/dL (32-36); Mean Corpuscular Volume 95.8 fL (80-100); Mean Platelet Volume 9.1 fL (7.4-10.4); Platelet Count 184 K/uL (130-400); RDW Coefficient of Variation 13.1 % (11.5-14.5); RDW Standard Deviation 45.3 fL (36.4-46.3); Red Blood Count 4.01 M/uL (4.7-6.1); White Blood Count 4.06 K/uL (4.8-10.8)
[2021-03-23 07:57] LABS: Albumin Level 3.2 gm/dl (3.4-5.0); BUN Creatinine Ratio 9.7 (10-20); Calcium 9.1 mg/dl (8.5-10.1); Creatinine Clr Calc Pharmacy 135.1 ml/min; Est GFR (African American) 113.1; Est GFR (Non-African American) 97.5
[2021-03-23 08:02] LABS: Albumin Globulin Ratio 1.4 (0.9-2); Bilirubin,Total 0.6 mg/dl (0.2-1); Globulin 2.3 gm/dl (2.5-4.0); Total Protein 5.5 gm/dl (6.4-8.2)
[2021-03-23] MEDS: NORMOSOL-R 1,000 ML IV SCH ×2 (08:31→20:54)
[2021-03-23] MEDS: amLODIPine BESYLATE 5 MG TAB PO SCH (08:32)
[2021-03-23] MEDS: buPROPion HCl 75 MG TABLET PO SCH (08:33)
[2021-03-23] MEDS: DULoxetine HCL 60 MG CAP PO SCH (08:33)
[2021-03-23] MEDS: ARIPiprazole 5 MG TAB PO SCH (08:33)
[2021-03-23] MEDS: APIXABAN 5 MG TABLET PO SCH ×2 (08:33→20:58)
[2021-03-23] MEDS: ISOSORBIDE MONO EXTENDED REL 30 MG TABCR PO SCH (08:34)
[2021-03-23 09:15] LABS: Hepatitis B Surf Ag Rflx Conf Neg (Neg)
[2021-03-23 09:44] LABS: Hepatitis C IgG 13Yrs+Old_Rflx Neg (Neg)
[2021-03-23] MEDS ORDERED: METHYLNALTREXONE BROMIDE 12 MG/0.6 ML VIAL SQ ONE (11:00)
--- NOTE | 2021-03-23 14:19 | Electrocardiogram Report ---
Test Reason : Blood Pressure : / mmHG Vent. Rate : 059 BPM Atrial Rate : 059 BPM P-R Int : 210 ms QRS Dur : 118 ms QT Int : 434 ms P-R-T Axes : 030 006 053 degrees QTc Int : 429 ms Sinus bradycardia with 1st degree A-V block Incomplete right bundle branch block Borderline ECG When compared with ECG of 30-DEC-2020 10:55, No significant change was found Confirmed by Emmett Dhillon ([id number]) on 03/23/2021 2:18:56 PM Referred By: REFERRED SELF Confirmed By:Emmett Dhillon
--- NOTE | 2021-03-23 14:41 | Hospitalist Progress Note ---
Date of Service March 23, 2021 Assessment & Plan (1) Ileus: CT a/p on 03/22 showed a large amount of stool in the colon along with some mildly dilated loops of small bowel. No clear transition point. He had just been getting over a diarrheal illness the last week, as well as using [place] for arthritis-related pain. - Tylenol and Toradol PRN for pain control. Will attempt to avoid further opioids. - Advanced diet to clears; gave a single dose of Relistor to help counter-act any remaining [place] effect. (2) Hepatitis: AST/ALT noted to be 86/102 on admission from normal on 12/30/2020. Likely viral in nature. - Acute hepatitis panel showed HBV and HCV negative. HAV pending still. (3) CAD (coronary artery disease): S/p single stent. Last heart cath in 12/2020 showed patent prior stent and stable disease. - Continue home statin, Imdur - Not on ASA at baseline per notes (4) Hypertension: BP today is 130/90. - Continue home amlodipine (5) Depression: Normal affect on exam today. - Continue home aripiprazole, bupropion, clonazepam, & duloxetine (6) BPH (benign prostatic hyperplasia): No present LUTS. Not on any medication for this. - Monitor (7) History of DVT (deep vein thrombosis): Two episodes with both seeming provoked to me. - Continue home apixaban Admission and Anticipated Discharge Date Admission Date: March 22, 2021 Subjective Some improvement today. He had a small BM with two solid parts. Passing significant gas. Abdominal pain and nausea have improved. Reports no fevers/chills, chest pain, shortness of breath, or vomiting. Physical Exam Constitutional: WD/WN, vitals as above Eyes: EOM intact bilaterally; no conjunctival abnormality ENMT: external ear and nose normal, oropharynx normal Neck: trachea midline, no thyromegaly normal visual inspection Respiratory: normal respiratory effort, lungs clear to auscultation no respiratory distress Cardiovascular: RRR, no murmur, no edema Gastrointestinal (Abdomen): Inspection/Auscultation: abdomen normal to inspection and + hypoactive bowel sounds; abdomen not distended and + abnormal bowel sounds Percussion/Palpation: abdomen soft; abdomen nontender, no guarding and abdomen not rigid Musculoskeletal: no cyanosis or clubbing, extremities motor strength 5/5 Skin: no rashes, warm and dry Neurologic: moves all extremities and awake Psychiatric: Orientation: alert, oriented to person and cooperative Results & Data Results & Data ([facility]) Vital Signs (Past 12 Hours) Vital Signs Temp Pulse Resp BP Pulse Ox 03/23/21 07:04 36.7 C 61 18 129/89 93 PG Care Time/CCT Total # of Minutes Spent Total Time Spent with Patient: Total time spent is greater than 50% in coordination of care (as documented) at patient's floor/unit and/or counseling patient: Coding Level of Care Code 66533 Subseq Hosp Care Lvl 3 Diagnoses Ileus K56.7 Hepatitis K75.9 CAD (coronary artery disease) I25.10 Hypertension I10 Depression F32.9 BPH (benign prostatic hyperplasia) N40.0 History of DVT (deep vein thrombosis) Z86.170
[2021-03-23] MEDS ORDERED: POLYETHYLENE (MIRALAX) 17 GM PACK PO STA (17:36)
[2021-03-23] MEDS: ATORVASTATIN 40 MG TAB PO SCH (20:58)
[2021-03-23] MEDS: clonazePAM 1 MG TAB PO SCH (21:06)
[2021-03-24 06:39] LABS: Hematocrit (blood only) 39.1 % (42-52); Hemoglobin 13.3 g/dL (14.0-18.0); Mean Corpuscular Hemoglobin 32.8 pg (25-34); Mean Corpuscular Volume 96.5 fL (80-100); Mean Platelet Volume 9.1 fL (7.4-10.4); Platelet Count 184 K/uL (130-400); RDW Coefficient of Variation 13.1 % (11.5-14.5); RDW Standard Deviation 45.5 fL (36.4-46.3); Red Blood Count 4.05 M/uL (4.7-6.1); White Blood Count 3.89 K/uL (4.8-10.8)
[2021-03-24 07:12] LABS: Albumin Level 3.2 gm/dl (3.4-5.0); BUN Creatinine Ratio 6.2 (10-20); Creatinine Clr Calc Pharmacy 150.4 ml/min; Est GFR (African American) 118.1; Est GFR (Non-African American) 101.9; Magnesium 2.2 mg/dl (1.8-2.4); Phosphorus 3.2 mg/dl (2.5-4.9); Potassium 4.1 mmol/L (3.5-5.1)
[2021-03-24 07:17] LABS: Albumin Globulin Ratio 1.3 (0.9-2); Bilirubin,Total 0.5 mg/dl (0.2-1); Globulin 2.5 gm/dl (2.5-4.0); Total Protein 5.7 gm/dl (6.4-8.2)
[2021-03-24] MEDS: NORMOSOL-R 1,000 ML IV SCH (08:39)
[2021-03-24] MEDS: buPROPion HCl 75 MG TABLET PO SCH (08:40)
[2021-03-24] MEDS: ARIPiprazole 5 MG TAB PO SCH (08:40)
[2021-03-24] MEDS: APIXABAN 5 MG TABLET PO SCH (08:40)
[2021-03-24] MEDS: amLODIPine BESYLATE 5 MG TAB PO SCH (08:40)
[2021-03-24] MEDS: DULoxetine HCL 60 MG CAP PO SCH (08:41)
[2021-03-24] MEDS: ISOSORBIDE MONO EXTENDED REL 30 MG TABCR PO SCH (08:41)
[2021-03-24] MEDS ORDERED: POLYETHYLENE (MIRALAX) 17 GM PACK PO SCH (12:05)
[2021-03-24 12:06] LABS: Hepatitis A Antibody IgM NON-REACTIVE (NON-REACTIVE); Hepatitis B Core Antibody IgM NON-REACTIVE (NON-REACTIVE)
--- NOTE | 2021-03-24 13:51 | Ultrasound Report ---
ABDOMINAL ULTRASOUND, RIGHT UPPER QUADRANT HISTORY: RUQ u/s; liver and gallbladder; no need for pancre. COMPARISON: Abdomen and pelvis CT 03/22/2021. FINDINGS: Pancreas: The pancreas demonstrates a normal echotexture. Liver: No hepatic masses. 16 cm in length. The main portal vein is patent. Gallbladder: No gallbladder wall thickening. No gallstones. CBD: 5 mm. Right kidney: No hydronephrosis. 3 cm upper pole cyst. IMPRESSION: No significant abnormality identified within the right upper quadrant. ACT 112: Negative or not required by law. Electronically signed by: Avtar Malcolm M.D. 03/24/2021 1:50 PM
--- NOTE | 2021-03-24 17:18 | Discharge Summary ---
Date of Service March 24, 2021 Admission HPI Per Admitting Provider 66yo M w/ hx of non-obstructive CAD, HTN, and depression/anxiety who presents for stomach pain and nausea. Per the patient, he ate some tacos in [place] last Tuesday afternoon. On Tuesday, he developed diarrhea which continued through . He reports the diarrhea as watery. He was advised to take Pepto-Bismol by his PCP along with some antibiotics which he did. He reports that Tuesday through , the diarrhea was darker in color and almost looked black. He reports no nausea or vomiting at the time of this, and no fevers or chills. On Tuesday, he stopped having bowel movements all together and has not had a bowel movement since. He reports that he has had increasing pain and nausea since then. The pain is centrally located and goes from his epigastric area to periumbilical area. Principal Diagnosis Ileus, possible mild SBO Mild hepatitis Discharge Exam Constitutional WD/WN, vitals as above Eyes EOM intact bilaterally; no conjunctival abnormality ENMT external ear and nose normal, oropharynx normal Neck trachea midline, no thyromegaly normal visual inspection Respiratory normal respiratory effort, lungs clear to auscultation no respiratory distress Cardiovascular RRR, no murmur, no edema Gastrointestinal (Abdomen) Inspection/Auscultation: abdomen normal to inspection and normal bowel sounds; abdomen not distended Percussion/Palpation: abdomen soft; abdomen nontender, no guarding and abdomen not rigid Musculoskeletal no cyanosis or clubbing, extremities motor strength 5/5 Skin no rashes, warm and dry Neurologic moves all extremities and awake Psychiatric Orientation: alert, oriented to person and cooperative Discharge Data Allergies Allergy/AdvReac Type Severity Reaction Status Date / Time No Known Allergies Allergy Unverified 03/22/21 16:49 Consultations 03/22/21 18:54 ED Decision to Admit Stat Ordered Studies 03/22/21 16:21 CT abd pelvis IV con only Stat 03/24/21 13:30 US abdomen limited Urgent Hospital Course (1) Ileus: CT a/p on 03/22 showed a large amount of stool in the colon along with some mildly dilated loops of small bowel. No clear transition point. He had just been getting over a diarrheal illness the last week, as well as using [place] for arthritis-related pain. - Tylenol and Toradol PRN for pain control. Will attempt to avoid further o pioids. - Advanced diet to clears, then full, then normal diet. He had resolution of his nausea, vomiting, and abdominal pain, and his appetite returned. He passed gas, but only had some small bowel movements. However, given his overall improvement, we felt he was stable to go home. Should see his PCP in a week to be sure his stomach issues resolve. (2) Hepatitis: AST/ALT noted to be 86/102 on admission from normal on 12/30/2020. Likely viral in nature. - Acute hepatitis panel showed HAV, HBV, and HCV all negative. - I still think this is a mild viral GI illness causing some mild hepatitis. IVY u/s on 03/24 was normal. - Recheck LFTs in 1-2 weeks with PCP to ensure resolution. (3) CAD (coronary artery disease): S/p single stent. Last heart cath in 12/2020 showed patent prior stent and stable disease. - Continue home statin, Imdur - Not on ASA at baseline per notes (4) Hypertension: BP today is 130/90. - Continue home amlodipine (5) Depression: Normal affect on exam today. - Continue home aripiprazole, bupropion, clonazepam, & duloxetine (6) BPH (benign prostatic hyperplasia): No present LUTS. Not on any medication for this. - Monitor (7) History of DVT (deep vein thrombosis): Two episodes with both seeming provoked to me. - Continue home apixaban Total Time Total Time Spent Total Time Spent (In Minutes): 35 Total Time Includes: Examination of the Patient Discharge Plan Discharge Items Patient Disposition: Home - Self-Care Reason For Visit: ILEUS VS SBO Discharge Diagnosis: Ileus (slow-down or stoppage of the GI system) Condition on Discharge: Good Activity: Resume your previous activity Non-emergency contact: Primary Care Provider Call non-emergency contact if: your symptoms worsen and your pain is not controlled Follow-up/Referrals: Mike Quan Jr, [Primary Care Provider] - 03/31/21 11:00 am Diet: Heart Healthy Addtl Attending Provider Instructions: Mr. Pérez, You were admitted with stomach pain, nausea, vomiting, and no bowel movement for 3 days. This is generally called an "ileus" when your GI system gets derailed and stops letting things pass through. It can be caused by a wide variety of issues, but for you, we felt that the narcotic medication taken for your arthritis and the stomach bug that caused you so much trouble Tuesday through . The standard treatment is to let your GI system rest and get back on track on its own. Doing this, your abdominal pain went away and your appetite came back. We're still waiting for you to return to your normal 3-4x/day BM pattern, but this may take some time. We also noted your liver enzymes were up just a bit. This is consistent with a viral cause of your GI illness last week. We did an ultrasound of your liver and gallbladder which was normal. I would like you to see Dr. Quan in a week or so. He can recheck your liver labs (there's no franks to this, but I want to make sure they go back to normal.) and make sure your GI system is back to normal. As we discussed, feel free to take a gentle dose or two of Miralax or another OTC stool softener. Whatever you take will take effect in 24 - 48 hours, so do not overdo it as this could cause a return of the diarrhea. If your pain comes back after you get home, please do what we did here and take it easy on what you eat or drink for 24 hours. If the pain, nausea, or vomiting return and you have trouble staying hydrated or properly nourished, you must come back to the hospital for surgical evaluation. Pending Studies at Discharge: No Stand-Alone Forms: My [facility], Smoking Cessation Medications and DC Order Prescriptions: Continued Eliquis 5 mg tablet 5 mg PO BID Qty: 60 RF: 11 isosorbide mononitrate 30 mg tablet extended release 24 hr 30 mg PO DAILY Qty: 30 RF: 2 nitroglycerin [Nitrostat] 0.4 mg tablet, sublingual 0.4 mg Sublingual DIRECTED PRN (Reason: Chest Pain) Qty: 20 RF: 3 atorvastatin 80 mg tablet 80 mg PO HS Qty: 30 RF: 11 clonazepam 2 mg Tablet 2 mg PO HS RF: 0 bupropion HCl 75 mg tablet 150 mg PO QAM RF: 0 aripiprazole 5 mg tablet 5 mg PO QAM RF: 0 duloxetine [Cymbalta] 60 mg Capsule,Delayed Release(Dr/Ec) 60 mg PO QAM RF: 0 Probiotic with Prebiotic 1 billion-250 cell-mg Capsule 1 cap PO QAM RF: 0 multivitamin Tablet 1 tab PO QAM RF: 0 [id number]-shzubcsxgknit-fbju [Fioricet] 50-300-40 mg Capsule 1 - 2 cap PO Q6H PRN (Reason: Migraine Headache) RF: 0 amlodipine 10 mg tablet 10 mg PO QAM RF: 0 Discontinued oxycodone 5 mg tablet 5 mg PO Q6H PRN (Reason: pain) Qty: 20 RF: 0 Discharge Orders: Discharge Order (Routine); Ordered 03/24/21 Ordered By: Yariel Malik Admission Data Admit Date/Time: 03/22/21 20:20 Attending Provider: Yariel Malik Admit Provider: Yariel Malik Primary Care Provider: Mike Quan Jr Other Providers: Yariel Malik Other Interventions: Discharge Summary Assessment (RN) Last Done: 03/24/21 14:44 Coding Level of Care Code D/C Day Management >30 mins Diagnoses Ileus K56.7 Hepatitis K75.9 CAD (coronary artery disease) I25.10 Hypertension I10 Depression F32.9 BPH (benign prostatic hyperplasia) N40.0 History of DVT (deep vein thrombosis) Z86.718
== END 2021-03-24 16:46 | disposition home or self-care (01) | DRG 389 ==
LOC: ED 14:55 → INTOOBSV 20:20 → 3N 20:20

== ENCOUNTER 2022-03-25 13:34 | Observation (INO) ==
[2022-03-25] MEDS ORDERED: ONDANSETRON INJ 2 MG/ML 2 ML VIAL IV STA (14:01)
[2022-03-25] MEDS ORDERED: GI COCKTAIL ED USE PO ONE (14:01)
[2022-03-25] MEDS ORDERED: ASPIRIN CHEW 324 MG PO STA (14:01)
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
[2022-03-25 14:25] LABS: D Dimer < 190 ug/L FEU (0-500); Partial Thromboplastin Ratio 0.9; Partial Thromboplastin Time 23.6 Seconds (21.0-31.0); Prothrombin Time 10.6 Seconds (9.0-12.0)
--- NOTE | 2022-03-25 14:40 | XRay Report ---
XR chest 1V portable CLINICAL HISTORY: Atypical chest pain. COMPARISON STUDY: Chest CT October 08, 2020. Chest radiograph December 30, 2020. FINDINGS: Lung volumes are normal. Lungs are clear. There is no pneumothorax or pleural effusion. Mil d cardiomegaly is unchanged. Mediastinal contours are normal. There is no evidence for pulmonary filomena a. IMPRESSION: No acute cardiopulmonary findings. No change in appearance of the chest. ACT 112: Negative or not required by law. Electronically signed by: Ronny Thomas M.D. 03/25/2022 2:39 PM
[2022-03-25 14:42] LABS: Albumin Globulin Ratio 2.3 (0.9-2); Albumin Level 4.2 gm/dl (3.4-5.0); BUN Creatinine Ratio 26.2 (10-20); Bilirubin,Total 0.5 mg/dl (0.2-1.0); Creatinine Clr Calc Pharmacy 106.9 ml/min; Est GFR (African American) 103.5 ml/min; Est GFR (Non-African American) 89.3 ml/min; Globulin 1.8 gm/dl (2.5-4.0); Potassium 4.7 mmol/L (3.5-5.1)
[2022-03-25 14:52] LABS: Basophils # (auto) 0.01 K/uL (0-0.2); Basophils % (auto) 0.2 %; Eosinophils # (auto) 0.01 K/uL (0-0.5); Eosinophils % (auto) 0.2 %; Hematocrit (blood only) 42.3 % (42-52); Hemoglobin 14.6 g/dL (14.0-18.0); Immature Granulocytes # (auto) 0.01 K/uL (0.00-0.02); Immature Granulocytes % (auto) 0.2 %; Lymphocytes % (auto) 9.6 %; Mean Corpuscular Hemoglobin 33.1 pg (25-34); Mean Corpuscular Hgb Conc 34.5 g/dL (32-36); Mean Corpuscular Volume 95.9 fL (80-100); Mean Platelet Volume 9.3 fL (7.4-10.4); Monocytes # (auto) 0.13 K/uL (0.11-0.59); Monocytes % (auto) 2.1 %; Neutrophils # (auto) 5.46 K/uL (1.4-6.5); Neutrophils % (auto) 87.7 %; Platelet Count 195 K/uL (130-400); RDW Standard Deviation 49.4 fL (36.4-46.3); Red Blood Count 4.41 M/uL (4.7-6.1); White Blood Count 6.22 K/uL (4.8-10.8)
[2022-03-25] MEDS ORDERED: MoRPHine SULFATE 10 MG/ML CARP/VIAL IV STA ×2 (16:41→18:12)
[2022-03-25] MEDS ORDERED: OPTIRAY 320 125ml IV ONE (17:08)
--- NOTE | 2022-03-25 17:37 | CT Scan Report ---
CT angio chest PE protocol CLINICAL HISTORY: Fatigue and chest pain COMPARISON STUDY: 10/08/2020 and portable chest from 03/17/2022 CT DOSE: 1421.95 mGy.cm TECHNIQUE: CT Angio of the chest was performed.followed by image post processing with coronal, and s agittal MIP reformats. Contrast Volume: Optiray 320, 118 ml FINDINGS: Vasculature: There is homogeneous perfusion of the pulmonary vasculature bilaterally. No intraluminal filling defects or evidence for pulmonary embolus is seen. Airway: The airway is clear. No endobronchial lesion is identified. Lungs: Minimal dependent edema is seen at the lung bases posteriorly. The lungs are clear of acute al veolar opacities, air bronchograms or pulmonary nodules. Pleura: There is no evidence for pleural effusion. There is no evidence for pneumothorax. Mediastinum: There is no evidence for pathologic adenopathy. The heart size is within normal limits. Coronary artery calcifications present. The thoracic aorta is within normal limits. There is no evide nce for pericardial effusion. Upper abdomen:The adrenal glands are normal bilaterally. Osseous structures: There is no acute osseous pathology. Impression: 1. No CTA evidence for pulmonary embolus. 2. No acute chest disease. ACT 112: Negative or not required by law. Electronically signed by: Moises Snyder M.D. 03/25/2022 5:35 PM
--- NOTE | 2022-03-25 17:44 | CT Scan Report ---
CT abd pelvis IV con only CLINICAL HISTORY: Upper abdominal pain and nausea COMPARISON STUDY: 03/22/2021 CT DOSE: TECHNIQUE: Standard CT of the Abdomen and Pelvis was performed with IV contrast. A dose lowering bhavik hnique was utilized adhering to the principles of ALARA. Contrast Volume: Optiray 320, 118 ml. The patient did not receive oral contrast. FINDINGS: Lung base: The lung bases are clear. Abdominal cavity: There is no evidence for abdominal mass, adenopathy or ascites. There is again a le ft inguinal hernia containing peritoneal fat. No bowel loop herniation is seen. Liver: There is homogeneous attenuation of the liver parenchyma. There is no evidence for enhancing m ass lesion. Spleen: There is homogeneous attenuation of the splenic parenchyma. There is no enhancing mass lesion . Pancreas: There is homogeneous attenuation of the pancreatic parenchyma. There is no evidence for mas s lesion or peripancreatic fluid collection. Gall Bladder: The gallbladder is partially contracted with no gross calculi present. Adrenal glands: The adrenal glands are normal in size and attenuation. There is no evidence for enhan cing mass lesion. Kidneys: There is homogeneous attenuation of the renal parenchyma bilaterally. There is no evidence f or renal calculus or hydronephrosis. There is no evidence for enhancing mass. Bilateral renal cysts a re again seen. Bowel: There is diffuse gastric mucosal thickening. The bowel loops are normally placed within the ab domen and pelvis without evidence for dilatation or obstruction. There is no evidence for mass lesion . There is minimal sigmoid diverticulosis without evidence for diverticulitis. There are no inflammat ory changes present. There is no evidence for free air. There is no evidence for an inflamed appendix . Bladder: The bladder is partially contracted with diffuse thickening of bladder wall. The bladder wal l cannot be fully evaluated on this noncontrast study. : There is no evidence for pelvic mass or adenopathy. There is no evidence for pelvic ascites. Vasculature: There is no evidence for aneurysmal dilatation of the abdominal aorta. Atherosclerotic c alcification is present. Osseous structures: There is no acute osseous pathology. The patient is status post previous internal fixation of the spine and left SI joint. Degenerative changes are present. IMPRESSION: 1. No acute intra-abdominal or pelvic abnormality. 2. Diffuse gastric mucosal thickening. 3. Minimal diverticulosis without evidence for diverticulitis. 4. Additional nonacute findings are delineated above. ACT 112: Negative or not required by law. Electronically signed by: Moises Snyder M.D. 03/25/2022 5:41 PM
[2022-03-25] MEDS ORDERED: PANTOprazole 40 MG in SYRINGE 0 ML IV ONE (18:12)
[2022-03-25] MEDS ORDERED: FAMOTIDINE 20MG IV PUSH 20 MG/5 ML SYR IV STA (18:12)
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
[2022-03-25] MEDS ORDERED: PANTOprazole 40 MG TAB PO SCH (21:00)
[2022-03-25] MEDS ORDERED: NITROGLYCERIN SL 0.4 MG/TAB TAB SL PRN (22:43)
[2022-03-25] MEDS ORDERED: HYDROCORTISONE ACETATE 25 MG SUPP PR PRN (22:43)
[2022-03-25] MEDS ORDERED: ACETAMINOPHEN 325 MG TAB PO PRN (22:43)
[2022-03-25] MEDS ORDERED: ATORVASTATIN 40 MG TAB PO SCH (22:43)
[2022-03-25] MEDS ORDERED: ONDANSETRON INJ 2 MG/ML 2 ML VIAL IV PRN (22:43)
[2022-03-25] MEDS ORDERED: clonazePAM 1 MG TAB PO SCH (22:43)
[2022-03-25] MEDS: traMADol HCL 50 MG TABLET PO PRN (23:26)
[2022-03-26] MEDS: SODIUM CHLORIDE 0.9% 1000ML 1,000 ML IV SCH ×2 (00:17→08:43)
[2022-03-26] MEDS: buPROPion SR 150 MG TABCR PO SCH ×2 (00:28→08:44)
[2022-03-26] MEDS: APIXABAN 5 MG TABLET PO SCH ×2 (00:28→08:44)
[2022-03-26] MEDS: PANTOprazole 40 MG in SYRINGE 0 ML IV SCH ×2 (00:28→08:44)
--- NOTE | 2022-03-26 06:04 | Electrocardiogram Report ---
Test Reason : Blood Pressure : / mmHG Vent. Rate : 094 BPM Atrial Rate : 094 BPM P-R Int : 214 ms QRS Dur : 120 ms QT Int : 370 ms P-R-T Axes : 058 -06 056 degrees QTc Int : 462 ms Sinus rhythm with 1st degree A-V block Non-specific intra-ventricular conduction delay Borderline ECG When compared with ECG of 22-MAR-2021 16:24, Vent. rate has increased BY 35 BPM Confirmed by William Ponce ([id number]) on 03/26/2022 6:04:01 AM Referred By: REFERRED SELF Confirmed By:William Ponce
[2022-03-26] MEDS: traMADol HCL 50 MG TABLET PO PRN (06:37)
[2022-03-26 08:07] LABS: Hematocrit (blood only) 44.2 % (42-52); Hemoglobin 14.9 g/dL (14.0-18.0); Mean Corpuscular Hemoglobin 33.5 pg (25-34); Mean Corpuscular Hgb Conc 33.7 g/dL (32-36); Mean Corpuscular Volume 99.3 fL (80-100); Mean Platelet Volume 9.3 fL (7.4-10.4); Platelet Count 209 K/uL (130-400); RDW Coefficient of Variation 14.2 % (11.5-14.5); RDW Standard Deviation 51.6 fL (36.4-46.3); Red Blood Count 4.45 M/uL (4.7-6.1); White Blood Count 7.06 K/uL (4.8-10.8)
[2022-03-26 08:27] LABS: BUN Creatinine Ratio 18.7 (10-20); Calcium 9.7 mg/dl (8.5-10.1); Creatinine Clr Calc Pharmacy 117.2 ml/min; Est GFR (African American) 108.5 ml/min; Est GFR (Non-African American) 93.6 ml/min; Potassium 4.2 mmol/L (3.5-5.1); Troponin I High Sensitivity 6.7 pg/ml (0-20)
[2022-03-26] MEDS ORDERED: amLODIPine BESYLATE 5 MG TAB PO SCH (09:00)
[2022-03-26] MEDS ORDERED: DULoxetine HCL 60 MG CAP PO SCH (09:00)
[2022-03-26] MEDS ORDERED: ISOSORBIDE MONO EXTENDED REL 30 MG TABCR PO SCH (09:00)
[2022-03-26] MEDS ORDERED: MULTIVITAMIN TAB PO SCH (09:00)
[2022-03-26] MEDS ORDERED: [UNRECOGNIZED DRUG - MIXTURE] PO SCH (09:00)
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
--- NOTE | 2022-03-26 11:42 | Electrocardiogram Report ---
Test Reason : Blood Pressure : / mmHG Vent. Rate : 084 BPM Atrial Rate : 084 BPM P-R Int : 210 ms QRS Dur : 114 ms QT Int : 376 ms P-R-T Axes : 038 043 033 degrees QTc Int : 444 ms Sinus rhythm with 1st degree A-V block Incomplete right bundle branch block Borderline ECG When compared with ECG of 25-MAR-2022 13:42, No significant change was found Confirmed by Emmett Dhillon ([id number]) on 03/26/2022 11:42:24 AM Referred By: REFERRED SELF Confirmed By:Emmett Dhillon
[2022-03-26] MEDS ORDERED: ALUMINUM/MAGNESIUM SUSP 30 ML UDC PO STA (12:52)
[2022-03-26] MEDS ORDERED: FAMOTIDINE 20 MG TAB PO SCH (13:00)
--- NOTE | 2022-03-26 13:01 | XCELERA ---
[id number]
--- NOTE | 2022-03-26 13:48 | Electrocardiogram Report ---
Test Reason : Blood Pressure : / mmHG Vent. Rate : 064 BPM Atrial Rate : 064 BPM P-R Int : 176 ms QRS Dur : 114 ms QT Int : 418 ms P-R-T Axes : -24 068 062 degrees QTc Int : 431 ms Normal sinus rhythm Normal ECG When compared with ECG of 25-MAR-2022 16:30, (unconfirmed) [place] interval has decreased Incomplete right bundle branch block is no longer Present Confirmed by Emmett Dhillon ([id number]) on 03/26/2022 1:48:38 PM Referred By: REFERRED SELF Confirmed By:Emmett Dhillon
--- NOTE | 2022-03-27 05:15 | Billing Data ---
Date of Service March 27, 2022 Coding Level of Care Code INT OBSERVATION CARE 68M LVL 3
[2022-03-27] MEDS ORDERED: PANTOprazole 40 MG TAB PO SCH (09:00)
--- NOTE | 2022-03-29 10:42 | Discharge Summary ---
Date of Service March 26, 2022 Admission HPI Per Admitting Provider Patient is a 67-year-old male with a past medical history of NSTEMI with sequential stent placement in 2019, hyperlipidemia, history of DVT, hypertension, and GERD presenting to the ED for the chief complaint of epigast lizeth pain. Patient reports that he was walking with his today at around noon and shortly after starting he had sudden onset 10 out of 10 epigastric pain with what he report as radiation down his left arm into the middle of his back. Reports that time he also became dizzy, nauseous, and lethargic. Did note that he had shortness of breath at that time and continued to have such during his car ride to the hospital. Patient had an NSTEMI in 2019 that required stenting. Patient reports that the pain that he felt today was similar to when he had his NSTEMI back in 2019. Patient reports that when his pain started he took 2 nitro which was about 12:30 which did show improvement. Interestingly, patient did have a steroid injection in the SI joint this morning. He also had a 5-day dose of steroids approximately 10 days ago for "skin lesion". Patient does report that he had an omelette for breakfast with a lot of hot sauce additionally had a small turkey sandwich before going on his walk with his . Denies vomiting, bowel changes, urinary complaints. ED Course: Patient had serial EKGs and serial troponins in the emergency department. Troponins have been negative thus far. No EKG changes noted from previous. CT of the chest abdomen pelvis were obtained there is no acute process except for some thickening of the gastric mucosa. CBC, coagulation panel, CMP, and lipase were also ordered and was overall within normal limits. Patient is COVID-negative. Principal Diagnosis Chest/epigastric pain - gastritis Esophageal Dysphagia Discharge Exam Constitutional WD/WN, vitals as above ENMT external ear and nose normal, oropharynx normal Neck trachea midline, no thyromegaly Respiratory normal respiratory effort, lungs clear to auscultation Cardiovascular RRR, no murmur, no edema Gastrointestinal (Abdomen) Inspection/Auscultation: normal bowel sounds Percussion/Palpation: + abdomen tender (Mild epigastric) and abdomen soft; no guarding and abdomen not rigid Musculoskeletal no cyanosis or clubbing, extremities motor strength 5/5 Skin no rashes, warm and dry Neurologic moves all extremities and awake; not confused Psychiatric A+Ox3, euthymic affect Discharge Data Allergies Allergy/AdvReac Type Severity Reaction Status Date / Time No Known Allergies Allergy Verified 03/25/22 15:53 Consultations 03/25/22 18:25 ED Decision to Admit Stat 03/26/22 20:00 Consult Cardiology Routine Ordered Studies 03/25/22 16:41 CT abd pelvis IV con only Stat IMPRESSION: 1. No acute intra-abdominal or pelvic abnormality. 2. Diffuse gastric mucosal thickening. 3. Minimal diverticulosis without evidence for diverticulitis. 4. Additional nonacute findings are delineated above. 03/25/22 16:44 CT angio chest PE protocol Stat Impression: 1. No CTA evidence for pulmonary embolus. 2. No acute chest disease. Hospital Course (1) Abdominal pain, epigastric: Fortino Pérez is a 67 year old male observed overnight at [facility] from March 25-2021 due to chest pain. Serial high sensitive troponins were negative and echocardiogram was normal. He was reviewed by cardiology and did not think pain was cardiac in nature to which I agree. CT angiogram did not show any evidence of pulmonary embolus or acute chest disease. CT abdomen pelvis did show some diffuse gastric mucosal thickening and given symptoms of heartburn suspect this is the most likely cause of his pain. He was started on famotidine (daily for the next 7 days) addition to his usual omeprazole (recommend he takes this regularly for at least the next 28 days instead of as needed). Recommend avoiding spicy, fatty, acidic, caffeine containing foods. Recommend discussing with terms of medications for amlodipine with his primary care provider on discharge as this may be making his heartburn worse. He is known to [facility] gastroenterology and due to associated dysphagia recommend follow-up with gastroenterology as an outpatient to consider EGD. (2) History of CA (myocardial infarction): (3) HTN (hypertension): (4) Hyperlipidemia: (5) GERD (gastroesophageal reflux disease): Total Time Total Time Spent Total Time Spent (In Minutes): 25 Discharge Plan Discharge Items Patient Disposition: Home - Self-Care Reason For Visit: CHEST PAIN RULE OUT Discharge Diagnosis: Chest pain - gastritis Esophageal Dysphagia (food getting stuck) Activity: Resume your previous activity Non-emergency contact: Primary Care Provider Call non-emergency contact if: you have any medication questions and your symptoms worsen Follow-up/Referrals: Alfred Steele [Physician] - (F/U EGD for dysphagia and gastritis) Mike Quan Jr, DO [Primary Care Provider] - Diet: Regular Addtl Attending Provider Instructions: You were observed overnight at [facility] from March 25-2021 due to chest pain. Serial high sensitive troponins were negative and echocardiogram was normal. You were reviewed by cardiology and did not think your pain was cardiac in nature. CT did show some thickening of your stomach and given your symptoms of heartburn suspect this is the most likely cause of your pain. You have been started on famotidine and pantoprazole (will switch to omeprazole on discharge as this is what you have at home). Avoid spicy, fatty, acidic or caffeine containing foods (see additional heartburn hand out sheet). You may wish to discuss your amlodipine medication with your primary care provider as this can make heartburn worse. Recommend taking famotidine 20mg PO daily for the next 7 days in addition to omeprazole 20mg PO daily for 28 days (for a longer course than this please follow up with your primary care provider). Please follow up with gastroenterology for heartburn/gastritis but also for your dysphagia (food getting stuck) as this can be a sign of a stricture. Referral made to Dr Steele ([facility]) - please call number above for follow up appointment next week if you have not heard back from the clinic. Pending Studies at Discharge: No Stand-Alone Forms: My [facility], Smoking Cessation Medications and DC Order Prescriptions: New famotidine 20 mg tablet 20 mg PO DAILY PRN (Reason: heartburn) Qty: 30 RF: 0 omeprazole 20 mg capsule,delayed release(DR/EC) 20 mg PO DAILY 28 Days Qty: 28 RF: 0 Continued hydrocortisone acetate [Anusol-HC] 25 mg suppository 25 mg MO BID PRN (Reason: hemorrhoids) RF: 0 tramadol 50 mg tablet 50 mg PO BID PRN (Reason: Pain) RF: 0 nitroglycerin [Nitrostat] 0.4 mg tablet, sublingual 0.4 mg Sublingual DIRECTED PRN (Reason: Chest Pain) Qty: 20 RF: 3 Eliquis 5 mg tablet 5 mg PO BID Qty: 60 RF: 11 clonazepam 2 mg Tablet 2 mg PO HS RF: 0 bupropion HCl 75 mg tablet 150 mg PO BID RF: 0 duloxetine [Cymbalta] 60 mg Capsule,Delayed Release(Dr/Ec) 60 mg PO QAM RF: 0 Probiotic with Prebiotic 1 billion-250 cell-mg Capsule 1 cap PO QAM RF: 0 multivitamin Tablet 1 tab PO QAM RF: 0 amlodipine 10 mg tablet 10 mg PO QAM RF: 0 ecnuefjvbn-gegmukskboipr-sgeg 50-300-40 mg capsule 1 - 2 cap PO Q4H PRN (Reason: Migraine Headache) RF: 0 atorvastatin 80 mg tablet 80 mg PO HS RF: 0 isosorbide mononitrate 30 mg tablet extended release 24 hr 30 mg PO QAM RF: 0 Discharge Orders: Discharge Order (Routine); Ordered 03/26/22 Ordered By: Prashant Jean/Other Patient Handouts: GERD Dc, ED GERD (Adult) Admission Data Admit Date/Time: 03/25/22 19:53 Attending Provider: Prashant Paulson Admit Provider: Damian Fish Primary Care Provider: Mike Quan Jr Other Providers: Nathaniel Zelaya Other Interventions: Discharge Summary Assessment (RN) Last Done: 03/26/22 16:23 Coding Level of Care Code 63767 OBS Care - Discharge Diagnoses Abdominal pain, epigastric R10.13 History of CA (myocardial infarction) I25.2 HTN (hypertension) I10 Hypertension type: essential hypertension Hyperlipidemia E78.5 GERD (gastroesophageal reflux disease) K21.9 Esophagitis presence: esophagitis presence not specified
== END 2022-03-26 17:05 | disposition home or self-care (01) ==
LOC: ED 13:34 → 2N 13:34 → SUATTDRO 19:53 → 2N 22:26

== ENCOUNTER 2023-08-03 05:18 | Observation (INO) ==
--- NOTE | 2023-07-05 08:45 | PAT Medication Instructions ---
Medication Instructions Date of Service July 05, 2023 Home Medications Medication Instructions Recorded nitroglycerin 0.4 mg sublingual 0.4 mg sublingual DIRECTED PRN 01/03/21 tablet (Nitrostat) Chest Pain #20 tabs apixaban 5 mg tablet (Eliquis) 5 mg PO BID #180 tabs 11/08/22 atorvastatin 80 mg tablet 80 mg PO HS #90 tabs 11/10/22 isosorbide mononitrate 30 mg 30 mg PO QAM #90 tabs 11/10/22 tablet,extended release 24 hr duloxetine 60 mg capsule,delayed release (Cymbalta) 60 mg PO QAM clonazepam 2 mg tablet 2 mg PO HS Bacillus coagulans-inulin 1 billion cell-250 mg capsule (Probiotic with Prebiotic) 1 cap PO QAM multivitamin 1 tab PO QAM bupropion HCl 75 mg tablet 75 mg PO BID amlodipine 10 mg tablet 10 mg PO QAM nitroglycerin 0.4 mg sublingual tablet (Nitrostat) 0.4 mg sublingual DIRECTED PRN Chest Pain qwbglozqum-voanbjozrdoov-yxwsazkl 50 mg-300 mg-40 mg capsule 1 - 2 cap PO Q4H PRN Migraine Headache omeprazole 20 mg capsule,delayed release 20 mg PO HS PRN Heartburn ondansetron 4 mg disintegrating tablet 4 mg PO Q8H PRN Nausea oxycodone 5 mg tablet 5 mg PO QID PRN Severe Pain (Scale Score 7-10) aripiprazole 2 mg tablet (Abilify) 2 mg PO QAM apixaban 5 mg tablet (Eliquis) 5 mg PO BID atorvastatin 80 mg tablet 80 mg PO HS isosorbide mononitrate 30 mg tablet,extended release 24 hr 30 mg PO QAM doxycycline monohydrate 100 mg capsule 100 mg PO BID PRN Acne tramadol 100 mg capsule 24h,extended release(25-75) 100 mg PO DAILY PRN Pain Continue as directed nitroglycerin 0.4 mg sublingual tablet (Nitrostat) 0.4 mg sublingual DIRECTED PRN Chest Pain (if needed) doxycycline monohydrate 100 mg capsule 100 mg PO BID PRN Acne (if needed) ASK your prescriber and surgeon apixaban 5 mg tablet (Eliquis) 5 mg PO BID aripiprazole 2 mg tablet (Abilify) 2 mg PO QAM DO NOT take the morning of surgery Bacillus coagulans-inulin 1 billion cell-250 mg capsule (Probiotic with Prebiotic) 1 cap PO QAM multivitamin 1 tab PO QAM wgnawcccdq-ksbgtuypmjnlu-tkcumxgb 50 mg-300 mg-40 mg capsule 1 - 2 cap PO Q4H PRN Migraine Headache Take morning of surgery With a small sip of water, OTHERWISE NOTHING TO EAT OR DRINK AFTER MIDNIGHT: duloxetine 60 mg capsule,delayed release (Cymbalta) 60 mg PO QAM bupropion HCl 75 mg tablet 75 mg PO BID amlodipine 10 mg tablet 10 mg PO QAM ondansetron 4 mg disintegrating tablet 4 mg PO Q8H PRN Nausea (if needed) oxycodone 5 mg tablet 5 mg PO QID PRN Severe Pain (if needed) isosorbide mononitrate 30 mg tablet,extended release 24 hr 30 mg PO QAM tramadol 100 mg capsule 24h,extended release(25-75) 100 mg PO DAILY PRN Pain (if needed) Take evening before surgery clonazepam 2 mg tablet 2 mg PO HS bupropion HCl 75 mg tablet 75 mg PO BID hsndyexjth-fgrvflqjavdvc-fzeosxgn 50 mg-300 mg-40 mg capsule 1 - 2 cap PO Q4H PRN Migraine Headache (if needed) omeprazole 20 mg capsule,delayed release 20 mg PO HS PRN Heartburn (if needed) ondansetron 4 mg disintegrating tablet 4 mg PO Q8H PRN Nausea (if needed) oxycodone 5 mg tablet 5 mg PO QID PRN Severe Pain (if needed) atorvastatin 80 mg tablet 80 mg PO HS tramadol 100 mg capsule 24h,extended release(25-75) 100 mg PO DAILY PRN Pain (if needed) Other Notes If you have any questions please call us at [phone] or [phone] or [phone] or [phone]
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
[2023-08-03] MEDS ORDERED: TRANEXAMIC ACID 1,000 MG in 0.9 % SODIUM CHLORIDE 100 ML IR SCH (06:00)
[2023-08-03] MEDS ORDERED: LR 500ML BOLUS, THEN 15ML/HR IV SCH (06:00)
[2023-08-03] MEDS ORDERED: ROPIVACAINE 0.5% HCL/PF 150 MG, BUPIVACAINE 0.75% MPF 20 ML, EPINEPHrine 0.15 MG, Ketor... INFIL SCH (06:00)
[2023-08-03] MEDS ORDERED: TRANEXAMIC ACID 1,000 MG **IV Intra-op IV SCH (06:00)
[2023-08-03] MEDS ORDERED: LR 60ML/HR IV SCH (06:00)
[2023-08-03] MEDS ORDERED: ceFAZolin 2000MG 2,000 MG/15 ML SYR IV SCH (06:00)
--- NOTE | 2023-08-03 06:27 | History & Physical Bridge Note ---
Date of Service August 03, 2023 History & Physical Bridge Note I have examined the patient, reviewed the History & Physical and in the interval since the performance of the History & Physical I have noted the following changes of clinical significance: site identified/consent obtained/abasion over 10 days old and clean .no changes noted
[2023-08-03] MEDS ORDERED: EPINEPHrine INJ 1 MG/ML AMP ONE (06:29)
[2023-08-03] MEDS ORDERED: BUPIVACAINE 0.5 % 5 MG/1 ML PF 10ML VIAL ONE (06:30)
[2023-08-03] MEDS ORDERED: ROPIVACAINE 0.5% 5 MG/ML 30 ML VIAL ONE (06:30)
[2023-08-03] MEDS ORDERED: ORTHO JOINT ANESTHETIC ONE (06:34)
[2023-08-03] MEDS ORDERED: MIDAZOLAM HCL 1 MG/ML 2ML VIAL ONE (06:41)
[2023-08-03] MEDS ORDERED: fentaNYL citrate PF 100 MCG/2 ML VIAL ONE (06:41)
[2023-08-03] MEDS ORDERED: ATROPINE SULFATE 0.1 MG/ML 10ML SYR IV PRN (07:00)
[2023-08-03] MEDS ORDERED: ePHEDrine sulfate 50 MG/ML AMP IV PRN (07:00)
[2023-08-03] MEDS ORDERED: PROPOFOL IV EMULSION 10 MG/ML 20 ML VIAL IV ONE ×2 (07:51→08:03)
[2023-08-03] MEDS ORDERED: LIDOCAINE 2% 2 ML VIAL/AMP(20MG/ML) INFIL ONE (07:51)
--- NOTE | 2023-08-03 08:38 | Post Operative Brief Note ---
Immediate Post Op Note v1 Date of Surgery August 03, 2023 Pre & Post Diagnosis Operation Date: 08/03/23 07:00 Pre-Op Diagnosis: Right Knee Degenerative Joint Disease Post-Op Diagnosis: Right Knee Degenerative Joint Disease I identified the patient and participated in the time-out.: Yes Procedure Operation Date: 08/03/23 07:00 Actual Procedures p Right Total Knee Arthroplasty(Right) - Beck Pride MD Surgeon Beck Pride MD Butadiene Converter Utility Operator Saba no resident or fellow available Estimated Blood Loss 100 Findings Consistent with Post-Op Diagnosis Grade 4 patellofemoral disease particularly in the central medial aspect of the trochlea. Grade 4 lesion approximately 15% of the medial femoral condyle remaining joint without much articular full-thickness loss but had gross grade 2-3 changes Fluids See anesthesia report Complications None
--- NOTE | 2023-08-03 08:42 | Operative Report ---
Post Operative Report Pre & Post Diagnosis Operation Date: 08/03/23 07:00 Pre-Op Diagnosis: Right Knee Degenerative Joint Disease Post-Op Diagnosis: Right Knee Degenerative Joint Disease I identified the patient and participated in the time-out.: Yes Procedure Operation Date: 08/03/23 07:00 Actual Procedures p Right Total Knee Arthroplasty(Right) - Beck Pride MD Surgeon Beck Pride MD Presentation Team Member Saba no resident or fellow available Estimated Blood Loss 100 Findings Consistent with Post-Op Diagnosis Grade 4 patellofemoral joint particularly the central and medial thirds. Had a grade 4 lesion approximate 15 to 20% of the medial femoral condyle rest of the joint grade 2-3 changes. Extensive synovitis Fluids See anesthesia report Specimens Bone pathology Drains None Complications None Indications Severe pain with recurrent swelling despite multiple series of viscosupplementation and corticosteroid injections. X-rays never revealed varus or valgus alignment most of his disease on his MRI scan was in the medial compartment of the patellofemoral joint that was quite extensive. Description of Procedure After patient was appropriate notified site provide consent provide antibiotics confirmed as being given the right lower extremity was prepped and draped routine fashion. Tourniquet was inflated to 275 mmHg for exsanguination limited rubber is recommended for a total of 57 minutes. Midline exposure was utilized parapatellar throughout any performed synovectomy completed. Medially encountered was the extensive disease throughout the patellofemoral joint. Medial compartment and area get about 15 to 20% the rest of the joint had some grade 2-3 changes. There was extensive synovitis this was all excised. Distal femur was then entered cruciates resected the menisci resected the tibia subluxated. Distal femur was resected 12 mm proximal tibia 4 mm the extension g ap was excellent they are both sized to a 5. On the femur actually a size 6 would been too large but was measured 6 then cut 5 this did not notch anything. Flexion gap was then checked and was excellent. The box cut was then made to size 5 fit well. The tibia was then broached and reamed to a size 5 and a 10 spacer fit well there was excellent tracking of the patella once an internal lateral lease was performed. The flexion gap was stable with the 10 mm spacer. The patella was resected leaving about 50 mm it was quite thick it was approxiforty 1 mm thick the 41 button trial was then seated after seating was made and tracked well. All trial implants were then removed after the Ortho mix was injected the knee was then soaked in Betadine for 2 minutes and TXA for 2 minutes and then irrigated and then the cemented implants placed tibia femur and patella in that order 12 minutes tourniquet deflated minor bleeding controlled minor bleeding points controlled with electrocautery. 14 minutes knee was flexed the trial spacer was removed there is no cement removal required wound was irrigated with Betadine and then the permanent spacer seated the knee reduced and closed 50 degrees of flexion using #2 Vicryl 2-0 Vicryl and stainless to clips appropriate dressing was applied patient transferred recovery in satisfactory addition he tolerated procedure well. He will appropriate back placed due to the fact he is on chronic anticoagulation for history of DVT PE. We will resume DVT PE prophylaxis tomorrow 24 hours postop pathology pending on bone. EBL roughly 100 cc crystalloid per anesthesia pathology pending on bone DVT prophylaxis with his previous medication I attest to the content of the Intraoperative Record and any orders documented therein. Any exceptions are noted below.
--- NOTE | 2023-08-03 08:44 | Discharge Summary ---
Date of Service August 03, 2023 Admission HPI Per Admitting Provider Painful right knee Admission Exam Per Admitting Provider End-stage patellofemoral disease advanced medial compartment disease underwent cemented right total knee replacement Principal Diagnosis Osteoarthritis right knee Discharge Data Allergies Allergy/AdvReac Type Severity Reaction Status Date / Time No Known Allergies Allergy Verified 08/03/23 05:43 Vaccinations None Consultations None Procedures Performed Operation Date: 08/03/23 07:00 Actual Procedures p Right Total Knee Arthroplasty(Right) - Beck Pride MD Ordered Studies 08/03/23 05:00 US - OR guided needle placemen Routine Hospital Course (1) Status post right knee replacement: Plan Continue care management plan for total knee replacement. Total Time Total Time Spent Total Time Spent (In Minutes): 5 minutes Discharge Plan Discharge Items Patient Disposition: Home - Home Health Services Reason For Visit: Right Knee Degenerative Joint Disease Discharge Diagnosis: Right knee s/p total knee replacement Condition on Discharge: Good Activity: Per Instructions section Lifting: Wait until after follow-up appointment Bathing: Keep incision dry Sexual Activity: Wait until after follow-up appointment Exercise/Sports: Wait until after follow-up appointment Driving/Machine Use: No driving until cleared by Dr. Pride Weightbearing: Full weightbearing Non-emergency contact: Surgeon Call non-emergency contact if: you have any medication questions, your pain is not controlled, your temperature is above 101.5, your wound has increased redness, your wound has increased drainage and your wound pain has increased Follow-up/Referrals: Alfred Nguyen [Primary Care Provider] - Diet: Regular Addtl Attending Provider Instructions: New Medicine: * You will likely be taking one or more of these medications: 1. Percocet - Take, as directed, when you need it, every four to six hours to control your pain. 2. Iron Sulfate - Take 1 time each day for the month after surgery to help you replace the blood lost during surgery. 3. Eliquis - Thins your blood to lessen the chance of forming a blood clot. * The most common side effects of pain medicine and iron are nausea and constipation. If nausea or constipation is too much of a problem or if you have any questions about your new medicines or doses, call [facility] at . We will try to help you manage these issues. "VERY IMPORTANT TO READ AND REVIEW" Blood Clots and Blood Thinning Medicine: * You are given Eliquis during the immediate post-operative period to lessen the risk of blood clots forming in your legs and/or lungs. Pain: * The immediate post-operative period after knee replacement surgery is often quite painful. * You are given a prescription for pain medicine. You should take it, as directed, when you need it, especially before physical therapy and before going to bed. Pain that interferes with sleep is very common and can last several months. * You will likely need pain medicine for the first four to six weeks. It will not stop all of the pain. The pain will lessen and as you feel better, you may change to milder pain medicine such as Tylenol. * The most common side effects of pain medicine are nausea and constipation, so don't take more than you need. Physical Therapy: * You will have physical therapy two or three times each week for four to six weeks after your surgery in order to regain your knee range of motion and to retrain your knee to work properly. * It is just as important to make sure you are getting your knee perfectly straight as it is to regain your knee bend. * Taking a pain pill an hour before therapy can help you have a more productive and comfortable therapy session if needed. Home Exercise: * You were shown a series of exercises (heel props, heel slides, etc.) in the hospital. Do these exercises three to four times each day including the exercises you were shown in physical therapy. Walking: * Get up and walk several times each day. For the first four weeks, try not to stand or walk for more than one hour at a time. If you do stand or walk for more than one hour, you will not hurt anything, but your knee and leg will likely swell. * As you feel comfortable, you may change from the walker or crutches to a cane and then to independent walking. SELF CARE INSTRUCTIONS AFTER TOTAL KNEE REPLACEMENT A. You may need to continue a physical therapy program after discharge from the hospital. There are several options available to you. Your doctor will assist you in selecting the best one for you. 1. An out-patient facility 2 to 3 times a week for therapy or home therapy. 2. Continue working on all exercises taught to you in the hospital. Your goals should be to increase bending of your knee to 90 degrees and beyond and to fully straighten your knee. B. You may progress at your own pace from walking with a walker or crutches to a cane; then to no assistive devices. C. Make walking a part of your daily routine. Be up as much as comfortable with rest periods throughout the day. Rest with leg elevation is very important. Use the ice wrap frequently for the first 3-4 weeks. D. There are no restrictions on activities. You may ride in a car, shop, participate in authors motivational and all social activities. E. Wear the long elastic stockings (RAMOS hose) 20 hours a day for six weeks after surgery. They can be removed several times a day for laundering and for a shower. F. Do not place a pillow behind your knee when resting. A pillow at your ankle is okay. VERY IMPORTANT TO READ AND REVIEW A. Take Eliquis (blood thinning medication) as directed by your doctor. B. There are a few signs you need to watch for after you are home. Call [facility] if you notice any of the followin. Increased severe knee pain. Some pain is expected especially when you exercise. 2. Increased swelling in your leg or knee; pain or swelling of the calf muscle in either lower leg. 3. Any fluid drainage from the incision. 4. Shortness of breath or chest pain. C. Please call [facility] at if you have any concerns or questions about your operation or recovery. The doctor or his nurse will return your call promptly. D. You must take antibiotics before dental work, bladder, bowel or other surgery. Call the office to obtain a prescription at least 2 days prior to your appointment. * CALL IF INCREASED PAIN, REDNESS, DRAINAGE OR FEVER GREATER THAT 101. * Sutures should be removed 12-14 days after surgery unless you are on chronic steroids, then it will be 14-18 days after surgery. Call your doctor if: * Temperature above 101 degrees F. * Pain not relieved by pain medicine ordered. * Increased drainage or redness from incision. * Notify your doctor with any questions or concerns. Use you knee immobilizer when out of bed on and Tuesday. It can be discontinued entirely on Tuesday morning. Use your walker for ambulation follow up in the office on 08/11 with Prince for wound vac removal Pending Studies at Discharge: Yes (Bone pathology) Stand-Alone Forms: [facility], Smoking Cessation Medications and DC Order Prescriptions: No Action nitroglycerin [Nitrostat] 0.4 mg tablet, sublingual 0.4 mg Sublingual DIRECTED PRN (Reason: Chest Pain) Qty: 20 3RF Rx Instructions: ONE TABLET UNDER TONGUE EVERY 5 MINUTES FOR UP TO 3 DOSES IF NEEDED FOR CHEST PAIN Eliquis 5 mg tablet 5 mg PO BID Qty: 180 3RF isosorbide mononitrate 30 mg tablet extended release 24 hr 30 mg PO QAM Qty: 90 3RF atorvastatin 80 mg tablet 80 mg PO HS Qty: 90 3RF ondansetron 4 mg tablet,disintegrating 4 mg PO Q8H PRN (Reason: Nausea) aripiprazole [Abilify] 2 mg tablet 2 mg PO QAM tramadol 100 mg capsule,ER biphase 24 hr 25-75 100 mg PO DAILY PRN (Reason: Pain) clonazepam 2 mg Tablet 2 mg PO HS bupropion HCl 75 mg tablet 75 mg PO BID duloxetine [Cymbalta] 60 mg Capsule,Delayed Release(Dr/Ec) 60 mg PO QAM Probiotic with Prebiotic 1 billion-250 cell-mg Capsule 1 cap PO QAM multivitamin Tablet 1 tab PO QAM amlodipine 10 mg tablet 10 mg PO QAM [id number] [Fioricet] 50-300-40 mg capsule 1 - 2 cap PO Q4H PRN (Reason: Migraine Headache) doxycycline monohydrate 100 mg capsule 100 mg PO BID PRN (Reason: Acne) omeprazole 20 mg capsule,delayed release(DR/EC) 20 mg PO HS PRN (Reason: Heartburn) oxycodone 5 mg Tablet 5 mg PO QID PRN (Reason: Severe Pain (Scale Score 7-10)) Admission Data Admit Date/Time: 08/03/23 09:01 Attending Provider: Beck Pride Admit Provider: Beck Pride Primary Care Provider: Alfred Nguyen Other Providers: [facility],Home Health
--- NOTE | 2023-08-03 08:47 | Operative Report ---
Post Operative Report Procedure Date: August 03, 2023 Pre & Post Diagnosis: Osteoarthritis right knee [] Time Out: I identified the patient and participated in the time-out. Procedure: [Cemented right total knee replacement] Surgeon: Bigg [] Stope Miner: [Saba no resident available or fellow available] Estimated Blood Loss: [100 cc] Findings: [See previous op report] Specimens: Bone pathology [] Description of Procedure: See previous op report this is being an addendum to the procedure to note the summary of implants which is a size 5 right posterior cruciate substituting femur size 5 mobile-bearing rotating platform tray size 41 patella size 5 x 10 mm rotating platform posterior stabilized insert 2 bags of [place] G cement these were all J[employer]J rotating platform implants.] Attestation: I attest to the content of the Intraoperative Record and any orders documented therein. Any exceptions are noted below.
--- NOTE | 2023-08-03 08:48 | Orthopedic Progress Note ---
Date of Service August 03, 2023 Assessment & Plan (1) Status post right knee replacement: Plan Continue care pathway resume anticoagulation 24 hours postop Admission and Anticipated Discharge Date Admission Date: Tomorrow Orthopedic Progress Note Patient did well status post cemented right total knee replacement. Denies chest pain shortness breath fever chills nausea vomiting or headache. Vital signs are stable he is afebrile. Neurovascular check limited by spinal. X-rays are pending.
--- NOTE | 2023-08-03 08:52 | Operative Report ---
Post Operative Report Pre & Post Diagnosis Operation Date: 08/03/23 07:00 Pre-Op Diagnosis: Right Knee Degenerative Joint Disease Post-Op Diagnosis: Right Knee Degenerative Joint Disease I identified the patient and participated in the time-out.: Yes Procedure Operation Date: 08/03/23 07:00 Actual Procedures p Right Total Knee Arthroplasty(Right) - Beck Pride MD Surgeon TAHIR Pride MD Satellite Dish Installer Saba MENDOZA no resident or fellow available Estimated Blood Loss 100 Findings Consistent with Post-Op Diagnosis see operative report Specimens see operative report Drains none Complications none Disposition Accompanied Patient To Recovery: Yes Indications This 68 year old male presented to the office with complaints of persisting right knee pain. He had tried conservative care measures without improvement. He elected to proceed with surgical intervention after being educated about potential risks and outcomes. Preoperative imaging was obtained Description of Procedure The patient was administered a spinal anesthetic and then taken to the operating room where he was given sedation. He was prepped and draped in the usual sterile fashion. Please see Dr. Pride's operative report for specifics of the procedure. I was present for the entire case from initial patient positioning through final wound closure. Assistance was provided in tissue retraction, hemostasis, trial implant placement, final implant placement, and final wound closure. The patient was taken to the recovery room in satisfactory condition. I attest to the content of the Intraoperative Record and any orders documented therein. Any exceptions are noted below.
--- NOTE | 2023-08-03 09:23 | Anesthesiology Progress Note ---
Date of Service August 03, 2023 Anesthesia Post Procedure Vital Signs Vital Signs: Temp Pulse Resp BP Pulse Ox O2 Del Method O2 Flow Rate 08/03/23 09:15 36.6 C 60 14 105/68 94 Room Air 08/03/23 09:05 63 15 115/69 95 Room Air 08/03/23 08:55 65 20 105/63 98 Oxymask 8 08/03/23 08:49 36.4 C L 78 16 109/68 95 Oxymask 8 08/03/23 05:39 36.9 C 64 20 132/80 97 Room Air Pain Intensity Right Knee: Pain Intensity: 6 Transfer of Care Handoff Completed per policy Notes Mental Status: alert / awake / arousable Patient Amnestic to Procedure: Yes Nausea / Vomiting: adequately controlled Pain: adequately controlled Airway Patency, RR, SpO2: stable & adequate BP & HR: stable & adequate Hydration State: stable & adequate Neuraxial Anesthesia: was administered and sensory block is resolving Anesthetic Complications: no major complications apparent
[2023-08-03] MEDS ORDERED: HYDROmorphone INJ 0.5 MG/0.5 ML SYR IV PRN (09:41)
[2023-08-03] MEDS ORDERED: ALUMINUM/MAGNESIUM SUSP 30 ML UDC PO PRN (09:41)
[2023-08-03] MEDS ORDERED: NALOXONE HCL 0.4 MG/1 ML VIAL/CARP IV PRN (09:41)
[2023-08-03] MEDS ORDERED: TAMSULOSIN HCL 0.4 MG CAP PO PRN (09:41)
[2023-08-03] MEDS ORDERED: SODIUM CHLORIDE 0.9% 1,000 ML IV SCH (09:41)
[2023-08-03] MEDS ORDERED: ONDANSETRON INJ 2 MG/ML 2 ML VIAL IV PRN (09:41)
[2023-08-03] MEDS ORDERED: MAGNESIUM HYDROXIDE SUSP 30 ML UDC PO PRN (09:41)
[2023-08-03] MEDS ORDERED: diphenhydrAMINE 50 MG/ML VIAL IV PRN (09:41)
[2023-08-03] MEDS ORDERED: bisacodyL 10 MG SUPP PR PRN (09:41)
[2023-08-03] MEDS ORDERED: NITROGLYCERIN SL 0.4 MG/TAB TAB SL PRN (09:41)
[2023-08-03] MEDS ORDERED: METOCLOPRAMIDE HCL INJ 5 MG/ML 2 ML VIAL IV PRN (09:41)
[2023-08-03] MEDS ORDERED: VANCOMYCIN CONSULT ACTIVE PRN (09:41)
--- NOTE | 2023-08-03 09:57 | XRay Report ---
RIGHT KNEE 2 VIEWS History: Right total knee arthroplasty. Degenerative arthritis. Postop. FINDINGS: The patient is status post a right total knee arthroplasty. The hardware is intact. No frac ture or dislocation. Skin ashley are in place. IMPRESSION: Right total knee arthroplasty. No evidence for hardware complication. ACT 112: Negative or not required by law. Electronically signed by: Avtar Malcolm M.D. 08/03/2023 9:56 AM
[2023-08-03] MEDS ORDERED: BUTALBITAL/ACETAMIN/CAFFEINE TAB PO PRN (10:05)
[2023-08-03] MEDS ORDERED: VANCOMYCIN HCL 1,750 MG in SODIUM CHLORIDE 0.9% 500 ML IV ONE (10:30)
[2023-08-03] MEDS: KETOROLAC TROMETHAMINE 15 MG/ML VIAL IV SCH ×3 (10:44→22:00)
[2023-08-03] MEDS: DULoxetine HCL 60 MG CAP PO SCH (13:01)
[2023-08-03] MEDS: DOCUSATE SODIUM 100 MG CAP PO SCH ×2 (13:01→19:34)
[2023-08-03] MEDS: ISOSORBIDE MONO EXTENDED REL 30 MG TABCR PO SCH (13:01)
[2023-08-03] MEDS: buPROPion HCl 75 MG TABLET PO SCH ×2 (13:01→19:35)
[2023-08-03] MEDS: ACETAMINOPHEN 500 MG TAB PO SCH ×2 (13:02→21:51)
[2023-08-03] MEDS: amLODIPine BESYLATE 5 MG TAB PO SCH (13:02)
[2023-08-03] MEDS: MULTIVITAMIN TAB PO SCH (13:02)
[2023-08-03] MEDS: ceFAZolin 2000MG 2,000 MG/15 ML SYR IV SCH ×2 (15:08→22:00)
[2023-08-03] MEDS: oxyCODONE HCL IR 5 MG TAB (IMMEDIATE RELEASE) PO PRN ×3 (15:57→23:40)
[2023-08-03] MEDS: FERROUS GLUCONATE 324 MG TAB PO SCH (16:38)
[2023-08-03] MEDS: ASCORBIC ACID 500 MG TAB PO SCH (16:38)
[2023-08-03] MEDS ORDERED: ATORVASTATIN 40 MG TAB PO SCH (21:00)
[2023-08-03] MEDS ORDERED: SENNA 8.6 MG TAB PO SCH (21:00)
[2023-08-03] MEDS ORDERED: clonazePAM 1 MG TAB PO SCH (21:00)
[2023-08-04] MEDS: KETOROLAC TROMETHAMINE 15 MG/ML VIAL IV SCH (05:50)
[2023-08-04] MEDS: ACETAMINOPHEN 500 MG TAB PO SCH (05:50)
[2023-08-04] MEDS: oxyCODONE HCL IR 5 MG TAB (IMMEDIATE RELEASE) PO PRN ×2 (05:57→10:55)
[2023-08-04 06:40] LABS: Hematocrit (blood only) 35.3 % (42.0-52.0); Mean Corpuscular Hemoglobin 31.9 pg (25.0-34.0); Mean Corpuscular Volume 93.9 fL (80.0-100.0); Platelet Count 173 K/uL (130-400); RDW Standard Deviation 44.3 fL (36.4-46.3); Red Blood Count 3.76 M/uL (4.70-6.10)
[2023-08-04 07:01] LABS: Calcium 9.4 mg/dl (8.6-10.3); Creatinine Clr Calc Pharmacy 142.4 ml/min; Est GFR (African American) 115.7 ml/min; Est GFR (Non-African American) 99.8 ml/min; Potassium 4.2 mmol/L (3.5-5.1)
[2023-08-04] MEDS: DULoxetine HCL 60 MG CAP PO SCH (07:24)
[2023-08-04] MEDS: DOCUSATE SODIUM 100 MG CAP PO SCH (07:25)
[2023-08-04] MEDS: amLODIPine BESYLATE 5 MG TAB PO SCH (07:25)
[2023-08-04] MEDS: FERROUS GLUCONATE 324 MG TAB PO SCH (07:25)
[2023-08-04] MEDS: buPROPion HCl 75 MG TABLET PO SCH (07:25)
[2023-08-04] MEDS: ISOSORBIDE MONO EXTENDED REL 30 MG TABCR PO SCH (07:25)
[2023-08-04] MEDS: ASCORBIC ACID 500 MG TAB PO SCH (07:26)
[2023-08-04] MEDS: MULTIVITAMIN TAB PO SCH (07:26)
[2023-08-04] MEDS ORDERED: dexAMETHasone 10 MG in SYRINGE 0 ML IV SCH (08:00)
--- NOTE | 2023-08-04 08:04 | Orthopedic Progress Note ---
Date of Service August 04, 2023 Assessment & Plan (1) Status post right knee replacement: Plan Continue care management plan for total knee replacement. Admission and Anticipated Discharge Date Admission Date: August 03, 2023 Subjective Did well overnight status post right total knee replacement. Patient had no issues. Pain is well managed. Vital signs are stable he is afebrile. A.m. labs are excellent. Wound dressing clean dry and intact calves nontender. Femoral sciatic nerve functioning well. Assessment doing well status post right total knee replacement. Plan is to discharge today. Resume anticoagulation. Results & Data Vital Signs (Past 12 Hours) Vital Signs Temp Pulse Resp BP Pulse Ox O2 Del Method 08/04/23 07:44 36.8 C 64 16 120/73 95 Room Air 08/04/23 04:04 37.0 C 68 18 125/74 96 Room Air 08/03/23 23:33 36.6 C 64 18 128/69 96 Room Air
[2023-08-04] MEDS ORDERED: APIXABAN 5 MG TABLET PO SCH (09:00)
[2023-08-04] MEDS ORDERED: ARIPIprazole 1 MG/ML ORAL SOLN 150 ML BTL PO SCH (09:00)
--- NOTE | 2023-08-04 10:29 | Discharge Summary ---
Date of Service August 04, 2023 Admission HPI Per Admitting Provider Painful right knee Principal Diagnosis Status post right knee replacement Discharge Data Allergies Allergy/AdvReac Type Severity Reaction Status Date / Time No Known Allergies Allergy Verified 08/03/23 05:43 Vaccinations None Consultations None Procedures Performed Operation Date: 08/03/23 07:00 Actual Procedures p Right Total Knee Arthroplasty(Right) - Beck Pride MD Ordered Studies 08/03/23 05:00 US - OR guided needle placemen Routine Hospital Course (1) Status post right knee replacement: Plan Continue care management plan for total knee replacement. Total Time Total Time Spent Total Time Spent (In Minutes): 10 minutes Discharge Plan Discharge Items Patient Disposition: Home - Home Health Services Reason For Visit: Right Knee Degenerative Joint Disease Discharge Diagnosis: Right knee s/p total knee replacement Condition on Discharge: Good Activity: Per Instructions section Lifting: Wait until after follow-up appointment Bathing: Keep incision dry Sexual Activity: Wait until after follow-up appointment Exercise/Sports: Wait until after follow-up appointment Driving/Machine Use: No driving until cleared by Dr. Pride Weightbearing: Full weightbearing Non-emergency contact: Surgeon Call non-emergency contact if: you have any medication questions, your pain is not controlled, your temperature is above 101.5, your wound has increased redness, your wound has increased drainage and your wound pain has increased Follow-up/Referrals: Alfred Nguyen [Primary Care Provider] - Prince Walter PA-C [Physician Maitre D] - 08/11/23 11:30 am Diet: Regular Addtl Attending Provider Instructions: New Medicine: * You will likely be taking one or more of these medications: 1. Percocet - Take, as directed, when you need it, every four to six hours to control your pain. 2. Iron Sulfate - Take 1 time each day for the month after surgery to help you replace the blood lost during surgery. 3. Eliquis - Thins your blood to lessen the chance of forming a blood clot. * The most common side effects of pain medicine and iron are nausea and constipation. If nausea or constipation is too much of a problem or if you have any questions about your new medicines or doses, call [facility] at . We will try to help you manage these issues. "VERY IMPORTANT TO READ AND REVIEW" Blood Clots and Blood Thinning Medicine: * You are given Eliquis during the immediate post-operative period to lessen the risk of blood clots forming in your legs and/or lungs. Pain: * The immediate post-operative period after knee replacement surgery is often quite painful. * You are given a prescription for pain medicine. You should take it, as directed, when you need it, especially before physical therapy and before going to bed. Pain that interferes with sleep is very common and can last several months. * You will likely need pain medicine for the first four to six weeks. It will not stop all of the pain. The pain will lessen and as you feel better, you may change to milder pain medicine such as Tylenol. * The most common side effects of pain medicine are nausea and constipation, so don't take more than you need. Physical Therapy: * You will have physical therapy two or three times each week for four to six weeks after your surgery in order to regain your knee range of motion and to retrain your knee to work properly. * It is just as important to make sure you are getting your knee perfectly straight as it is to regain your knee bend. * Taking a pain pill an hour before therapy can help you have a more productive and comfortable therapy session if needed. Home Exercise: * You were shown a series of exercises (heel props, heel slides, etc.) in the hospital. Do these exercises three to four times each day including the exercises you were shown in physical therapy. Walking: * Get up and walk several times each day. For the first four weeks, try not to stand or walk for more than one hour at a time. If you do stand or walk for more than one hour, you will not hurt anything, but your knee and leg will likely swell. * As you feel comfortable, you may change from the walker or crutches to a cane and then to independent walking. SELF CARE INSTRUCTIONS AFTER TOTAL KNEE REPLACEMENT A. You may need to continue a physical therapy program after discharge from the hospital. There are several options available to you. Your doctor will assist you in selecting the best one for you. 1. An out-patient facility 2 to 3 times a week for therapy or home therapy. 2. Continue working on all exercises taught to you in the hospital. Your goals should be to increase bending of your knee to 90 degrees and beyond and to fully straighten your knee. B. You may progress at your own pace from walking with a walker or crutches to a cane; then to no assistive devices. C. Make walking a part of your daily routine. Be up as much as comfortable with rest periods throughout the day. Rest with leg elevation is very impor tant. Use the ice wrap frequently for the first 3-4 weeks. D. There are no restrictions on activities. You may ride in a car, shop, participate in tire sorter and all social activities. E. Wear the long elastic stockings (RAMOS hose) 20 hours a day for six weeks after surgery. They can be removed several times a day for laundering and for a shower. F. Do not place a pillow behind your knee when resting. A pillow at your ankle is okay. VERY IMPORTANT TO READ AND REVIEW A. Take Eliquis (blood thinning medication) as directed by your doctor. B. There are a few signs you need to watch for after you are home. Call [facility] if you notice any of the followin. Increased severe knee pain. Some pain is expected especially when you exercise. 2. Increased swelling in your leg or knee; pain or swelling of the calf muscle in either lower leg. 3. Any fluid drainage from the incision. 4. Shortness of breath or chest pain. C. Please call [facility] at if you have any concerns or questions about your operation or recovery. The doctor or his nurse will return your call promptly. D. You must take antibiotics before dental work, bladder, bowel or other surgery. Call the office to obtain a prescription at least 2 days prior to your appointment. * CALL IF INCREASED PAIN, REDNESS, DRAINAGE OR FEVER GREATER THAT 101. * Sutures should be removed 12-14 days after surgery unless you are on chronic steroids, then it will be 14-18 days after surgery. Call your doctor if: * Temperature above 101 degrees F. * Pain not relieved by pain medicine ordered. * Increased drainage or redness from incision. * Notify your doctor with any questions or concerns. Use your knee immobilizer when out of bed on and Tuesday. It can be discontinued entirely on Tuesday morning. Use your walker for ambulation follow up in the office on 08/11 with Prince for wound vac removal Continue your usual dose of Eliquis Pending Studies at Discharge: Yes (Bone pathology) Stand-Alone Forms: My [facility], Smoking Cessation Medications and DC Order Prescriptions: New oxycodone-acetaminophen [Percocet] 5-325 mg tablet 2 tab PO Q6H PRN (Reason: pain) Qty: 20 0RF Rx Instructions: initial script Continued nitroglycerin [Nitrostat] 0.4 mg tablet, sublingual 0.4 mg Sublingual DIRECTED PRN (Reason: Chest Pain) Qty: 20 3RF Rx Instructions: ONE TABLET UNDER TONGUE EVERY 5 MINUTES FOR UP TO 3 DOSES IF NEEDED FOR CHEST PAIN Eliquis 5 mg tablet 5 mg PO BID Qty: 180 3RF isosorbide mononitrate 30 mg tablet extended release 24 hr 30 mg PO QAM Qty: 90 3RF atorvastatin 80 mg tablet 80 mg PO HS Qty: 90 3RF ondansetron 4 mg tablet,disintegrating 4 mg PO Q8H PRN (Reason: Nausea) aripiprazole [Abilify] 2 mg tablet 2 mg PO QAM tramadol 100 mg capsule,ER biphase 24 hr 25-75 100 mg PO DAILY PRN (Reason: Pain) clonazepam 2 mg Tablet 2 mg PO HS bupropion HCl 75 mg tablet 75 mg PO BID duloxetine [Cymbalta] 60 mg Capsule,Delayed Release(Dr/Ec) 60 mg PO QAM Probiotic with Prebiotic 1 billion-250 cell-mg Capsule 1 cap PO QAM multivitamin Tablet 1 tab PO QAM amlodipine 10 mg tablet 10 mg PO QAM [id number] [Fioricet] 50-300-40 mg capsule 1 - 2 cap PO Q4H PRN (Reason: Migraine Headache) doxycycline monohydrate 100 mg capsule 100 mg PO BID PRN (Reason: Acne) omeprazole 20 mg capsule,delayed release(DR/EC) 20 mg PO HS PRN (Reason: Heartburn) oxycodone 5 mg Tablet 5 mg PO QID PRN (Reason: Severe Pain (Scale Score 7-10)) Krames/Other Patient Handouts: Apixaban Oral Tablet, Preventing Deep Vein Thrombosis Admission Data Admit Date/Time: 08/03/23 09:01 Attending Provider: Beck Pride Admit Provider: Beck Pride Primary Care Provider: Alfred Nguyen Other Providers: [facility],Home Health Other Interventions: Discharge Summary Assessment (RN) Last Done: 08/04/23 08:27
--- NOTE | 2023-08-04 10:32 | Orthopedic Progress Note ---
Date of Service August 04, 2023 Assessment & Plan (1) Status post right knee replacement: Plan: The patient's dressing was changed today by me. A Prevena wound VAC was applied. He will keep this in place until I see him in the office next at 11:30 AM for removal. Keep the wound clean and dry. Continue wearing his RAMOS hose. Use the knee immobilizer today and tomorrow. It may be discontinued on Tuesday. Use the walker for ambulation. Call the office with any other concerns. Prescription for Percocet was sent to his pharmacy. Written discharge instructions were provided. He will be discharged home today with home health services. Admission and Anticipated Discharge Date Admission Date: August 03, 2023 Subjective This 68-year-old male is seen today in his room. He did well overnight. He has no current complaints. Denies any chest pain, shortness of breath, nausea, vomiting, or abdominal pain. He states the knee is mildly uncomfortable at this point, but does not have any emmett pain. He has been out of bed and has already worked with therapy. He feels ready to go home. No other complaints at this point. He states this knee was easier than his previous. Physical Exam Physical Exam: General: Well-developed, well-nourished, elderly male, in no acute distress. Sitting in a bedside chair. Alert and oriented. Skin: Warm and dry with good turgor. No rashes. Expected postoperative ecchymosis and edema at his right knee. Surgical incision is closed. Miguelito are in place. There is no active drainage. There is scant dried blood on his inner dressing. Musculoskeletal: The patient is able to set his quad. He is able to perform a straight leg raise with with some assistance. He does have full terminal extension. Flexion to 60 degrees easily. Intact motor function of the ankle and toes. Neurologic: Gross sensation is intact across the right leg by soft touch. Results & Data Vital Signs (Past 12 Hours) Vital Signs Temp Pulse Resp BP Pulse Ox O2 Del Method 08/04/23 07:44 36.8 C 64 16 120/73 95 Room Air 08/04/23 04:04 37.0 C 68 18 125/74 96 Room Air 08/03/23 23:33 36.6 C 64 18 128/69 96 Room Air Laboratory Results CBC obtained today shows a white count of 10.0. Hemoglobin 12.0, hematocrit 35.3. Platelets of 173,000. Sodium 138, potassium 4.2, chloride 106, CO2 28, BUN of 12, creatinine 0.63. Glucose 134.
== END 2023-08-04 11:15 | disposition home health service (06) ==
LOC: 3E 05:18 → ASU 05:18